=== PATIENT | female | born 1990 | race Caucasian/White ===

== ENCOUNTER → 2016-10-05 | Outpatient (CLI) | payer BC ==
[~2016-10-05] MED LIST: ACET500T PO; AUGM875T27 PO; DOCU10ELUD PO; IBUP100SUS PO; MOME50SP; PERCOCET PO; PRENTAB66 PO; PROM25TA PO
--- NOTE | 2016-10-05 16:06 | REP ---
Obstetric ultrasound for anatomy: There is a single intrauterine gestation. position is variable. There is movement. heart rate is 147 beats per minute. The placenta is posterior. There is no placenta previa or abruptio. The placenta is grade 0 maturity. Cervix measures 4.6 cm length. Gestational age by today's measurements is 20 weeks 3 days with an BIENVENIDO of 02/19/2017. Gestational age by the first ultrasound this gestation is 20 weeks 3 days and by LMP is 19 weeks 6 days. weight is 354 grams (0 pounds, 12 ounces). This is the 66 percentile for 19 weeks 6 days. The following anatomic structures are identified and are unremarkable: Intracranial lateral ventricles, choroid plexus, cerebellum, cisterna magna, facial profile, upper lip, lungs, four-chamber heart, cardiac left ventricular outflow tract, diaphragm, stomach, cord insertion, three-vessel cord, kidneys, bladder, spine and upper/ lower extremities. The cardiac right ventricular outflow tract is not optimally demonstrated. Otherwise, no anomalies are identified. Followup study dedicated to the cardiac outflow tracts might be considered. Signed by Tad Mims MD 10/05/2016 03:58 P
== END | disposition home or self-care (01) ==
LOC: M RAD 09:48
PROVIDERS: ATTEND Obstetrics & Gynecology
DX: Z34.82 Encounter for supervision of other normal pregnancy, second trimester (principal); Z36 Encounter for antenatal screening of mother; Z3A.20 20 weeks gestation of pregnancy

== ENCOUNTER → 2016-10-11 | Outpatient (REF) | payer OTHER | LOC: M LAB REF 16:33 | PROVIDERS: ATTEND Physician Assistant | DX: J02.9 Acute pharyngitis, unspecified (principal) ==

== ENCOUNTER 2016-10-26 08:51 | Outpatient (CLI) | payer BC, OTHER ==
[~2016-10-26] VITALS: Ht 170.2 cm; Wt 114.0 kg
[2016-10-26] MEDS ORDERED: LR 1,000 ML IV ONE (09:00)
[2016-10-26] MEDS ORDERED: PRENTAB9 PO (09:01)
[2016-10-26 09:10] VITALS: BP 117/77
[2016-10-26] MEDS ORDERED: LR 1,000 ML IV SCH (09:15)
[2016-10-26 09:40] LABS: BASO % 0.2 % (0.0-1.0); EOS # 0.1 K/mm3 (0.0-0.50); EOS % 0.9 % (0.0-3.0); LARGE UNSTAINED CELL # 0.1 K/mm3 (0.0-0.4); LARGE UNSTAINED CELL % 0.5 % (0.0-4.0); LYMPH # 1.7 K/mm3 (1.5-6.5); LYMPH % 11.4 % (24.0-44.0); MEAN CORPUSCULAR HEMOGLOBIN 29.5 pg (27.0-33.0); MEAN CORPUSCULAR HGB CONC 33.8 g/dl (32.0-36.5); MEAN CORPUSCULAR VOLUME 87.4 fl (80.0-96.0); MONO # 0.5 K/mm3 (0.0-0.8); MONO % 3.8 % (0.0-5.0); NEUTROPHILS # 11.7 K/mm3 (1.8-7.7); NEUTROPHILS % 83.2 % (36.0-66.0); PLATELET COUNT, AUTOMATED 268 k/mm3 (150-450); RED CELL DISTRIBUTION WIDTH 13.3 % (11.5-14.5); WHITE BLOOD COUNT 14.1 K/mm3 (4.0-10.0)
[2016-10-26 10:12] LABS: ALBUMIN 2.9 GM/DL (3.2-5.2); ALBUMIN/GLOBULIN RATIO 0.88 (1.00-1.93); ALKALINE PHOSPHATASE 67 U/L (45-117); ALT/SGPT 16 U/L (12-78); ANION GAP 11 MEQ/L (8-16); AST/SGOT 16 U/L (15-37); BILIRUBIN,TOTAL 0.3 MG/DL (0.2-1.0); BLOOD UREA NITROGEN 6 MG/DL (7-18); CALCIUM LEVEL 8.7 MG/DL (8.5-10.1); CARBON DIOXIDE LEVEL 22 MEQ/L (21-32); CHLORIDE LEVEL 108 MEQ/L (98-107); CREATININE FOR GFR 0.64 MG/DL (0.55-1.02); GLOMERULAR FILTRATION RATE > 60.0 (>60); GLUCOSE, FASTING 90 MG/DL (70-105); POTASSIUM SERUM 3.7 MEQ/L (3.5-5.1); SODIUM LEVEL 141 MEQ/L (136-145); TOTAL PROTEIN 6.2 GM/DL (6.4-8.2)
[2016-10-26 13:10] VITALS: BP 114/62
--- NOTE | 2016-11-01 15:31 | IPNPDOC ---
Obstetrical Progress Note Date of Service The patient was seen on 10/26/16 at 12:40. Progress Note SUBJECTIVE: Patient is a 26 year old female who is a who is 22 weeks 6 days gestation with an BIENVENIDO of 02/23/17 based off of her 1st trimester ultrasound and consistent with her LMP. She presented to L&D after she had an episode of dizziness and "passed out." Patient reports that she woke up and had to go to the bathroom. She reports getting up quickly and feeling dizzy after she did. She describes a syncopal episode that involved her falling in her bathroom onto the radiator hitting her left arm and her right cheek bone. Patient reports it as a slow fall and she did not hit her abdomen. She did report some lower suprapubic cramping that has been occurring the the day prior. She states the cramping is much better now. She was given an ice pack for comfort. Currently denies any dizziness. Reports active movement. Denies vaginal bleeding or leaking of fluid. Medical History: varicose veins, SLE, migraines, varicella as a child Surgical: cholecystectomy in 2014 OBJECTIVE:FHR obtained. No contractions noted on EFM. PHYSICAL EXAMINATION: Abdomen: gravid, soft to palpation Face: small 1 inch red jordan present on right cheek bone Upper extremities: small bruise present on left upper arm VITAL SIGNS: Please see below. CURRENT LABS: Please see below. ASSESSMENT: IUP at 22 weeks 6 days gestation, syncopal episode likely brought on by orthostatic hypotension, round ligament pain, systemic lupus erythema PLAN:Reviewed comfort measures to help with pain from fall. Reviewed normal discomforts with patient to include round ligament pain. Reviewed measures to decrease dizziness to include appropriate diet to maintain glucose levels and getting up slowly. Encouraged patient to increase her fluid take. A note was written for patient to be out of work today. Reviewed with patient that she needs to call office with any vaginal bleeding, if cramping becomes worse, she doesn't feel movement. Reviewed access to care, cross coverage of care, and danger signs to report. MAy be discharged home with . Follow up with routine OB care. VS, I&O, 24H, Fishbone Vital Signs/I&O Vital Signs Date Time Temp Pulse Resp B/P Pulse Ox O2 Delivery O2 Flow Rate FiO2 10/26/16 13:10 98.3 70 18 114/62 Laboratory Data 24H LABS Item Value Date Time White Blood Count 14.1 K/mm3 H 10/26/16 0913 Red Blood Count 4.34 M/mm3 10/26/16 0913 Hemoglobin 12.8 g/dl 10/26/16 0913 Hematocrit 37.9 % 10/26/16 0913 Platelet Count 268 k/mm3 10/26/16 0913 Lupus Anticoag DRVVT Screen Ratio 0.9 10/26/16 1157 Urine Color YELLOW 10/26/16 0957 Urine Appearance HAZY 10/26/16 0957 Urine pH 6.0 UNITS 10/26/16 0957 Urine Specific [place] 1.018 10/26/16 0957 Urine Protein NEGATIVE mg/dL 10/26/16 0957 Urine Glucose (UA) NEGATIVE mg/dL 10/26/16 0957 Urine Ketones NEGATIVE mg/dL 10/26/16 0957 Urine Blood NEGATIVE 10/26/16 0957 Urine Nitrite NEGATIVE 10/26/16 0957 Urine Bilirubin NEGATIVE 10/26/16 0957 Urine Urobilinogen 0.2 mg/dL 10/26/16 0957 Urine Leukocyte Esterase 1+ H 10/26/16 0957 Urine WBC (Auto) 10 /HPF H 10/26/16 0957 Urine RBC (Auto) 1 /HPF 10/26/16 0957 Urine Hyaline Casts (Auto) 0 /LPF 10/26/16 0957 Urine Bacteria (Auto) NEGATIVE 10/26/16 0957 Urine Squamous Epithelial Cells 5 /HPF 10/26/16 0957 Anti-Double Strand DNA Antibody <1 IU/mL 10/26/16 1157 Microbiology Microbiology 10/26/16 Urine Culture - Final, Complete THOMAS ALLEN CNM Nov 01, 2016 15:31
== END 2016-10-26 12:57 | disposition home or self-care (01) ==
LOC: M LDO 08:51
PROVIDERS: ATTEND Obstetrics & Gynecology
DX: O26.892 Other specified pregnancy related conditions, second trimester (principal); O99.89 Other specified diseases and conditions complicating pregnancy, childbirth and the puerperium; R42 Dizziness and giddiness; R55 Syncope and collapse; M54.9 Dorsalgia, unspecified; O9A.212 Injury, poisoning and certain other consequences of external causes complicating pregnancy, second trimester; S49.92XA Unspecified injury of left shoulder and upper arm, initial encounter; S09.93XA Unspecified injury of face, initial encounter; W18.09XA Striking against other object with subsequent fall, initial encounter; Y92.091 Bathroom in other non-institutional residence as the place of occurrence of the external cause; Y93.89 Activity, other specified; Y99.9 Unspecified external cause status; Z3A.22 22 weeks gestation of pregnancy

== ENCOUNTER → 2016-11-02 | Outpatient (CLI) | payer BC, OTHER ==
[~2016-11-02] MED LIST changes: +PRENTAB9 PO
--- NOTE | 2016-11-02 13:25 | REP ---
OB ULTRASOUND: Real-time sonographic evaluation of the gravid uterus is performed. There is a single living intrauterine gestation, estimated gestational age 23 weeks 6 days. EDC 02/23/2017. Today's measurements indicate appropriate growth. BPD 58 mm 23 weeks 5 days, 47th percentile HC 219 mm 23 weeks 6 days, 50th percentile AC 202 mm 24 weeks 6 days, 69th percentile FL 45 mm = 24 weeks 6 days, 70th percentile HC/AC ratio 1.08 within normal range. Estimated weight 722 grams, 68th percentile. Cervix closed and measures 3.1 cm in length. heart rate 139 beats per minute. SEEN/GROSSLY UNREMARKABLE Lateral ventricles Yes Posterior fossa Yes Upper lip Yes Four-chamber heart Yes LVOT Yes RVOT Yes Stomach Yes Cord insertion Yes Three vessel cord Yes Kidneys Yes Bladder Yes Spine No position: Breech. Placenta: Posterior and grade 0 with no previa or abruption. Amniotic fluid: Within normal limits. Signed by Tad Farias MD 11/02/2016 04:43 P
== END ==
LOC: M RAD 09:38
PROVIDERS: ATTEND Obstetrics & Gynecology
DX: O32.1XX0 Maternal care for breech presentation, not applicable or unspecified (principal); Z36 Encounter for antenatal screening of mother; Z3A.23 23 weeks gestation of pregnancy

== ENCOUNTER 2016-11-03 14:59 | Outpatient (CLI) | payer BC, OTHER ==
[~2016-11-03] VITALS: Ht 170.2 cm; Wt 116.0 kg
[2016-11-03 15:32] VITALS: BP 129/73
--- NOTE | 2016-11-04 12:07 | IPNPDOC ---
Obstetrical Progress Note Date of Service The patient was seen on 11/03/16 at 16:00. Progress Note SUBJECTIVE: Patient is a 26-year-old 011 at 24 weeks' gestation with an BIENVENIDO of 02/23/2017 based on a first trimester ultrasound and consistent with her LMP. Patient initiated care at [facility] in her first trimester. Her has been complicated by systemic lupus erythema, varicose veins, and migraines. Patient presents to labor and delivery today with complaints of abdominal pain and back pain that started at 11:30 this morning while patient was at work. Patient reports pain to be in the suprapubic area and occasionally in her back. Reports pain as sharp shooting and intermittent. Patient denies dysuria, abnormal vaginal discharge, leaking of fluid, or diarrhea. Patient reports active movement. Reviewed patient's diet: At 0500 she ate a bagel with cream cheese and at 1045 she ate a mckoy mcdouble and small [place]. Past medical history: Migraines, systemic lupus erythema, and varicose veins Surgical history: Cholecystectomy in 2013 Obstetrical history: August 2012 and of a living male at 40 weeks gestation weighing 6 lbs. 11 oz. no complications. January 2016 5 week spontaneous . OBJECTIVE: heart rate baseline 120, moderate variability, positive accelerations, no decelerations. Contractions not noted. PHYSICAL EXAMINATION: Abdomen: Gravid. Soft on palpation. Vaginal exam: Speculum exam: Cervix is posterior, normal physiological discharge , appears thick and without dilatation. Extremities: No pitting edema. Varicose veins noted in lower extremities. VITAL SIGNS: Please see below. ASSESSMENT: IUP at 24 weeks gestation, not in labor, abdominal pain related to a high fat diet after cholecystectomy PLAN: Patient given an abdominal support binder to wear while she is working. Reviewed proper body mechanics while at work. Education done with patient on diet with recommendations of diet changes to decrease fat consumption and carbohydrate intake. Reviewed comfort measures the patient for abdominal pain and back pain. Danger signs reviewed with patient and encouraged to call the office if she is experiencing any of those signs or symptoms. Patient's discharge to home with and encouraged follow-up with routine obstetrical care. Case was reviewed with Dr. Guallpa who agrees with plan of care. VS, I&O, 24H, Fishbone Vital Signs/I&O Vital Signs Date Time Temp Pulse Resp B/P Pulse Ox O2 Delivery O2 Flow Rate FiO2 11/03/16 15:32 99.5 71 20 129/73 THOMAS ALLEN CNM Nov 03, 2016 16:44
== END 2016-11-03 16:20 | disposition home or self-care (01) ==
LOC: M LDO 14:59
PROVIDERS: ATTEND Advanced Practice Midwife
DX: O26.892 Other specified pregnancy related conditions, second trimester (principal); O22.02 Varicose veins of lower extremity in pregnancy, second trimester; O99.352 Diseases of the nervous system complicating pregnancy, second trimester; O99.89 Other specified diseases and conditions complicating pregnancy, childbirth and the puerperium; M32.9 Systemic lupus erythematosus, unspecified; Z3A.24 24 weeks gestation of pregnancy

== ENCOUNTER → 2016-11-16 | Outpatient (CLI) | payer BC, OTHER ==
[2016-11-16 12:49] LABS: MEAN CORPUSCULAR HEMOGLOBIN 30.3 pg (27.0-33.0); MEAN CORPUSCULAR HGB CONC 33.9 g/dl (32.0-36.5); MEAN CORPUSCULAR VOLUME 89.4 fl (80.0-96.0); RED CELL DISTRIBUTION WIDTH 13.2 % (11.5-14.5); WHITE BLOOD COUNT 11.9 K/mm3 (4.0-10.0)
== END ==
LOC: M LAB 10:36
PROVIDERS: ATTEND Obstetrics & Gynecology
DX: Z34.82 Encounter for supervision of other normal pregnancy, second trimester (principal); Z36 Encounter for antenatal screening of mother; Z3A.00 Weeks of gestation of pregnancy not specified

== ENCOUNTER → 2016-12-05 | Outpatient (REF) | payer OTHER | LOC: M LAB REF 12:50 | PROVIDERS: ATTEND Advanced Practice Midwife | DX: R10.2 Pelvic and perineal pain (principal) ==

== ENCOUNTER → 2016-12-14 | Outpatient (REF) | payer OTHER | LOC: M LAB REF 13:00 | PROVIDERS: ATTEND Advanced Practice Midwife | DX: O99.352 Diseases of the nervous system complicating pregnancy, second trimester (principal); Z36 Encounter for antenatal screening of mother; Z3A.00 Weeks of gestation of pregnancy not specified ==

== ENCOUNTER → 2016-12-20 | Outpatient (REF) | payer OTHER | LOC: M LAB REF 12:46 | PROVIDERS: ATTEND Advanced Practice Midwife | DX: O99.352 Diseases of the nervous system complicating pregnancy, second trimester (principal); Z36 Encounter for antenatal screening of mother; Z3A.00 Weeks of gestation of pregnancy not specified ==

== ENCOUNTER 2017-01-14 14:44 | Outpatient (CLI) | payer BC, OTHER ==
[~2017-01-14] VITALS: Ht 170.2 cm; Wt 110.0 kg
[~2017-01-14 14:44] MED LIST changes: -ACET50TA PO; -ACETAMINOPHEN 325 MG TAB PO ONE; -diphenhydrAMINE 50 MG CAP PO ONE
[2017-01-14] MEDS ORDERED: ACET50TA PO (14:52)
[2017-01-14] MEDS ORDERED: diphenhydrAMINE 25 MG CAP As Ordered ONE (15:57)
[2017-01-14] MEDS ORDERED: ACETAMINOPHEN 500 MG TAB As Ordered ONE (16:13)
[2017-01-14] MEDS ORDERED: ACETAMINOPHEN 500 MG TAB PO PRN (16:15)
[2017-01-14] MEDS ORDERED: diphenhydrAMINE 50 MG CAP PO PRN (16:15)
== END 2017-01-14 16:25 | disposition home or self-care (01) ==
LOC: M LDO 14:44
PROVIDERS: ATTEND Advanced Practice Midwife
DX: O99.89 Other specified diseases and conditions complicating pregnancy, childbirth and the puerperium (principal); T50.A15A Adverse effect of pertussis vaccine, including combinations with a pertussis component, initial encounter; Z3A.34 34 weeks gestation of pregnancy

== ENCOUNTER → 2017-01-14 | Emergency (ER) | payer BC, OTHER ==
[~2017-01-14] VITALS: Ht 170.2 cm; Wt 117.5 kg
[~2017-01-14] MED LIST changes: +ACET50TA PO; +ACETAMINOPHEN 325 MG TAB PO ONE; +diphenhydrAMINE 50 MG CAP PO ONE
[2017-01-14 14:28] VITALS: BP 138/79
== END | disposition admitted as inpatient to this hospital (09) ==
LOC: M ED 15:29
DX: O26.893 Other specified pregnancy related conditions, third trimester (principal); R11.0 Nausea; R51 Headache; Z3A.34 34 weeks gestation of pregnancy

== ENCOUNTER → 2017-01-25 | Outpatient (REF) | payer OTHER ==
[~2017-01-25] MED LIST changes: +ACET50TA PO
== END ==
LOC: M LAB REF 12:38
PROVIDERS: ATTEND Advanced Practice Midwife
DX: Z34.83 Encounter for supervision of other normal pregnancy, third trimester (principal); Z36 Encounter for antenatal screening of mother; Z3A.00 Weeks of gestation of pregnancy not specified

== ENCOUNTER → 2017-01-29 | Outpatient (CLI) | payer BC, OTHER ==
--- NOTE | 2017-01-30 04:41 | REP ---
Clinical: Growth evaluation and amniotic fluid volume evaluation. Comparison: 11/02/2016 . Findings: Examination demonstrates a single live intrauterine in cephalic presentation. motion is identified by technologist. Placenta is noted posterior fundally and grade one without evidence for placenta previa or abruption. Amniotic fluid volume is normal. Cervix measures 3.0 cm in length and appears closed. Nuchal cord is appreciated . Gestational age by LMP 36 weeks 3 days with BIENVENIDO 02/23/2017 . Gestational age by current measurements 36 weeks 3 days with BIENVENIDO 02/23/2017 . FHR equals 144 beats per minute. BPD 9.0 cm 36 weeks 2 days HC 32.1 cm 36 weeks 2 days AC 32.7 cm 36 weeks 4 days FL 7.2 cm 36 weeks 6 days HL 6.3 cm 36 weeks 2 days HC/AC ratio 0.98 Estimated weight 2984 grams ( 56th percentile). Amniotic fluid index equals 15.0 cm (7.6 - 24.7) Umbilical cord SD ratio equals 2.33 (1.84 - 2.84) Impression: 1. Single live advanced gestation in cephalic presentation demonstrating appropriate interval growth. 2. Nuchal cord noted. 3. Amniotic fluid index within normal limits. Signed by Kevin Zelaya MD 01/30/2017 04:31 A
== END ==
LOC: M RAD 10:50
PROVIDERS: ATTEND Advanced Practice Midwife
DX: O99.352 Diseases of the nervous system complicating pregnancy, second trimester (principal); Z36 Encounter for antenatal screening of mother; Z3A.36 36 weeks gestation of pregnancy

== ENCOUNTER 2017-02-06 23:50 | Outpatient (CLI) | payer BC, OTHER ==
[~2017-02-06] VITALS: Ht 170.2 cm; Wt 115.0 kg
[2017-02-07 00:01] VITALS: BP 132/79
== END 2017-02-07 06:51 | disposition home or self-care (01) ==
LOC: M LDO 23:50
PROVIDERS: ATTEND Obstetrics & Gynecology
DX: O47.1 False labor at or after 37 completed weeks of gestation (principal); O36.8130 Decreased fetal movements, third trimester, not applicable or unspecified; Z3A.37 37 weeks gestation of pregnancy

== ENCOUNTER 2017-02-16 06:51 | Inpatient (IN) | payer BC, OTHER ==
[2017-02-16] VITALS (50 sets, daily range): BP systolic 76–158; BP diastolic 43–83
[~2017-02-16] VITALS: Ht 170.2 cm; Wt 118.0 kg
[2017-02-16 08:18] LABS: MEAN CORPUSCULAR HGB CONC 35.3 g/dl (32.0-36.5); MEAN CORPUSCULAR VOLUME 87.8 fl (80.0-96.0); RED CELL DISTRIBUTION WIDTH 13.2 % (11.5-14.5); WHITE BLOOD COUNT 13.2 K/mm3 (4.0-10.0)
[2017-02-16] MEDS ORDERED: LACTATED RINGER'S 1000 ML IV STA (08:33)
[2017-02-16] MEDS ORDERED: LR 1,000 ML IV SCH (08:33)
[2017-02-16] MEDS ORDERED: OXYTOCIN DRIP 30 UNITS in APPROPRIATE DILUENT 1 EA IV SCH ×2 (08:45→19:53)
[2017-02-16] MEDS ORDERED: FENTANYL 2MCG/ML ROPIVACAINE 0.2% IN 0.9% NACL 200ML IVBAG As Ordered ONE (12:31)
[2017-02-16] MEDS ORDERED: ePHEDrine SULFATE 25 MG/5 ML(5MG/ML) SYRINGE As Ordered ONE (13:42)
[2017-02-16] MEDS ORDERED: ePHEDrine SULFATE 25 MG/5 ML(5MG/ML) SYRINGE IV PRN (14:00)
[2017-02-16] MEDS ORDERED: FENTANYL/ROPIVACAINE/NACL BAG 200 ML EPIDURAL SCH (14:00)
[2017-02-16] MEDS ORDERED: EPIDURAL/PCA KEYS XX PRN (14:00)
[2017-02-16] MEDS ORDERED: NALOXONE INJ 0.4 MG/1 ML VIAL (J2310) IV PRN (14:00)
[2017-02-16] MEDS ORDERED: EPIDURAL COMMENT XX SCH (14:00)
[2017-02-16] MEDS ORDERED: ONDANSETRON 4MG/2ML VIAL (J2405) IV PRN (14:00)
[2017-02-16] MEDS ORDERED: LACTATED RINGER'S 1000 ML IV PRN (14:00)
[2017-02-16] MEDS ORDERED: diphenhydrAMINE INJ 50MG/ML VIAL (J1200) IV PRN (14:00)
[2017-02-16] MEDS ORDERED: REFRIGERATOR IV KEYS XX PRN (14:00)
[2017-02-16] MEDS ORDERED: OXYTOCIN 30 UNITS IN 0.9% NaCl 500ML IV BAG (J2590) As Ordered ONE (19:54)
[2017-02-16] MEDS ORDERED: RHOGAM 300 MCG (1500 IU) INJ (J2790) IM SCH (20:00)
[2017-02-16] MEDS ORDERED: DIBUCAINE 1% OINTMENT 30GM TOP PRN (20:00)
[2017-02-16] MEDS ORDERED: DOCUSATE SODIUM 100 MG CAP PO PRN (20:00)
[2017-02-16] MEDS ORDERED: METHYLERGONOVINE MALEATE 0.2 MG TAB PO PRN (20:00)
[2017-02-16] MEDS ORDERED: MEASLES,MUMPS,RUBELLA VACCINE INJ (MMR-II) (90707) SC SCH (20:00)
[2017-02-16] MEDS ORDERED: ANUSOL HC CREAM 30GM TOP PRN (20:00)
[2017-02-16 20:13] LABS: CORD GAS ABE V -3.2; CORD GAS O2 SAT V 78.3 %; CORD GAS PCO2 V 35.5 mmHg; CORD GAS PH V 7.39 UNITS; CORD GAS PO2 V 32.8 mmHg; CORD GAS SBC V 21.4 MEQ/L; CORD GAS TCO2 V 22.1 MEQ/L
[2017-02-16 20:14] LABS: CORD GAS ABE A -1.4; CORD GAS HCO3 A 25.7 MEQ/L; CORD GAS O2 SAT A 23.1 %; CORD GAS PCO2 A 52.3 mmHg; CORD GAS PH A 7.309 UNITS; CORD GAS PO2 A 13.3 mmHg; CORD GAS SBC A 21.4 MEQ/L; CORD GAS TCO2 A 27.3 MEQ/L
[2017-02-16] MEDS: IBUPROFEN 800 MG TAB PO PRN (20:46)
[2017-02-17] MEDS: ACETAMINOPHEN 500 MG TAB PO PRN ×4 (03:52→22:58)
[2017-02-17 05:32] VITALS: BP 131/69
[2017-02-17] MEDS: IBUPROFEN 800 MG TAB PO PRN ×2 (08:16→16:26)
[2017-02-17] MEDS: PRENATAL VITAMINS CHEWABLE TABLET PO SCH (08:16)
--- NOTE | 2017-02-17 10:51 | DN ---
DATE OF DELIVERY: 02/16/2017 Josy is a 26-year-old female, 3, para 1-0-1-1, with an estimated date of confinement (EDC) of 02/23/2017, estimated gestational age (EGA) 39 weeks' gestation, who was admitted for an induction with gestational hypertension. She underwent Pitocin followed by artificial rupture of membranes. She then progressed to fully dilated, delivered a live female in right occiput anterior position over a nuchal cord times two. scores 8 and 9. weight 6 pounds 13 ounces. Placenta delivered spontaneously intact. Three-vessel cord. Vagina, cervix, and perineum inspected. No laceration noted. Estimated blood loss 250 mL. Both mother and baby in stable condition.
[2017-02-17 18:00] VITALS: BP 110/58
[2017-02-18] MEDS: IBUPROFEN 800 MG TAB PO PRN (04:43)
[2017-02-18 06:13] VITALS: BP 116/70
[2017-02-18] MEDS: PRENATAL VITAMINS CHEWABLE TABLET PO SCH (09:21)
[2017-02-18] MEDS ORDERED: IBUP-1114 PO (10:45)
[2017-02-18] MEDS ORDERED: ACET50TA PO (10:45)
--- NOTE | 2017-02-19 12:53 | HPE ---
DATE OF ADMISSION: 02/16/2017 The patient is a 26-year-old female who is 39 weeks with an estimated date of delivery (BIENVENIDO) of 02/23/2017, based off of her last menstrual period (LMP) and consistent with her first trimester ultrasound. She initiated care at [email or web address] in her first trimester. Her care has been complicated by systemic lupus erythema. She presents to labor and delivery for induction of labor due to systemic lupus erythema. She denies vaginal bleeding and leaking of fluid. She reports active movement. PAST MEDICAL HISTORY: Systemic lupus erythema. SURGICAL HISTORY: Removal of gallbladder in 2013. OBSTETRICAL HISTORY: The patient is 3 para 1-0-1-1. In August 2012, she had a 40 week live male weighing 6 pounds 11 ounces through a vaginal delivery, no complications. In January 2016, she had a spontaneous (SAB) at 5 weeks. ALLERGIES: No known drug allergies. CURRENT MEDICATIONS: - prednisone 5 mg as needed for lupus flare - vitamins FAMILY HISTORY: Mother has lupus, fibromyalgia, and hypertension. Her sister has thyroid disease. SOCIAL HISTORY: Patient is . She is employed. She has never smoked. She does not use drugs. She does not drink alcohol. She has no history of any sexually transmitted diseases (STDs). LABORATORY DATA: Blood type is A positive. Her pap was normal. Rubella is immune. Syphilis nonreactive. Urine culture was negative. Hepatitis B is negative. HIV is negative. Hepatitis C is negative. Gonorrhea and chlamydia are both negative. She declined genetic testing. Her 1-hour glucose test was 76 and her lupus screens have been negative with each trimester. OBJECTIVE: heart rate is 130 beats per minute with moderate variability, positive accelerations, no decelerations. Her contractions are irregular. VITAL SIGNS: Temperature 98.6, blood pressure 121/74, heart rate 92, respirations 18. VAGINAL EXAM: 450/-1, no bloody show, anterior, bulging bag of membranes. ABDOMEN: Gravid and soft with palpation. BILATERAL LOWER EXTREMITIES: Generalized edema with no pitting. RESPIRATORY: Lungs are clear bilaterally. Respirations are regular. ASSESSMENT: Intrauterine at 39 weeks gestation, systemic lupus erythema, term . PLAN: Admit to labor and delivery. Saline lock and labs per protocol. Patient can be out of bed as tolerated. May receive epidural when she requests. Induction to be started using Pitocin after patient's consent. Anticipated cervical change and spontaneous vaginal delivery.
== END 2017-02-18 11:25 | disposition home or self-care (01) | DRG 560 ==
LOC: M LDI 06:51 → M OBS 21:41
PROVIDERS: ADMIT Obstetrics & Gynecology; ATTEND Obstetrics & Gynecology
PROC: 10E0XZZ Delivery of Products of Conception, External Approach (ICD-10-PCS; principal; 2017-02-16)
PROC: 10907ZC Drainage of Amniotic Fluid, Therapeutic from Products of Conception, Via Natural or Artificial Opening (ICD-10-PCS; 2017-02-16)
PROC: 3E033VJ Introduction of Other Hormone into Peripheral Vein, Percutaneous Approach (ICD-10-PCS; 2017-02-16)
DX: O13.4 Gestational [pregnancy-induced] hypertension without significant proteinuria, complicating childbirth (principal); M32.9 Systemic lupus erythematosus, unspecified; O99.354 Diseases of the nervous system complicating childbirth; O26.893 Other specified pregnancy related conditions, third trimester; Z3A.39 39 weeks gestation of pregnancy; O99.89 Other specified diseases and conditions complicating pregnancy, childbirth and the puerperium; O69.82X0 Labor and delivery complicated by other cord entanglement, without compression, not applicable or unspecified; G43.909 Migraine, unspecified, not intractable, without status migrainosus; Z37.0 Single live birth; Z79.52 Long term (current) use of systemic steroids

== ENCOUNTER → 2017-05-29 | Outpatient (REF) | payer OTHER, MEDICAID ==
[~2017-05-29] MED LIST changes: +IBUP-1114 PO
== END ==
LOC: M LAB REF 09:40
PROVIDERS: ATTEND Physician Assistant
DX: R30.0 Dysuria (principal)

== ENCOUNTER → 2017-10-18 | Outpatient (CLI) | payer BC, MEDICAID, OTHER | LOC: M WUC 16:58 | DX: M79.622 Pain in left upper arm (principal) | CPT/HCPCS: 73090 ==

== ENCOUNTER → 2018-01-23 | Outpatient (REF) | payer BC, MEDICAID ==
[2018-01-24 10:12] LABS: AMORPHOUS SEDIMENT MODERATE (NEGATIVE); APPEARANCE, URINE TURBID (CLEAR); BACTERIA, URINE AUTO NEGATIVE (NEGATIVE); BILIRUBIN, URINE AUTO NEGATIVE (NEGATIVE); BLOOD, URINE BLOOD 2+ (NEGATIVE); COLOR, URINE YELLOW (YELLOW); GLUCOSE, URINE (UA) AUTO NEGATIVE (NEGATIVE); KETONE, URINE AUTO NEGATIVE (NEGATIVE); LEUKOCYTE ESTERASE, URINE AUTO TRACE (NEGATIVE); MUCUS, URINE SMALL (NEGATIVE); NITRITE, URINE AUTO NEGATIVE (NEGATIVE); PROTEIN, URINE AUTO NEGATIVE (NEGATIVE); RBC, URINE AUTO 0 /HPF (0-3); SPECIFIC GRAVITY URINE AUTO 1.031 (1.002-1.035); SQUAMOUS EPITHELIAL CELL UR AU 2 /HPF (0-6); UROBILINOGEN, URINE AUTO 0.2 mg/dL (0.0-2.0); WBC, URINE AUTO 0 /HPF (0-3)
== END ==
LOC: M LAB REF 17:00
DX: N39.0 Urinary tract infection, site not specified (principal)
CPT/HCPCS: 81001

== ENCOUNTER → 2018-04-12 | Outpatient (REF) | payer OTHER, MEDICAID ==
[2018-04-12 21:49] LABS: APPEARANCE, URINE HAZY (CLEAR); BACTERIA, URINE AUTO NEGATIVE (NEGATIVE); BILIRUBIN, URINE AUTO NEGATIVE (NEGATIVE); BLOOD, URINE BLOOD 2+ (NEGATIVE); COLOR, URINE YELLOW (YELLOW); GLUCOSE, URINE (UA) AUTO NEGATIVE (NEGATIVE); KETONE, URINE AUTO TRACE mg/dL (NEGATIVE); LEUKOCYTE ESTERASE, URINE AUTO 2+ (NEGATIVE); MUCUS, URINE SMALL (NEGATIVE); NITRITE, URINE AUTO NEGATIVE (NEGATIVE); PROTEIN, URINE AUTO 1+ mg/dL (NEGATIVE); RBC, URINE AUTO 36 /HPF (0-3); SPECIFIC GRAVITY URINE AUTO 1.034 (1.002-1.035); SQUAMOUS EPITHELIAL CELL UR AU 3 /HPF (0-6); WBC, URINE AUTO 128 /HPF (0-3)
== END ==
LOC: M LAB REF 10:36
DX: N39.0 Urinary tract infection, site not specified (principal)
CPT/HCPCS: 81001

== ENCOUNTER → 2018-05-10 | Outpatient (REF) | payer OTHER, MEDICAID ==
[2018-05-10 13:35] LABS: APPEARANCE, URINE CLEAR (CLEAR); BACTERIA, URINE AUTO NEGATIVE (NEGATIVE); BILIRUBIN, URINE AUTO NEGATIVE (NEGATIVE); BLOOD, URINE BLOOD 1+ (NEGATIVE); COLOR, URINE YELLOW (YELLOW); GLUCOSE, URINE (UA) AUTO NEGATIVE (NEGATIVE); KETONE, URINE AUTO NEGATIVE (NEGATIVE); LEUKOCYTE ESTERASE, URINE AUTO TRACE (NEGATIVE); MUCUS, URINE SMALL (NEGATIVE); NITRITE, URINE AUTO NEGATIVE (NEGATIVE); PROTEIN, URINE AUTO NEGATIVE (NEGATIVE); RBC, URINE AUTO 4 /HPF (0-3); SPECIFIC GRAVITY URINE AUTO 1.021 (1.002-1.035); SQUAMOUS EPITHELIAL CELL UR AU 3 /HPF (0-6); UROBILINOGEN, URINE AUTO 0.2 mg/dL (0.0-2.0); WBC, URINE AUTO 4 /HPF (0-3)
== END ==
LOC: M LAB REF 13:15
DX: N39.0 Urinary tract infection, site not specified (principal)

== ENCOUNTER → 2018-05-16 | Outpatient (REF) | payer MEDICAID ==
[2018-05-16 18:40] LABS: APPEARANCE, URINE HAZY (CLEAR); BACTERIA, URINE AUTO NEGATIVE (NEGATIVE); BILIRUBIN, URINE AUTO NEGATIVE (NEGATIVE); BLOOD, URINE BLOOD NEGATIVE (NEGATIVE); COLOR, URINE YELLOW (YELLOW); GLUCOSE, URINE (UA) AUTO NEGATIVE (NEGATIVE); KETONE, URINE AUTO NEGATIVE (NEGATIVE); LEUKOCYTE ESTERASE, URINE AUTO NEGATIVE (NEGATIVE); NITRITE, URINE AUTO NEGATIVE (NEGATIVE); PROTEIN, URINE AUTO NEGATIVE (NEGATIVE); RBC, URINE AUTO 4 /HPF (0-3); SPECIFIC GRAVITY URINE AUTO 1.025 (1.002-1.035); SQUAMOUS EPITHELIAL CELL UR AU 4 /HPF (0-6); WBC, URINE AUTO 2 /HPF (0-3)
== END ==
LOC: M LAB REF 17:01
DX: N39.0 Urinary tract infection, site not specified (principal)

== ENCOUNTER → 2018-05-30 | Outpatient (REF) | payer OTHER, MEDICAID ==
[2018-05-30 14:22] LABS: APPEARANCE, URINE HAZY (CLEAR); BACTERIA, URINE AUTO NEGATIVE (NEGATIVE); BILIRUBIN, URINE AUTO NEGATIVE (NEGATIVE); BLOOD, URINE BLOOD NEGATIVE (NEGATIVE); COLOR, URINE YELLOW (YELLOW); GLUCOSE, URINE (UA) AUTO NEGATIVE (NEGATIVE); KETONE, URINE AUTO NEGATIVE (NEGATIVE); LEUKOCYTE ESTERASE, URINE AUTO NEGATIVE (NEGATIVE); MUCUS, URINE SMALL (NEGATIVE); NITRITE, URINE AUTO NEGATIVE (NEGATIVE); PROTEIN, URINE AUTO NEGATIVE (NEGATIVE); RBC, URINE AUTO 0 /HPF (0-3); SPECIFIC GRAVITY URINE AUTO 1.032 (1.002-1.035); SQUAMOUS EPITHELIAL CELL UR AU 2 /HPF (0-6); UROBILINOGEN, URINE AUTO 0.2 mg/dL (0.0-2.0); WBC, URINE AUTO 2 /HPF (0-3)
== END ==
LOC: M SMT 14:00
DX: N39.0 Urinary tract infection, site not specified (principal)
CPT/HCPCS: 81001

== ENCOUNTER → 2018-06-13 | Outpatient (CLI) | payer OTHER, MEDICAID | LOC: M RAD 15:23 | DX: N39.0 Urinary tract infection, site not specified (principal); M54.9 Dorsalgia, unspecified; R30.0 Dysuria; R35.0 Frequency of micturition | CPT/HCPCS: 76775 ==

== ENCOUNTER 2018-11-09 12:19 | Emergency (ER) | payer MEDICAID, OTHER ==
[~2018-11-09] VITALS: Ht 170.2 cm; Wt 118.2 kg
[~2018-11-09 12:19] MED LIST changes: -ACET50TA PO; +MAPA500T2 PO
[2018-11-09] MEDS ORDERED: LEFL1TAB4 (12:25)
[2018-11-09] MEDS ORDERED: AJOV225I (12:25)
[2018-11-09] MEDS ORDERED: NORT50CA (12:25)
[2018-11-09] MEDS ORDERED: KETOROLAC 30 MG/ML VIAL (J1885) IV ONE (13:15)
[2018-11-09] MEDS ORDERED: ONDANSETRON 4MG/2ML VIAL (J2405) IV ONE ×2 (13:15→14:30)
[2018-11-09] MEDS ORDERED: NS 1,000 ML IV ONE (13:15)
[2018-11-09 13:55] LABS: BASO # 0.1 10^3/uL (0.0-0.2); BASO % 0.8 % (0.0-1.0); EOS # 0.2 10^3/uL (0.0-0.50); EOS % 1.7 % (0.0-3.0); HEMATOCRIT 47.4 % (36.0-47.0); HEMOGLOBIN 15.4 g/dl (12.0-15.5); LYMPH # 1.8 10^3/uL (1.5-6.5); LYMPH % 17.2 % (24.0-44.0); MEAN CORPUSCULAR HEMOGLOBIN 28.8 pg (27.0-33.0); MEAN CORPUSCULAR HGB CONC 32.5 g/dl (32.0-36.5); MEAN CORPUSCULAR VOLUME 88.6 fl (80.0-96.0); MONO # 0.6 10^3/uL (0.0-0.8); MONO % 5.5 % (0.0-5.0); NEUTROPHILS # 7.7 10^3/uL (1.8-7.7); NEUTROPHILS % 74.5 % (36.0-66.0); PLATELET COUNT, AUTOMATED 314 10^3/uL (150-450); RED BLOOD COUNT 5.35 10^6/uL (4.00-5.40); WHITE BLOOD COUNT 10.3 10^3/uL (4.0-10.0)
[2018-11-09 14:23] LABS: HCG, SERUM QUALITATIVE NEGATIVE (NEGATIVE)
[2018-11-09 14:25] LABS: BLOOD UREA NITROGEN 7 MG/DL (7-18); CALCIUM LEVEL 8.6 MG/DL (8.5-10.1); CARBON DIOXIDE LEVEL 25 MEQ/L (21-32); CHLORIDE LEVEL 110 MEQ/L (98-107); CREATININE FOR GFR 0.84 MG/DL (0.55-1.30); GLOMERULAR FILTRATION RATE > 60.0 (>60); GLUCOSE, FASTING 88 MG/DL (70-100); POTASSIUM SERUM 3.9 MEQ/L (3.5-5.1); SODIUM LEVEL 141 MEQ/L (136-145)
[2018-11-09] MEDS ORDERED: DILUENT IV ONE (14:30)
[2018-11-09] MEDS ORDERED: NACL IV ONE (14:30)
[2018-11-09] MEDS ORDERED: KETAMINE IV ONE (14:30)
[2018-11-09] MEDS ORDERED: BACT800T5 PO (15:59)
[2018-11-09 16:09] VITALS: BP 118/78
--- NOTE | 2018-11-10 07:29 | REP ---
CT ABDOMEN AND PELVIC WITHOUT CONTRAST: HISTORY: Right flank pain. COMPARISON: 02/08/2015 The patient is status post cholecystectomy. The liver, pancreas, spleen, adrenal glands and kidneys are normal in appearance. There is no nephrolithiasis or hydroureter. The visualized lungs are clear. A 2.1 cm ventral abdominal hernia containing a fat is present. The urinary bladder and uterus are normal in appearance. An IUD is present in the uterus. A small amount of free fluid is present in the pelvis. Minimal degenerative change is present in the spine. IMPRESSION: 1. The patient is status post cholecystectomy. 2. 2.1 cm fat-containing ventral abdominal hernia. 3. An IUD is present in the uterus. 4. A small amount of free fluid is present in the pelvis. Electronically Signed by Anselmo Chance MD 11/10/2018 08:03 A
--- NOTE | 2018-11-10 18:42 | ECGEPIP ---
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
== END 2018-11-09 16:20 | disposition home or self-care (01) ==
LOC: M ED 12:19
DX: N39.0 Urinary tract infection, site not specified (principal); M32.9 Systemic lupus erythematosus, unspecified; M06.9 Rheumatoid arthritis, unspecified; M79.7 Fibromyalgia; R11.0 Nausea; Z77.098 Contact with and (suspected) exposure to other hazardous, chiefly nonmedicinal, chemicals; Z97.5 Presence of (intrauterine) contraceptive device; Z88.5 Allergy status to narcotic agent; Z79.899 Other long term (current) drug therapy
CPT/HCPCS: 36415; 74176; 80048; 81001; 84703; 85025; 87086; 93005; 96365; 96375; 96376; 99284; J1885; J2405

== ENCOUNTER → 2018-11-16 | Outpatient (REF) | payer OTHER ==
[~2018-11-16] MED LIST changes: +AJOV225I; +BACT800T5 PO; +LEFL1TAB4; +NORT50CA
[2018-11-16 12:17] LABS: INFLUENZA A AMPLIFICATION NEGATIVE (NEGATIVE); INFLUENZA B AMPLIFICATION NEGATIVE (NEGATIVE)
== END ==
LOC: M LAB REF 11:29
PROVIDERS: ATTEND Nurse Practitioner Family
DX: J11.1 Influenza due to unidentified influenza virus with other respiratory manifestations (principal)

== ENCOUNTER → 2018-12-09 | Outpatient (REF) | payer OTHER ==
[~2018-12-09] MED LIST changes: -DOCU10ELUD PO; +DOCU5LIQ PO; +IBUP100S44 PO; -IBUP100SUS PO; +OXYC1TAB23 PO; -PERCOCET PO; +PROM-190 PO; -PROM25TA PO
[2018-12-09 21:32] LABS: APPEARANCE, URINE HAZY (CLEAR); BACTERIA, URINE AUTO NEGATIVE (NEGATIVE); BILIRUBIN, URINE AUTO NEGATIVE (NEGATIVE); BLOOD, URINE BLOOD NEGATIVE (NEGATIVE); COLOR, URINE YELLOW (YELLOW); GLUCOSE, URINE (UA) AUTO NEGATIVE (NEGATIVE); KETONE, URINE AUTO TRACE mg/dL (NEGATIVE); LEUKOCYTE ESTERASE, URINE AUTO TRACE (NEGATIVE); MUCUS, URINE SMALL (NEGATIVE); NITRITE, URINE AUTO NEGATIVE (NEGATIVE); PROTEIN, URINE AUTO 1+ mg/dL (NEGATIVE); RBC, URINE AUTO 4 /HPF (0-3); SPECIFIC GRAVITY URINE AUTO 1.038 (1.002-1.035); SQUAMOUS EPITHELIAL CELL UR AU 6 /HPF (0-6); WBC, URINE AUTO 5 /HPF (0-3)
== END ==
LOC: M LAB REF 14:32
PROVIDERS: ATTEND Physician Assistant Medical
DX: N39.0 Urinary tract infection, site not specified (principal)

== ENCOUNTER 2019-01-07 13:38 | Inpatient (IN) | payer MEDICAID, OTHER ==
[~2019-01-07] VITALS: Ht 170.2 cm; Wt 119.2 kg
[~2019-01-07 13:38] MED LIST changes: -AJOV225I; +AJOV225I SC; -LEFL1TAB4; +LEFL1TAB4 PO
[2019-01-07] MEDS ORDERED: NORT75CA2 (14:04)
[2019-01-07 14:44] LABS: HEMATOCRIT 45.8 % (36.0-47.0); HEMOGLOBIN 14.7 g/dl (12.0-15.5); MEAN CORPUSCULAR HEMOGLOBIN 28.6 pg (27.0-33.0); MEAN CORPUSCULAR HGB CONC 32.1 g/dl (32.0-36.5); MEAN CORPUSCULAR VOLUME 89.1 fl (80.0-96.0); PLATELET COUNT, AUTOMATED 304 10^3/uL (150-450); RED BLOOD COUNT 5.14 10^6/uL (4.00-5.40); WHITE BLOOD COUNT 8.1 10^3/uL (4.0-10.0)
[2019-01-07 15:10] LABS: HCG, SERUM QUALITATIVE NEGATIVE (NEGATIVE)
[2019-01-07 15:11] LABS: AMPHETAMINES LEVEL URINE NEGATIVE (NEGATIVE); BARBITURATES URINE NEGATIVE (NEGATIVE); BENZODIAZEPINES URINE NEGATIVE (NEGATIVE); CANNABINOIDS URINE NEGATIVE (NEGATIVE); COCAINE METABOLITE URINE NEGATIVE (NEGATIVE); METHADONE URINE NEGATIVE (NEGATIVE); OPIATES URINE NEGATIVE (NEGATIVE); PHENCYCLIDINE URINE NEGATIVE (NEGATIVE)
[2019-01-07 15:23] LABS: ACETAMINOPHEN LEVEL < 2.0 UG/ML (10.0-30.0); ALBUMIN 3.6 GM/DL (3.2-5.2); ALT/SGPT 35 U/L (12-78); BILIRUBIN,DIRECT 0.2 MG/DL (0.0-0.2); BILIRUBIN,TOTAL 0.6 MG/DL (0.2-1.0); BLOOD UREA NITROGEN 10 MG/DL (7-18); CALCIUM LEVEL 8.6 MG/DL (8.5-10.1); CARBON DIOXIDE LEVEL 28 MEQ/L (21-32); CHLORIDE LEVEL 108 MEQ/L (98-107); CREATININE FOR GFR 0.82 MG/DL (0.55-1.30); ETHYL ALCOHOL (ETHANOL) < 0.003 % (0.000-0.010); GLOMERULAR FILTRATION RATE > 60.0 (>60); GLUCOSE, FASTING 88 MG/DL (70-100); POTASSIUM SERUM 4.2 MEQ/L (3.5-5.1); SALICYLATE LEVEL 2.8 MG/DL (5.0-30.0); SODIUM LEVEL 141 MEQ/L (136-145); TOTAL PROTEIN 7.1 GM/DL (6.4-8.2)
[2019-01-07] MEDS ORDERED: FOLI1TAB11 PO (16:41)
[2019-01-07] MEDS ORDERED: NORT50CA PO (16:41)
[2019-01-07] MEDS ORDERED: MOM 30ML SUSPENSION UDC PO PRN (18:00)
[2019-01-07] MEDS ORDERED: MAALOX 30 ML SUSP *UDC PO PRN (18:00)
[2019-01-07] MEDS ORDERED: NORTRIPTYLINE 25 MG CAP PO SCH (21:00)
[2019-01-07 22:16] VITALS: BP 147/96
[2019-01-07] MEDS: FOLIC ACID 1 MG TAB PO SCH (22:17)
[2019-01-07] MEDS: traZODone 50 MG TAB PO PRN (22:19)
[2019-01-07] MEDS: ACETAMINOPHEN TAB 650MG DOSE (2X325MG) PO PRN (22:20)
[2019-01-08 07:11] VITALS: BP 130/88
[2019-01-08] MEDS: hydrOXYzine 50 MG TAB PO PRN ×2 (08:19→22:26)
[2019-01-08] MEDS: ACETAMINOPHEN TAB 650MG DOSE (2X325MG) PO PRN (08:21)
[2019-01-08] MEDS: NICOTINE 21MG/24HR 1 EA TRANSDERMAL TD PRN (08:21)
[2019-01-08] MEDS ORDERED: LOPERAMIDE 2 MG CAP PO PRN (10:00)
[2019-01-08] MEDS ORDERED: SERTRALINE HCL 50 MG TAB PO ONE (10:45)
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
[2019-01-08] MEDS: FIORICET TAB PO PRN ×2 (11:52→20:46)
--- NOTE | 2019-01-08 12:46 | HPEPDOC ---
General Date of Admission January 07, 2019 at 17:48 Attending Physician: ARTHUR HASSAN MD Chief Complaint The patient is a 28-year-old female admitted with a reason for visit of Unspecified Depressive Disorder. History of Present Illness Patient is a 28-year-old female, presenting for admission due to suicidal ideation. Patient has a past medical history significant for depression and anxiety. While waiting to be seen at outpatient behavioral health clinic she expressed increased depression and suicidal ideation with thoughts of overdosing. Her immediate stressors included falling out with her best friend, stress at her job and other situational family problems. She is admitted for further ev aluation and management. On assessment, she denies any chest pain, shortness of breath, abdominal pain, nausea, chills. Home Medications Scheduled Folic Acid (Folic Acid) 1 Mg Tablet, 1 MG PO QHS, (Reported) Fremanezumab-Vfrm (Ajovy) 225 Mg/1.5 Ml Inj, 3 DOSE SC ASDIRECTED, (Reported) INJECT 3 DOSES OF 225MG/1.5ML SUBCUTANEOUSLY IN THREE BODY SITES ONCE EVERY 3MONTHS Leflunomide (Leflunomide) 20 Mg Tab, 20 MG PO DAILY, (Reported) Nortriptyline HCl (Nortriptyline HCl) 50 Mg Capsule, 100 MG PO QHS, (Reported) Allergies Coded Allergies: hydrocodone (Verified Allergy, Unknown, 01/07/19) from [facility] Past Medical History Medical History Depression Anxiety Self Mutilation Surgical History Denies Social History * Smoker: current smoker Alcohol: Denies Drugs: marijuana Psychosocial History: Anxiety, Depression A-FIB/CHADSVASC A-FIB History Current/History of A-Fib/PAF?: No Current Oral Anticoagulant The: No Review of Systems Other systems A 10 point pertinent review of systems is completed, negative except as stated in history of presenting illness. Physical Examination Other physical findings GENERAL: NAD SKIN : Warm, dry intact HEENT: Atraumatic, normocephalic, PERRL, moist mucous membrane CV: Regular rate and rhythm, S1S2, no JVD, no edema, distal pulses + and pal pable RESP: CTAB, no accessory muscle use noted ABDOMEN: BS+ non distended non tender MS: no joint deformities NEURO: Alert and oriented x 3, CN2-12 grossly intact PSYCH: no anxiety or agitation, appropriate mood and affect. Vital Signs Vital Signs Date Time Temp Pulse Resp B/P (MAP) Pulse Ox O2 Delivery O2 Flow Rate FiO2 01/08/19 11:52 16 01/08/19 07:11 98.5 103 130/88 (102) 01/07/19 22:16 100 01/07/19 13:39 Room Air Laboratory Data Labs 24H Laboratory Tests 2 01/07/19 14:30: Nucleated Red Blood Cells % (auto) 0.0, Anion Gap 5L, Glomerular Filtration Rate > 60.0, Calcium Level 8.6, Aspartate Amino Transf (AST/SGOT) 21, Alanine Aminotransferase (ALT/SGPT) 35, Alkaline Phosphatase 76, Total Bilirubin 0.6, Direct Bilirubin 0.2, Total Protein 7.1, Albumin 3.6, Albumin/Globulin Ratio 1.03, Thyroid Stimulating Hormone (TSH) 1.530, Human Chorionic Gonadotropin, Qual NEGATIVE, Salicylates Level 2.8L, Urine Amphetamines Screen NEGATIVE, Urine Benzodiazepines Screen NEGATIVE, Urine Opiates Screen NEGATIVE, Urine Methadone Screen NEGATIVE, Acetaminophen Level < 2.0L, Urine Barbiturates Screen NEGATIVE, Urine Phencyclidine Screen NEGATIVE, Urine Cocaine Metabolite Screen NEGATIVE, Urine Cannabinoids Screen NEGATIVE, Ethyl Alcohol Level < 0.003 CBC/BMP Laboratory Tests 01/07/19 14:30 Red Blood Count 5.14, Mean Corpuscular Volume 89.1, Mean Corpuscular Hemoglobin 28.6, Mean Corpuscular Hemoglobin Concent 32.1, Red Cell Distribution Width 13.4 Assessment/Plan Depression Anxiety PLAN Patient is under the care and management of psychiatric unit She has no underlying medical comorbidities requiring active follow-up and management We'll sign off, please reconsult. Medical team if any new concerns arise Plan / VTE VTE Prophylaxis Ordered?: No VTE Exclusion Mechanical Proph: Low Risk for VTE TAURUS MORAN January 08, 2019 12:46
[2019-01-08 18:00] VITALS: BP 122/86
[2019-01-08] MEDS: FOLIC ACID 1 MG TAB PO SCH (21:50)
[2019-01-08] MEDS: traZODone 50 MG TAB PO PRN (22:29)
[2019-01-09 06:31] VITALS: BP 120/70
[2019-01-09] MEDS: NICOTINE 21MG/24HR 1 EA TRANSDERMAL TD PRN (09:12)
[2019-01-09] MEDS: SERTRALINE HCL 50 MG TAB PO SCH (09:12)
[2019-01-09] MEDS: hydrOXYzine 50 MG TAB PO PRN ×2 (09:14→17:52)
--- NOTE | 2019-01-09 13:00 | MHIPNPDOC ---
[facility] Progress Note Progress Note DATE OF SERVICE: 01/09/19 HISTORY: Mrs. Fernandez is a 28-year-old female with 2 children ages 6 and 2. 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 He was admitted for being depressed and suicidal. Apparently an ex-girlfriend of a female friend of hers let her boyfriend of being aware that Ange was cheating on him with another man who works at her [employer]. Once, who is the father of one of her children is working at a [employer]. Patient states that the trauma between her friends led to this notification. Patient states her father was an alcoholic and abusive as well as having depression and PTSD. She presently gets along with her father. Patient stated she had a history of depression and was on Zoloft for a year. Because she lost her insurance, she stopped it. His presently back on it and taking medication. She states that Dr. Mauricio stopped her nortriptyline that she was taking for migraine. The father of her son Glen is now in [place]. Went to [place] briefly with Anselmo, but returned home to [place]. Patient states she is generally impulsive and felt suicidal, so admitted herself to the hospital. VITAL SIGNS: See below. NEW TEST RESULTS: . CURRENT MEDICATIONS: See below. MENTAL STATUS EXAMINATION: Patient is a 28-year old female, who is single with 2 children. Speech: Is. Normal. Language skills are unremarkable. Thought processes including:, Intact. Thought content:, Unremarkable. Abstract reasoning, and computation:, Intact. Description of associations:, Appropriate. Description of abnormal or psychotic thoughts: Negative. Judgment:, Poor. Insight: Fair. Orientation: Full. Recent and remote memory: And intact. Attention span and concentration: Intact. Language:. No abnormalities. Fund of knowledge: Full. Mood: Good. Affect:, Appropriate. DIAGNOSES: 1.. Adjustment disorder with depressed mood. ASSESSMENT: History of depression with recent interpersonal difficulties MANAGEMENT PLAN: Observation and continued evaluation. TIME SPENT: 45 minutes. Vital Signs Vital Signs Date Time Temp Pulse Resp B/P (MAP) Pulse Ox O2 Delivery O2 Flow Rate FiO2 01/09/19 06:31 96.9 77 14 120/70 (87) 01/07/19 22:16 100 01/07/19 13:39 Room Air Current Medications Current Medications Acetaminophen (Tylenol Tab) 650 mg Q6HP PRN PO HEADACHE or DISCOMFORT Last administered on 01/08/19 08:21; Start 01/07/19 at 18:00 Acetaminophen/ Butalbital/ Caffeine (Fioricet) 1 ea Q4HP PRN PO HEADACHE Last administered on 01/08/19 20:46; Start 01/08/19 at 10:45 Al Hydrox/Mg Hydrox/Simethicone (Mylanta) 30 ml Q4HP PRN PO HEARTBURN/INDIGESTION Last administered on 01/08/19 09:33; Start 01/07/19 at 18:00 Folic Acid (Folic Acid) 1 mg QHS PO Last administered on 01/08/19 21:50; Start 01/07/19 at 21:00 Home Med (Med Rec Complete!) ASDIRECTED XX ; Start 01/07/19 at 16:45; Stop 01/07/19 at 16:45; Status DC Hydroxyzine HCl (Atarax) 50 mg Q6HP PRN PO ANXIETY/AGITATION Last administered on 01/09/19 09:14; Start 01/07/19 at 18:00 Ibuprofen (Advil) 600 mg Q6HP PRN PO MODERATE PAIN (PS 5-7); Start 01/08/19 at 10:45 Loperamide HCl (Imodium) 2 mg ASDIRECTED PRN PO DIARRHEA Last administered on 01/08/19at 10:00; Start 01/08/19 at 10:00 Magnesium Hydroxide (Milk Of Magnesia) 30 ml DAILYPRN PRN PO CONSTIPATION; Start 01/07/19 at 18:00 Nicotine (Nicoderm Cq 21mg) 1 patch DAILYPRN PRN TD NICOTINE WITHDRAWAL Last administered on 01/09/19 09:12; Start 01/07/19 at 23:00 Nortriptyline HCl (Pamelor) 100 mg QHS PO Last administered on 01/07/19 22:17; Start 01/07/19 at 21:00; Stop 01/08/19 at 11:21; Status DC Patient Own Medication (Patient'S Own Med) 1 ea QHS PO ; Start 01/09/19 at 21:00; Status UNV Sertraline HCl (Zoloft) 50 mg DAILY PO Last administered on 5/16/19at 09:12; Start 01/09/19 at 09:00 Trazodone HCl (Desyrel) 50 mg QHSP PRN PO INSOMNIA Last administered on 01/08/19at 22:29; Start 01/07/19 at 18:00 Allergies Coded Allergies: hydrocodone (Verified Allergy, Unknown, 01/07/19) from [facility] A-FIB/CHADSVASC A-FIB History Current/History of A-Fib/PAF?: No Current Oral Anticoagulant The: No MANOLO KHAN MD January 09, 2019 13:00
[2019-01-09 18:00] VITALS: BP 146/80
[2019-01-09] MEDS: IBUPROFEN 600 MG TAB PO PRN (22:15)
[2019-01-09] MEDS: FOLIC ACID 1 MG TAB PO SCH (22:15)
[2019-01-09] MEDS: LEFLUNOMIDE 20 MG PO SCH (22:15)
[2019-01-10 07:00] VITALS: BP 124/66
[2019-01-10] MEDS: SERTRALINE HCL 50 MG TAB PO SCH (08:02)
[2019-01-10] MEDS: NICOTINE 21MG/24HR 1 EA TRANSDERMAL TD PRN (08:02)
[2019-01-10] MEDS: hydrOXYzine 50 MG TAB PO PRN ×2 (08:02→15:54)
[2019-01-10] MEDS: ACETAMINOPHEN TAB 650MG DOSE (2X325MG) PO PRN ×2 (09:45→23:54)
--- NOTE | 2019-01-10 14:22 | MHIPNPDOC ---
[facility] Progress Note Progress Note DATE OF SERVICE: 01/10/19 HISTORY: 28-year-old female with 2 children. Most recently involved and relationship difficulties. VITAL SIGNS: See below. NEW TEST RESULTS: None. CURRENT MEDICATIONS: See below. MENTAL STATUS EXAMINATION: Patient is a 28-year old female, who became upset after being involved in re lationship difficulties. Speech: Is normal. Language skills are. Normal. Thought processes including: Denies hallucinations, delusions, obsessions, compulsions, phobias. Thought content:, Unremarkable. Abstract reasoning, and computation:. Normal. Description of associations: . Description of abnormal or psychotic thoughts: . Judgment: Poor. Insight: Fair. Orientation: Full. Recent and remote memory: Intact. Attention span and concentration:. Normal. Language: No disturbances of language. Fund of knowledge: Full. Mood: Euthymic. Affect:, Congruent. DIAGNOSES: 1. Adjustment disorder with depressed mood. 2., Marital difficulties. 3., Job stress. ASSESSMENT:. Continued observation and medication MANAGEMENT PLAN: As per Dr. Mauricio. TIME SPENT: 30 minutes. Vital Signs Vital Signs Date Time Temp Pulse Resp B/P (MAP) Pulse Ox O2 Delivery O2 Flow Rate FiO2 01/10/19 07:00 97.0 76 18 124/66 (85) 01/07/19 22:16 100 01/07/19 13:39 Room Air Current Medications Current Medications Acetaminophen (Tylenol Tab) 650 mg Q6HP PRN PO HEADACHE or DISCOMFORT Last administered on 01/10/19at 09:45; Start 01/07/19 at 18:00 Acetaminophen/ Butalbital/ Caffeine (Fioricet) 1 ea Q4HP PRN PO HEADACHE Last administered on 01/08/19at 20:46; Start 01/08/19 at 10:45 Al Hydrox/Mg Hydrox/Simethicone (Mylanta) 30 ml Q4HP PRN PO HEARTBURN/INDIGESTION Last administered on 01/08/19at 09:33; Start 01/07/19 at 18:00 Folic Acid (Folic Acid) 1 mg QHS PO Last administered on 01/09/19at 22:15; Start 01/07/19 at 21:00 Home Med (Med Rec Complete!) ASDIRECTED XX ; Start 01/07/19 at 16:45; Stop 01/07/19 at 16:45; Status DC Hydroxyzine HCl (Atarax) 50 mg Q6HP PRN PO ANXIETY/AGITATION Last administered on 01/10/19 08:02; Start 01/07/19 at 18:00 Ibuprofen (Advil) 600 mg Q6HP PRN PO MODERATE PAIN (PS 5-7) Last administered o n 01/09/19 22:15; Start 01/08/19 at 10:45 Loperamide HCl (Imodium) 2 mg ASDIRECTED PRN PO DIARRHEA Last administered on 01/08/19at 10:00; Start 01/08/19 at 10:00 Magnesium Hydroxide (Milk Of Magnesia) 30 ml DAILYPRN PRN PO CONSTIPATION; Start 01/07/19 at 18:00 Nicotine (Nicoderm Cq 21mg) 1 patch DAILYPRN PRN TD NICOTINE WITHDRAWAL Last administered on 01/10/19 08:02; Start 01/07/19 at 23:00 Nortriptyline HCl (Pamelor) 100 mg QHS PO Last administered on 01/07/19at 22:17; Start 01/07/19 at 21:00; Stop 01/08/19 at 11:21; Status DC Patient Own Medication (Patient'S Own Med) 20MG QHS PO Last administered on 01/09/19 22:15; Start 01/09/19 at 21:00 Sertraline HCl (Zoloft) 50 mg DAILY PO Last administered on 01/10/19 08:02; Start 01/09/19 at 09:00 Trazodone HCl (Desyrel) 50 mg QHSP PRN PO INSOMNIA Last administered on 01/08/19 22:29; Start 01/07/19 at 18:00 Allergies Coded Allergies: hydrocodone (Verified Allergy, Unknown, 01/07/19) from [place] A-FIB/CHADSVASC A-FIB History Current/History of A-Fib/PAF?: No Current Oral Anticoagulant The: No Treatment Treatment ordered: NONE MANOLO KHAN MD January 10, 2019 14:22
[2019-01-10 18:45] VITALS: BP 130/83
[2019-01-10] MEDS: FOLIC ACID 1 MG TAB PO SCH (20:04)
[2019-01-10] MEDS: IBUPROFEN 600 MG TAB PO PRN (20:04)
[2019-01-10] MEDS: LEFLUNOMIDE 20 MG PO SCH (20:04)
[2019-01-10] MEDS: traZODone 50 MG TAB PO PRN (23:54)
[2019-01-11 06:26] VITALS: BP 140/68
[2019-01-11] MEDS: ACETAMINOPHEN TAB 650MG DOSE (2X325MG) PO PRN (08:35)
[2019-01-11] MEDS: SERTRALINE HCL 50 MG TAB PO SCH (08:35)
[2019-01-11] MEDS: NICOTINE 21MG/24HR 1 EA TRANSDERMAL TD PRN (09:32)
[2019-01-11] MEDS: hydrOXYzine 50 MG TAB PO PRN ×2 (10:49→22:31)
[2019-01-11] MEDS: IBUPROFEN 600 MG TAB PO PRN ×2 (13:15→21:15)
--- NOTE | 2019-01-11 15:53 | MHIPNPDOC ---
[facility] Progress Note Progress Note DATE OF SERVICE: 01/11/19 HISTORY: 28-year-old female admitted following relationship stressors. VITAL SIGNS: See below. NEW TEST RESULTS:, None. CURRENT MEDICATIONS: See below. MENTAL STATUS EXAMINATION: Patient is a 28-year old female, who is employed at [employer] and having relationship stressors. Speech: Is, normal. Language skills are unremarkable. Thought processes including:. No abnormalities. Thought content:, Denies hallucinations, delusions, obsessions, compulsions and phobias. Abstract reasoning, and computation: Able to abstract. Description of associations:. No loose association. Description of abnormal or psychotic thoughts:. No psychoses. Judgment: Poor. Insight: Good. Orientation:, Fully oriented. Recent and remote memory:, Intact. Attention span and concentration: Good. Language:. No abnormalities. Fund of knowledge:. Full fund of knowledge. Mood:. Good. Affect: Bright. DIAGNOSES: 1. Situational depression. 2., Marital stressors. 3., Employment stressors. ASSESSMENT:, Social difficulties and relationship complications lead to depression MANAGEMENT PLAN:, Discharge planning. TIME SPENT: 30 minutes. Vital Signs Vital Signs Date Time Temp Pulse Resp B/P (MAP) Pulse Ox O2 Delivery O2 Flow Rate FiO2 01/11/19 06:26 97.2 76 18 140/68 (92) 01/07/19 22:16 100 01/07/19 13:39 Room Air Current Medications Current Medications Acetaminophen (Tylenol Tab) 650 mg Q6HP PRN PO HEADACHE or DISCOMFORT Last administered on 01/11/19at 08:35; Start 01/07/19 at 18:00 Acetaminophen/ Butalbital/ Caffeine (Fioricet) 1 ea Q4HP PRN PO HEADACHE Last administered on 01/08/19at 20:46; Start 01/08/19 at 10:45 Al Hydrox/Mg Hydrox/Simethicone (Mylanta) 30 ml Q4HP PRN PO HEARTBURN/INDIGESTION Last administered on 01/08/19at 09:33; Start 01/07/19 at 18:00 Folic Acid (Folic Acid) 1 mg QHS PO Last administered on 01/10/19at 20:04; Start 01/07/19 at 21:00 Home Med (Med Rec Complete!) ASDIRECTED XX ; Start 01/07/19 at 16:45; Stop 01/07/19 at 16:45; Status DC Hydroxyzine HCl (Atarax) 50 mg Q6HP PRN PO ANXIETY/AGITATION Last administered on 01/11/19 10:49; Start 01/07/19 at 18:00 Ibuprofen (Advil) 600 mg Q6HP PRN PO MODERATE PAIN (PS 5-7) Last administered on 01/11/19at 13:15; Start 01/08/19 at 10:45 Loperamide HCl (Imodium) 2 mg ASDIRECTED PRN PO DIARRHEA Last administered on 01/08/19 10:00; Start 01/08/19 at 10:00 Magnesium Hydroxide (Milk Of Magnesia) 30 ml DAILYPRN PRN PO CONSTIPATION; Start 01/07/19 at 18:00 Nicotine (Nicoderm Cq 21mg) 1 patch DAILYPRN PRN TD NICOTINE WITHDRAWAL Last administered on 01/11/19 09:32; Start 01/07/19 at 23:00 Nortriptyline HCl (Pamelor) 100 mg QHS PO Last administered on 01/07/19 22:17; Start 01/07/19 at 21:00; Stop 01/08/19 at 11:21; Status DC Patient Own Medication (Patient'S Own Med) 20MG QHS PO Last administered on 01/10/19 20:04; Start 01/09/19 at 21:00 Sertraline HCl (Zoloft) 50 mg DAILY PO Last administered on 01/11/19 08:35; Start 01/09/19 at 09:00 Trazodone HCl (Desyrel) 50 mg QHSP PRN PO INSOMNIA Last administered on 01/10/19 23:54; Start 01/07/19 at 18:00 Allergies Coded Allergies: hydrocodone (Verified Allergy, Unknown, 01/07/19) from [facility] A-FIB/CHADSVASC A-FIB History Current/History of A-Fib/PAF?: No Current Oral Anticoagulant The: No Treatment Treatment ordered: NONE MANOLO KHAN MD January 11, 2019 15:53
[2019-01-11 18:34] VITALS: BP 132/89
[2019-01-11] MEDS: LEFLUNOMIDE 20 MG PO SCH (20:52)
[2019-01-11] MEDS: FOLIC ACID 1 MG TAB PO SCH (20:53)
[2019-01-11] MEDS: traZODone 50 MG TAB PO PRN (22:31)
--- NOTE | 2019-01-11 23:27 | REPVR ---
EXAM: XR Left Foot Complete, 3 or more Views EXAM DATE/TIME: 01/11/2019 9:51 PM CLINICAL HISTORY: 28 years old, female; Pain; Toes; Left; Additional info: S/P toe injury, stat read please TECHNIQUE: Imaging protocol: XR Left foot. Views: 3 or more views. COMPARISON: CR Ankle, Ap-Lat 08/25/2016 9:14 AM FINDINGS: Bones/joints: Normal. Soft tissues: Normal. IMPRESSION: No acute findings. Electronically signed by: Juan Pruett On 01/11/2019 23:26:45 PM
[2019-01-12 06:50] VITALS: BP 130/79
[2019-01-12] MEDS: SERTRALINE HCL 50 MG TAB PO SCH (08:07)
[2019-01-12] MEDS: ACETAMINOPHEN TAB 650MG DOSE (2X325MG) PO PRN (08:07)
[2019-01-12] MEDS: NICOTINE 21MG/24HR 1 EA TRANSDERMAL TD PRN (08:29)
--- NOTE | 2019-01-12 14:10 | MHIPNPDOC ---
[facility] Progress Note Progress Note DATE OF SERVICE: 01/12/19 HISTORY: Patient depressed over relationship difficulties. VITAL SIGNS: See below. NEW TEST RESULTS: None. CURRENT MEDICATIONS: See below. MENTAL STATUS EXAMINATION: Patient is a 28-year old female, who is, admitted following relationship difficulties. Speech: Is, normal. Language skills are adequate. Thought processes including:. Denies hallucinations, delusions, obsessions, compulsions, phobias. Thought content:, Normal. Abstract reasoning, and computation: Intact. Description of associations:. No loose association. Description of abnormal or psychotic thoughts:. No abnormal or psychotic thoughts. Judgment:. Fair. Insight: Good. Orientation:. Oriented 3. Recent and remote memory:. Intact. Attention span and concentration: Good. Language:. No abnormalities. Fund of knowledge:. Full. Mood: Good. Affect:, Congruent. DIAGNOSES: 1. Situational depression. 2., Relationship difficulties. ASSESSMENT: Relationship difficulties and this 28-year-old employed female MANAGEMENT PLAN:, Discharge planning in progress. TIME SPENT: 30 minutes. Vital Signs Vital Signs Date Time Temp Pulse Resp B/P (MAP) Pulse Ox O2 Delivery O2 Flow Rate FiO2 01/12/19 06:50 97.8 81 18 130/79 (96) 01/07/19 22:16 100 01/07/19 13:39 Room Air Current Medications Current Medications Acetaminophen (Tylenol Tab) 650 mg Q6HP PRN PO HEADACHE or DISCOMFORT Last administered on 01/12/19at 08:07; Start 01/07/19 at 18:00 Acetaminophen/ Butalbital/ Caffeine (Fioricet) 1 ea Q4HP PRN PO HEADACHE Last administered on 01/08/19at 20:46; Start 01/08/19 at 10:45 Al Hydrox/Mg Hydrox/Simethicone (Mylanta) 30 ml Q4HP PRN PO HEARTBURN/INDIGESTION Last administered on 01/08/19at 09:33; Start 01/07/19 at 18:00 Folic Acid (Folic Acid) 1 mg QHS PO Last administered on 01/11/19at 20:53; Start 01/07/19 at 21:00 Home Med (Med Rec Complete!) ASDIRECTED XX ; Start 01/07/19 at 16:45; Stop 01/07/19 at 16:45; Status DC Hydroxyzine HCl (Atarax) 50 mg Q6HP PRN PO ANXIETY/AGITATION Last administered on 01/11/19 22:31; Start 01/07/19 at 18:00 Ibuprofen (Advil) 600 mg Q6HP PRN PO MODERATE PAIN (PS 5-7) Last administered on 01/11/19 21:15; Start 01/08/19 at 10:45 Loperamide HCl (Imodium) 2 mg ASDIRECTED PRN PO DIARRHEA Last administered on 01/08/19at 10:00; Start 01/08/19 at 10:00 Magnesium Hydroxide (Milk Of Magnesia) 30 ml DAILYPRN PRN PO CONSTIPATION; Start 01/07/19 at 18:00 Nicotine (Nicoderm Cq 21mg) 1 patch DAILYPRN PRN TD NICOTINE WITHDRAWAL Last administered on 01/12/19 08:29; Start 01/07/19 at 23:00 Nortriptyline HCl (Pamelor) 100 mg QHS PO Last administered on 01/07/19 22:17; Start 01/07/19 at 21:00; Stop 01/08/19 at 11:21; Status DC Patient Own Medication (Patient'S Own Med) 20MG QHS PO Last administered on 01/11/19 20:52; Start 01/09/19 at 21:00 Sertraline HCl (Zoloft) 50 mg DAILY PO Last administered on 01/12/19 08:07; Start 01/09/19 at 09:00 Trazodone HCl (Desyrel) 50 mg QHSP PRN PO INSOMNIA Last administered on 01/11/19 22:31; Start 01/07/19 at 18:00 Allergies Coded Allergies: hydrocodone (Verified Allergy, Unknown, 01/07/19) [facility]/CHADSVASC A-FIB History Current/History of A-Fib/PAF?: No Current Oral Anticoagulant The: No Treatment Treatment ordered: NONE MANOLO KHAN MD January 12, 2019 14:10
[2019-01-12] MEDS: hydrOXYzine 50 MG TAB PO PRN ×2 (14:27→21:29)
[2019-01-12 18:00] VITALS: BP 135/87
[2019-01-12] MEDS: LEFLUNOMIDE 20 MG PO SCH (21:28)
[2019-01-12] MEDS: FOLIC ACID 1 MG TAB PO SCH (21:29)
[2019-01-12] MEDS: traZODone 50 MG TAB PO PRN (22:12)
[2019-01-13 06:50] VITALS: BP 131/76
[2019-01-13] MEDS: ACETAMINOPHEN TAB 650MG DOSE (2X325MG) PO PRN (08:14)
[2019-01-13] MEDS: SERTRALINE HCL 50 MG TAB PO SCH (08:14)
[2019-01-13] MEDS ORDERED: SERT-155 PO ×2 (13:01→13:32)
--- NOTE | 2019-01-13 13:27 | MHDSPDOC ---
[facility] Discharge Summary Discharge Summary DATE OF ADMISSION: January 07, 2019 at 17:48 DATE OF DISCHARGE: 01/13/2019 DISCHARGE DIAGNOSES: 1.. Depressive disorder. 2., Relationship stressors. REASON FOR ADMISSION:. Patient expressed suicidal thought in the midst of relationship difficulties CONSULTANTS INVOLVED: On TREATMENT AND PROGRESS ON THE UNIT : Patient's mood improved with talk therapy and wished to return to work HOSPITAL COURSE: Hospital course was smooth with no particular conflictual events. Patient was cooperative to counseling and agreeable to outpatient care DISCHARGE ASSESSMENT:. Depression relieved and patient was ready to return to work. MENTAL STATUS EXAMINATION ON DISCHARGE: Patient is a 28-year old female, who is in improved mood. Speech is. Normal. Language skills are adequate. Thought processes including:. No disturbance of thought processes. Thought content:. No abnormal thought content. Abstract reasoning, and computation: Able to abstract. Description of associations:. No loose associations. Description of abnormal or psychotic thoughts:. No psychotic thought. Judgment: Improved. Insight:, Improved. Orientation to, fully oriented. Recent and remote memory:, Memory intact. Attention span and concentration:. No disturbance of attention span or concentration. Language:. As above. Fund of knowledge:, Full. Mood:, Cheerful. Affect:, Congruent. MEDICATIONS ON DISCHARGE: -Sertraline 50 mg for, depression. -. Continue home medications PLAN/FOLLOWUP ARRANGEMENTS: [facility] outpatient. The amount of time spent in the coordination of care for this patient was approximately would be 45 minutes. Vital Signs/I&Os Vital Signs Date Time Temp Pulse Resp B/P (MAP) Pulse Ox O2 Delivery O2 Flow Rate FiO2 01/13/19 06:50 96.5 78 14 131/76 (94) 01/07/19 22:16 100 01/07/19 13:39 Room Air Medications Scheduled Folic Acid (Folic Acid) 1 Mg Tablet, 1 MG PO QHS, (Reported) Fremanezumab-Vfrm (Ajovy) 225 Mg/1.5 Ml Inj, 3 DOSE SC ASDIRECTED, (Reported) INJECT 3 DOSES OF 225MG/1.5ML SUBCUTANEOUSLY IN THREE BODY SITES ONCE EVERY 3MONTHS Leflunomide (Leflunomide) 20 Mg Tab, 20 MG PO DAILY, (Reported) Sertraline HCl (Sertraline HCl) 50 Mg Tablet, 50 MG PO DAILY for Depression, #7 Allergies Coded Allergies: hydrocodone (Verified Allergy, Unknown, 01/07/19) from MANOLO Cloud MD January 13, 2019 13:27
[2019-01-13] MEDS ORDERED: HYDRO50TAB PO (13:32)
== END 2019-01-13 13:30 | disposition home or self-care (01) | DRG 754 ==
LOC: M ED 13:38 → M ED INP 17:48 → M PSY 20:43
PROVIDERS: ADMIT Psychiatry & Neurology Psychiatry; ATTEND Psychiatry & Neurology Child & Adolescent Psychiatry
DX: F32.9 Major depressive disorder, single episode, unspecified (principal); R45.851 Suicidal ideations; Z79.899 Other long term (current) drug therapy; Z88.5 Allergy status to narcotic agent; F41.9 Anxiety disorder, unspecified

== ENCOUNTER → 2019-03-27 | Outpatient (REF) | payer MEDICAID, OTHER ==
[~2019-03-27] MED LIST changes: +FOLI1TAB11 PO; +HYDRO50TAB PO; +NORT50CA PO; +NORT75CA2; +SERT-155 PO
[2019-03-27 18:21] LABS: APPEARANCE, URINE CLEAR (CLEAR); BACTERIA, URINE AUTO NEGATIVE (NEGATIVE); BILIRUBIN, URINE AUTO NEGATIVE (NEGATIVE); BLOOD, URINE BLOOD NEGATIVE (NEGATIVE); CALCIUM OXALATE CRYSTALS SMALL; COLOR, URINE YELLOW (YELLOW); GLUCOSE, URINE (UA) AUTO NEGATIVE (NEGATIVE); KETONE, URINE AUTO NEGATIVE (NEGATIVE); LEUKOCYTE ESTERASE, URINE AUTO TRACE (NEGATIVE); MUCUS, URINE SMALL (NEGATIVE); NITRITE, URINE AUTO NEGATIVE (NEGATIVE); PROTEIN, URINE AUTO NEGATIVE (NEGATIVE); RBC, URINE AUTO 1 /HPF (0-3); SPECIFIC GRAVITY URINE AUTO 1.021 (1.002-1.035); SQUAMOUS EPITHELIAL CELL UR AU 3 /HPF (0-6); UROBILINOGEN, URINE AUTO 0.2 mg/dL (0.0-2.0); WBC, URINE AUTO 6 /HPF (0-3)
== END ==
LOC: M SMT 17:34
PROVIDERS: ATTEND Nurse Practitioner Family
DX: R35.0 Frequency of micturition (principal)

== ENCOUNTER 2019-07-14 19:33 | Emergency (ER) | payer MEDICAID, OTHER ==
[~2019-07-14] VITALS: Ht 170.2 cm; Wt 108.5 kg
[~2019-07-14 19:33] MED LIST changes: +HYDR1TAB33 PO; -HYDRO50TAB PO; -SERT-155 PO; +SERT50TA29 PO
[2019-07-14] MEDS ORDERED: BENL200I SC (19:41)
[2019-07-14] MEDS ORDERED: ONDANSETRON 4MG/2ML VIAL (J2405) IV ONE (20:30)
[2019-07-14 20:43] LABS: BASO # 0.1 10^3/uL (0.0-0.2); BASO % 0.9 % (0.0-1.0); EOS # 0.1 10^3/uL (0.0-0.5); EOS % 0.9 % (0.0-3.0); HEMATOCRIT 42.3 % (36.0-47.0); HEMOGLOBIN 13.4 g/dl (12.0-15.5); LYMPH # 2.9 10^3/uL (1.5-5.0); LYMPH % 28.8 % (24.0-44.0); MEAN CORPUSCULAR HEMOGLOBIN 28.4 pg (27.0-33.0); MEAN CORPUSCULAR HGB CONC 31.7 g/dl (32.0-36.5); MEAN CORPUSCULAR VOLUME 89.6 fl (80.0-96.0); MONO # 0.8 10^3/uL (0.0-0.8); MONO % 7.7 % (0.0-5.0); NEUTROPHILS # 6.3 10^3/uL (1.5-8.5); NEUTROPHILS % 61.4 % (36.0-66.0); PLATELET COUNT, AUTOMATED 288 10^3/uL (150-450); RED BLOOD COUNT 4.72 10^6/uL (4.00-5.40); WHITE BLOOD COUNT 10.2 10^3/uL (4.0-10.0)
[2019-07-14 20:45] LABS: URINE PREG TEST NEGATIVE (NEGATIVE)
[2019-07-14] MEDS ORDERED: ABIL1TAB13 PO (20:48)
[2019-07-14] MEDS ORDERED: GABA-1171 PO (20:48)
[2019-07-14] MEDS ORDERED: TOPA50TA8 PO (20:48)
[2019-07-14] MEDS ORDERED: TOPA100T12 PO (20:48)
[2019-07-14] MEDS ORDERED: BRIN1TAB3 PO (20:48)
[2019-07-14] MEDS ORDERED: AIMO70IN SC (20:49)
[2019-07-14 20:57] LABS: BILIRUBIN, URINE MANUAL NEGATIVE (NEGATIVE); GLUCOSE, URINE (UA) MANUAL NEGATIVE (NEGATIVE); KETONE, URINE MANUAL 1+ mg/dL (NEGATIVE); UROBILINOGEN, URINE MANUAL NORMAL (NORMAL)
[2019-07-14] MEDS ORDERED: NS 1,000 ML IV ONE (21:00)
[2019-07-14] MEDS ORDERED: KETOROLAC 30 MG/ML VIAL (J1885) IV ONE (21:00)
[2019-07-14 21:04] LABS: ALT/SGPT 32 U/L (12-78); BILIRUBIN,DIRECT 0.1 MG/DL (0.0-0.2); BILIRUBIN,TOTAL 0.5 MG/DL (0.2-1.0); BLOOD UREA NITROGEN 10 MG/DL (7-18); CALCIUM LEVEL 9.3 MG/DL (8.5-10.1); CARBON DIOXIDE LEVEL 22 MEQ/L (21-32); CHLORIDE LEVEL 112 MEQ/L (98-107); CREATININE FOR GFR 0.97 MG/DL (0.55-1.30); GLOMERULAR FILTRATION RATE > 60.0 (>60); GLUCOSE, FASTING 87 MG/DL (70-100); LIPASE 127 U/L (73-393); POTASSIUM SERUM 3.5 MEQ/L (3.5-5.1); SODIUM LEVEL 142 MEQ/L (136-145); TOTAL PROTEIN 7.1 GM/DL (6.4-8.2)
[2019-07-14 21:06] LABS: BACTERIA, URINE SMALL AMOUNT; CALCIUM OXALATE CRYSTALS,URINE SMALL AMOUNT /hpf; MUCUS, URINE LARGE AMOUNT (NEGATIVE); RBC, URINE 0-1 /hpf (0-3); SQUAMOUS EPITHELIAL CELL URINE LARGE AMOUNT /hpf (SMALL AMT)
[2019-07-14 21:07] LABS: HYALINE CAST, URINE 0-1 /lpf (0-1)
[2019-07-14] MEDS ORDERED: MORPHINE 4 MG/ML 1ML VIAL/SYRINGE (J2270) IV ONE (21:30)
[2019-07-14] MEDS ORDERED: ISOVUE-370 76% 100ML VIAL (Q9967) As Ordered ONE (22:22)
--- NOTE | 2019-07-14 23:32 | REPVR ---
PROCEDURE INFORMATION: Exam: CT Abdomen And Pelvis With Contrast Exam date and time: 07/14/2019 10:32 PM Clinical history: 28 years old, female; Abdominal pain; Generalized; Additional info: Right sided abd pain TECHNIQUE: Imaging protocol: Computed tomography of the abdomen and pelvis with intravenous contrast. Radiation optimization: All CT scans at this facility use at least one of these dose optimization techniques: automated exposure control; mA and/or kV adjustment per patient size (includes targeted exams where dose is matched to clinical indication); or iterative reconstruction. Contrast material: ISOVUE 370; Contrast volume: 100 ml; Contrast route: IV; COMPARISON: CT ABD PELVIS W/O CONTRAST 2018-11-09 14:45 FINDINGS: Liver: Normal. No mass. Gallbladder and bile ducts: Cholecystectomy clips in the right upper quadrant. Pancreas: Normal. No ductal dilation. Spleen: Normal. No splenomegaly. Adrenals: Normal. No mass. Kidneys and ureters: Normal. No hydronephrosis. Stomach and bowel: Mild colonic diverticulosis without evidence for acute diverticulitis. Appendix: No evidence of appendicitis. Intraperitoneal space: Small amount of free fluid in the pelvis, most likely physiological pelvic intraperitoneal fluid as a result of patient's premenopausal reproductive status. Vasculature: Unremarkable. No abdominal aortic aneurysm. Lymph nodes: Unremarkable. No enlarged lymph nodes. Bladder: Unremarkable as visualized. Reproductive: Intrauterine device appears appropriately positioned. Bones/joints: L3-L5 disc bulge/protrusions, and L5-S1 small central disc extrusion. Soft tissues: Small fat protruding umbilical hernia. IMPRESSION: No acute findings. Electronically signed by: Ghulam Costa On 07/14/2019 23:31:53 PM
[2019-07-15 00:29] VITALS: BP 122/65
== END 2019-07-15 00:31 | disposition home or self-care (01) ==
LOC: M ED 19:33
DX: R10.9 Unspecified abdominal pain (principal); M06.9 Rheumatoid arthritis, unspecified; M32.9 Systemic lupus erythematosus, unspecified; M79.7 Fibromyalgia; Z79.899 Other long term (current) drug therapy; Z88.5 Allergy status to narcotic agent
CPT/HCPCS: 74177; 80048; 80076; 81000; 83690; 84702; 84703; 85025; 87088; 96361; 96374; 96375; 99284; J1885; J2270; J2405; Q9967

== ENCOUNTER 2019-07-17 09:37 | Emergency (ER) | payer OTHER ==
[~2019-07-17] VITALS: Ht 170.2 cm; Wt 108.2 kg
[~2019-07-17 09:37] MED LIST changes: +ABIL1TAB13 PO; +AIMO70IN SC; +BENL200I SC; +BRIN1TAB3 PO; +GABA-1171 PO; +TOPA100T12 PO; +TOPA50TA8 PO
[2019-07-17] MEDS ORDERED: KETOROLAC 30 MG/ML VIAL (J1885) IV ONE (10:15)
[2019-07-17] MEDS ORDERED: NS 1,000 ML IV ONE (10:15)
[2019-07-17] MEDS ORDERED: ONDANSETRON 4MG/2ML VIAL (J2405) IV ONE (10:15)
[2019-07-17 10:21] LABS: APPEARANCE, URINE CLEAR (CLEAR); BACTERIA, URINE AUTO NEGATIVE (NEGATIVE); BASO % 0.8 % (0.0-1.0); BILIRUBIN, URINE AUTO NEGATIVE (NEGATIVE); BLOOD, URINE BLOOD 2+ (NEGATIVE); COLOR, URINE YELLOW (YELLOW); EOS # 0.1 10^3/uL (0.0-0.5); EOS % 2.5 % (0.0-3.0); GLUCOSE, URINE (UA) AUTO NEGATIVE (NEGATIVE); HEMATOCRIT 38.5 % (36.0-47.0); HEMOGLOBIN 12.2 g/dl (12.0-15.5); KETONE, URINE AUTO NEGATIVE (NEGATIVE); LEUKOCYTE ESTERASE, URINE AUTO 1+ (NEGATIVE); LYMPH # 1.5 10^3/uL (1.5-5.0); LYMPH % 28.5 % (24.0-44.0); MEAN CORPUSCULAR HEMOGLOBIN 28.3 pg (27.0-33.0); MEAN CORPUSCULAR HGB CONC 31.7 g/dl (32.0-36.5); MEAN CORPUSCULAR VOLUME 89.3 fl (80.0-96.0); MONO # 0.5 10^3/uL (0.0-0.8); MONO % 8.9 % (0.0-5.0); MUCUS, URINE SMALL (NEGATIVE); NEUTROPHILS # 3.1 10^3/uL (1.5-8.5); NEUTROPHILS % 59.1 % (36.0-66.0); NITRITE, URINE AUTO NEGATIVE (NEGATIVE); PLATELET COUNT, AUTOMATED 237 10^3/uL (150-450); PROTEIN, URINE AUTO NEGATIVE (NEGATIVE); RBC, URINE AUTO 1 /HPF (0-3); RED BLOOD COUNT 4.31 10^6/uL (4.00-5.40); SPECIFIC GRAVITY URINE AUTO 1.018 (1.002-1.035); SQUAMOUS EPITHELIAL CELL UR AU 3 /HPF (0-6); UROBILINOGEN, URINE AUTO 0.2 mg/dL (0.0-2.0); WBC, URINE AUTO 8 /HPF (0-3); WHITE BLOOD COUNT 5.3 10^3/uL (4.0-10.0)
[2019-07-17 11:00] LABS: ALBUMIN 3.2 GM/DL (3.2-5.2); ALT/SGPT 27 U/L (12-78); BILIRUBIN,TOTAL 0.5 MG/DL (0.2-1.0); BLOOD UREA NITROGEN 9 MG/DL (7-18); CALCIUM LEVEL 8.4 MG/DL (8.5-10.1); CARBON DIOXIDE LEVEL 20 MEQ/L (21-32); CHLORIDE LEVEL 116 MEQ/L (98-107); CREATININE FOR GFR 0.96 MG/DL (0.55-1.30); GLOMERULAR FILTRATION RATE > 60.0 (>60); GLUCOSE, FASTING 92 MG/DL (70-100); POTASSIUM SERUM 3.6 MEQ/L (3.5-5.1); SODIUM LEVEL 143 MEQ/L (136-145); TOTAL PROTEIN 6.2 GM/DL (6.4-8.2)
[2019-07-17] MEDS ORDERED: ISOVUE-370 76% 100ML VIAL (Q9967) As Ordered ONE (11:06)
[2019-07-17] MEDS ORDERED: MORPHINE 4 MG/ML 1ML VIAL/SYRINGE (J2270) IV ONE (11:15)
--- NOTE | 2019-07-17 12:07 | REP ---
CT ABDOMEN AND PELVIS WITH IV CONTRAST: TECHNIQUE: Axial contrast enhanced images from the lung bases to the pubic symphysis using 100 mL Isovue 370 intravenous contrast material with multiplanar reformations. Visualized lung bases are clear. Liver, spleen, adrenals, pancreas, and kidneys are unremarkable. There is no hydronephrosis. The patient has had a prior cholecystectomy. There is no evidence of biliary dilatation. There is no abdominal aortic aneurysm. There is no adenopathy. There is no free air or free fluid. There is no bowel wall thickening. The appendix is normal. There is a small umbilical hernia containing fat. There is no pelvic mass. IUD is seen in the uterus. Urinary bladder is not well distended and not well evaluated. IMPRESSION: No acute findings. Small umbilical hernia contains noninflamed fat. IUD is seen in the uterus. Patient is status post cholecystectomy. There is a normal appendix. Electronically Signed by Tad Farias MD 07/17/2019 12:58 P
[2019-07-17] MEDS ORDERED: MACR100C43 PO (12:54)
[2019-07-17 13:12] VITALS: BP 145/88
== END 2019-07-17 13:13 | disposition home or self-care (01) ==
LOC: M ED 09:37
DX: N39.0 Urinary tract infection, site not specified (principal); Z97.5 Presence of (intrauterine) contraceptive device; Z88.5 Allergy status to narcotic agent; Z79.899 Other long term (current) drug therapy
CPT/HCPCS: 74177; 80053; 81001; 84702; 85025; 96374; 96375; 96376; 99284; J1885; J2270; J2405; Q9967

== ENCOUNTER 2019-08-10 13:00 | Emergency (ER) | payer MEDICAID, OTHER ==
[~2019-08-10] VITALS: Ht 170.2 cm; Wt 104.0 kg
[~2019-08-10 13:00] MED LIST changes: +MACR100C43 PO
[2019-08-10] MEDS ORDERED: QUET1TAB7 (13:07)
[2019-08-10] MEDS ORDERED: OXYB5TAB10 (13:07)
[2019-08-10 13:47] LABS: BASO # 0.1 10^3/uL (0.0-0.2); BASO % 0.9 % (0.0-1.0); EOS # 0.1 10^3/uL (0.0-0.5); EOS % 1.1 % (0.0-3.0); HEMOGLOBIN 12.5 g/dl (12.0-15.5); LYMPH # 1.9 10^3/uL (1.5-5.0); LYMPH % 18.8 % (24.0-44.0); MEAN CORPUSCULAR HEMOGLOBIN 28.7 pg (27.0-33.0); MEAN CORPUSCULAR HGB CONC 32.1 g/dl (32.0-36.5); MEAN CORPUSCULAR VOLUME 89.4 fl (80.0-96.0); MONO # 0.6 10^3/uL (0.0-0.8); MONO % 6.4 % (0.0-5.0); NEUTROPHILS # 7.2 10^3/uL (1.5-8.5); NEUTROPHILS % 72.4 % (36.0-66.0); PLATELET COUNT, AUTOMATED 295 10^3/uL (150-450); RED BLOOD COUNT 4.36 10^6/uL (4.00-5.40); WHITE BLOOD COUNT 9.9 10^3/uL (4.0-10.0)
[2019-08-10 13:51] LABS: AMORPHOUS SEDIMENT LARGE (NEGATIVE); APPEARANCE, URINE CLOUDY (CLEAR); BACTERIA, URINE AUTO 1+ (NEGATIVE); BILIRUBIN, URINE AUTO NEGATIVE (NEGATIVE); BLOOD, URINE BLOOD NEGATIVE (NEGATIVE); CALCIUM OXALATE CRYSTALS SMALL; COLOR, URINE YELLOW (YELLOW); GLUCOSE, URINE (UA) AUTO NEGATIVE (NEGATIVE); KETONE, URINE AUTO TRACE mg/dL (NEGATIVE); LEUKOCYTE ESTERASE, URINE AUTO 2+ (NEGATIVE); MUCUS, URINE SMALL (NEGATIVE); NITRITE, URINE AUTO NEGATIVE (NEGATIVE); PROTEIN, URINE AUTO NEGATIVE (NEGATIVE); RBC, URINE AUTO 5 /HPF (0-3); SPECIFIC GRAVITY URINE AUTO 1.027 (1.002-1.035); SQUAMOUS EPITHELIAL CELL UR AU 6 /HPF (0-6); UROBILINOGEN, URINE AUTO 0.2 mg/dL (0.0-2.0); WBC, URINE AUTO 8 /HPF (0-3)
[2019-08-10] MEDS ORDERED: KETOROLAC 30 MG/ML VIAL (J1885) IV ONE (14:15)
[2019-08-10] MEDS ORDERED: NS 1,000 ML IV ONE (14:15)
[2019-08-10] MEDS ORDERED: ISOVUE-370 76% 100ML VIAL (Q9967) As Ordered ONE (14:28)
[2019-08-10] MEDS ORDERED: ONDANSETRON 4MG/2ML VIAL (J2405) IV ONE (15:00)
[2019-08-10 15:40] LABS: CHLAMYDIA DNA AMPLIFICATION NEGATIVE (NEGATIVE); GC DNA AMPLIFICATION NEGATIVE (NEGATIVE)
--- NOTE | 2019-08-10 17:56 | REPVR ---
PROCEDURE INFORMATION: Exam: US Pelvis, Transvaginal Exam date and time: 08/10/2019 5:24 PM Age: 28 years old Clinical history: Pelvic pain; Additional info: Rlq pain TECHNIQUE: Imaging protocol: Real-time transvaginal pelvic ultrasound with image documentation. Transvaginal imaging was used for better evaluation of the endometrium and adnexa. COMPARISON: CT ABD/PEL W/IV CONTRAST ONLY 08/10/2019 2:40 PM FINDINGS: Uterus/cervix: Uterus measures 7 x 4 x 5.1 cm. Endometrial echo complex measures 3 mm. IUD located centrally within the endometrial cavity. Right adnexa: Right ovary measures 3.5 x 2.5 x 2.3 cm. Normal flow. Complex cystic structure right ovary measures 1.8 x 1.5 x 1.6 cm likely represents a hemorrhagic cyst. Left adnexa: Left ovary measures 2.6 x 1.8 x 1.3 cm. Normal flow. Free fluid: None. IMPRESSION: Complex cystic structure right ovary measures 1.8 x 1.5 x 1.6 cm likely represents a hemorrhagic cyst. No follow-up suggested. Electronically signed by: Juan Pruett On 08/10/2019 17:55:45 PM
[2019-08-10] MEDS ORDERED: MACR100C43 PO (18:26)
[2019-08-10 18:31] VITALS: BP 133/92
--- NOTE | 2019-08-11 06:12 | REP ---
CT ABDOMEN AND PELVIS WITH IV AND WITHOUT ORAL CONTRAST: HISTORY: Right lower quadrant pain. History of ovarian cyst. Comparison CT study July 17, 2019. CT CONTRAST DOSE: 100 mL of intravenous Isovue 370. CT FINDINGS: Preliminary digital center punch operator radiograph demonstrates a normal bowel gas pattern. The lung bases are clear on axial CT images. No pleural effusion or upper abdominal ascites. The liver and the spleen are normal in size homogeneous in texture. There are clips in the gallbladder post cholecystectomy. No abnormalities noted in the pancreas. No adrenal lesion is seen. The kidneys enhance symmetrically and are morphologically intact. No retroperitoneal mass or adenopathy is seen. A normal appendix is seen in the right lower quadrant medial to the cecum. An IUD is seen in the uterus within the fundus. No ovarian mass or significant cyst is seen. There is a 19 mm follicle cyst in the right ovary. No free fluid is noted. No evidence of free air. Small and large intestinal bowel loops are unremarkable. IMPRESSION: No acute abdominal or pelvic abnormality. IUD in good position. Post cholecystectomy. Normal appendix. Electronically Signed by Philippe Cody MD 08/11/2019 08:44 A
== END 2019-08-10 18:44 | disposition home or self-care (01) ==
LOC: M ED 13:00
DX: N39.0 Urinary tract infection, site not specified (principal); Z88.5 Allergy status to narcotic agent; Z79.899 Other long term (current) drug therapy
CPT/HCPCS: 74177; 76830; 76856; 80047; 81001; 84702; 85025; 87661; 93976; 96361; 96374; 96375; 99284; J1885; J2405; Q9967

== ENCOUNTER 2019-08-23 07:55 | Emergency (ER) | payer MEDICAID, OTHER ==
[~2019-08-23] VITALS: Ht 170.2 cm; Wt 102.2 kg
[~2019-08-23 07:55] MED LIST changes: +OXYB5TAB10; +QUET1TAB7
[2019-08-23] MEDS ORDERED: SULF1TAB93 (08:03)
[2019-08-23] MEDS ORDERED: NS 1,000 ML IV ONE ×2 (08:30→11:00)
[2019-08-23] MEDS ORDERED: LISI10TA4 (08:52)
[2019-08-23 08:53] LABS: HEMATOCRIT 40.5 % (36.0-47.0); HEMOGLOBIN 12.6 g/dl (12.0-15.5); MEAN CORPUSCULAR HEMOGLOBIN 28.7 pg (27.0-33.0); MEAN CORPUSCULAR HGB CONC 31.1 g/dl (32.0-36.5); MEAN CORPUSCULAR VOLUME 92.3 fl (80.0-96.0); PLATELET COUNT, AUTOMATED 225 10^3/uL (150-450); RED BLOOD COUNT 4.39 10^6/uL (4.00-5.40); WHITE BLOOD COUNT 8.6 10^3/uL (4.0-10.0)
[2019-08-23 09:13] LABS: INFLUENZA A AMPLIFICATION NEGATIVE (NEGATIVE); INFLUENZA B AMPLIFICATION POSITIVE (NEGATIVE)
[2019-08-23 09:31] LABS: BLOOD UREA NITROGEN 8 MG/DL (7-18); CALCIUM LEVEL 8.5 MG/DL (8.5-10.1); CARBON DIOXIDE LEVEL 21 MEQ/L (21-32); CHLORIDE LEVEL 112 MEQ/L (98-107); CREATININE FOR GFR 1.13 MG/DL (0.55-1.30); GLOMERULAR FILTRATION RATE > 60.0 (>60); GLUCOSE, FASTING 87 MG/DL (70-100); HCG, SERUM QUANTITATIVE < 1.0 MIU/ML; POTASSIUM SERUM 3.3 MEQ/L (3.5-5.1); SODIUM LEVEL 142 MEQ/L (136-145)
[2019-08-23] MEDS ORDERED: OSELTAMIVIR PHOSPHATE 75 MG CAP (TAMIFLU) PO ONE (10:00)
[2019-08-23] MEDS ORDERED: KETOROLAC 30 MG/ML VIAL (J1885) IV ONE (10:00)
[2019-08-23] MEDS ORDERED: ONDANSETRON 4MG/2ML VIAL (J2405) IV ONE (10:00)
--- NOTE | 2019-08-23 10:00 | REP ---
Clinical: Fall. Syncope. Comparison: 07/20/2013. Technique: Axial noncontrast images from the skull base to the vertex with coronal re-formations. Findings: The ventricles, sulci, and cisterns are normal in position and appearance. Farias-white differentiation is maintained. No acute intracranial hemorrhage, mass/mass effect, pathology or trauma/injury. No evidence for acute infarction. No extra-axial fluid collection. Calvarium is intact. Paranasal sinuses and mastoid air cells are clear. Impression: Normal noncontrast head CT. No evidence for acute intracranial pathology or trauma/injury. Electronically Signed by Kevin Zelaya MD 08/23/2019 09:51 A
--- NOTE | 2019-08-23 10:05 | REP ---
Clinical: Cough . Comparison: 07/20/2013 . Findings: The mediastinum and cardiac silhouette are stable and within normal limits for portable technique. The lung harden are clear without acute consolidation, effusion, or pneumothorax. Skeletal structures are intact. Impression: No acute cardiopulmonary process appreciated. Electronically Signed by Kevin Zelaya MD 08/23/2019 09:57 A
[2019-08-23] MEDS ORDERED: OSEL75CA PO (11:29)
[2019-08-23 11:41] VITALS: BP 114/71
--- NOTE | 2019-08-24 15:27 | ECGEPIP ---
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
== END 2019-08-23 11:55 | disposition home or self-care (01) ==
LOC: M ED 07:55
DX: J10.1 Influenza due to other identified influenza virus with other respiratory manifestations (principal); R55 Syncope and collapse; Z87.440 Personal history of urinary (tract) infections; Z87.42 Personal history of other diseases of the female genital tract; Z88.5 Allergy status to narcotic agent; Z79.899 Other long term (current) drug therapy
CPT/HCPCS: 70450; 71045; 80048; 84702; 85027; 87502; 87880; 93005; 96361; 96374; 96375; 99284; J1885; J2405

== ENCOUNTER → 2019-09-29 | Outpatient (REF) | payer OTHER ==
[~2019-09-29] MED LIST changes: +LISI10TA4; +OSEL75CA PO; +SULF1TAB93
[2019-09-29 23:05] LABS: AMORPHOUS SEDIMENT SMALL (NEGATIVE); APPEARANCE, URINE TURBID (CLEAR); BACTERIA, URINE AUTO NEGATIVE (NEGATIVE); BILIRUBIN, URINE AUTO NEGATIVE (NEGATIVE); BLOOD, URINE BLOOD NEGATIVE (NEGATIVE); COLOR, URINE YELLOW (YELLOW); GLUCOSE, URINE (UA) AUTO NEGATIVE (NEGATIVE); KETONE, URINE AUTO TRACE mg/dL (NEGATIVE); LEUKOCYTE ESTERASE, URINE AUTO 3+ (NEGATIVE); MUCUS, URINE MODERATE (NEGATIVE); NITRITE, URINE AUTO NEGATIVE (NEGATIVE); PROTEIN, URINE AUTO NEGATIVE (NEGATIVE); RBC, URINE AUTO 0 /HPF (0-3); SPECIFIC GRAVITY URINE AUTO 1.034 (1.002-1.035); SQUAMOUS EPITHELIAL CELL UR AU 3 /HPF (0-6); UROBILINOGEN, URINE AUTO 0.2 mg/dL (0.0-2.0); WBC, URINE AUTO 28 /HPF (0-3)
[2019-09-30 00:28] LABS: CHLAMYDIA DNA AMPLIFICATION POSITIVE (NEGATIVE); GC DNA AMPLIFICATION POSITIVE (NEGATIVE)
== END ==
LOC: M LAB REF 22:52
PROVIDERS: ATTEND Physician Assistant Medical
DX: N39.0 Urinary tract infection, site not specified (principal)

== ENCOUNTER → 2019-10-20 | Outpatient (REF) | payer OTHER ==
[2019-10-20 14:13] LABS: AMORPHOUS SEDIMENT SMALL (NEGATIVE); APPEARANCE, URINE TURBID (CLEAR); BACTERIA, URINE AUTO 1+ (NEGATIVE); BILIRUBIN, URINE AUTO NEGATIVE (NEGATIVE); BLOOD, URINE BLOOD NEGATIVE (NEGATIVE); COLOR, URINE YELLOW (YELLOW); GLUCOSE, URINE (UA) AUTO NEGATIVE (NEGATIVE); KETONE, URINE AUTO NEGATIVE (NEGATIVE); LEUKOCYTE ESTERASE, URINE AUTO 3+ (NEGATIVE); MUCUS, URINE SMALL (NEGATIVE); NITRITE, URINE AUTO NEGATIVE (NEGATIVE); PROTEIN, URINE AUTO NEGATIVE (NEGATIVE); RBC, URINE AUTO 0 /HPF (0-3); SPECIFIC GRAVITY URINE AUTO 1.024 (1.002-1.035); SQUAMOUS EPITHELIAL CELL UR AU 2 /HPF (0-6); UROBILINOGEN, URINE AUTO 0.2 mg/dL (0.0-2.0); WBC, URINE AUTO 5 /HPF (0-3)
== END ==
LOC: M SMT 13:18
PROVIDERS: ATTEND Nurse Practitioner Family
DX: N39.0 Urinary tract infection, site not specified (principal)

== ENCOUNTER → 2019-11-14 | Outpatient (REF) | payer OTHER, MEDICAID ==
[2019-11-14 12:48] LABS: INFLUENZA A AMPLIFICATION NEGATIVE (NEGATIVE); INFLUENZA B AMPLIFICATION NEGATIVE (NEGATIVE)
== END ==
LOC: M LAB REF 12:07
PROVIDERS: ATTEND Physician Assistant
DX: J11.1 Influenza due to unidentified influenza virus with other respiratory manifestations (principal)

== ENCOUNTER → 2019-11-18 | Outpatient (CLI) | payer OTHER ==
[2019-11-18 11:28] LABS: INFLUENZA A AMPLIFICATION NEGATIVE (NEGATIVE); INFLUENZA B AMPLIFICATION NEGATIVE (NEGATIVE)
== END ==
LOC: M LABSMTC 10:04
PROVIDERS: ATTEND Family Medicine
DX: Z11.59 Encounter for screening for other viral diseases (principal); Z20.828 Contact with and (suspected) exposure to other viral communicable diseases
CPT/HCPCS: 87502; U0002

== ENCOUNTER → 2019-11-27 | Outpatient (REF) | payer OTHER, MEDICAID ==
[2019-11-27 14:55] LABS: CHLAMYDIA DNA AMPLIFICATION NEGATIVE (NEGATIVE); GC DNA AMPLIFICATION NEGATIVE (NEGATIVE)
== END ==
LOC: M LAB REF 12:04
PROVIDERS: ATTEND Physician Assistant
DX: Z11.3 Encounter for screening for infections with a predominantly sexual mode of transmission (principal)

== ENCOUNTER 2019-11-28 17:30 | Emergency (ER) | payer MEDICAID, OTHER ==
--- NOTE | 2019-11-28 19:37 | REP ---
CHEST, PORTABLE, SINGLE VIEW: COMPARISON: 08/23/2019 There is no evidence of acute infiltrate. No pleural effusion is seen. The heart is normal in size. The mediastinal silhouette is unremarkable. The visualized osseous structures are intact. IMPRESSION: No acute pulmonary disease. Electronically Signed by Tad Farias MD 11/28/2019 11:27 P
[2019-11-28 19:47] VITALS: BP 125/76
== END 2019-11-28 19:49 | disposition home or self-care (01) ==
LOC: EDBD 17:30 → M ED 17:30
DX: R05 Cough (principal); R06.02 Shortness of breath; M79.10 Myalgia, unspecified site; B97.89 Other viral agents as the cause of diseases classified elsewhere; B97.10 Unspecified enterovirus as the cause of diseases classified elsewhere; I10 Essential (primary) hypertension; M32.9 Systemic lupus erythematosus, unspecified; M79.7 Fibromyalgia; M06.9 Rheumatoid arthritis, unspecified; F17.200 Nicotine dependence, unspecified, uncomplicated; Z88.5 Allergy status to narcotic agent; Z79.899 Other long term (current) drug therapy

== ENCOUNTER → 2019-12-22 | Outpatient (CLI) | payer OTHER | LOC: M LABSMTC 14:03 | PROVIDERS: ATTEND Family Medicine | DX: Z11.59 Encounter for screening for other viral diseases (principal); Z20.828 Contact with and (suspected) exposure to other viral communicable diseases; B34.8 Other viral infections of unspecified site ==

== ENCOUNTER 2020-01-08 23:07 | Emergency (ER) | payer MEDICAID, OTHER ==
[~2020-01-08] VITALS: Ht 170.2 cm; Wt 111.4 kg
[2020-01-08 23:34] VITALS: BP 141/92
[2020-01-08] MEDS ORDERED: [UNRECOGNIZED DRUG - OTHER] (23:34)
[2020-01-08] MEDS ORDERED: REME15TA2 PO (23:34)
[2020-01-08] MEDS ORDERED: HYDR-3910 PO (23:34)
[2020-01-09 00:38] LABS: HEMATOCRIT 41.9 % (36.0-47.0); HEMOGLOBIN 13.3 g/dl (12.0-15.5); MEAN CORPUSCULAR HEMOGLOBIN 29.2 pg (27.0-33.0); MEAN CORPUSCULAR HGB CONC 31.7 g/dl (32.0-36.5); MEAN CORPUSCULAR VOLUME 91.9 fl (80.0-96.0); PLATELET COUNT, AUTOMATED 337 10^3/uL (150-450); RED BLOOD COUNT 4.56 10^6/uL (4.00-5.40); WHITE BLOOD COUNT 11.6 10^3/uL (4.0-10.0)
[2020-01-09 00:52] LABS: AMPHETAMINES LEVEL URINE NEGATIVE (NEGATIVE); BARBITURATES URINE NEGATIVE (NEGATIVE); BENZODIAZEPINES URINE NEGATIVE (NEGATIVE); CANNABINOIDS URINE NEGATIVE (NEGATIVE); COCAINE METABOLITE URINE NEGATIVE (NEGATIVE); METHADONE URINE NEGATIVE (NEGATIVE); OPIATES URINE NEGATIVE (NEGATIVE); PHENCYCLIDINE URINE NEGATIVE (NEGATIVE)
[2020-01-09 00:59] LABS: ACETAMINOPHEN LEVEL < 2.0 UG/ML (10.0-30.0); ALBUMIN 3.4 GM/DL (3.2-5.2); ALT/SGPT 34 U/L (12-78); BILIRUBIN,DIRECT 0.1 MG/DL (0.0-0.2); BILIRUBIN,TOTAL 0.3 MG/DL (0.2-1.0); BLOOD UREA NITROGEN 13 MG/DL (7-18); CALCIUM LEVEL 8.5 MG/DL (8.5-10.1); CARBON DIOXIDE LEVEL 28 MEQ/L (21-32); CHLORIDE LEVEL 107 MEQ/L (98-107); CREATININE FOR GFR 0.98 MG/DL (0.55-1.30); ETHYL ALCOHOL (ETHANOL) < 0.003 % (0.000-0.010); GLOMERULAR FILTRATION RATE > 60.0 (>60); GLUCOSE, FASTING 100 MG/DL (70-100); POTASSIUM SERUM 3.8 MEQ/L (3.5-5.1); SALICYLATE LEVEL < 1.7 MG/DL (5.0-30.0); SODIUM LEVEL 141 MEQ/L (136-145); TOTAL PROTEIN 6.3 GM/DL (6.4-8.2)
[2020-01-09 01:12] LABS: HCG, SERUM QUALITATIVE NEGATIVE (NEGATIVE)
[2020-01-09] MEDS ORDERED: METAL LOCK LOOP XX ONE (02:04)
== END 2020-01-09 02:34 | disposition home or self-care (01) ==
LOC: M ED 23:07
DX: F43.0 Acute stress reaction (principal); F60.3 Borderline personality disorder; F32.9 Major depressive disorder, single episode, unspecified; F41.9 Anxiety disorder, unspecified; M79.7 Fibromyalgia; M32.9 Systemic lupus erythematosus, unspecified; M06.9 Rheumatoid arthritis, unspecified; Z88.5 Allergy status to narcotic agent; Z79.899 Other long term (current) drug therapy
CPT/HCPCS: 36415; 80048; 80076; 80307; 84443; 84703; 85027; 99284; G0480

== ENCOUNTER 2020-02-05 10:47 | Emergency (ER) | payer MEDICAID, OTHER ==
[~2020-02-05] VITALS: Ht 170.2 cm; Wt 113.4 kg
[~2020-02-05 10:47] MED LIST changes: +HYDR-3910 PO; +REME15TA2 PO; +[UNRECOGNIZED DRUG - OTHER]
[2020-02-05] MEDS ORDERED: [UNRECOGNIZED DRUG - CODE] (10:58)
[2020-02-05] MEDS ORDERED: ZOFR4TAB16 PO (11:20)
[2020-02-05] MEDS ORDERED: NS 1,000 ML IV ONE (11:45)
[2020-02-05 11:46] LABS: BASO # 0.1 10^3/uL (0.0-0.2); BASO % 0.6 % (0.0-1.0); EOS # 0.1 10^3/uL (0.0-0.5); EOS % 0.7 % (0.0-3.0); HEMATOCRIT 44.6 % (36.0-47.0); HEMOGLOBIN 14.1 g/dl (12.0-15.5); LYMPH # 2.1 10^3/uL (1.5-5.0); LYMPH % 17.8 % (24.0-44.0); MEAN CORPUSCULAR HGB CONC 31.6 g/dl (32.0-36.5); MEAN CORPUSCULAR VOLUME 91.8 fl (80.0-96.0); MONO # 0.4 10^3/uL (0.0-0.8); MONO % 3.6 % (0.0-5.0); NEUTROPHILS # 9.1 10^3/uL (1.5-8.5); PLATELET COUNT, AUTOMATED 318 10^3/uL (150-450); RED BLOOD COUNT 4.86 10^6/uL (4.00-5.40); WHITE BLOOD COUNT 11.8 10^3/uL (4.0-10.0)
[2020-02-05 12:09] LABS: FREE T4 0.88 NG/DL (0.76-1.46); THYROID STIMULATING HORMONE 1.25 uIU/ML (0.358-3.740)
--- NOTE | 2020-02-05 12:59 | REP ---
CT brain: 02/05/2020. Indication: Syncope. Technique: Unenhanced axial CT images of the brain were obtained from skull base to vertex with coronal reconstructions provided. Comparison: 08/23/2019. Findings: There is no acute intracranial hemorrhage, acute cortical infarction, mass effect or hydrocephalous. The visualized paranasal sinuses and mastoid air cells are essentially clear. There is no acute calvarial fracture. Impression: No acute intracranial process. Electronically Signed by Wing Hoyt DO 02/05/2020 12:50 P
[2020-02-05] MEDS ORDERED: ACETAMINOPHEN 325 MG TAB PO ONE (13:45)
[2020-02-05] MEDS ORDERED: KETOROLAC 30 MG/ML 1ML VIAL IV ONE (13:45)
[2020-02-05 13:47] VITALS: BP 126/76
--- NOTE | 2020-02-05 14:32 | REP ---
CT ABDOMEN AND PELVIS WITHOUT CONTRAST: CT abdomen and pelvis performed without oral or IV contrast. Sagittal and coronal reconstruction images are performed. Mild atelectatic changes are seen in each lung base. The liver, spleen, adrenals, pancreas, and kidneys are grossly unremarkable. The patient has had a prior cholecystectomy. There is no renal, ureteral or bladder calculus. There is no hydroureteronephrosis. There is no abdominal aortic aneurysm. There is no adenopathy. There is no free air or free fluid. There is no bowel wall thickening. The appendix is normal. Small umbilical hernia contains noninflamed fat. No pelvic mass is seen. IUD is seen in the uterus. Urinary bladder is not well distended and is not well evaluated. IMPRESSION: No acute abnormality is detected. No appendicitis. No renal, ureteral or bladder calculus and no hydroureteronephrosis. Status post cholecystectomy. Small umbilical hernia contains noninflamed fat. Electronically Signed by Tad Farias MD 02/10/2020 06:08 P
--- NOTE | 2020-02-05 21:33 | ECGEPIP ---
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
== END 2020-02-05 14:15 | disposition home or self-care (01) ==
LOC: M ED 10:47
DX: R51 Headache (principal); R55 Syncope and collapse; R00.1 Bradycardia, unspecified; I10 Essential (primary) hypertension; M06.9 Rheumatoid arthritis, unspecified; M79.7 Fibromyalgia; F41.9 Anxiety disorder, unspecified; M32.9 Systemic lupus erythematosus, unspecified; Z88.5 Allergy status to narcotic agent; Z79.899 Other long term (current) drug therapy
CPT/HCPCS: 36415; 70450; 74176; 80047; 81001; 83735; 84439; 84443; 84702; 85025; 87086; 93005; 93041; 94760; 96361; 96374; 99285; J1885

== ENCOUNTER → 2020-02-11 | Outpatient (REF) | payer OTHER ==
[~2020-02-11] MED LIST changes: +CYCL5TAB PO; +KETO10TAB PO; +ZOFR4TAB16 PO; +[UNRECOGNIZED DRUG - CODE]
[2020-02-11 18:07] LABS: APPEARANCE, URINE CLEAR (CLEAR); BACTERIA, URINE AUTO NEGATIVE (NEGATIVE); BILIRUBIN, URINE AUTO NEGATIVE (NEGATIVE); BLOOD, URINE BLOOD 1+ (NEGATIVE); COLOR, URINE YELLOW (YELLOW); GLUCOSE, URINE (UA) AUTO NEGATIVE (NEGATIVE); KETONE, URINE AUTO NEGATIVE (NEGATIVE); LEUKOCYTE ESTERASE, URINE AUTO TRACE (NEGATIVE); MUCUS, URINE SMALL (NEGATIVE); NITRITE, URINE AUTO NEGATIVE (NEGATIVE); PROTEIN, URINE AUTO NEGATIVE (NEGATIVE); RBC, URINE AUTO 1 /HPF (0-3); SPECIFIC GRAVITY URINE AUTO 1.019 (1.002-1.035); SQUAMOUS EPITHELIAL CELL UR AU 3 /HPF (0-6); UROBILINOGEN, URINE AUTO 0.2 mg/dL (0.0-2.0); WBC, URINE AUTO 2 /HPF (0-3)
[2020-02-11 20:28] LABS: CHLAMYDIA DNA AMPLIFICATION NEGATIVE (NEGATIVE); GC DNA AMPLIFICATION POSITIVE (NEGATIVE)
== END ==
LOC: M LAB REF 17:42
PROVIDERS: ATTEND Physician Assistant Medical
DX: N39.0 Urinary tract infection, site not specified (principal)

== ENCOUNTER 2020-02-22 10:33 | Emergency (ER) | payer OTHER ==
[~2020-02-22] VITALS: Ht 170.2 cm; Wt 115.8 kg
[~2020-02-22 10:33] MED LIST changes: -CYCL5TAB PO; -KETO10TAB PO
[2020-02-22] MEDS ORDERED: KETOROLAC 60MG 2ML VIAL IM ONE (11:00)
--- NOTE | 2020-02-22 11:16 | REP ---
Clinical: Lifting injury. Back pain. Technique: AP and lateral views of the lumbosacral spine. Findings: Alignment and lordosis maintained. Vertebral bodies are intact. No acute fracture / compression injury or subluxation. Impression: Normal two-view lumbosacral spine series. Electronically Signed by Kevin Zelaya MD 02/22/2020 11:06 A
[2020-02-22] MEDS ORDERED: CYCL5TAB PO (11:50)
[2020-02-22] MEDS ORDERED: KETO10TAB PO (11:50)
[2020-02-22 11:58] VITALS: BP 111/84
== END 2020-02-22 11:59 | disposition home or self-care (01) ==
LOC: M ED 10:33
DX: M54.41 Lumbago with sciatica, right side (principal); I10 Essential (primary) hypertension; J45.909 Unspecified asthma, uncomplicated; M79.7 Fibromyalgia; K21.9 Gastro-esophageal reflux disease without esophagitis; M32.9 Systemic lupus erythematosus, unspecified; F33.9 Major depressive disorder, recurrent, unspecified; F41.9 Anxiety disorder, unspecified; G43.909 Migraine, unspecified, not intractable, without status migrainosus; Z88.5 Allergy status to narcotic agent
CPT/HCPCS: 72100; 96372; 99283; J1885

== ENCOUNTER → 2020-03-13 | Outpatient (REF) | payer OTHER, MEDICAID ==
[~2020-03-13] MED LIST changes: +AIMO70IN2 SC; +CYCL5TAB PO; +KETO10TAB PO; +TRAM50TA2 PO; +[UNRECOGNIZED DRUG - OTHER]
[2020-03-13 22:15] LABS: APPEARANCE, URINE CLEAR (CLEAR); BACTERIA, URINE AUTO NEGATIVE (NEGATIVE); BILIRUBIN, URINE AUTO NEGATIVE (NEGATIVE); BLOOD, URINE BLOOD 1+ (NEGATIVE); COLOR, URINE YELLOW (YELLOW); GLUCOSE, URINE (UA) AUTO NEGATIVE (NEGATIVE); KETONE, URINE AUTO NEGATIVE (NEGATIVE); LEUKOCYTE ESTERASE, URINE AUTO NEGATIVE (NEGATIVE); MUCUS, URINE SMALL (NEGATIVE); NITRITE, URINE AUTO NEGATIVE (NEGATIVE); PROTEIN, URINE AUTO NEGATIVE (NEGATIVE); RBC, URINE AUTO 1 /HPF (0-3); SPECIFIC GRAVITY URINE AUTO 1.021 (1.002-1.035); SQUAMOUS EPITHELIAL CELL UR AU 1 /HPF (0-6); UROBILINOGEN, URINE AUTO 0.2 mg/dL (0.0-2.0); WBC, URINE AUTO 1 /HPF (0-3)
[2020-03-13 23:09] LABS: CHLAMYDIA DNA AMPLIFICATION NEGATIVE (NEGATIVE); GC DNA AMPLIFICATION NEGATIVE (NEGATIVE)
== END ==
LOC: M LAB REF 21:28
PROVIDERS: ATTEND Physician Assistant
DX: R30.0 Dysuria (principal); Z20.2 Contact with and (suspected) exposure to infections with a predominantly sexual mode of transmission

== ENCOUNTER → 2020-03-31 | Outpatient (REF) | payer OTHER, MEDICAID ==
[2020-04-29 08:10] LABS: APPEARANCE, URINE CLEAR (CLEAR); BACTERIA, URINE AUTO 1+ (NEGATIVE); BILIRUBIN, URINE AUTO NEGATIVE (NEGATIVE); BLOOD, URINE BLOOD NEGATIVE (NEGATIVE); COLOR, URINE YELLOW (YELLOW); GLUCOSE, URINE (UA) AUTO NEGATIVE (NEGATIVE); KETONE, URINE AUTO NEGATIVE (NEGATIVE); LEUKOCYTE ESTERASE, URINE AUTO NEGATIVE (NEGATIVE); NITRITE, URINE AUTO NEGATIVE (NEGATIVE); PROTEIN, URINE AUTO NEGATIVE (NEGATIVE); RBC, URINE AUTO 1 /HPF (0-3); SPECIFIC GRAVITY URINE AUTO 1.015 (1.002-1.035); SQUAMOUS EPITHELIAL CELL UR AU 3 /HPF (0-6); UROBILINOGEN, URINE AUTO 0.2 mg/dL (0.0-2.0); WBC, URINE AUTO 0 /HPF (0-3)
[2020-04-29 08:11] LABS: MUCUS, URINE SMALL (NEGATIVE)
== END ==
LOC: M LAB REF 07:02
PROVIDERS: ATTEND Physician Assistant
DX: N39.0 Urinary tract infection, site not specified (principal)

== ENCOUNTER → 2020-04-11 | Outpatient (REF) | payer OTHER, MEDICAID ==
[2020-05-12 15:06] LABS: CHLAMYDIA DNA AMPLIFICATION NEGATIVE (NEGATIVE); GC DNA AMPLIFICATION NEGATIVE (NEGATIVE)
[2020-05-30 11:46] LABS: APPEARANCE, URINE MANUAL CLEAR (CLEAR); BILIRUBIN, URINE MANUAL NEGATIVE (NEGATIVE); BLOOD URINE MANUAL NEGATIVE (NEGATIVE); COLOR, URINE MANUAL YELLOW (YELLOW); GLUCOSE, URINE (UA) MANUAL NEGATIVE (NEGATIVE); KETONE, URINE MANUAL NEGATIVE (NEGATIVE); LEUKOCYTE ESTERASE, URINE MAN NEGATIVE (NEGATIVE); NITRITE, URINE MANUAL NEGATIVE (NEGATIVE); PROTEIN, URINE MANUAL NEGATIVE (NEGATIVE); UROBILINOGEN, URINE MANUAL NORMAL (NORMAL)
== END ==
LOC: M LAB REF 14:27
PROVIDERS: ATTEND Physician Assistant
DX: R30.0 Dysuria (principal)

== ENCOUNTER 2020-04-17 08:49 | Emergency (ER) | payer OTHER ==
[~2020-04-17] VITALS: Ht 170.2 cm; Wt 112.3 kg
[~2020-04-17 08:49] MED LIST changes: -AIMO70IN2 SC; -TRAM50TA2 PO; -[UNRECOGNIZED DRUG - OTHER]
[2020-04-17] MEDS ORDERED: AIMO70IN2 SC (08:58)
[2020-04-17] MEDS ORDERED: [UNRECOGNIZED DRUG - OTHER] (08:58)
[2020-04-17] MEDS ORDERED: TRAM50TA2 PO (08:58)
[2020-04-17 11:01] VITALS: BP 136/92
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
== END 2020-04-17 11:07 | disposition home or self-care (01) ==
LOC: M ED 08:49
DX: M25.571 Pain in right ankle and joints of right foot (principal); W19.XXXA Unspecified fall, initial encounter; Y92.129 Unspecified place in nursing home as the place of occurrence of the external cause; Y93.01 Activity, walking, marching and hiking; Y99.0 Civilian activity done for income or pay; I10 Essential (primary) hypertension; M79.7 Fibromyalgia; F17.210 Nicotine dependence, cigarettes, uncomplicated

== ENCOUNTER → 2020-05-25 | Outpatient (CLI) | payer OTHER ==
[~2020-05-25] MED LIST changes: +AIMO70IN2 SC; +TRAM50TA2 PO; +[UNRECOGNIZED DRUG - OTHER]
== END ==
LOC: M LABSMTC 10:40
PROVIDERS: ATTEND Family Medicine
DX: Z20.828 Contact with and (suspected) exposure to other viral communicable diseases (principal)
CPT/HCPCS: C9803; U0003

== ENCOUNTER 2020-06-07 21:37 | Emergency (ER) | payer MEDICAID, OTHER ==
[~2020-06-07] VITALS: Ht 170.2 cm; Wt 119.1 kg
[2020-06-07] MEDS ORDERED: IBUPROFEN 800 MG TAB PO ONE (22:30)
[2020-06-07 23:47] VITALS: BP 168/86
== END 2020-06-07 23:52 | disposition home or self-care (01) ==
LOC: M ED 21:37
DX: S80.211A Abrasion, right knee, initial encounter (principal); S80.212A Abrasion, left knee, initial encounter; W10.8XXA Fall (on) (from) other stairs and steps, initial encounter; Y92.098 Other place in other non-institutional residence as the place of occurrence of the external cause; I10 Essential (primary) hypertension; K21.9 Gastro-esophageal reflux disease without esophagitis; M32.9 Systemic lupus erythematosus, unspecified; M06.9 Rheumatoid arthritis, unspecified; M79.7 Fibromyalgia; G43.909 Migraine, unspecified, not intractable, without status migrainosus; F41.9 Anxiety disorder, unspecified; F32.9 Major depressive disorder, single episode, unspecified; Z88.5 Allergy status to narcotic agent; Z87.891 Personal history of nicotine dependence; Z79.899 Other long term (current) drug therapy

== ENCOUNTER 2020-07-12 12:54 | Emergency (ER) | payer OTHER ==
[~2020-07-12] VITALS: Ht 170.2 cm; Wt 125.6 kg
[2020-07-12] MEDS ORDERED: LAMO25TA4 (13:01)
[2020-07-12] MEDS ORDERED: ONDA4TAB6 (13:01)
[2020-07-12] MEDS ORDERED: FLUO10CA16 (13:01)
[2020-07-12] MEDS ORDERED: CYCLOBENZAPRINE 10MG TABLET PO ONE (15:30)
[2020-07-12] MEDS ORDERED: LIDOCAINE 5% (LIDODERM) PATCH TD ONE (15:30)
[2020-07-12] MEDS ORDERED: KETOROLAC 60MG 2ML VIAL IM ONE (15:30)
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
[2020-07-12] MEDS ORDERED: CYCL-707 PO (16:01)
[2020-07-12] MEDS ORDERED: LIDO5DIS41 TOP (16:01)
[2020-07-12 16:20] VITALS: BP 146/76
[2020-07-12] MEDS ORDERED: **NOTE PATIENT COMMENT** MISC XX SCH (21:00)
== END 2020-07-12 16:30 | disposition home or self-care (01) ==
LOC: M ED 12:54
DX: M25.511 Pain in right shoulder (principal); V43.62XA Car passenger injured in collision with other type car in traffic accident, initial encounter; Y92.410 Unspecified street and highway as the place of occurrence of the external cause; M32.9 Systemic lupus erythematosus, unspecified; M79.7 Fibromyalgia; M06.9 Rheumatoid arthritis, unspecified; I10 Essential (primary) hypertension; G43.909 Migraine, unspecified, not intractable, without status migrainosus; Z88.5 Allergy status to narcotic agent; Z79.899 Other long term (current) drug therapy
CPT/HCPCS: 73030; 96372; 99284; J1885

== ENCOUNTER → 2020-07-28 | Outpatient (REF) | payer OTHER, MEDICAID ==
[~2020-07-28] MED LIST changes: +CYCL-707 PO; +FLUO10CA16; +LAMO25TA4; +LIDO5DIS41 TOP; +ONDA4TAB6
== END ==
LOC: M LAB REF 21:54
PROVIDERS: ATTEND Physician Assistant
DX: Z11.3 Encounter for screening for infections with a predominantly sexual mode of transmission (principal)

== ENCOUNTER → 2020-08-25 | Outpatient (CLI) | payer OTHER | LOC: M LABSMTC 12:46 | PROVIDERS: ATTEND Family Medicine | DX: Z20.828 Contact with and (suspected) exposure to other viral communicable diseases (principal) ==

== ENCOUNTER → 2020-09-01 | Outpatient (CLI) | payer OTHER, MEDICAID ==
--- NOTE | 2020-09-01 12:43 | REPPI ---
INDICATION: RIGHT SIDED LOW BACK PAIN/SCIATICA. COMPARISON: Comparison lumbar spine radiographs February 22, 2020.. TECHNIQUE: Five views. FINDINGS: Lumbar vertebral body heights are preserved. Alignment is normal. There is no evidence of spondylolysis or spondylolisthesis. Sacrum and SI joints are intact. Psoas margins are symmetric. There is mild narrowing of the L3-4 intervertebral disc space. An IUD is noted centrally in the pelvis. IMPRESSION: Mild disc narrowing L3-4. IUD noted in place. Clips in the right upper quadrant of the abdomen. Otherwise negative radiographs of the lumbar spine. <Electronically signed by Red Cody > 09/01/20 [id number]
== END ==
LOC: M PLAIMG 12:25
PROVIDERS: ATTEND Physician Assistant Medical
DX: M54.41 Lumbago with sciatica, right side (principal); Z97.8 Presence of other specified devices; Z97.5 Presence of (intrauterine) contraceptive device

== ENCOUNTER → 2020-10-13 | Outpatient (REF) | payer MEDICAID, OTHER ==
[~2020-10-13] MED LIST changes: +LISI10TA22; -LISI10TA4; -QUET1TAB7; +QUET25TA3
[2020-10-13 17:52] LABS: BASO # 0.1 10^3/uL (0.0-0.2); BASO % 0.8 % (0.0-1.0); EOS # 0.2 10^3/uL (0.0-0.5); EOS % 2.8 % (0.0-3.0); HEMATOCRIT 44.5 % (36.0-47.0); HEMOGLOBIN 14.1 g/dl (12.0-15.5); LYMPH # 2.4 10^3/uL (1.5-5.0); LYMPH % 30.8 % (24.0-44.0); MEAN CORPUSCULAR HEMOGLOBIN 29.9 pg (27.0-33.0); MEAN CORPUSCULAR HGB CONC 31.7 g/dl (32.0-36.5); MEAN CORPUSCULAR VOLUME 94.3 fl (80.0-96.0); MONO # 0.5 10^3/uL (0.0-0.8); MONO % 6.6 % (2.0-8.0); NEUTROPHILS # 4.7 10^3/uL (1.5-8.5); NEUTROPHILS % 58.7 % (36.0-66.0); PLATELET COUNT, AUTOMATED 331 10^3/uL (150-450); RED BLOOD COUNT 4.72 10^6/uL (4.00-5.40); WHITE BLOOD COUNT 7.9 10^3/uL (4.0-10.0)
[2020-10-13 18:17] LABS: ALBUMIN 3.6 GM/DL (3.2-5.2); ALT/SGPT 39 U/L (12-78); BILIRUBIN,TOTAL 0.3 MG/DL (0.2-1.0); BLOOD UREA NITROGEN 12 MG/DL (7-18); CALCIUM LEVEL 8.9 MG/DL (8.5-10.1); CARBON DIOXIDE LEVEL 30 MEQ/L (21-32); CHLORIDE LEVEL 106 MEQ/L (98-107); CHOLESTEROL LEVEL 147 MG/DL (<200); CHOLESTEROL RISK RATIO 2.194 (<5); GLOMERULAR FILTRATION RATE > 60.0 (>60); GLUCOSE, FASTING 86 MG/DL (70-100); HDL CHOLESTEROL 67 MG/DL (>40); LDL CHOLESTEROL 66 MG/DL (<100); NON-HDL-C 80 MG/DL; POTASSIUM SERUM 4.2 MEQ/L (3.5-5.1); SODIUM LEVEL 141 MEQ/L (136-145); TOTAL PROTEIN 6.3 GM/DL (6.4-8.2); TRIGLYCERIDES LEVEL 68 MG/DL (<150)
[2020-10-13 18:24] LABS: HCG, SERUM QUALITATIVE NEGATIVE (NEGATIVE)
[2020-10-13 18:45] LABS: HEMOGLOBIN A1c 5.1 %
== END ==
LOC: M PLALAB 17:00
PROVIDERS: ATTEND Psychiatry & Neurology Psychiatry
DX: F90.0 Attention-deficit hyperactivity disorder, predominantly inattentive type (principal); Z63.0 Problems in relationship with spouse or partner; F60.3 Borderline personality disorder; F41.1 Generalized anxiety disorder

== ENCOUNTER 2020-12-26 13:06 | Emergency (ER) | payer MEDICAID, OTHER ==
[~2020-12-26] VITALS: Ht 170.2 cm; Wt 120.5 kg
[2020-12-26] MEDS ORDERED: DULO1CAP5 (13:17)
[2020-12-26] MEDS ORDERED: CYMB60CA3 (13:17)
[2020-12-26] MEDS ORDERED: KLON0.5T (13:17)
[2020-12-26] MEDS ORDERED: HYDR50TA70 (13:17)
[2020-12-26] MEDS ORDERED: NS 1,000 ML IV ONE (13:35)
[2020-12-26 13:59] LABS: BASO # 0.1 10^3/uL (0.0-0.2); BASO % 0.8 % (0.0-1.0); EOS # 0.1 10^3/uL (0.0-0.5); HEMATOCRIT 40.8 % (36.0-47.0); HEMOGLOBIN 13.3 g/dl (12.0-15.5); LYMPH # 2.3 10^3/uL (1.5-5.0); LYMPH % 26.3 % (24.0-44.0); MEAN CORPUSCULAR HEMOGLOBIN 29.8 pg (27.0-33.0); MEAN CORPUSCULAR HGB CONC 32.6 g/dl (32.0-36.5); MEAN CORPUSCULAR VOLUME 91.5 fl (80.0-96.0); MONO # 0.6 10^3/uL (0.0-0.8); MONO % 7.1 % (2.0-8.0); NEUTROPHILS # 5.5 10^3/uL (1.5-8.5); NEUTROPHILS % 64.6 % (36.0-66.0); PLATELET COUNT, AUTOMATED 304 10^3/uL (150-450); RED BLOOD COUNT 4.46 10^6/uL (4.00-5.40); WHITE BLOOD COUNT 8.6 10^3/uL (4.0-10.0)
[2020-12-26 14:27] LABS: ALBUMIN 3.7 GM/DL (3.2-5.2); ALT/SGPT 37 U/L (12-78); BILIRUBIN,DIRECT 0.2 MG/DL (0.0-0.2); BILIRUBIN,TOTAL 0.7 MG/DL (0.2-1.0); CK-MB VALUE MASS 1.7 NG/ML (<3.6); CPK CREATINE PHOSPHOKINASE 245 U/L (26-192); LIPASE 70 U/L (73-393); MB/CK RELATIVE INDEX 0.69 (< OR =4); TOTAL PROTEIN 6.7 GM/DL (6.4-8.2); TROPONIN I < 0.02 NG/ML (< 0.10)
[2020-12-26 15:18] VITALS: BP 132/87
[2020-12-26 16:20] LABS: RSV AMPLIFICATION NEGATIVE (NEGATIVE)
--- NOTE | 2020-12-26 19:45 | ECGEPIP ---
[facility] - ED Test Date: 2020-12-26 Pat Name: CONCEPCION MEZA Department: Room: - Gender: Female Return Clerk: EZEKIEL : 1990 Requested By: AGATHA De La Garza PA-C Order Number: [id number] Reading MD: Jensen Hodge Measurements Intervals [place] Rate: 71 P: 27 [place]: 144 QRS: 20 QRSD: 100 T: 46 QT: 404 QTc: 439 Interpretive Statements Normal sinus rhythm Nonspecific ST T wave changes cw 02/05/[address] T wave changes Electronically Signed on 12-26-2020 19:45:27 EDT by Jensen Hodge
== END 2020-12-26 15:55 | disposition home or self-care (01) ==
LOC: M ED 13:06
DX: R11.2 Nausea with vomiting, unspecified (principal); R51.9 Headache, unspecified; Z20.822 Contact with and (suspected) exposure to COVID-19; Z88.5 Allergy status to narcotic agent

== ENCOUNTER → 2021-01-13 | Outpatient (REF) ==
[~2021-01-13] MED LIST changes: +BACTDSTA; +CYMB60CA3; +DULO1CAP5; +HYDR50TA70; +KLON0.5T; -SULF1TAB93
== END ==
LOC: M LABSMTC 09:34
PROVIDERS: ATTEND Pediatrics
DX: Z11.52 Encounter for screening for COVID-19 (principal)

== ENCOUNTER 2021-05-31 14:09 | Emergency (ER) | payer MEDICAID, OTHER ==
[~2021-05-31] VITALS: Ht 172.7 cm; Wt 114.8 kg
[~2021-05-31 14:09] MED LIST changes: +QUET1TAB17; -QUET25TA3
[2021-05-31] MEDS ORDERED: AMPH1CAP14 (14:40)
[2021-05-31 17:10] VITALS: BP 128/85
== END 2021-05-31 17:11 | disposition home or self-care (01) ==
LOC: M ED 14:09
DX: J06.9 Acute upper respiratory infection, unspecified (principal); B34.8 Other viral infections of unspecified site; I10 Essential (primary) hypertension; M06.9 Rheumatoid arthritis, unspecified; K21.9 Gastro-esophageal reflux disease without esophagitis; F90.9 Attention-deficit hyperactivity disorder, unspecified type; M79.7 Fibromyalgia; Z88.5 Allergy status to narcotic agent; Z79.899 Other long term (current) drug therapy
CPT/HCPCS: 99283; U0003

== ENCOUNTER 2021-07-16 22:59 | Emergency (ER) | payer MEDICAID, OTHER ==
[~2021-07-16] VITALS: Ht 170.2 cm; Wt 110.5 kg
[~2021-07-16 22:59] MED LIST changes: +AMPH1CAP14; -CYMB60CA3; +CYMB60CA4
--- OUTSIDE RECORDS SUMMARY | 2021-07-16 23:08 | CCD ---
Author Author [facility] Organization [facility] Address Unknown Phone Unavailable Care Team Providers Care Night Baker Name Role Phone Luz Maria Amaya MD Unavailable Unavailable Dorian GabLuz Maria miller MD Unavailable Unavailable Luz Maria Amaya MD Unavailable Unavailable Luz Maria Amaya MD Unavailable Unavailable Luz Maria Amaya MD Unavailable Unavailable Luz Maria Amaya MD Unavailable Unavailable Luz Maria Amaya MD Unavailable Unavailable Luz Maria Amaya MD Unavailable Unavailable Luz Maria Amaya MD Unavailable Unavailable Luz Maria Amaya MD Unavailable Unavailable Luz Maria Amaya MD Unavailable Unavailable Luz Maria Amaya MD Unavailable Unavailable Luz Maria Amaya MD Unavailable Unavailable Dorian Gabr, Luz Maria Sanches MD Unavailable Unavailable Dorian Gabr, Luz Maria Sanches MD Unavailable Unavailable Dorian Gabr, Luz Maria Sanches MD Unavailable Unavailable Dorian Gabr, A Verónica KLEIN Unavailable Unavailable Dorian Gabr, A Verónica KLEIN Unavailable Unavailable Dorian Gabr, Luz Maria Sanches MD Unavailable Unavailable Dorian Gabr, Luz Maria Sanches MD Unavailable Unavailable Dorian Gabr, A Verónica KLEIN Unavailable Unavailable Dorian Gabr, A Verónica KLEIN Unavailable Unavailable Dorian Gabr, A Verónica KLEIN Unavailable Unavailable Dorian Gabr, A Verónica KLEIN Unavailable Unavailable Dorian Gabr, Luz Maria Sanches MD Unavailable Unavailable PABLO ACUÑA MD Unavailable Unavailable PABLO ACUÑA MD Unavailable Unavailable PABLO ACUÑA MD Unavailable Unavailable PABLO ACUÑA MD Unavailable Unavailable PABLO ACUÑA MD Unavailable Unavailable PABLO ACUÑA MD Unavailable Unavailable PABLO ACUÑA MD Unavailable Unavailable PABLO ACUÑA MD Unavailable Unavailable PABLO ACUÑA MD Unavailable Unavailable PABLO ACUÑA MD Unavailable Unavailable PABLO ACUÑA MD Unavailable Unavailable PABLO ACUÑA MD Unavailable Unavailable PABLO ACUÑA MD Unavailable Unavailable PABLO ACUÑA MD Unavailable Unavailable PABLO ACUÑA MD Unavailable Unavailable PABLO ACUÑA MD Unavailable Unavailable PABLO ACUÑA MD Unavailable Unavailable PABLO ACUÑA MD Unavailable Unavailable PABLO ACUÑA MD Unavailable Unavailable PABLO ACUÑA MD Unavailable Unavailable PABLO ACUÑA MD Unavailable Unavailable PABLO ACUÑA MD Unavailable Unavailable PABLO ACUÑA MD Unavailable Unavailable PABLO ACUÑA MD Unavailable Unavailable PABLO ACUÑA MD Unavailable Unavailable PABLO ACUÑA MD Unavailable Unavailable PABLO ACUÑA MD Unavailable Unavailable PABLO ACUÑA MD Unavailable Unavailable PABLO ACUÑA MD Unavailable Unavailable PABLO ACUÑA MD Unavailable Unavailable PABLO ACUÑA MD Unavailable Unavailable PABLO ACUÑA MD Unavailable Unavailable PABLO ACUÑA MD Unavailable Unavailable PABLO ACUÑA MD Unavailable Unavailable PABLO ACUÑA MD Unavailable Unavailable PABLO ACUÑA MD Unavailable Unavailable PABLO ACUÑA MD Unavailable Unavailable PABLO ACUÑA MD Unavailable Unavailable PABLO ACUÑA MD Unavailable Unavailable PABLO ACUÑA MD Unavailable Unavailable PABLO ACUÑA MD Unavailable Unavailable PABLO ACUÑA MD Unavailable Unavailable PABLO ACUÑA MD Unavailable Unavailable PABLO ACUÑA MD Unavailable Unavailable PABLO ACUÑA MD Unavailable Unavailable PABLO ACUÑA MD Unavailable Unavailable PABLO ACUÑA MD Unavailable Unavailable PABLO ACUÑA MD Unavailable Unavailable PABLO ACUÑA MD Unavailable Unavailable PABLO ACUÑA MD Unavailable Unavailable PABLO ACUÑA MD Unavailable Unavailable PABLO ACUÑA MD Unavailable Unavailable PABLO ACUÑA MD Unavailable Unavailable PABLO ACUÑA MD Unavailable Unavailable PABLO ACUÑA MD Unavailable Unavailable PABLO ACUÑA MD Unavailable Unavailable PABLO ACUÑA MD Unavailable Unavailable PABLO ACUÑA MD Unavailable Unavailable PABLO ACUÑA MD Unavailable Unavailable PABLO ACUÑA MD Unavailable Unavailable PABLO ACUÑA MD Unavailable Unavailable PABLO ACUÑA MD Unavailable Unavailable PABLO ACUÑA MD Unavailable Unavailable PABLO ACUÑA MD Unavailable Unavailable PABLO ACUÑA MD Unavailable Unavailable PABLO ACUÑA MD Unavailable Unavailable PABLO ACUÑA MD Unavailable Unavailable PABLO ACUÑA MD Unavailable Unavailable PABLO ACUÑA MD Unavailable Unavailable PABLO ACUÑA MD Unavailable Unavailable PABLO ACUÑA MD Unavailable Unavailable PABLO ACUÑA MD Unavailable Unavailable PABLO ACUÑA MD Unavailable Unavailable PABLO ACUÑA MD Unavailable Unavailable PABLO ACUÑA MD Unavailable Unavailable PABLO ACUÑA MD Unavailable Unavailable PABLO ACUÑA MD Unavailable Unavailable PABLO ACUÑA MD Unavailable Unavailable PABLO ACUÑA MD Unavailable Unavailable PABLO ACUÑA MD Unavailable Unavailable PABLO ACUÑA MD Unavailable Unavailable PABLO ACUÑA MD Unavailable Unavailable PABLO ACUÑA MD Unavailable Unavailable PABLO ACUÑA MD Unavailable Unavailable PABLO ACUÑA MD Unavailable Unavailable PABLO ACUÑA MD Unavailable Unavailable PABLO ACUÑA MD Unavailable Unavailable ACUÑA, PABLO PÉREZ MD Unavailable Unavailable ACUÑA, PABLO PÉREZ MD Unavailable Unavailable ACUÑA, PABLO PÉREZ MD Unavailable Unavailable CALDWELL, R SULMA OVERLOCK HEMMER Unavailable Unavailable CALDWELL, R SULMA OVERLOCK HEMMER Unavailable Unavailable CALDWELL, R SULMA OVERLOCK HEMMER Unavailable Unavailable CALDWELL, R SULMA OVERLOCK HEMMER Unavailable Unavailable CALDWELL, R SULMA OVERLOCK HEMMER Unavailable Unavailable CALDWELL, R SULMA OVERLOCK HEMMER Unavailable Unavailable CALDWELL, R SULMA OVERLOCK HEMMER Unavailable Unavailable CALDWELL, R SULMA OVERLOCK HEMMER Unavailable Unavailable CALDWELL, R SULMA OVERLOCK HEMMER Unavailable Unavailable CALDWELL, R SULMA OVERLOCK HEMMER Unavailable Unavailable CALDWELL, R SULMA OVERLOCK HEMMER Unavailable Unavailable CALDWELL, R SULMA OVERLOCK HEMMER Unavailable Unavailable CALDWELL, R SULMA OVERLOCK HEMMER Unavailable Unavailable CALDWELL, R SULMA OVERLOCK HEMMER Unavailable Unavailable CALDWELL, R SULMA OVERLOCK HEMMER Unavailable Unavailable CALDWELL, R SULMA OVERLOCK HEMMER Unavailable Unavailable CALDWELL, R SULMA OVERLOCK HEMMER Unavailable Unavailable CALDWELL, R SULMA OVERLOCK HEMMER Unavailable Unavailable CALDWELL, R SULMA OVERLOCK HEMMER Unavailable Unavailable CALDWELL, R SULMA OVERLOCK HEMMER Unavailable Unavailable CALDWELL, R SULMA OVERLOCK HEMMER Unavailable Unavailable CALDWELL, R SULMA OVERLOCK HEMMER Unavailable Unavailable CALDWELL, R SULMA OVERLOCK HEMMER Unavailable Unavailable CALDWELL, R SULMA OVERLOCK HEMMER Unavailable Unavailable CALDWELL, R SULMA OVERLOCK HEMMER Unavailable Unavailable CALDWELL, R SULMA OVERLOCK HEMMER Unavailable Unavailable CALDWELL, R SULMA OVERLOCK HEMMER Unavailable Unavailable CALDWELL, R SULMA OVERLOCK HEMMER Unavailable Unavailable CALDWELL, R SULMA OVERLOCK HEMMER Unavailable Unavailable CALDWELL, R SULMA OVERLOCK HEMMER Unavailable Unavailable CALDWELL, R SULMA OVERLOCK HEMMER Unavailable Unavailable CALDWELL, R SULMA OVERLOCK HEMMER Unavailable Unavailable CALDWELL, R SULMA OVERLOCK HEMMER Unavailable Unavailable CALDWELL, R SULMA OVERLOCK HEMMER Unavailable Unavailable CALDWELL, R SULMA OVERLOCK HEMMER Unavailable Unavailable CALDWELL, R SULMA OVERLOCK HEMMER Unavailable Unavailable CALDWELL, R SULMA OVERLOCK HEMMER Unavailable Unavailable CALDWELL, R SULMA OVERLOCK HEMMER Unavailable Unavailable CALDWELL, R SULMA OVERLOCK HEMMER Unavailable Unavailable CALDWELL, R SULMA OVERLOCK HEMMER Unavailable Unavailable CALDWELL, R SULMA OVERLOCK HEMMER Unavailable Unavailable CALDWELL, R SULMA OVERLOCK HEMMER Unavailable Unavailable CALDWELL, R SULMA OVERLOCK HEMMER Unavailable Unavailable CALDWELL, R SULMA OVERLOCK HEMMER Unavailable Unavailable Xavi Gregory Unavailable Unavailable Xavi Gregory Unavailable Unavailable Gregory, M Barratt PA Unavailable Unavailable Gregory, M Barratt PA Unavailable Unavailable Gregory, M Barratt PA Unavailable Unavailable Gregory, M Barratt PA Unavailable Unavailable Gregory, M Barratt PA Unavailable Unavailable Gregory, M Barratt PA Unavailable Unavailable Gregory, M Barratt PA Unavailable Unavailable Gregory, M Barratt PA Unavailable Unavailable Gregory, M Barratt PA Unavailable Unavailable Gregory, M Barratt PA Unavailable Unavailable Gregory, M Barratt PA Unavailable Unavailable Gregory, M Barratt PA Unavailable Unavailable Gregory, M Barratt PA Unavailable Unavailable Gregory, M Barratt PA Unavailable Unavailable Gregory, M Barratt PA Unavailable Unavailable Gregory, M Barratt PA Unavailable Unavailable Gregory, M Barratt PA Unavailable Unavailable Gregory, M Barratt PA Unavailable Unavailable Gregory, M Barratt PA Unavailable Unavailable Gregory, M Barratt PA Unavailable Unavailable Gregory, M Barratt PA Unavailable Unavailable Gregory, M Barratt PA Unavailable Unavailable Gregory, M Barratt PA Unavailable Unavailable Gregory, M Barratt PA Unavailable Unavailable Gregory, M Barratt PA Unavailable Unavailable Gregory, M Barratt PA Unavailable Unavailable Gregory, M Barratt PA Unavailable Unavailable YANDY, P JERO MD Unavailable Unavailable YANDY, P JERO MD Unavailable Unavailable YANDY, P JERO MD Unavailable Unavailable YANDY, P JERO MD Unavailable Unavailable YANDY, P JERO MD Unavailable Unavailable YANDY, P JERO MD Unavailable Unavailable YANDY, P JERO MD Unavailable Unavailable YANDY, P JERO MD Unavailable Unavailable YANDY, P JERO MD Unavailable Unavailable YANDY, P JERO MD Unavailable Unavailable YANDY, P JERO MD Unavailable Unavailable YANDY, P JERO MD Unavailable Unavailable YANDY, P JERO MD Unavailable Unavailable YANDY, P JERO MD Unavailable Unavailable YANDY, P JERO MD Unavailable Unavailable YANDY, P JERO MD Unavailable Unavailable YANDY, P JERO MD Unavailable Unavailable YANDY, P JERO MD Unavailable Unavailable YANDY, P JERO MD Unavailable Unavailable YANDY, P JERO MD Unavailable Unavailable YANDY, P JERO MD Unavailable Unavailable YANDY, P JERO MD Unavailable Unavailable YANDY, P JERO MD Unavailable Unavailable YANDY, P JERO MD Unavailable Unavailable YANDY, P JERO MD Unavailable Unavailable YANDY, P JERO MD Unavailable Unavailable YANDY, P JERO MD Unavailable Unavailable YANDY, P JERO MD Unavailable Unavailable YANDY, P JERO MD Unavailable Unavailable YANDY, P JERO MD Unavailable Unavailable YANDY, P JERO MD Unavailable Unavailable YANDY, P JERO MD Unavailable Unavailable YANDY, P JERO MD Unavailable Unavailable YANDY, P JERO MD Unavailable Unavailable YANDY, P JERO MD Unavailable Unavailable YANDY, P JERO MD Unavailable Unavailable YANDY, P JERO MD Unavailable Unavailable YANDY, P JERO MD Unavailable Unavailable YANDY, P JERO MD Unavailable Unavailable YANDY, P JERO MD Unavailable Unavailable YANDY, P JERO MD Unavailable Unavailable YANDY, P JERO MD Unavailable Unavailable YANDY, P JERO MD Unavailable Unavailable YANDY, P JERO MD Unavailable Unavailable YANDY, P JERO MD Unavailable Unavailable YANDY, P JERO MD Unavailable Unavailable YANDY, P JERO MD Unavailable Unavailable AYNDY, P JERO MD Unavailable Unavailable YANDY, P JERO MD Unavailable Unavailable YNADY, P JERO MD Unavailable Unavailable YANDY, P JERO MD Unavailable Unavailable YANDY, P JERO MD Unavailable Unavailable YANDY, P JERO MD Unavailable Unavailable YANDY, P JERO MD Unavailable Unavailable YANDY, P JERO MD Unavailable Unavailable YANDY, P JERO MD Unavailable Unavailable YANDY, P JERO MD Unavailable Unavailable YANDY, P JERO MD Unavailable Unavailable YANDY, P JERO MD Unavailable Unavailable YANDY, P JERO MD Unavailable Unavailable YANDY, P JERO MD Unavailable Unavailable YANDY, P JERO MD Unavailable Unavailable YANDY, P JERO MD Unavailable Unavailable YANDY, P JERO MD Unavailable Unavailable YANDY, P JERO MD Unavailable Unavailable YANDY, P JERO MD Unavailable Unavailable YANDY, P JERO MD Unavailable Unavailable YANDY, P JERO MD Unavailable Unavailable YANDY, P JERO MD Unavailable Unavailable YANDY, P JERO MD Unavailable Unavailable YANDY, P JERO MD Unavailable Unavailable YANDY, P JERO MD Unavailable Unavailable YANDY, P JERO MD Unavailable Unavailable YANDY, P JERO MD Unavailable Unavailable YANDY, P JERO MD Unavailable Unavailable YANDY, P JERO MD Unavailable Unavailable YANDY, P JERO MD Unavailable Unavailable YANDY, P JERO MD Unavailable Unavailable YANDY, P JERO MD Unavailable Unavailable YANDY, P JERO MD Unavailable Unavailable YANDY, P JERO MD Unavailable Unavailable YANDY, P JREO MD Unavailable Unavailable YANDY, P JERO MD Unavailable Unavailable YANDY, P JERO MD Unavailable Unavailable YANDY, P JERO MD Unavailable Unavailable YANDY, P JERO MD Unavailable Unavailable YANDY, P JERO MD Unavailable Unavailable YANDY, P JERO MD Unavailable Unavailable YANDY, P JERO MD Unavailable Unavailable YANDY, P JERO MD Unavailable Unavailable YANDY, P JERO MD Unavailable Unavailable YANDY, P JERO MD Unavailable Unavailable YANDY, P JERO MD Unavailable Unavailable YANDY, P JERO MD Unavailable Unavailable YANDY, P JERO MD Unavailable Unavailable Luke Jacob MD Unavailable Unavailable Luke Jacob MD Unavailable Unavailable Luke Jacob MD Unavailable Unavailable Luke Jacob MD Unavailable Unavailable Luke Jacob MD Unavailable Unavailable Luke Jacob MD Unavailable Unavailable Luke Jacob MD Unavailable Unavailable Luke Jacob MD Unavailable Unavailable Luke Jacob MD Unavailable Unavailable Luke Jacob MD Unavailable Unavailable Luke Jacob MD Unavailable Unavailable Luke Jacob MD Unavailable Unavailable Luke Jacob MD Unavailable Unavailable Luke Jacob MD Unavailable Unavailable Luke Jacob MD Unavailable Unavailable Luke Jacob MD Unavailable Unavailable Luke Jacob MD Unavailable Unavailable Luke Jacob MD Unavailable Unavailable Luke Jacob MD Unavailable Unavailable Luke Jacob MD Unavailable Unavailable Luke Jacob MD Unavailable Unavailable Luke Jacob MD Unavailable Unavailable Luke Jacob MD Unavailable Unavailable Luke Jacob MD Unavailable Unavailable Luke Jacob MD Unavailable Unavailable Luke Jacob MD Unavailable Unavailable Luke Jacob MD Unavailable Unavailable Luke Jacob MD Unavailable Unavailable Luke Jacob MD Unavailable Unavailable Luke Jacob MD Unavailable Unavailable Luke Jacob MD Unavailable Unavailable Luke Jacob MD Unavailable Unavailable Luke Jacob MD Unavailable Unavailable Luke Jacob MD Unavailable Unavailable Luke Jacob MD Unavailable Unavailable Luke Jacob MD Unavailable Unavailable Luke Jacob MD Unavailable Unavailable Luke Jacob MD Unavailable Unavailable Luke Jacob MD Unavailable Unavailable Luke Jacob MD Unavailable Unavailable Luke Jacob MD Unavailable Unavailable Luke Jacob MD Unavailable Unavailable Luke Jacob MD Unavailable Unavailable Luke Jacob MD Unavailable Unavailable Luke Jacob MD Unavailable Unavailable Luke Jacob MD Unavailable Unavailable Luke Jacob MD Unavailable Unavailable Luke Jacob MD Unavailable Unavailable Luke Jacob MD Unavailable Unavailable Luke Jacob MD Unavailable Unavailable Luke Jacob MD Unavailable Unavailable Luke Jacob MD Unavailable Unavailable Luke Jacob MD Unavailable Unavailable Luke Jacob MD Unavailable Unavailable Luke Jacob MD Unavailable Unavailable Luke Jacob MD Unavailable Unavailable Luke Jacob MD Unavailable Unavailable Luke Jacob MD Unavailable Unavailable Luke Jacob MD Unavailable Unavailable Luke Jacob MD Unavailable Unavailable Luke Jacob MD Unavailable Unavailable Luke Jacob MD Unavailable Unavailable Luke Jacob MD Unavailable Unavailable Luke Jacob MD Unavailable Unavailable Luke Jacob MD Unavailable Unavailable Luke Jacob MD Unavailable Unavailable Luke Jacob MD Unavailable Unavailable Luke Jacob MD Unavailable Unavailable Luke Jacob MD Unavailable Unavailable Luke Jacob MD Unavailable Unavailable Luke Jacob MD Unavailable Unavailable Luke Jacob MD Unavailable Unavailable Luke Jacob MD Unavailable Unavailable Luke Jacob MD Unavailable Unavailable Luke Jacob MD Unavailable Unavailable Luke Jacob MD Unavailable Unavailable Luke Jacob MD Unavailable Unavailable Luke Jacob MD Unavailable Unavailable Luke Jacob MD Unavailable Unavailable Servage, L Alicia OVERLOCK HEMMER Unavailable Unavailable Servage, L Alicia OVERLOCK HEMMER Unavailable Unavailable Servage, L Alicia OVERLOCK HEMMER Unavailable Unavailable Servage, L Alicia OVERLOCK HEMMER Unavailable Unavailable Servage, L Alicia OVERLOCK HEMMER Unavailable Unavailable Servage, L Alicia OVERLOCK HEMMER Unavailable Unavailable Servage, L Alicia OVERLOCK HEMMER Unavailable Unavailable Servage, L Alicia OVERLOCK HEMMER Unavailable Unavailable Servage, L Alicia OVERLOCK HEMMER Unavailable Unavailable Servage, L Alicia OVERLOCK HEMMER Unavailable Unavailable Servage, L Alicia OVERLOCK HEMMER Unavailable Unavailable Servage, L Alicia OVERLOCK HEMMER Unavailable Unavailable Servage, L Alicia OVERLOCK HEMMER Unavailable Unavailable Servage, L Alicia OVERLOCK HEMMER Unavailable Unavailable Servage, L Alicia OVERLOCK HEMMER Unavailable Unavailable Servage, L Alicia OVERLOCK HEMMER Unavailable Unavailable Servage, L Alicia OVERLOCK HEMMER Unavailable Unavailable Servage, L Alicia OVERLOCK HEMMER Unavailable Unavailable Servage, L Alicia OVERLOCK HEMMER Unavailable Unavailable Servage, L Alicia OVERLOCK HEMMER Unavailable Unavailable Servage, L Alicia OVERLOCK HEMMER Unavailable Unavailable Servage, L Alicia OVERLOCK HEMMER Unavailable Unavailable Servage, L Alicia OVERLOCK HEMMER Unavailable Unavailable Servage, L Alicia OVERLOCK HEMMER Unavailable Unavailable Servage, L Alicia OVERLOCK HEMMER Unavailable Unavailable Servage, L Alicia OVERLOCK HEMMER Unavailable Unavailable Servage, L Alicia OVERLOCK HEMMER Unavailable Unavailable Servage, L Alicia OVERLOCK HEMMER Unavailable Unavailable Servage, L Alicia OVERLOCK HEMMER Unavailable Unavailable Servage, L Alicia OVERLOCK HEMMER Unavailable Unavailable Servage, L Alicia OVERLOCK HEMMER Unavailable Unavailable Servage, L Alicia OVERLOCK HEMMER Unavailable Unavailable Servage, L Alicia OVERLOCK HEMMER Unavailable Unavailable Servage, L Alicia OVERLOCK HEMMER Unavailable Unavailable Servage, L Alicia OVERLOCK HEMMER Unavailable Unavailable Servage, L Alicia OVERLOCK HEMMER Unavailable Unavailable Servage, L Alicia OVERLOCK HEMMER Unavailable Unavailable Servage, L Alicia OVERLOCK HEMMER Unavailable Unavailable Servage, L Alicia OVERLOCK HEMMER Unavailable Unavailable Servage, L Alicia OVERLOCK HEMMER Unavailable Unavailable Servage, L Alicia OVERLOCK HEMMER Unavailable Unavailable Servage, L Alicia OVERLOCK HEMMER Unavailable Unavailable Servage, L Alicia OVERLOCK HEMMER Unavailable Unavailable Servage, L Alicia OVERLOCK HEMMER Unavailable Unavailable Servage, L Alicia OVERLOCK HEMMER Unavailable Unavailable Servage, L Alicia OVERLOCK HEMMER Unavailable Unavailable Servage, L Alicia OVERLOCK HEMMER Unavailable Unavailable Servage, L Alicia OVERLOCK HEMMER Unavailable Unavailable Servage, L Alicia OVERLOCK HEMMER Unavailable Unavailable Servage, L Alicia OVERLOCK HEMMER Unavailable Unavailable Servage, L Alicia OVERLOCK HEMMER Unavailable Unavailable Servage, L Alicia OVERLOCK HEMMER Unavailable Unavailable Servage, L Alicia OVERLOCK HEMMER Unavailable Unavailable Servage, L Alicia OVERLOCK HEMMER Unavailable Unavailable Servage, L Alicia OVERLOCK HEMMER Unavailable Unavailable Servage, L Alicia OVERLOCK HEMMER Unavailable Unavailable Servage, L Alicia OVERLOCK HEMMER Unavailable Unavailable Servage, L Alicia OVERLOCK HEMMER Unavailable Unavailable Servage, L Alicia OVERLOCK HEMMER Unavailable Unavailable Servage, L Alicia OVERLOCK HEMMER Unavailable Unavailable Servage, L Alicia OVERLOCK HEMMER Unavailable Unavailable Servage, L Alicia OVERLOCK HEMMER Unavailable Unavailable Servage, L Alicia OVERLOCK HEMMER Unavailable Unavailable Servage, L Alicia OVERLOCK HEMMER Unavailable Unavailable Servage, L Alicia OVERLOCK HEMMER Unavailable Unavailable ZAMUDIOBEKAH REBOLLEDO MD Unavailable Unavailable ZAMUDIOBEKAH MD Unavailable Unavailable ZAMUDIOBEKAH MD Unavailable Unavailable ZAMUDIOBEKAH MD Unavailable Unavailable ZAMUDIOBEKAH MD Unavailable Unavailable ZAMUDIOBEKAH MD Unavailable Unavailable ZAMUDIOBEKAH REBOLLEDO MD Unavailable Unavailable ZAMUDIOBEKAH REBOLLEDO MD Unavailable Unavailable ZAMUDIOBEKAH REBOLLEDO MD Unavailable Unavailable ZAMUDIOBEKAH MD Unavailable Unavailable ZAMUDIOBEKAH MD Unavailable Unavailable ZAMUDIOBEKAH REBOLLEDO MD Unavailable Unavailable ZAMUDIOBEKAH MD Unavailable Unavailable ZAMUDIOBEKAH MD Unavailable Unavailable ZAMUDIOBEKAH MD Unavailable Unavailable ZAMUDIOBEKAH MD Unavailable Unavailable ZAMUDIOBEKAH MD Unavailable Unavailable ZAMUDIOBEKAH MD Unavailable Unavailable ZAMUDIOBEKAH MD Unavailable Unavailable ZAMUDIOBEKAH MD Unavailable Unavailable ZAMUDIOBEKAH MD Unavailable Unavailable ZAMUDIOBEKAH MD Unavailable Unavailable ZAMUDIOBEKAH MD Unavailable Unavailable ZAMUDIOBEKAH MD Unavailable Unavailable ZAMUDIOBEKAH MD Unavailable Unavailable ZAMUDIOBEKAH MD Unavailable Unavailable ZAMUDIOBEKAH REBOLLEDO MD Unavailable Unavailable ZAMUDIOBEKAH MD Unavailable Unavailable ZAMUDIOBEKAH REBOLLEDO MD Unavailable Unavailable ZAMUDIOBEKAH REBOLLEDO MD Unavailable Unavailable ZAMUDIOBEKAH MD Unavailable Unavailable Xavi JORGE PA Unavailable Unavailable DEMXavi LOPEZ PA Unavailable Unavailable DEMSCHUYLERINIXavi PA Unavailable Unavailable DEMARTINIXavi PA Unavailable Unavailable DEMARTINI M MANOLO PA Unavailable Unavailable DEMARTINI M MANOLO PA Unavailable Unavailable DEMARTINIXaviEL PA Unavailable Unavailable DEMARTINIXavi PA Unavailable Unavailable DEMARTINIXavi PA Unavailable Unavailable DEMARTINI M MANOLO PA Unavailable Unavailable DEMARTINI M MANOLO PA Unavailable Unavailable DEMARTINI M MANOLO PA Unavailable Unavailable DEMARTINI M MANOLO PA Unavailable Unavailable DEMARTINI M MANOLO PA Unavailable Unavailable DEMARTINI, M MANOLO PA Unavailable Unavailable DEMARTINI, M MANOLO PA Unavailable Unavailable DEMARTINI, M MANOLO PA Unavailable Unavailable DEMARTINI, M MANOLO PA Unavailable Unavailable DEMARTINI, M MANOLO PA Unavailable Unavailable DEMARTINI, M MANOLO PA Unavailable Unavailable DEMARTINI, M MANOLO PA Unavailable Unavailable DEMARTINI, M MANOLO PA Unavailable Unavailable DEMARTINI, M MANOLO PA Unavailable Unavailable DEMARTINI, M MANOLO PA Unavailable Unavailable DEMARTINI, M MANOLO PA Unavailable Unavailable DEMARTINI, M MANOLO PA Unavailable Unavailable DEMARTINI, M MANOLO PA Unavailable Unavailable DEMARTINI, M MANOLO PA Unavailable Unavailable DEMARTINI, M MANOLO PA Unavailable Unavailable DEMARTINI, M MANOLO PA Unavailable Unavailable DEMARTINI, M MANOLO PA Unavailable Unavailable DEMARTINI, M MANOLO PA Unavailable Unavailable DEMARTINI, M MANOLO PA Unavailable Unavailable DEMARTINI, M MANOLO PA Unavailable Unavailable DEMARTINI, M MANOLO PA Unavailable Unavailable DEMARTINI, M MANOLO PA Unavailable Unavailable DEMARTINI, M MANOLO PA Unavailable Unavailable DEMARTINI, M MANOLO PA Unavailable Unavailable DEMARTINI, M MANOLO PA Unavailable Unavailable DEMARTINI, M MANOLO PA Unavailable Unavailable DEMARTINI, M MANOLO PA Unavailable Unavailable DEMARTINI, M MNAOLO PA Unavailable Unavailable DEMARTINI, M MANOLO PA Unavailable Unavailable DEMARTINI, M MNAOLO PA Unavailable Unavailable DEMARTINI, M MANOLO PA Unavailable Unavailable Maring, Marlon PA Unavailable Unavailable Maring, Marlon PA Unavailable Unavailable Maring, Marlon PA Unavailable Unavailable Maring, Marlon PA Unavailable Unavailable Maring, Maroln PA Unavailable Unavailable Maring, Marlon PA Unavailable Unavailable Maring, Marlon PA Unavailable Unavailable Maring, Marlon PA Unavailable Unavailable Maring, Marlon PA Unavailable Unavailable Maring, Marlon PA Unavailable Unavailable Maring, Marlon PA Unavailable Unavailable Maring, Marlon PA Unavailable Unavailable Maring, Marlon PA Unavailable Unavailable Maring, Marlon PA Unavailable Unavailable Maring, Marlon PA Unavailable Unavailable Maring, Marlon PA Unavailable Unavailable Milagros KENNEY MD Unavailable Unavailable Milagros KENNEY MD Unavailable Unavailable Milagros KENNEY MD Unavailable Unavailable Milagros KENNEY MD Unavailable Unavailable Milagros KENNEY MD Unavailable Unavailable Milagros KENNEY MD Unavailable Unavailable Milagros KENNEY MD Unavailable Unavailable Milagros KENNEY MD Unavailable Unavailable Milagros KENNEY MD Unavailable Unavailable VERTINO, Milagros MASTERS MD Unavailable Unavailable VERTINO, Milagros MASTERS MD Unavailable Unavailable VERTINO, Milagros MASTERS MD Unavailable Unavailable VERTINO, Milagros MASTERS MD Unavailable Unavailable VERTINO, Milagros MASTERS MD Unavailable Unavailable VERTINO, Milagros MASTERS MD Unavailable Unavailable VERTINO, Milagros MASTERS MD Unavailable Unavailable VERTINO, Milagros MASTERS MD Unavailable Unavailable VERTINO, Milagros MASTERS MD Unavailable Unavailable VERTINO, Milagros MASTERS MD Unavailable Unavailable VERTINO, Milagros MASTERS MD Unavailable Unavailable VERTINO, Milagros MASTERS MD Unavailable Unavailable VERTINO, Milagros MASTERS MD Unavailable Unavailable VERTINO, Milagros MASTERS MD Unavailable Unavailable VERTINO, Milagros MASTERS MD Unavailable Unavailable VERTINO, Milagros MASTERS MD Unavailable Unavailable VERTINO, Milagros MASTERS MD Unavailable Unavailable VERTINO, Milagros MASTERS MD Unavailable Unavailable VERTINO, Milagros MASTERS MD Unavailable Unavailable VERTINO, Milagros MASTERS MD Unavailable Unavailable VERTINO, Milagros MASTERS MD Unavailable Unavailable VERTINO, Milagros MASTERS MD Unavailable Unavailable VERTINO, Milagros MASTERS MD Unavailable Unavailable VERTINO, Milagros MASTERS MD Unavailable Unavailable VERTINO, Milagros MASTERS MD Unavailable Unavailable VERTINO, Milagros MASTERS MD Unavailable Unavailable VERTINO, Milagros MASTERS MD Unavailable Unavailable VERTINO, Milagros MASTERS MD Unavailable Unavailable VERTINO, Milagros MASTERS MD Unavailable Unavailable VERTINO, Milagros MASTERS MD Unavailable Unavailable VERTINO, Milagros MASTERS MD Unavailable Unavailable VERTINO, Milagros MASTERS MD Unavailable Unavailable VERTINO, Milagros MASTERS MD Unavailable Unavailable VERTINO, Milagros MASTERS MD Unavailable Unavailable MURDOCK, G EDWARD RPA Unavailable Unavailable MURDOCK, G EDWARD RPA Unavailable Unavailable MURDOCK, G EDWARD RPA Unavailable Unavailable MURDOCK, G EDWARD RPA Unavailable Unavailable MURDOCK, G EDWARD RPA Unavailable Unavailable MURDOCK, G EDWARD RPA Unavailable Unavailable MURDOCK, G EDWARD RPA Unavailable Unavailable MURDOCK, G EDWARD RPA Unavailable Unavailable MURDOCK, G EDWARD RPA Unavailable Unavailable MURDOCK, G EDWARD RPA Unavailable Unavailable MURDOCK, G EDWARD RPA Unavailable Unavailable MURDOCK, G EDWARD RPA Unavailable Unavailable MURDOCK, G EDWARD RPA Unavailable Unavailable MURDOCK, G EDWARD RPA Unavailable Unavailable MURDOCK, G EDWARD RPA Unavailable Unavailable MURDOCK, G EDWARD RPA Unavailable Unavailable MURDOCK, G EDWARD RPA Unavailable Unavailable MURDOCK, G EDWARD RPA Unavailable Unavailable MURDOCK, G EDWARD RPA Unavailable Unavailable MURDOCK, G EDWARD RPA Unavailable Unavailable MURDOCK, G EDWARD RPA Unavailable Unavailable MUDROCK, G EDWARD RPA Unavailable Unavailable MURDOCK, G EDWARD RPA Unavailable Unavailable MURDOCK, G EDWARD RPA Unavailable Unavailable MURDOCK, G EDWARD RPA Unavailable Unavailable MURDOCK, G EDWARD RPA Unavailable Unavailable MURDOCK, G EDWARD RPA Unavailable Unavailable MRUDOCK, G EDWARD RPA Unavailable Unavailable MURDOCK, G EDWARD RPA Unavailable Unavailable MURDOCK, G EDWARD RPA Unavailable Unavailable MURDOCK, G EDWARD RPA Unavailable Unavailable MURDOCK, G EDWARD RPA Unavailable Unavailable MURDOCK, G EDWARD RPA Unavailable Unavailable MURDOCK, G EDWARD RPA Unavailable Unavailable MURDOCK, G EDWARD RPA Unavailable Unavailable MURDOCK, G EDWARD RPA Unavailable Unavailable MURDOCK, G EDWARD RPA Unavailable Unavailable Elvia ORTA MD Unavailable Unavailable Elvia ORTA MD Unavailable Unavailable Elvia ORTA MD Unavailable Unavailable Elvia ORTA MD Unavailable Unavailable Elvia ORTA MD Unavailable Unavailable Elvia ORTA MD Unavailable Unavailable Elvia ORTA MD Unavailable Unavailable Elvia ORTA MD Unavailable Unavailable Elvia ORTA MD Unavailable Unavailable Elvia ORTA MD Unavailable Unavailable Elvia ORTA MD Unavailable Unavailable Elvia ORTA MD Unavailable Unavailable Elvia ORTA MD Unavailable Unavailable Elvia ORTA MD Unavailable Unavailable Elvia ORTA MD Unavailable Unavailable Elvia ORTA MD Unavailable Unavailable Elvia OTRA MD Unavailable Unavailable Elvia ORTA MD Unavailable Unavailable Elvia ORTA MD Unavailable Unavailable Elvia ORTA MD Unavailable Unavailable Elvia ORTA MD Unavailable Unavailable Elvia ORTA MD Unavailable Unavailable Elvia ORTA MD Unavailable Unavailable Elvia ORTA MD Unavailable Unavailable Elvia ORTA MD Unavailable Unavailable Elvia ORTA MD Unavailable Unavailable Elvia ORTA MD Unavailable Unavailable Elvia ORTA MD Unavailable Unavailable Elvia ORTA MD Unavailable Unavailable Elvia ORTA MD Unavailable Unavailable Elvia ORTA MD Unavailable Unavailable Elvia ORTA MD Unavailable Unavailable Elvia ORTA MD Unavailable Unavailable Elvia ORTA MD Unavailable Unavailable Elvia ORTA MD Unavailable Unavailable Elvia ORTA MD Unavailable Unavailable Elvia ORTA MD Unavailable Unavailable Elvia ORTA MD Unavailable Unavailable Elvia ORTA MD Unavailable Unavailable Elvia ORTA MD Unavailable Unavailable SETTERElvia MD Unavailable Unavailable SETTERElvia MD Unavailable Unavailable SETTER, Elvia ARAUJO MD Unavailable Unavailable SETTER, Elvia ARAUJO MD Unavailable Unavailable SETTER, Elvia ARAUJO MD Unavailable Unavailable SETTER, Elvia ARAUJO MD Unavailable Unavailable SETTER, Elvia ARAUJO MD Unavailable Unavailable SETTER, Elvia ARAUJO MD Unavailable Unavailable SETTER, Elvia ARAUJO MD Unavailable Unavailable SETTER, Elvia ARAUJO MD Unavailable Unavailable SETTER, Elvia ARAUJO MD Unavailable Unavailable SETTER, Elvia ARAUJO MD Unavailable Unavailable SETTER, Elvia ARAUJO MD Unavailable Unavailable SETTER, Elvia ARAUJO MD Unavailable Unavailable SETTER, Elvia ARAUJO MD Unavailable Unavailable SETTER, Elvia ARAUJO MD Unavailable Unavailable SETTER, Elvia ARAUJO MD Unavailable Unavailable SETTER, Elvia ARAUJO MD Unavailable Unavailable SETTER, Elvia ARAUJO MD Unavailable Unavailable SETTER, Elvia ARAUJO MD Unavailable Unavailable SETTER, Elvia ARAUJO MD Unavailable Unavailable SETTER, Elvia ARAUJO MD Unavailable Unavailable SETTER, Elvia ARAUJO MD Unavailable Unavailable SETTER, Elvia ARAUJO MD Unavailable Unavailable SETTER, Elvia ARAUJO MD Unavailable Unavailable SETTERElvia MD Unavailable Unavailable SETTERElvia MD Unavailable Unavailable SETTERElvia MD Unavailable Unavailable SETTERElvia MD Unavailable Unavailable SETTERElvia MD Unavailable Unavailable SETTERElvia MD Unavailable Unavailable SETTERElvia MD Unavailable Unavailable SETTER, Elvia ARAUJO MD Unavailable Unavailable SETTER, Elvia ARAUJO MD Unavailable Unavailable SETTERElvia MD Unavailable Unavailable SETTERElvia MD Unavailable Unavailable SETTERElvia MD Unavailable Unavailable SETTERElvia MD Unavailable Unavailable SETTERElvia MD Unavailable Unavailable SETTERElvia MD Unavailable Unavailable SETTERElvia MD Unavailable Unavailable SETTERElvia MD Unavailable Unavailable SETTERElvia MD Unavailable Unavailable SETTERElvia MD Unavailable Unavailable SETTERElvia MD Unavailable Unavailable SETTERElvia MD Unavailable Unavailable SETTERElvia MD Unavailable Unavailable SETTERElvia MD Unavailable Unavailable SETTERElvia MD Unavailable Unavailable SETTERElvia MD Unavailable Unavailable SETTERElvia MD Unavailable Unavailable SETTERElvia MD Unavailable Unavailable SETTERElvia MD Unavailable Unavailable SETTERElvia MD Unavailable Unavailable SETTERElvia MD Unavailable Unavailable SETTERElvia MD Unavailable Unavailable SETTER, J VAN MD Unavailable Unavailable Elvia ORTA MD Unavailable Unavailable Elvia ORTA MD Unavailable Unavailable Elvia ORTA MD Unavailable Unavailable Elvia ORTA MD Unavailable Unavailable Elvia ORTA MD Unavailable Unavailable Elvia ORTA MD Unavailable Unavailable Elvia ORTA MD Unavailable Unavailable Elvia ORTA MD Unavailable Unavailable Elvia ORTA MD Unavailable Unavailable Elvia ORTA MD Unavailable Unavailable Elvia ORTA MD Unavailable Unavailable Elvia ORTA MD Unavailable Unavailable Elvia ORTA MD Unavailable Unavailable Elvia ORTA MD Unavailable Unavailable Elvia ORTA MD Unavailable Unavailable Azul Mcclelland MD Unavailable Unavailable Azul Mcclelland MD Unavailable Unavailable Azul Mcclelland MD Unavailable Unavailable Azul Mcclelland MD Unavailable Unavailable Azul Mcclelland MD Unavailable Unavailable Azul Mcclelland MD Unavailable Unavailable Azul Mcclelland MD Unavailable Unavailable Azul Mcclelland MD Unavailable Unavailable Azul Mcclelland MD Unavailable Unavailable Azul Mcclelland MD Unavailable Unavailable Azul Mcclelland MD Unavailable Unavailable Azul Mcclelland MD Unavailable Unavailable Azul Mcclelland MD Unavailable Unavailable Azul Mcclelland MD Unavailable Unavailable Azul Mcclelland MD Unavailable Unavailable Azul Mcclelland MD Unavailable Unavailable Azul Mcclelland MD Unavailable Unavailable Azul Mcclelland MD Unavailable Unavailable Azul Mcclelland MD Unavailable Unavailable Azul Mcclelland MD Unavailable Unavailable Azul Mcclelland MD Unavailable Unavailable Azul Mcclelland MD Unavailable Unavailable Azul Mcclelland MD Unavailable Unavailable Azul Mcclelland MD Unavailable Unavailable Azul Mcclelland MD Unavailable Unavailable Harris, M Nila OVERLOCK HEMMER Unavailable Unavailable Harris, M Nila OVERLOCK HEMMER Unavailable Unavailable Harris, M Nila OVERLOCK HEMMER Unavailable Unavailable Harris, M Nila OVERLOCK HEMMER Unavailable Unavailable Harris, M Nila OVERLOCK HEMMER Unavailable Unavailable Harris, M Nila OVERLOCK HEMMER Unavailable Unavailable Harris, M Nila OVERLOCK HEMMER Unavailable Unavailable Harris, M Nila OVERLOCK HEMMER Unavailable Unavailable Harris, M Nila OVERLOCK HEMMER Unavailable Unavailable Harris, M Nila OVERLOCK HEMMER Unavailable Unavailable Harris, M Nila OVERLOCK HEMMER Unavailable Unavailable Harris, M Nila OVERLOCK HEMMER Unavailable Unavailable Harris, M Nila OVERLOCK HEMMER Unavailable Unavailable Harris, M Nila OVERLOCK HEMMER Unavailable Unavailable Harris, M Nila OVERLOCK HEMMER Unavailable Unavailable Harris, M Nila OVERLOCK HEMMER Unavailable Unavailable Harris, M Nila OVERLOCK HEMMER Unavailable Unavailable Harris, M Nila OVERLOCK HEMMER Unavailable Unavailable Harris, M Nila OVERLOCK HEMMER Unavailable Unavailable Harris, M Nila OVERLOCK HEMMER Unavailable Unavailable Harris, M Nila OVERLOCK HEMMER Unavailable Unavailable Harris, M Nila OVERLOCK HEMMER Unavailable Unavailable Harris, M Nila OVERLOCK HEMMER Unavailable Unavailable Harris, M Nila OVERLOCK HEMMER Unavailable Unavailable Harris, M Nila OVERLOCK HEMMER Unavailable Unavailable Harris, M Nila OVERLOCK HEMMER Unavailable Unavailable Harris, M Nila OVERLOCK HEMMER Unavailable Unavailable Harris, M Nila OVERLOCK HEMMER Unavailable Unavailable Harris, M Nila OVERLOCK HEMMER Unavailable Unavailable Harris, M Nila OVERLOCK HEMMER Unavailable Unavailable Harris, M Nila OVERLOCK HEMMER Unavailable Unavailable Harris, M Nila OVERLOCK HEMMER Unavailable Unavailable Harris, M Nila OVERLOCK HEMMER Unavailable Unavailable Harris, M Nila OVERLOCK HEMMER Unavailable Unavailable Harris, M Nila OVERLOCK HEMMER Unavailable Unavailable Harris, M Nila OVERLOCK HEMMER Unavailable Unavailable Harris, M Nila OVERLOCK HEMMER Unavailable Unavailable Harris, M Nila OVERLOCK HEMMER Unavailable Unavailable Harris, M Nila OVERLOCK HEMMER Unavailable Unavailable Harris, M Nila OVERLOCK HEMMER Unavailable Unavailable Harris, M Nila OVERLOCK HEMMER Unavailable Unavailable Xavi GONZALEZ MD Unavailable Unavailable Xavi GONZALEZ MD Unavailable Unavailable VANXavi MIRZA MD Unavailable Unavailable Xavi GONZALEZ MD Unavailable Unavailable Xavi GONZALEZ MD Unavailable Unavailable Xavi GONZALZE MD Unavailable Unavailable VANXavi MIRZA MD Unavailable Unavailable Xavi GONZALEZ MD Unavailable Unavailable Xavi GONZALEZ MD Unavailable Unavailable VANXavi MIRZA MD Unavailable Unavailable VANXavi MIRZA MD Unavailable Unavailable VANXavi MIRZA MD Unavailable Unavailable VANVALXavi HART MD Unavailable Unavailable VANVALXavi HART MD Unavailable Unavailable VANXavi MIRZA MD Unavailable Unavailable VANXavi MIRZA MD Unavailable Unavailable Xavi GONZALEZ MD Unavailable Unavailable Xavi GONZALEZ MD Unavailable Unavailable VANXavi MIRZA MD Unavailable Unavailable VANXavi MIRZA MD Unavailable Unavailable VANXavi MIRZA MD Unavailable Unavailable Xavi GONZALEZ MD Unavailable Unavailable Xavi GONZALEZ MD Unavailable Unavailable Xavi GONZALEZ MD Unavailable Unavailable VANXavi MIRZA MD Unavailable Unavailable VANXavi MIRZA MD Unavailable Unavailable VANVALKENBURG, Xavi OMALLEY MD Unavailable Unavailable VANVALKENBURG, Xavi OMALLEY MD Unavailable Unavailable VANVALKENBURG, Xavi OMALLEY MD Unavailable Unavailable VANVALKENBURG, Xavi OMALLEY MD Unavailable Unavailable VANVALKENBURG, Xavi OMALLEY MD Unavailable Unavailable VANVALKENBURG, Xavi OMALLEY MD Unavailable Unavailable VANVALKENBURG, Xavi OMALLEY MD Unavailable Unavailable VANVALKENBURG, Xavi OMALLEY MD Unavailable Unavailable VANVALKENBURG, Xavi OMALLEY MD Unavailable Unavailable VANVALKENBURG, Xavi OMALLEY MD Unavailable Unavailable VANVALKENBURG, Xavi OMALLEY MD Unavailable Unavailable VANVALKENBURG, Xavi OMALLEY MD Unavailable Unavailable VANVALKENBURG, Xavi OMALLEY MD Unavailable Unavailable VANVALKENBURG, Xavi OMALLEY MD Unavailable Unavailable VANVALKENBURG, Xavi OMALLEY MD Unavailable Unavailable VANVALKENBURG, Xavi OMALLEY MD Unavailable Unavailable VANVALKENBURG, Xavi OMALLEY MD Unavailable Unavailable VANVALKENBURG, Xavi OMALLEY MD Unavailable Unavailable VANVALKENBURG, Xavi OMALLEY MD Unavailable Unavailable VANVALKENBURG, Xavi OMALLEY MD Unavailable Unavailable VANVALKENBURG, Xavi OMALLEY MD Unavailable Unavailable VANVALKENBURG, Xavi OMALLEY MD Unavailable Unavailable VANVALKENBURG, Xavi OMALLEY MD Unavailable Unavailable VANVALKENBURG, Xavi OMALLEY MD Unavailable Unavailable VANVALKENBURG, Xavi OMALLEY MD Unavailable Unavailable VANVALKENBURG, Xavi OMALLEY MD Unavailable Unavailable VANVALKENBURG, Xavi OMALLEY MD Unavailable Unavailable VANVALKENBURG, Xavi OMALLEY MD Unavailable Unavailable VANVALKENBURG, Xavi OMALLEY MD Unavailable Unavailable VANVALKENBURG, Xavi OMALLEY MD Unavailable Unavailable VANVALKENBURG, Xavi OMALLEY MD Unavailable Unavailable VANVALKENBURG, Xavi OMALLEY MD Unavailable Unavailable VANVALKENBURG, Xavi OMALLEY MD Unavailable Unavailable VANVALKENBURG, Xavi OMALLEY MD Unavailable Unavailable VANVALKENBURG, Xavi OMALLEY MD Unavailable Unavailable VANVALKENBURG, Xavi OMALLEY MD Unavailable Unavailable VANVALKENBURG, Xavi OMALLEY MD Unavailable Unavailable VANVALKENBURG, Xavi OMALLEY MD Unavailable Unavailable VANVALKENBURG, Xavi OMALLEY MD Unavailable Unavailable VANVALKENBURG, Xavi OMALLEY MD Unavailable Unavailable VANVALKENBURG, Xavi OMALLEY MD Unavailable Unavailable VANVALKENBURG, Xavi OMALLEY MD Unavailable Unavailable VANVALKENBURG, Xavi OMALLEY MD Unavailable Unavailable VANVALKENBURG, Xavi OMALLEY MD Unavailable Unavailable VANVALKENBURG, Xavi OMALLEY MD Unavailable Unavailable VANVALKENBURG, Xavi OMALLEY MD Unavailable Unavailable Re-disclosure Warning The records that you are about to access may contain information from federally-assisted alcohol or drug abuse programs. If such information is present, then the following federally mandated warning applies: This information has been disclosed to you from records protected by federal confidentiality rules (42 CFR part 2). The federal rules prohibit you from making any further disclosure of this information unless further disclosure is expressly permitted by the written consent of the person to whom it pertains or as otherwise permitted by 42 CFR part 2. A general authorization for the release of medical or other information is NOT sufficient for this purpose. The Federal rules restrict any use of the information to criminally investigate or prosecute any alcohol or drug abuse patient.The records that you are about to access may contain highly sensitive health information, the redisclosure of which is protected by Article 27-F of the [facility] Public Health law. If you continue you may have access to information: Regarding HIV / AIDS; Provided by facilities licensed or operated by the [facility] Office of Mental Health; or Provided by the [facility] Office for People With Developmental Disabilities. If such information is present, then the following [facility] mandated warning applies: This information has been disclosed to you from confidential records which are protected by state law. State law prohibits you from making any further disclosure of this information without the specific written consent of the person to whom it pertains, or as otherwise permitted by law. Any unauthorized further disclosure in violation of state law may result in a fine or [place] [facility] sentence or both. A general authorization for the release of medical or other information is NOT sufficient authorization for further disc losure. Family History Family Member Name Family Member Gender Family Member Status Date o f Status Description Data Source(s) Unknown Female Problem [facility] ([facility]) Unknown Female Problem [facility] ([facility]) Unknown Female Problem [facility] ([facility]) Unknown Unknown Problem [facility] ([facility]) Unknown Unknown Problem [facility] ([facility]) Unknown Unknown Problem [facility] ([facility]) Unknown Unknown Problem [facility] ([facility]) Encounters Encounter Providers Location Date Indications Data Source(s ) Outpatient Attender: SULMA CALDWELL NPReferrer: Alicia elizalde NP 08/18/2021 12:00:00 AM [facility] Outpatient Attender: SULMA SIEGELeferrer: Alicia elizalde NP 08/04/2021 12:00:00 AM [facility] Outpatient Attender: ELISA ACUÑA MD 08/02/2021 12:00:00 A [facility] Outpatient Attender: Nila Harris NP 07/12/2021 12:00:00 A [facility] Outpatient Attender: SULMA CALDWELL NPReferrer: Alicia elizalde NP 07/07/2021 12:00:00 AM [facility] Outpatient Attender: Nila Harris NP 06/29/2021 12:00:00 [facility] Out[facility] Attender: Nila Harris NP 06/22/2021 12:00:00 [facility] Out[facility] Attender: ELISA ACUÑA MD 06/14/2021 12:00:00 [facility] Outpatient Attender: VAN ORTA MDReferrer: Alicia early NP [id number] 05/26/2021 12:00:00 AM T - 06/07/2021 01:56:15 [facility] Attender: VAN ORTA MD 05/26/2021 12:00:00 [facility] Outpatient Attender: ELISA ACUÑA MD 05/10/2021 12:00:00 [facility] Outpatient 05/09/2021 12:00:00 [facility] Attender: Farzana Mcclelland MD 0 05/04/2021 05:08:34 PM EDT - 05/04/2021 05:55:53 PM EDT [facility] ([facility]) Outpatient Attender: ELISA ACUÑA MD 04/26/2021 12:00:00 [facility] Outpatient Attender: VAN ORTA MDReferrer: VAN ORTA MD 04/20/2021 12:00:00 AM [facility] Out[facility] Attender: Verónica Jones MD 04/11/2021 12:00:00 AM [facility] Outpatient 04/05/2021 12:00:00 AM [facility] Out[facility] Attender: SAUNDRA MURDOCK RPA 03/31 09:05:32 AM EDT - 03/31/2021 09:26:40 AM EDT [facility] ([facility] ) Outpatient Attender: Verónica Jones MD 03/28/2021 12:00:00 AM EDT [facility] Unknown [address] [facility] [address] 03/21/2021 12:00:00 AM EDT eCW1 (Pending sale to [facility]) Outpatient Attender: SULMA CALDWELL NPReferrer: Alicia elizalde NP [id number] 03/17/2021 12:00:00 AM EDT - 03/28/2021 02:58:27 PM [facility] Out[facility] Attender: Verónica Jones MD 03/14/2021 12:00:00 AM [facility] [address] [address] 03/03/2021 12:00:00 AM EDT eCW1 (Pending sale to [facility]) Outpatient Attender: Nila Harris NP [id number] 2020 12:00:00 AM EDT - 03/01/2021 11:12:47 AM EDT Other organ or system involvement in sys temic lupus erythematosus [facility] Other organ or system involvement in sys temic lupus erythematosus Outpatient Attender: SHAHRAM GONZALEZ MDReferrer: Alicia Pendleton NP 02/25/2021 12:00:00 [facility] Out[facility] Attender: SULMA CALDWELL NPReferrer: Alicia elizalde NP [id number] 02/16/2021 12:00:00 AM [facility] Outpatient Attender: SONAM KENNEY MDReferrer: VAN ROBERTS MD [id number] 02/11/2021 12:00:00 AM [facility] Out[facility] Attender: SULMA CALDWELL NPReferrer: Alicia elizalde NP [id number] 02/11/2021 12:00:00 [facility] [address] [address] 02/11/2021 12:00:00 AM EDT eCW1 (Pending sale to [facility]) Outpatient Referrer: VAN ORTA MD 01/14/2021 12:00:00 [facility] Outpatient Attender: SHAHRAM GONZALEZ MD 01/05/2021 12: 00:00 [facility] [address] [facility] [address] 01/03/2021 12:00:00 AM EDT eCW1 (Pending sale to [facility]) Outpatient 12/17/2020 12:00:00 AM [facility] Outpatient Attender: VAN ORTA MD [id number] 11/10/2020 12:00:00 AM [facility] Out[facility] Attender: SHAHRAM GONZALEZ MDReferrer : SHAHRAM GONZALEZ MD [id number] 11/05/2020 12:00:00 AM [facility] Outpatient Referrer: SHAHRAM GNOZALEZ MD 11/06/19 12:00:00 AM EST Sprain of other ligament of right ankle, [facility] Sprain of other ligament of right ankle, [facility] Outpatient Attender: VAN ORTA MD [id number] 2020 12:00:00 AM EST - 11/08/2020 03:01:22 PM EDT Other specified postprocedural states [facility] Other specified postprocedural states Outpatient Attender: Nila Harris NP [id number] 2020 12:00:00 AM EST - 10/27/2020 10:45:28 AM EST Other [facility] Other organ or system involvement in sys temic lupus erythematosus Outpatient Attender: JERO KEBEDE MD 10/18/2020 12:00:00 AM [facility] Outpatient Attender: Marlon LARIOS 10/06/19 10:02:29 AM EST - 10/06/2020 10:18:27 AM EST [facility] ([facility] ) Outpatient Attender: SHAHRAM GONZALEZ MDReferrer : Nila Harris NP [id number] 10/01/2020 12:00:00 AM EST - 10/14/2020 08:43:59 AM ES T Sprain of other ligament of right ankle, [facility] Sprain of other ligament of right ankle, [facility] Outpatient Referrer: SHAHRAM GONZALEZ MD 10/01/19 12:00:00 AM EST Pain in right ankle and joints of right foot [facility] Pain in right ankle and joints of right foot Outpatient Referrer: SHAHRAM GONZALEZ MD 10/01/19 12:00:00 AM EST Pain in right ankle and joints of right foot [facility] Pain in right ankle and joints of right foot Outpatient Attender: MANOLO LARIOS [id number] 09/16/2020 12:00:00 AM EST Sprain of other ligament of right ankle, [facility] Sprain of other ligament of right ankle, [facility] Outpatient Attender: SULMA CALDWELL NPReferrer: Nila Daniel navarro OVERLOCK HEMMER [id number] 09/16/2020 12:00:00 AM EST Carpal tunnel syndrome, right upper limb [facility] Carpal tunnel syndrome, right upper limb Unknown [address] [address] 09/09/2020 12:00:00 AM EST eCW1 (Pending sale to [facility]) Outpatient [address] [address] 09/01/2020 12:00:00 AM EST eCW1 (Pending sale to [facility]) Outpatient Attender: BEKAH ZAMUDIO MD Physical Therapy 12:30:00 PM EST [facility] ([facility]) Outpatient [address] [address] 07/20/2020 12:00:00 AM EST [facility]CW1 [facility] Outpatient Attender: JERO KEBEDE MD [id number] 07/13/2020 12:00:00 A [facility] Unknown [address] [facility] [address] 07/13/2020 12:00:00 AM EST eCW1 ([facility]) Outpatient Attender: Inna Jacob MD Main office - [facility] 07/08/2020 11:30:00 AM EST MEDENT ([facility]) Outpatient Attender: BEKAH ZAMUDIO MD Physical Therapy 08:15:00 AM EST MEDENT ([facility]) Unknown [address] [facility] [address] 06/08/2020 12:00:00 AM EDT eCW1 (Pending sale to [facility]) Outpatient Attender: Cony LARIOS Physical Therapy 11:00:00 AM EDT MEDENT ([facility]) Outpatient Attender: JERO KEBEDE MD [id number] 12:00:00 AM EDT - 04/06/2020 11:22:58 AM EDT Other organ or system involvement in sys temic lupus erythematosus [facility] Other organ or system involvement in sys temic lupus erythematosus Immunizations Vaccine Date Status Description Data Source(s) COVID-19 VACCINE Moderna 02/01/2021 12:00:00 AM EDT completed [facility] Vaccine Series Complete: YESThis Data wa s Submitted to [facility] [employer]. COVID-19 VACCINE Moderna 12/23/2020 12:00:00 AM EDT completed [facility] Vaccine Series Complete: NOThis Data was Submitted to [facility] [employer]. Medications Medication Brand Name Start Date Product Form Dose Route Admi nistrative Instructions Pharmacy Instructions Status Indications Reaction Description Data Source(s) 24 HR Amphetamine aspartate 5 MG / Amphe tamine Sulfate 5 MG / Dextroamphetamine saccharate 5 MG / Dextroamphetamine Sulfate 5 MG Extended Release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 [facility] ([facility]) Physical Therapy Eval - Low Complexity 06/04/2020 12:0 0:00 AM EDT [facility] ([facility]) Results ID Date Data Source [id number] 06/04/2021 10:47:19 AM EDT [facility] Name Value Range Interpretation Code Description Data Harriet rce(s) Supporting Document(s) Progress Note [facility] BXFVXt3pPbAQIuUt67/NDOfxGMLrw7HxGEhtKMj0KVqnAHZsW5RwALQ5qU9fTSQ6XSxNTfJyAvGxRFQ7 lbm [file] ICAgICAgICAgICAgICAgICAgICAgICAgICAgICAgICAgICAgICAgICAgICAgICAgICAgICAgICAgICAg ICAgICAgICAgICAgDQogICAgICAgICAgICAgICAgIC AgICAgICAgICAgICAgICAgICAgICAgICAgICAgICAgICAgICAgICAgICAgICAgICAgICAgICAgICAgIC AgICAgICAgICAgICAgICAgICAgICAgDQogICAgICAgICAgICAgICAgICAgICAgICAgICAgICAgICAgIC AgICAgICAgICAgICAgICAgICAgICAgICAgICAgICAg ICAgICAgICAgICAgICAgICAgICAgICAgICAgICAgICAgDQogICAgICAgICAgICAgICAgICAgICAgICAg ICAgICAgICAgICAgICAgICAgICAgICAgICAgICAgICAgICAgICAgICAgICAgICAgICAgICAgICAgICAg ICAgICAgICAgICAgICAgDQogICAgICAgICAgICAgIC AgICAgICAgICAgICAgICAgICAgICAgICAgICAgICAgICAgICAgICAgICAgICAgICAgICAgICAgICAgIC AgICAgICAgICAgICAgICAgICAgICAgICAgDQogICAgICAgICAgICAgICAgICAgICAgICAgICAgICAgIC AgICAgICAgICAgICAgICAgICAgICAgICAgICAgICAg ICAgICAgICAgICAgICAgICAgICAgICAgICAgICAgICAgICAgDQogICAgICAgICAgICAgICAgICAgICAg ICAgICAgICAgICAgICAgICAgICAgICAgICAgICAgICAgICAgICAgICAgICAgICAgICAgICAgICAgICAg ICAgICAgICAgICAgICAgICAgDQogICAgICAgICAgIC AgICAgICAgICAgICAgICAgICAgICAgICAgICAgICAgICAgICAgICAgICAgICAgICAgICAgICAgICAgIC AgICAgICAgICAgICAgICAgICAgICAgICAgICAgDQogICAgICAgICAgICAgICAgICAgICAgICAgICAgIC AgICAgICAgICAgICAgICAgICAgICAgICAgICAgICAg ICAgICAgICAgICAgICAgICAgICAgICAgICAgICAgICAgICAgICAgDQogICAgICAgICAgICAgICAgICAg ICAgICAgICAgICAgICAgICAgICAgICAgICAgICAgICAgICAgICAgICAgICAgICAgICAgICAgICAgICAg QCZlBAIyIZAzMNZtXXYwBLAvPQGoOYu4N9ydSCQwIV CtBM6cZCr0Nb1+ZMkVYlHlBLV5laWmsP0YGE8wd2BeHKivYMMqf6MkAPf4OL6NBUFpIYxmJY0UOBjxqp 0BUHYsCALsfKRSc3wuBbNuJBT8SVHcEjpqVF1WQMUxE0giuqOpNFWzAODMVDypXTMOOO6ZPgBuZ5OutN 14HIYPUu2+NVxvpbVhRsvJIhG5XJSsq3FfOWc7AX4R QIVuHsbgy8QfTmvzIQMXOGckCA4ZIUO6VLE2GYGcRc6AMFHzR182czXaYE4XXh8XThSxVX0ddp6SCdju XXJiNpdNKab3CTsaBF6PcPHsSZnGwc3mawUfzuLMw6LyznLdaDUQIYfixsItMbnppZVozdZjJMBbKO9v EP0uWRNoRWHoQeAcBXLVAR6VHCFtVFPluUSaGFVoEQ CINT4JLTeiKDM7HCEzwjEuqKCnBYkeFN2VHLDderHiJsjySRJQXNf+Pb7QVL7qo0BnZEyoQQQcEV5fym 7WBYvUGyQeC6S0kRQyA4Y0NUbfXc8MPRDvRLEuUwBzCUSHDQbyED8DGM7jkuL7BS7TyVLwJCNuGSIxmS QpZVe2U07wiXMyXCtxKP6KHJQ+Jc+Fc6ARLDbEOXv WOGyIvMvQPCHLwGuS1KjD0LAc1IkD1FgXO88vFzhzuJrZKjjSB9TOZ1pGQDzRTIFEC4CdDCcpO8eklWd HeTwHCQNJoYrN61rkZVtUCKcZIR7HTHsSk0IIVIuA4PyelWhhHbeouXdYXRgXMAZKC6RGFanayOpnHJd nZanVX74hPwpJW9VEm0RLeCqDW2kbu7UrGVrVp1UVH RjXO4UTGLlJOOwCVCxVOB2CJNkHjGfSBfeNAQjRUAzTBS1CKAqDWTaBF9VRoSrKNGtDyP1YmCoBWVdLX Swpp4HUAZtXTRsWZMoQUVaPPOcOOAgESuxDFMrLPWvHKF2LRRvUAUtQO6ZXqQeDSOqAIS7UOzrKSOnDI Vmrj4NIKAfPGBxMpb1ZTPqHNTiVZNcSQofGEGkQMQ6 UqhiGQXaRJHrMG3BDqNpZHDaAAW3YVLtRRBuOTTekr1MAEIiLPDsLRi6LWIpFZZaUGSnSAnxARDeEWD9 IMBaQUAnXOFqTR3CKyXdFTRzPFBdLdIyIAZdGGTfsw6NDRLxHMNlZxM7MLGyUHXgMIKrADljGPSeGBT3 FBdwVDRpNPMwVP8SVlRsZHZpSDc5BwNdLGMaYNUpke 7IOORdVLVzYFYpAOWrFJElFRRzDXadLVBcNCQ6MKT7CZViXYAmFP0USsQyMUMpBWv2ZdLtVQAlTSSoku 7MPPUbUCBaBZb1CPPaCQWjUDUdRJdvWSAnBVQtPBOxDJKtRYRxPC7CHdBeVKCfNgL9EsHmACEgUPCnax 5URRIrCLDzPAK1RvEvEOBsMPRoIZdzOJJxCBQoMwNk VINvRFFrUK6JLvKjTNSrBnUuGBZiIMJgOSBtds2RVMOuNQCyUpH6ZHBcCTRdBLYsLXngTVXuOOXzThIa OETaUDOxLG9XBdNsKSJbOrJlEBUaIHTwGMVyft3WECCnJVLmQOVuELBvZAKmTCUsVCqnQDZcNIJ6FpAn AXJlWGPaOA7HTnYlAZOuRfR4ZDUeRZVeNOSzpq0MuF LewJtixz4FJOrAJl9ShLgyKDPrASmqUe1wtETsJFHpUMKPBb6IdeXdKMKmOIATLBmoRYMqECU5Xec0YE K0HxM5ZwOiEeR5AzjgRjV2VkW0KpEuDCNwFoU7IVRyFLL1IpzoMHyqIVFmZBhzQ5H9KvfxEkyfPgFuAk M+AC1iNBl+Jm0Ln0KaygS8nzHxYVkoDWb3JQ1WISVWR2JMLo== ID Date Data Source [id number] 05/31/2021 03:42:00 PM EDT [facility] Name Value Range Interpretation Code Description Data Harriet rce(s) Supporting Document(s) SARS COVID ANTIGEN NEGATIVE [facility] This lab was ordered by NICK higgins nd reported by [facility]. ID Date Data Source [id number] 05/04/2021 05:30:00 PM EDT [facility] Name Value Range Interpretation Code Description Data Harriet rce(s) Supporting Document(s) SARS-CoV-2 RNA Resp Ql CROW+probe NOT DETECTED [facility] This lab was ordered by BHUPENDRA quevedo and reported by BHUPENDRA Gao. ID Date Data Source [id number] 03/31/2021 09:15:00 AM EDT [facility] Name Value Range Interpretation Code Description Data Harriet rce(s) Supporting Document(s) SARS-CoV-2 RNA Resp Ql CROW+probe DETECTED [facility] This lab was ordered by BHUPENDRA quevedo and reported by BHUPENDRA Gao. ID Date Data Source [id number] 03/21/2021 09:27:48 AM EDT [facility] Name Value Range Interpretation Code Description Data Harriet rce(s) Supporting Document(s) Progress Note [facility] VLAWDo5oViSFYnZn64/ULYxbOTWxe1KlIXkbAIl4YXzqTXHjH3NoLNV3aN7eCBH1AAmHTfUgJdAnHuJ0 lbm [file] ICAgICAgICAgICAgICAgICAgICAgICAgICAgICAgICAgICAgICAgICAgICAgICAgICAgICAgICAgICAg MHXqES9KCHAoBXJoXELeRNKrFYWgKEIsXJFvJPIeVG AgICAgICAgICAgICAgICAgICAgICAgICAgICAgICAgICAgICAgICAgICAgICAgICAgICAgICAgICAgIC DmAVSqRCJdGJZnBXLmCP8AISKvZGUdFIYvJIPhTKGdUZLyPKUuNCCqLWJmMJKcNPWwPNBqQWBtVFUwRL AgICAgICAgICAgICAgICAgICAgICAgICAgICAgICAg TLOjUYLbJIYaKEPhOVHjTOVgKLBeIHSdQC5PRUZbVRDcPZWaTCEzFWWqUXLqEHFpOARvJLMuKTXvNUBo ICAgICAgICAgICAgICAgICAgICAgICAgICAgICAgICAgICAgICAgICAgICAgICAgICAgICAgICAgICAg HXIbTPSuHX9WNGTxAGElKCLoAZNvAZTfOQRqVMWyGB AgICAgICAgICAgICAgICAgICAgICAgICAgICAgICAgICAgICAgICAgICAgICAgICAgICAgICAgICAgIC YnSYAfERDvEQXzGPDwNTAwGB2PJUDwWIVjXDNmLVUgPYXgONXwLTByWJZpNRFnJNNcRNBwOGScESSlPO AgICAgICAgICAgICAgICAgICAgICAgICAgICAgICAg MHZdMTQrSQZwXYGxISJnKNNkJXOxWQFuYYNqWU3JLZGnWQGwMMYbLNFaHJZrTNUsDDWeHVTnTJUkHDOa ICAgICAgICAgICAgICAgICAgICAgICAgICAgICAgICAgICAgICAgICAgICAgICAgICAgICAgICAgICAg EZFxTYLjSOVfZB2QNBVbJKPgLGVrJJEmPHSaZATxZW AgICAgICAgICAgICAgICAgICAgICAgICAgICAgICAgICAgICAgICAgICAgICAgICAgICAgICAgICAgIC QrLTLkWLLyDOPyQHGoWOGbIMImRA2CQXBwLWVfCEDgGQOtUTSrAYNuCJOaJHRiDAFeTBEgUAKrEUEcCW AgICAgICAgICAgICAgICAgICAgICAgICAgICAgICAg WQXzFTGfSVEvXITqFUTpPODeMBNcBZIxDYIbGEFsVA9GYFJfJCOfUNUzKZBpKABfEMYzCHOsRGIeZVKw ICAgICAgICAgICAgICAgICAgICAgICAgICAgICAgICAgICAgICAgICAgICAgICAgICAgICAgICAgICAg GJNtIXKrUGFlMQLvDK1LPM37bZUxz8W1JPVlBL6vvz c/Eq4TTMiksaRenJVnWB3RDiWqIT8dvq0JMaYrVP6lms5AJUkMWdHmR0Y9pEAhLROlIZIRQbAbI06fSE ffLs45PFduAOYwKpJaXUt2Qv4XHqXfZ4tlLHSoUnZ1KPUxSiI4KTSdRtQ1SPGmEkPqNQSjIDMcRAAsTI VPKSY3IMYhZbElIiVxIWLpNLbuWGRNSZCdQPCxWpVm FrRbEFVuVH3GVVRvP952bsUhHJNVWi4+RSkxqyCnKvaYFlPdOZVvl5ToMZd7DF1LLHYlFeatu6EdSAXa SRMYZUduOW1KJEC8BAWgIOUfHz4PCQVkJ952qwHxJN0FVd8TYiVrHP5xxg9MQADmGYUxRqjFMfp0UWvf ZD8RnLUpYWyQat3cnmGjdsXUu7WsraPlbDGLXV8kVO TPCI9emrEndlaaWcMhUMOpFi93RbAsUwVtDDD6EFIkKH3wIVakBA0PYKA6OWzzEEUxZORzX1vOPvQmID EdWCYubPluGM9AHyQxL7BmrqEsuSD7ZWPoNTPCJk3+OCrqiyMcVdoXHqNlDLXit7QaTKd2AF1FVZZyCN qdUS8EFSOmzZ7fOMewWE8IJiMrXTZpCGDKGzRtH25a aXLlSDm3C8SiGhSvQXKkVieuUQDaOSbgFzXvGJBpXzMqYHrbJX0+ID4+ZSwoMK7NBXwmzuWbEYIiAd9M NVWoETAfXZ9kEKJhJCMpC0O0wHwgDPPMIyBxU6jaygshTY3fIMZcR405oWrweiZdYKOfEMDjBo7JKQZc IQD7PHMwgPXcOisgIBWEQMpvAR3HiORmJAY2dZ7aDX zbDTMsEVFqS1mDKoIluLeqWI38tNcspoPfzWChVGx+Mk1DHT8ys2GfOYj9qcHjSLibVCTyDSgxDUMbPJ FrZNTzBIJ0HJN7XHJTZmKsICPiGIXpQOucIKRcZDJzon6CZFIpCOF8JResHRMpMFHaDAGdSGjtTOJdBJ S3PKD0ITWkJDTdPM3GDyOkGJEkBIQsZYwtIRZzOTZq qv6UHIIeGUYuRSY1XCWiSJWaAPXoDTxaTQYaGNZ1QWQ5BREhFHPpLA8ZTgKcYPVuTHxjVaukJPPxLIWp du9JWYOjRPNnEBYrFFZoLKTbOEJqRHdeZIOrJBTwUQCjHSEkDQWfXV7JZjHoQLOfXRLpFtNxGTObPWCg pb2PNUTaLOFmETCnGlWoRCGxCVZvXOwrZDRpFFY0Zw R0EVLeENEsCO4VWxQqTQKcDNF1QRViHROqRDHbeg3GEFCeKULlYoGiJoQtFQQtYOJoWIqqKQQiACA0SC MnGQDzPPYvDB6WNiYdAIVfNNjfYZvcEDMoABWjgl3IEHZoFXZpTGG3TBCsEAEuIJHoKCxyUREiWRBeWY e3MQFyVLBzLZ4AYyVpFEEfAeQ1UXvfKEWyHVKyjz9I OIBgPBXhGFGrMMAeDLKzRASpMOwfISYtCFR6AvlfZNUvDZDjJW3MMdNiZYMxEzs0DvMoUXPzRHBero7Q XEWhZLRcYYEvDyWnOKGiFIAaGVvpIAEgOUS0YfE6QDQrXUHeSH5TRfCtGJLoYxMzHKodEIKrRDLjvf5E BZKoLSOhTYP2KoEvYERqDGEiOTmkFXIdBGSgEfY9VJ RiEAUrHR7IKuImCICzJpU6NwtkUMYfRUZrmf8BVMGoQFVrLXwxGJNtGAVdXNJdGMtyQFYgAWGvNXT3PQ SlJMWvSO6OSaXlKUDjUVK6TJynHRTyYCNwjo3FCWQaJWN9Laz5IvBdAXXmVBJiGTdtWAWaUHTnKHetSE PhDTXjWX4VLuZzGEHbGVBfLuMrXCWgAKCksh6KXADz SJA0YQI8RWWtVHXjFLWwRVddELBmWRA4XyNdOSWoBNScAH1OIsWeQAFbMXF7CTWvPCLaWWQnkc0FIDGe GSC8GEC0RGTjGHCfHTZzODusJMWjISO6FUB8TSOeCELzGH4JWvMlOQLwHMj8MVXhWONdNSSdic2WELDc BML4HkG5XiTcRKQnFAAbXXrwHNKrYHY8RIW4STJqIS JrDY9ROnAyAIzlXUIVQnx0RAfcG6a5SBB2Lq9CP0Dak9YsZQDdWDHBUKlcHO3bbeXkKQTdOl9XH0mOXa vmDgJ7QNAsVEF4LRGxPYGoXVY7ONM1AmMuLVRyCGo1HN9cYUZqCWbkB7T3VoUeFAHaJPGqMLD0KtncUK L1IWUdEUD5MiFbJZ0KKr2HStB8RBJ6gGHrGo0OZQiuVsbCBoWhCM1MCIr= ID Date Data Source [id number] 03/17/2021 10:57:12 AM EDT [facility] Name Value Range Interpretation Code Description Data Harriet rce(s) Supporting Document(s) Progress Note [facility] SRJDKz1dIhMRUtTm16/AWXjrMBHih4WnGPdhRUb6YMypKNKtJ1TtPKM8kP5pMHB3UCpJTfLiUsAjJtTy lbm [file] [id number] ID Date Data Source [id number] 03/01/2021 03:31:01 PM EDT [facility] NegativeNo interferon-gamma response to M.tuberculosisantigens was detected. Infection withM. tuberculosis is unlikely. A single negativeresult does not exclude infection with M. TB.In patients at high risk for M. tuberculosisinfection, a 2nd test should be consideredin accordance with [id number] ATS/IDSA/CDC Clinical Practice Guidelinesfor Diagnosis of Tuberculosis in Adults andChildren [Lewinsohn DM et. al. Clin Infec.Nbn0738 64(2):111-115] Name Value Range Interpretation Code Description Data Harriet rce(s) Supporting Document(s) Leukocytes [#/volume] in Blood by Automated count 13.2 10*3/uL 4-10 H [facility] Erythrocytes [#/volume] in Blood by Automated count 4.55 10*6/uL 4.1- 5.3 [facility] Hemoglobin [Mass/volume] in Blood 13.3 g/dL 11.5-15.5 [facility] Hematocrit [Volume Fraction] of Blood by Automated count 40.9 % 3 6-45 [facility] Erythrocyte mean corpuscular volume [Entitic volume] by Auto mated count 89.8 fL 80-96 [facility] Erythrocyte mean corpuscular hemoglobin [Entitic mass] by Automated count 29.3 pg 27-33 [facility] Erythrocyte mean corpuscular hemoglobin concentration [Mass/volume] by Automated count 32.7 g/dL 32.0-36.0 [facility] Erythrocyte distribution width [Ratio] by Automated count 13.5 % 11.5-14.5 [facility] Platelets [#/volume] in Blood by Automated count 301 10*3/uL 150-400 [facility] Differential cell count method - Blood [facility] Neutrophils/100 leukocytes in Blood by Automated count 61 % [facility] Lymphocytes/100 leukocytes in Blood by Automated count 31 % [facility] Monocytes/100 leukocytes in Blood by Automated count 7 % [facility] Eosinophils/100 leukocytes in Blood by Automated count 1 % [facility] Basophils/100 leukocytes in Blood by Automated count 0 % [facility] Neutrophils [#/volume] in Blood by Automated count 8.02 10*3/uL 1.8-7 .0 H [facility] Lymphocytes [#/volume] in Blood by Automated count 4.11 10*3/uL 1.2-4 .0 H [facility] Monocytes [#/volume] in Blood by Automated count 0.87 10*3/uL 0-0.8 H [facility] Eosinophils [#/volume] in Blood by Automated count 0.18 10*3/uL 0-0.5 [facility] Basophils [#/volume] in Blood by Automated count 0.06 10*3/uL 0-0.2 [facility] Nucleated erythrocytes/100 leukocytes [Ratio] in Blood by Automated count 0 /100{WBCs} 0-0 [facility] ID Date Data Source [id number] 03/01/2021 03:44:38 PM [facility] NegativeNo interferon-gamma response to M.tuberculosisantigens was detected. Infection withM. tuberculosis is unlikely. A single negativeresult does not exclude infection with M. TB.In patients at high risk for M. tuberculosisinfection, a 2nd test should be consideredin accordance with [id number] ATS/IDSA/CDC Clinical Practice Guidelinesfor Diagnosis of Tuberculosis in Adults andChildren [[place] DM et. al. Clin Infec.Wft8772 64(2):111-115] Name Value Range Interpretation Code Description Data Harriet rce(s) Supporting Document(s) Erythrocyte sedimentation rate 15 mm/hr <20 [facility] ID Date Data Source [id number] 03/01/2021 03:47:02 PM [facility] NegativeNo interferon-gamma response to M.tuberculosisantigens was detected. Infection withM. tuberculosis is unlikely. A single negativeresult does not exclude infection with M. TB.In patients at high risk for M. tuberculosisinfection, a 2nd test should be consideredin accordance with [id number] ATS/IDSA/CDC Clinical Practice Guidelinesfor Diagnosis of Tuberculosis in Adults andChildren [Sofia OTTO et. al. Clin Infec.Byk1009 64(2):111-115] Name Value Range Interpretation Code Description Data Harriet rce(s) Supporting Document(s) Alanine aminotransferase [Enzymatic activity/volume] in Seru m or Plasma 14 U/L <33 [facility] ID Date Data Source 03/01/2021 03:47:02 PM T [facility] NegativeNo interferon-gamma response to M.tuberculosisantigens was detected. Infection withM. tuberculosis is unlikely. A single negativeresult does not exclude infection with M. TB.In patients at high risk for M. tuberculosisinfection, a 2nd test should be consideredin accordance with [id number] ATS/IDSA/CDC Clinical Practice Guidelinesfor Diagnosis of Tuberculosis in Adults andChildren [Sofia OTTO et. al. Clin Infec.Qpb5797 64(2):111-115] Name Value Range Interpretation Code Description Data Harriet rce(s) Supporting Document(s) Aspartate aminotransferase [Enzymatic activity/volume] in Serum or Plasma 15 U/L <32 [facility] ID Date Data Source 03/01/2021 03:47:02 PM [facility] NegativeNo interferon-gamma response to M.tuberculosisantigens was detected. Infection withM. tuberculosis is unlikely. A single negativeresult does not exclude infection with M. TB.In patients at high risk for M. tuberculosisinfection, a 2nd test should be consideredin accordance with [id number] ATS/IDSA/CDC Clinical Practice Guidelinesfor Diagnosis of Tuberculosis in Adults andChildren [Sofia OTTO et. al. Clin Infec.Hhu0580 64(2):111-115] Name Value Range Interpretation Code Description Data Harriet rce(s) Supporting Document(s) Complement C3 [Mass/volume] in Serum or Plasma 137 mg/dL 90-180 [facility] ID Date Data Source [id number] 03/01/2021 03:47:02 PM [facility] NegativeNo interferon-gamma response to M.tuberculosisantigens was detected. Infection withM. tuberculosis is unlikely. A single negativeresult does not exclude infection with M. TB.In patients at high risk for M. tuberculosisinfection, a 2nd test should be consideredin accordance with [id number] ATS/IDSA/CDC Clinical Practice Guidelinesfor Diagnosis of Tuberculosis in Adults andChildren [Sofia OTTO et. al. Clin Infec.Yas6923 64(2):111-115] Name Value Range Interpretation Code Description Data Harriet rce(s) Supporting Document(s) Complement C4 [Mass/volume] in Serum or Plasma 31 mg/dL 10-40 [facility] ID Date Data Source [id number] 03/01/2021 03:47:02 PM [facility] NegativeNo interferon-gamma response to M.tuberculosisantigens was detected. Infection withM. tuberculosis is unlikely. A single negativeresult does not exclude infection with M. TB.In patients at high risk for M. tuberculosisinfection, a 2nd test should be consideredin accordance with [id number] ATS/IDSA/CDC Clinical Practice Guidelinesfor Diagnosis of Tuberculosis in Adults andChildren [Sofia OTTO et. al. Clin Infec.Hcg0038 64(2):111-115] Name Value Range Interpretation Code Description Data Harriet rce(s) Supporting Document(s) Creatinine [Mass/volume] in Serum or Plasma 0.83 mg/dL 0.50-0.90 [facility] Glomerular filtration rate/1.73 sq M pre dicted among non-blacks [Volume Rate/Area] in Serum or Plasma by Creatinine-based formula (MDRD) >6 0 [facility] Glomerular filtration rate/1.73 sq M pre dicted among blacks [Volume Rate/Area] in Serum or Plasma by Creatinine-based formula (MDRD) >60 [facility] ID Date Data Source [id number] 03/01/2021 03:47:02 PM [facility] NegativeNo interferon-gamma response to M.tuberculosisantigens was detected. Infection withM. tuberculosis is unlikely. A single negativeresult does not exclude infection with M. TB.In patients at high risk for M. tuberculosisinfection, a 2nd test should be consideredin accordance with [id number] ATS/IDSA/CDC Clinical Practice Guidelinesfor Diagnosis of Tuberculosis in Adults andChildren [Sofia OTTO et. al. Clin Infec.[id number] 64(2):111-115] Name Value Range Interpretation Code Description Data Harriet rce(s) Supporting Document(s) C reactive protein [Mass/volume] in Serum or Plasma <8.0 [facility] ID Date Data Source [id number] 03/03/2021 12:34:09 PM EDT [facility] NegativeNo interferon-gamma response to M.tuberculosisantigens was detected. Infection withM. tuberculosis is unlikely. A single negativeresult does not exclude infection with M. TB.In patients at high risk for M. tuberculosisinfection, a 2nd test should be consideredin accordance with [id number] ATS/IDSA/CDC Clinical Practice Guidelinesfor Diagnosis of Tuberculosis in Adults andChildren [Sofia OTTO et. al. Clin Infec.[id number] 64(2):111-115] Name Value Range Interpretation Code Description Data Harriet rce(s) Supporting Document(s) Mycobacterium tuberculosis stimulated gamma interferon [Units/volume] in Blood 0.00 [IU]/mL [facility] 0.00 Mitogen stimulated gamma interferon [Units/volume] in Blood [facility] Gamma interferon background [Units/volume] in Blood by Immun oassay 0.04 [IU]/mL [facility] ID Date Data Source [id number] 03/01/2021 04:06:53 PM EDT [facility] Name Value Range Interpretation Code Description Data Harriet rce(s) Supporting Document(s) Calcidiol [Mass/volume] in Serum or Plasma 26 ng/mL >30 L [facility] ID Date Data Source [id number] 03/02/2021 01:43:42 PM EDT [facility] Name Value Range Interpretation Code Description Data Harriet rce(s) Supporting Document(s) Nuclear Ab Pattern Homogenous [Titer] in Serum <80 [facility] Nuclear Ab pattern.speckled [Titer] in Serum <80 [facility] Nuclear Ab pattern.rim [Titer] in Serum <80 [facility] Nuclear Ab pattern.nucleolar [Titer] in Serum <80 [facility] ID Date Data Source [id number] 02/16/2021 12:44:28 PM T [facility] Name Value Range Interpretation Code Description Data Harriet rce(s) Supporting Document(s) Progress Note [facility] NJDUDv9jReFQIjLo40/XMVeaYGYqo4UgCOimQKu0VGarCPQcO9GnBXV3iD0vLYO9AWhUPaIgPzGlVcBh lbm [file] aFFKETcPUghqx6Oj8sz4znfMMAF0NmC7j6bD6yC6NhcaXskmmWTNTlm/Ghpp3O3c4txBdvXt+OeCx/sustainability analyst [file] [id number]= ID Date Data Source [id number] 02/11/2021 11:25:54 AM EDT [facility] Name Value Range Interpretation Code Description Data Harriet rce(s) Supporting Document(s) Progress Note [facility] TYRXQn6vPoBNMsFw92/BTOtlUIKgf7UrRNbgPOe0KOqiGSAjC0TtDGF2bU6wPDR8OTwCWjVdDfSdDnX2 lbm [file] olICw2HHLmFuZ+ON8cFDw+Vf0Xo2HkymX8rdXqYVfgOYU2Nl9VEZQFA2DBWc== ID Date Data Source [id number] 02/11/2021 09:49:16 AM EDT [facility] Name Value Range Interpretation Code Description Data Harriet rce(s) Supporting Document(s) Progress Note [facility] KOIKQl9yTyAVJbUb50/URVjkZJVvq2CmYPxeOMt8RLgpCCHiS0KyUKQ6jA7uSVL5NShGJvKqXaKtJlH0 lbm [file] Lckrmh6Rr0nf3Eo7ClAFjUV7dzyOyUSrMXIVob+nf0e1CkYzFCWq/I3yn6e/maoq/VZyUqE0gQfm++[employer] [file] FYUOF5OZHc== ID Date Data Source [id number] 02/11/2021 09:49:11 AM EDT [facility] Name Value Range Interpretation Code Description Data Harriet rce(s) Supporting Document(s) Progress Note [facility] LOUTVp7zSqIZMfDp83/MWEzvGJOvi8QdVLxzDQp1YRezEDOqM0SmWAS6tR1hFQD3IQzHTeMgGdYsPyM2 lbm [file] AgICAgICAgICAgICAgICAgICAgICAgICAgICAgICAgICAgICAgICAgICAgICAgICAgICAgICAgICAgIC AgICAgICAgICAgICAgICAgICAgICAgICAgICAgICAg ICANCiAgICAgICAgICAgICAgICAgICAgICAgICAgICAgICAgICAgICAgICAgICAgICAgICAgICAgICAg ICAgICAgICAgICAgICAgICAgICAgICAgICAgICAgICAgICAgICAgICAgICANCiAgICAgICAgICAgICAg ICAgICAgICAgICAgICAgICAgICAgICAgICAgICAgIC AgICAgICAgICAgICAgICAgICAgICAgICAgICAgICAgICAgICAgICAgICAgICAgICAgICAgICANCiAgIC AgICAgICAgICAgICAgICAgICAgICAgICAgICAgICAgICAgICAgICAgICAgICAgICAgICAgICAgICAgIC AgICAgICAgICAgICAgICAgICAgICAgICAgICAgICAg ICAgICANCiAgICAgICAgICAgICAgICAgICAgICAgICAgICAgICAgICAgICAgICAgICAgICAgICAgICAg ICAgICAgICAgICAgICAgICAgICAgICAgICAgICAgICAgICAgICAgICAgICAgICANCiAgICAgICAgICAg ICAgICAgICAgICAgICAgICAgICAgICAgICAgICAgIC AgICAgICAgICAgICAgICAgICAgICAgICAgICAgICAgICAgICAgICAgICAgICAgICAgICAgICAgICANCi AgICAgICAgICAgICAgICAgICAgICAgICAgICAgICAgICAgICAgICAgICAgICAgICAgICAgICAgICAgIC AgICAgICAgICAgICAgICAgICAgICAgICAgICAgICAg ICAgICAgICANCiAgICAgICAgICAgICAgICAgICAgICAgICAgICAgICAgICAgICAgICAgICAgICAgICAg ICAgICAgICAgICAgICAgICAgICAgICAgICAgICAgICAgICAgICAgICAgICAgICAgICANCiAgICAgICAg ICAgICAgICAgICAgICAgICAgICAgICAgICAgICAgIC AgICAgICAgICAgICAgICAgICAgICAgICAgICAgICAgICAgICAgICAgICAgICAgICAgICAgICAgICAgIC ANCiAgICAgICAgICAgICAgICAgICAgICAgICAgICAgICAgICAgICAgICAgICAgICAgICAgICAgICAgIC AgICAgICAgICAgICAgICAgICAgICAgICAgICAgICAg ICAgICAgICAgICANCjw/jHUtH2igqLHragB3C0sjHu7VWf4SED4ce7RjHTWyNByhuySqPqvNQwFfTJQj DdwJGyy4KFbfQD1HaWIgG7VuG3AhFIarWS3YLVPpARJjwMChFNJmLGQgOgY6JVXnDGusKU6GwYIwNXug PDRuOBGxDZ2FVIObP227lvKbIP5IQy8CJbEiAG5qns 7GRZcoOTAoEtjFPwp2FBjtAI6WjKGrvHLiGEVdZJNLRjCgH6evt1QyYhHaJUODZMybJM2Kx9SwoBPjZU o+Zw7VVA9pj4BrLVpcGFAlMD8vpa6OFVdLQoItE5WjcBpuLSEzl4pdYZDeLO5fiGFyPHJ8GSHnrm1dkY m4HHFCk20dkpdtImIsGCAhRh8mDC1cXEVuCMC4QlVt EZFKZC2ANRJjRVWemWEzSVWfLYZGCZ0NIGedROI3QFGyqfInrJPpDUuvHI6NTJAxefBmVNcsMLUEETi+ Xs2QAE2zk7BcHMrjXSZjRH8hin1GMKhBKxBfR1G3yROkZ2B7RPszTw5BLCLpTMIzIKsqBYUOCOenML9W ON6thmX0DK8UlGMxEREiWJWxdCFpZBy9K34imITuWG gkEX4IRAH+Jc+Rq5IMCUuQDDeVZDePqZvDJYEKmQtU9MeD9RIy3WaW5TnMU20yGybbiNkIIykNK2XZQ 3nWYBzXMHHVT5LxWSzzF9ztxYbLYHuNIPWCiTaO01egCZpGVLuQTK4EZFjWa1JYFAqT2YysjSowPgtkz LkIBUwDBWRMO9IQGegfxLtyFDzrCyzYX37dXgtRQ0D Ya7NRmZuTV0ars0ZzQIxFt7SWFVoAe5LBHGyKNSsSFJyNSR7MRNwQyAzWFdyWTHnMBGbVRJ9HNBoCIZc EO1MNeSdURKxUHlcEhVoNUOvAAVkpt8HIMIsEFTeGHr8GFHoOEBcSGYcHOvsVSNwYDSkJTT6VCNlJCTv MT7UKwOuRMFcGVR6HHbzIDRxTRCnnf9EFJWkVKLtVw C5KlYsATNkWRPjYHmeFRTsYHG8DDYiYECaROPwXK6ZIqIwKDIlVXChZZatOAStKNKbpn6HFTKmDCRzST V2GpWbHRFfLRRbUMqbACQfQQY1VrN0EVLnQNUcWU2CRqXiXVCaFJP4MOlaCFFiTMVbxm4FSQOwHPZyKK q9LNBlKJVuLBPnTRwuQFAkTAA4NFh5RTUnZGNlDA4I BzCrNQChMLu3VHPxJTBkZCZkiy7KGHMgBZHdOvAiJJUbSXDyQVSaPSkbLJVoIHH9FZR5ZUNuNSDdEG2E TkJoLFHgYSelPOBkQIUfCBKsli1RGVHdHLXfWZVtUBZpDVSkZIAtDGqpENLyZAU2EOK8WHKuYHRpEP8T HvBbIFSuHGt1EJwkTXEhDELtpt5LEHSxFYUgBFU9WP BkFIJvAKEtGKs1zgIrlDIuSYb4OU3PC7McrvMeEpLFZf0Hy880HSEeFUFwDb2FV4mhMl5jLYQjZHYYHb 2VKOt6Kpf3TNOmSJTbXaC0FOI2K6XdDET7GuPuJcu4ZxYwZHk+ZSpmOFjtF3B4MdCgBdC1IrE0ZIViTS o6DMGpMIIiWJFvEh1lFFHNKu6+JZunwQTwrFshHLXYAcSrUeAcYMhdMWXVRr4D ID Date Data Source [id number] 01/13/2021 10:00:00 AM EDT [facility] Name Value Range Interpretation Code Description Data Harriet rce(s) Supporting Document(s) SARS-CoV-2 (COVID-19) RNA [Presence] in Respiratory specimen by CROW with probe detection Not Detected [facility] This lab was ordered by [facility] and reported by [employer] ID Date Data Source [id number] 12/26/2020 03:25:00 PM EDT [facility] Name Value Range Interpretation Code Description Data Harriet rce(s) Supporting Document(s) SARS coronavirus 2 RNA [Presence] in Res piratory specimen by CROW with probe detection NEGATIVE [facility] This lab was ordered by [facility] a nd reported by [facility]. ID Date Data Source [id number] 12/22/2020 02:05:00 PM EDT [facility] Name Value Range Interpretation Code Description Data Harriet rce(s) Supporting Document(s) SARS-CoV-2 (COVID-19) RNA [Presence] in Respiratory specimen by CROW with probe detection Not Detected [facility] This lab was ordered by [facility] and reported by [employer] ID Date Data Source [id number] 11/20/2020 12:00:00 AM EDT [facility] Name Value Range Interpretation Code Description Data Harriet rce(s) Supporting Document(s) SARS-CoV2 Rapid Antigen Negative [facility] This lab was ordered by [facility] and reported by [facility]. ID Date Data Source [id number] 11/16/2020 07:26:33 AM EDT [facility] Name Value Range Interpretation Code Description Data Harriet rce(s) Supporting Document(s) Progress Note [facility] PZZNFf0aDqBHOmOh39/DTGtaSSUsv1UaGDuxHIi4CYidNDDsA3DdDWK2tL5zCQS4EZmRUlUmMyLwJgJp [facility] XuOvoTEyHdVKObVbkWDzSkUGahUopafJOaLC8YoAV7NUKzN02jFKWpBQAiW2OzGDEzNZD+An7OPIFteF FwBC8HFclC0L2YrwdAUX0RoC/BYOQFe3Jf1i6zHJDIatzkDZkeQFPV31LlI+SHqEsYTLXO2ItkZy4wEZ zBylhDFcV6Y6iayroi5nh3lfvQNq/4t3baBqaoMKy/ +asfStEdid//SdZKpDffWx6op7nS8zxcW22x+arslw+7nJY3d2KPpCku+7AiYbIQMdtc8Wef8ov0pq7/ 8vEQy9b2t48Owup28zm4DyyBwr45Js/7o8p2Tg2efzmVWB7Sc+ntlhehtxDPEtcrYx2zn67ekm6zGVE2 F8xt519KWJuh5imCK139CWi8UsFBeSxS6g8S4XwLxU kJL9WpYrZqbRrHvROug3QKS0HCRDxgqT4uKX6/vtnsO7NoBHt4U15bPK4Syd3EWU86kuPey/dSwbnsY5 oyxAfJcadRL9uexdSOERhdLfCqZpYxAU6wBGi58z0l+hzTdHJ9rbOrFOhBRPleRWGwUtqpGl1u25sxrt IcGHWd23A+WKkV89kZ+rJtEv4q293m5TPwG9slJe38 QF/KyrcCcTmIJ+LsCNnIDoMG0HIrbff0V0vt/h8HiBdbLkLQk2DympG8N7WBpBZ2kd3XnjN3+XUFYI9J Jonny+pli7oi3oEGobMmfn6daFBrdjHAqJ9BWjhxJ6HxfLJIQFZR/IeYsk071MZ4nvkLmHAnYozDffkXQ [file] KeLJaaDBwUoLFH0e6DFQ6BpVb/D1Dd8bx7HcJiduDPlpVY0X4IOMP//Vzq1NwRY2851/DbAXR9Kkj+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 BYJATu5mHpDNGsOj68/GZZjjEATvc8YtDWcpPDh2WTwhQCAwU4TjJJZ4bD5mWUT9QUvTCwMnLvQoFiFb lbm [file] k4ZmU+BV6tWEk+Ny2Va4UfrdO2soGbQSpiUSu6SU7FSMEYO0LZTm== ID Date Data Source [id number] 11/05/2020 03:35:30 PM [facility] MR EXTREMITY LOWER JOINT WITHOUT CONTRAS T [id number] RESULTInterpreted by:NNACY Saini RIGHT ANKLE WITHOUT CONTRASTINDICATION: Pain, suspected peroneal tendon tear TECHNIQUE: Multiplanar multisequence MRI without contrast.MAGNET: [employer] 1.5 TeslaCONTRAST: NoneCOMPARISON/CORRELATION: X-rays to 521FINDINGS: Increased fluid in the tendon sheaths of flexor hallucis longus, flexor digitorum longus, and tibialis posterior most likely reflect tenosynovitis.Achilles, tibialis anterior, extensor hallucis longus, extensor digitorum longus, and peroneus longus and brevis are normal.Anterior and posterior tibiofibular, anterior and posterior talofibular, calcaneofibular, and deltoid ligaments are normal.No ankle or subtalar joint effusion. Midfoot joints unremarkable. No sign of occult fracture.Plantar fascia and sinus tarsi normal.IMPRESSION: Tenosynovitis of flexor hallucis longus, flexor digitorum longus, and tibialis posterior.Unremarkable peroneal tendons.This document has been electronically signed by Oscar Barajas MD on 11/05/2020 3:33 PM Name Value Range Interpretation Code Description Data Harriet rce(s) Supporting Document(s) ID Date Data Source [id number] 10/29/2020 04:51:13 PM [facility] Name Value Range Interpretation Code Description Data Harriet rce(s) Supporting Document(s) Progress Note [facility] EYEMYc1dUrCLIaBy54/OEVkdHIOjg3IhCSpnSAk9XZvdJZSlX3ItVVX6vM0eQTX9RFlIPzCnPlFlWhL7 [facility] [file] ICAgICAgICAgICAgICAgICAgICAgICAgICAgICAgICAgICAgICAgICAgICAgICAgICAgICAgICAgICAg FLSdKSZsIURoWUHkXFQkIDIyXFRmHMKaFQDvMMOkGZRqBDPeFBGuUC7LDVTjXQIxETBjLQMiYIHnRFSz ICAgICAgICAgICAgICAgICAgICAgICAgICAgICAgIC XsWWHmMLRmXQZfGBGyVMVxNMAbDVDlTIEuQXHmAOTgXNFdACSyMRZlNPNwIOKhDPLlAC7LLQIjRLMdOE AgICAgICAgICAgICAgICAgICAgICAgICAgICAgICAgICAgICAgICAgICAgICAgICAgICAgICAgICAgIC AgICAgICAgICAgICAgICAgICAgICAgICAgICAgICAg BJ9VEDMiAHVpVFGxMHUePSMoIVZiAKFvRMGmNMIrQXRjTALxSEUpIWHyDOWfFWHsXQVvARVmGZFrCYDm MBLrEPLvGNTiMWTjXXRtUYEiHPUbXGOhBMSlYXPoOCHoZWPiCFItWPMdOD5FEJBrMBUfRZQaPBMsHAQq ICAgICAgICAgICAgICAgICAgICAgICAgICAgICAgIC VkBJGkXIVtDSTyLPNpLSKwNQKpICErRNWnEVGoAYZrYVFvGZWqACBcNGIjVEOvMLFnEUCzHW1QCONjVG AgICAgICAgICAgICAgICAgICAgICAgICAgICAgICAgICAgICAgICAgICAgICAgICAgICAgICAgICAgIC AgICAgICAgICAgICAgICAgICAgICAgICAgICAgICAg INVyZJ5NZYKaTNXzBYIbZKFrBDZmYDUaEWAeRXEpFBIzTUYhCCNhAFIoJGTsOARuIFWmEKMrXGFbHPRj YTCrYCPeTAHqNAAcPXVdGICuHYXcGZViNDTvVBCtVPXfPCQqTUZyDXPeNDAuYR2LQKZvIGUrXRCeDIXg ICAgICAgICAgICAgICAgICAgICAgICAgICAgICAgIC RqEVDtWXGtWRRyETJmRCCrEVHxINZjWRUcKXVwMTZwNQSyBLHbYBYgRHCjCEJgEZBcFXLdARSwNL3RTV AgICAgICAgICAgICAgICAgICAgICAgICAgICAgICAgICAgICAgICAgICAgICAgICAgICAgICAgICAgIC AgICAgICAgICAgICAgICAgICAgICAgICAgICAgICAg SMJiQOKlNZ2ZSDMuTOInTZNzVNZvTQBiTJVeWSBbJNZhMDDyUMIwIYLgHQIrCJAqIPYnQBPwEOHqKKIv UJDdUJLcUAFbEASxIPGuHUAxQOCgVYRfONXyGFFrOUKdWFIoQIKkYOAuLNRsYHGsJI5ANL50aCDxu7E4 NYIuGC3alxc/On8RQHgfjeAwkQMeYN5JCcJmTC3zjn 7WJtFnGS2rgs5HVWnDFiMpA9A6cBDcTAXjZEDYIcJwD88hBHtbRv18XZloIEJnGmOtIRp5Mc2JEvCkK5 bqCBIbPgS0JEBqMiOiEPhxMZ9Ha1VhuRPcEYo+Fi8DEM3aw0JiDBvnPkPoAY7ifa9UPJvUNlKnF2Nbui T9YARySJOgAt7AOFQkFDBnsLJoNfKrZFXWZlKjY3Wu vF68YLQWYr8+VJdcaaTqOduJOaQbZDUoc3UqURq6BW7IMHFxBRw0xGZsZKEpE1Icw8NvSo51FLBjFgtm FAN0qMZSVBWpdU12r0j2FAK8XTKcBo6gCCTxXIV9NjC1JNNUWX6RGYFgEDCyaVOfEWAdEUFNZS9UXEtm ALM3INVrjaBeiFIgWNbmDR4GCDBncaGaUkZyJUHEEJ o+Mr9IQQ2lj1CjJRmfSBZrBX4hsc8KATiQEmBqK8T9qLGcG1O1EJldZs0FNBQyIPYjPkVhRCZPWGkiWP 6BZP3fugV0DQ9IoJJeLQDiXEZlyXYvRYy8Z15yuBCpPOlpIS5CQYC+Jc+Eb2WLQEvKHUhEMTeKsUhUP HTAmOlL5JzS1NJx2JqP8KsQZ11jDskweBbDMgdIU9M YG8wJQGoCRDTWQ8QmHPvyU1aknMbLlVlBJYHPoXdR70nbLLeVYMlRKQjUNJkRu5YVJKlU6FbppFfcIaw tvAoDVQyCBJAMD9ITTeaxrNhyWXleYwvQY44oSleDA4OCe6UYgOkBV7kjb8EvJNpRa0WCZXcUA5IUSKk GGHtYVEdCOJ8UTNcAwLwURpzKIPpXHNdIUJ0NATsAA NxER7GHgJnWQXeXLh0RufjPDZfGOXixy9LIUUeQUDqTXE3ByPzZOOcRKWkWGnvWNYcEOTmCKN7GXIsUQ WwWK5UNjDiFANiLXAsBEFwMNQhWEKaqd1RXDOnVWDnDlL5UvQmEAHyJMEnHPtxYLBmPYY2FnR9FYRiKK XtKC4RFpNwIZJtUIC8HQJwLMFdTBJilg2QWRPgFLQk BLW8IuBvMSNnBMUwOGkrOZZrFEI6FeCyIKGiHDCgYU3FTmKqEUAvDEJ1NTSiZBDtCOTlly0DJYAuVBBl AnKlCXNeSBGaTRIvKHpxOBTvXPO1Xwn1ERJpSFToIU5TIqUlXZSrLGy7XMJoIKZcPHOtxm6DSIMmRFEg MrcrUVGwZLNyWZVgXRwzFFPwVNK3RBZ6LINyJIVkKM 0FPkDmSAAvJWuoJPPiHDMuLVVpdv5HJKZcMZPgVSQaCZPiXFSgWVJrBAjeURUqEUW9CPL2GTWzQTQuKQ 6CAeOaHOKuLCc0YKktEVIpYNAanr0FJFBoXFHbUERmVkVxODQyXDFiXVlxFGNtAHUsZBBwAIQpICLtEO 9BNwVyQACtEsF2ToUqKYQpOPOrvz4MKBEcBZBcTFF2 EdJrIEYiWNHfWZw1aqKlpDEpLWl3KW5NW9KnweRuPmQBXg7Sf000LTG8OAOhUp1WJ5wePk9lYATcWWSH At0EHGj2DHDsKAVlXnY9B6D7O2J2SAIpX4L2JPGiCgZcPfvgWCZ+XKfjLYL9BaIzIYK6GereTcJ9NwRr QdWkDWBdFsY2YSCeVt1yATMOXb0+UFrjuVSmlCrvQOJVJjCaSUXyUYhfLEIEHj6G ID Date Data Source [id number] 10/27/2020 11:19:42 AM EST [facility] Name Value Range Interpretation Code Description Data Harriet rce(s) Supporting Document(s) Progress Note [facility] NLZKXz4fXqRYJeCk60/HXPfsJHPuo5QxXNzrMLi8VEguJZOkW6ZpPMC7cK1sYUT7BCoNRuKaYxVfMjJq lbm [file] AgICAgICAgICAgICAgICAgICAgICAgICAgICAgICAgICAgICAgICAgICAgICAgICAgICAgICAgICAgIC AgICAgICAgICAgICAgICAgICAgICAgICANCiAgICAgICAgICAgICAgICAgICAgICAgICAgICAgICAgIC AgICAgICAgICAgICAgICAgICAgICAgICAgICAgICAg ICAgICAgICAgICAgICAgICAgICAgICAgICAgICAgICAgICANCiAgICAgICAgICAgICAgICAgICAgICAg ICAgICAgICAgICAgICAgICAgICAgICAgICAgICAgICAgICAgICAgICAgICAgICAgICAgICAgICAgICAg ICAgICAgICAgICAgICAgICANCiAgICAgICAgICAgIC AgICAgICAgICAgICAgICAgICAgICAgICAgICAgICAgICAgICAgICAgICAgICAgICAgICAgICAgICAgIC AgICAgICAgICAgICAgICAgICAgICAgICAgICANCiAgICAgICAgICAgICAgICAgICAgICAgICAgICAgIC AgICAgICAgICAgICAgICAgICAgICAgICAgICAgICAg ICAgICAgICAgICAgICAgICAgICAgICAgICAgICAgICAgICAgICANCiAgICAgICAgICAgICAgICAgICAg ICAgICAgICAgICAgICAgICAgICAgICAgICAgICAgICAgICAgICAgICAgICAgICAgICAgICAgICAgICAg ICAgICAgICAgICAgICAgICAgICANCiAgICAgICAgIC AgICAgICAgICAgICAgICAgICAgICAgICAgICAgICAgICAgICAgICAgICAgICAgICAgICAgICAgICAgIC AgICAgICAgICAgICAgICAgICAgICAgICAgICAgICANCiAgICAgICAgICAgICAgICAgICAgICAgICAgIC AgICAgICAgICAgICAgICAgICAgICAgICAgICAgICAg ICAgICAgICAgICAgICAgICAgICAgICAgICAgICAgICAgICAgICAgICANCiAgICAgICAgICAgICAgICAg ICAgICAgICAgICAgICAgICAgICAgICAgICAgICAgICAgICAgICAgICAgICAgICAgICAgICAgICAgICAg ICAgICAgICAgICAgICAgICAgICAgICANCiAgICAgIC AgICAgICAgICAgICAgICAgICAgICAgICAgICAgICAgICAgICAgICAgICAgICAgICAgICAgICAgICAgIC AgICAgICAgICAgICAgICAgICAgICAgICAgICAgICAgICANCjw/yMAfV2owaRGfiaD3P7quAi0KLk8NMU 6zr7AwRQAqGTpfqpUjVupWKeYlTKKnCimRKyd2ZRze RQ1CkWMdW0PoY7YcXSouAD3XWCMgHWWrsCVcUUQxWPZcUeL3AWInGGomUG4YcJZzHMouQXLdOEScAnPp RGYiYCKqETNoCEQhSFFPRYQxRSLeAkMpYAMiFVZwVUtbETBVHYA8JIEuTwXzXIFaKYNzQdApKDBQYD1H HcGvN9JglC24YMFpBLg+Kc4XCA3rj7TaRWx8AVBwWZ 9vyc8LMRcBHxWeN9KroiQ4FZXdPKRkAm9GOQYkYZXxuNO5GZIhOBIFGwYjT2MagC58MXKMEh6+DQplbm WkDvkKDoTtKSKso6MuQFr1GQ3MMQTyDNz4fDRvKXLoD0Iyd3FnAx75XYHoDeyjHvRwqhYoBSEHp3RhwT XsRV8HZFU4RGMcNx3lFEPyYYB2LnYuXXNBJS7TFVSu OXDilKAfRLMhPSLAHK3UBEtxKDG6CNRvlqCgaWWhZUjkLJ8ZZFSsizLeEMNcSDBVMDz+Kj0VPY3vt6Ia CAc2DhPoWZ3kzi1HZXfFSdJvL7L9gXLoM8T0LNagQh1TGDHrDFGcRqijVHVAQKbfPU4PUJ0pvrW4WZ9D zPZgJKRuBOIsiFWwOBj0M83clHGqDApdXR7TTED+Pi A+Hb6JRSMoQYKaQGQeZyPiHSFCFdQmY0KzW2TBn4ScV7AoOL90fMwiuuQwZMfeFT7AFW5wZLAdQHPMLN 9KfJOyoT1srcC3DMMqFGSZMpAsC47vrQTgRKFiNBZ6OAZsGn3LPAFpS3HfelIghMxginGbYQFiYRRQML 6IHFljgoFunWLreYeeVF62eCtlCP8LFs8ZGbBtGQ1v ez5PxVRrVc9JUIP8Hd8ZVFJcXIApHKMbITA3XHOgWyPrNTpwCIUsMPVzDRI6RLGyDZOkFT7CRrZpFEDh FMUdGERySPQuSMBfyu3GQSWySUR4Hvb9RFQwFSOeUOFuRIxwITNaPTCuBLN1VBLcLOOwBG9DFlPcVBIj ZTI7ROEaTYDsRZOtsz9GTBEvOAGfBXb5XLKjKNOpSR KxNTauTDCiFXA6FYW4QNBtGSQuTL2QFbOoUOElWGydUBWtFWEmAAByes2PSBLpYFMqLKb9QAIaRIJuBO HgJJmyIZXiQQOiKLetUVYiUVGzWH5KEiPmSYKnMFA2GsykAGHvNNGeka7KFQHwQUIoUnr0TPBcMGRaVS MqBJppPYZiZIB8DxE6YKSwCPQdWV4WDkYzUDNwIUG5 InFlBSPxTWEsjf7IKQHaELNzAPunSJFkLOVmNDGpUAdxKAZuUFE8VDQ0DNUgYRJoZD3RKqKnTLGmUiI8 ZXSsLVBmOEMauy8LNIVhGMYmHCmbKwRmXRAhLFXjRSziPTNbLDMzNLr9BMMiHSKuIT9ZAbFfQNGnRlB9 MOTlUXXgBXBbtk9GYNSmSPGdAaAcJUOgLCMqLPCdPU gfIPMfWVF4VwHvQSNvNMTsXE1KKdWoHLErFfz3LpvsEYMkEWGafr8VXRXqYNAsRBgiERTmHBRkQWOqZY ikLKJuHMV8Cea2MEQxFXWvTM4SJuHpZSYeKzc3GEMgDJRrCKQsed2AUUPeQYWfVTM4XNKpJLYuKLGaSD ruDAHzPDEeYMQ6KSFgDUXaSP1FLiVbJPPkXxCaCjYj NFBrPKXkyc2LHEZdSNQoEKFrQCXaXYLiYJInTTerEQVqKOFwYVE4VGDmCXKqNU2MSkUaPYRyRZGjPtmh AREjEHWwyl9VDAQrMHE2NyG1UCIjHZDbCONcTMclFODfUNTmNyB0AGSdMGZgDZ2SCwYeUTBkUZY7QGEw ZMKnIZWpte4CULPpKOF8BArwXLYfCNFfCVFpTAciPT MnUTY6III7DBXdWAYdVU7ITjRfCIQcEUYoSNRxBXGxLRLijf6IKNMuIEA8KOQfHPXbGKQzNECyKUxpEU VdHFT0HVJgMBJeSPBhFC7WWdCiJIJcLTlpWGZsJBXmOLXauq9KUQOwXZY8NeJbXNJkDUOuQUNbYOn3uh HglQDjVFe5CR1OQ1GfbyLnZGBSHp7Wv066FDAaTEOj Gp9HX1ljTv3sEOUbNBTFLf0QEVn9AKY4WaSeDBR0YNIfGOJgUjg6BdigFzJhTzF8VDC6GJq+TCy7BCk0 XBW1EfEcOSJ2AQJsIyhlWJRfDsVmDeOaDLb2Cc2xKEXZWw1+JHoblLXeaAolAPGRLiB6YMy6CVkaWQCZ Rg0K ID Date Data Source [id number] 10/27/2020 12:29:56 PM [facility] Value Range Interpretation Code Description Data Harriet rce(s) Supporting Document(s) Color of Urine [facility] Clarity of Urine [facility] Specific gravity of Urine by Refractometry automated 1.017 1.003 -1.030 [facility] pH of Urine by Automated test strip 6.0 5.0-8.0 [facility] Protein [Mass/volume] in Urine by Automated test strip Neg [facility] Glucose [Mass/volume] in Urine by Automated test strip Neg [facility] Ketones [Mass/volume] in Urine by Automated test strip Neg [facility] Bilirubin.total [Presence] in Urine by Automated test strip Negative [facility] Hemoglobin [Presence] in Urine by Automated test strip Neg ive [facility] Leukocyte esterase [Presence] in Urine by Automated test strip Negative [facility] Nitrite [Presence] in Urine by Automated test strip Negati ve [facility] Leukocytes [#/area] in Urine sediment by Automated count 1 /HPF 0 -5 [facility] Erythrocytes [#/area] in Urine sediment by Automated count 0-3 [facility] Epithelial cells.squamous [#/area] in Urine sediment by Auto mated count 8 /HPF None A [facility] ID Date Data Source [id number] 10/27/2020 02:42:27 PM [facility] Value Range Interpretation Code Description Data Harriet rce(s) Supporting Document(s) Protein [Mass/volume] in Urine 7 mg/dl [facility] Creatinine [Mass/volume] in Urine 114.9 mg/dL [facility] Protein/Creatinine [Mass Ratio] in Urine 0.06 mg/mg{creat} [facility] ID Date Data Source [id number] 10/27/2020 01:01:46 PM [facility] Value Range Interpretation Code Description Data Harriet rce(s) Supporting Document(s) Calcidiol [Mass/volume] in Serum or Plasma 13 ng/mL >30 L [facility] ID Date Data Source [id number] 10/27/2020 12:34:35 PM [facility] Value Range Interpretation Code Description Data Harriet rce(s) Supporting Document(s) Leukocytes [#/volume] in Blood by Automated count 9.0 10*3/uL 4-10 [facility] Erythrocytes [#/volume] in Blood by Automated count 4.56 10*6/uL 4.1- 5.3 [facility] Hemoglobin [Mass/volume] in Blood 13.8 g/dL 11.5-15.5 [facility] Hematocrit [Volume Fraction] of Blood by Automated count 41.1 % 3 6-45 [facility] Erythrocyte mean corpuscular volume [Entitic volume] by Auto mated count 90.1 fL 80-96 [facility] Erythrocyte mean corpuscular hemoglobin [Entitic mass] by Automated count 30.2 pg 27-33 [facility] Erythrocyte mean corpuscular hemoglobin concentration [Mass/volume] by Automated count 33.5 g/dL [facility].0[facility] width [Ratio] by Automated count 13.4 % 11.5-14.5 [facility] Platelets [#/volume] in Blood by Automated count 317 10*3/uL 150-400 [facility] Differential cell count method - Blood [facility] Neutrophils/100 leukocytes in Blood by Automated count 67 % [facility] Lymphocytes/100 leukocytes in Blood by Automated count 23 % [facility] Monocytes/100 leukocytes in Blood by Automated count 7 % [facility] Eosinophils/100 leukocytes in Blood by Automated count 2 % [facility] Basophils/100 leukocytes in Blood by Automated count 1 % [facility] Neutrophils [#/volume] in Blood by Automated count 6.11 10*3/uL 1.8-7 .0 [facility] Lymphocytes [#/volume] in Blood by Automated count 2.08 10*3/uL 1.2-4 .0 [facility] Monocytes [#/volume] in Blood by Automated count 0.60 10*3/uL 0-0.8 [facility] Eosinophils [#/volume] in Blood by Automated count 0.13 10*3/uL 0-0.5 [facility] Basophils [#/volume] in Blood by Automated count 0.05 10*3/uL 0-0.2 [facility] Nucleated erythrocytes/100 leukocytes [Ratio] in Blood by Automated count 0 /100{WBCs} 0-0 [facility] ID Date Data Source [id number] 10/27/2020 12:43:[address] [facility] Name Value Range Interpretation Code Description Data Harriet rce(s) Supporting Document(s) Erythrocyte sedimentation rate 15 mm/hr <20 [facility] ID Date Data Source [id number] 10/27/2020 12:51:06 PM [facility] Value Range Interpretation Code Description Data Harriet rce(s) Supporting Document(s) Alanine aminotransferase [Enzymatic activity/volume] in Seru m or Plasma 20 U/L <33 [facility] ID Date Data Source [id number] 10/27/2020 12:51:06 PM [facility] Value Range Interpretation Code Description Data Harriet rce(s) Supporting Document(s) Aspartate aminotransferase [Enzymatic activity/volume] in Serum or Plasma 21 U/L <32 [facility] ID Date Data Source [id number] 10/27/2020 12:51:06 PM [facility] Value Range Interpretation Code Description Data Harriet rce(s) Supporting Document(s) Complement C3 [Mass/volume] in Serum or Plasma 154 mg/dL 90-180 [facility] ID Date Data Source [id number] 10/27/2020 12:51:06 PM [facility] Value Range Interpretation Code Description Data Harriet rce(s) Supporting Document(s) Complement C4 [Mass/volume] in Serum or Plasma 29 mg/dL 10-40 [facility] ID Date Data Source [id number] 10/27/2020 12:51:06 PM [facility] Value Range Interpretation Code Description Data Harriet rce(s) Supporting Document(s) Creatinine [Mass/volume] in Serum or Plasma 0.80 mg/dL 0.50-0.90 [facility] Glomerular filtration rate/1.73 sq M pre dicted among non-blacks [Volume Rate/Area] in Serum or Plasma by Creatinine-based formula (MDRD) >6 0 [facility] Glomerular filtration rate/1.73 sq M pre dicted among blacks [Volume Rate/Area] in Serum or Plasma by Creatinine-based formula (MDRD) >60 [facility] ID Date Data Source [id number] 10/27/2020 12:51:06 PM [facility] Value Range Interpretation Code Description Data Harriet rce(s) Supporting Document(s) C reactive protein [Mass/volume] in Serum or Plasma 6.4 mg/L <8.0 [facility] ID Date Data Source [id number] 10/11/2020 10:31:45 PM [facility] Hospital Name Value Range Interpretation Code Description Data Harriet rce(s) Supporting Document(s) Progress Note [facility] RYBABy9mLdZNLcMs98/UWHhfCUEvf4OaFDftZVg2HMphBNXfF8WmURB3yF8bEVK8OLgCHcBtViHsTdH6 lbm GhMitEKzDbWBSkHohLGhWgHWmpHtkfyNQlWA9MmIZ9STRkH07zLJBqUXCoY2CkERVwHXV+Sm8VTDBpxU KpAZ2QBdeD4M7fa6wFDV9o4F3XiQLnPBR0GbZgIAQehAWf8PDhxIbsdzkQdUO7LcdnKAka//pXHmb7TO 96SpKDclzq67ZNlBrvN+vaaUmn1FbXl//sokPY033p /P/2u8wkmUUz863/2EwtgNmnyujw30ExXE3zU1ZQdQ6s9N2d+YG3/op6VocpvAFo9eOP22F2xfzhavW+ 3ejeerB45Qx8eu+z1juveahfxvf9cvacOFUu6FbodyJO/u29PPB+9t207LUugYH8ZwxOCFvRwxH1l9KI y6JYxewcx2tySJtzLxlfohx7B3NTadqgULSLeG+MfF kehYnU9bv9lv6FN0ibyhDY/jX7TPIquNGeo/pZ6rM/t/kVxlq6iM/nv9j9Wi+cgkhCw3hRszu3C0CbMA rycjTlW+YAFxpZzASMhUy2e1TDOhP9x/CfwryqlHoHpM8t+jc52BfFw/d5b41hUHQq3HxLq7/WLK6jNv YTUG7Elhx3+8roDnYrGnsuR1j4z1q7+TBekM/sZscp xeJ6Lv40Wv/rY9nORkEkwidgE+/p4MFuiM0338JT2L7i6AUvn+vI0WDnIc7kC4AShnOZZrKT08daiOX6 Aubrey+fUx2IjZMQoc6ImekhtK/AH7jyPcjHrd/txBBa6Euk4UYGW63PsIBl+qZxR11eFZCsOfB29ewn5 [file] khX0voNfEEg5MjCgGK6HIKCUS9HMRp== ID Date Data Source [id number] 10/06/2020 12:00:00 AM EST [facility] Name Value Range Interpretation Code Description Data Harriet rce(s) Supporting Document(s) SARS coronavirus 2 RNA [Presence] in Res piratory specimen by [facility] with probe detection NEGATIVE [facility] This lab was ordered by Murray Bryant and reported by [employer]. ID Date Data Source [id number] 10/01/2020 06:26:05 PM [facility] XR FOOT 3 OR MORE VIEWS [id number] RESUL TInterpreted by:INNA Joyce FOOT AND ANKLECLINICAL STATEMENT: Injury. Pain. Initial encounter.TECHNIQUE: 3 views of the right foot. 2 views of the right ankle.COMPARISON: None.FINDINGS: No acute fracture or dislocation is identified. The ankle mortise is congruent.The joint spaces are preserved and the articular margins are smooth.The visualized soft tissues are within normal limits.IMPRESSION:No acute fracture or dislocation. This document has been electronically signed by Lc Gates MD on 10/01/2020 6:23 PM Name Value Range Interpretation Code Description Data Harriet rce(s) Supporting Document(s) ID Date Data Source [id number] 10/01/2020 06:26:05 PM [facility] [facility] XR ANKLE 2 VIEWS [id number] RESULTInterp reted by:INNA Joyce FOOT AND ANKLECLINICAL STATEMENT: Injury. Pain. Initial encounter.TECHNIQUE: 3 views of the right foot. 2 views of the right ankle.COMPARISON: None.FINDINGS: No acute fracture or dislocation is identified. The ankle mortise is congruent.The joint spaces are preserved and the articular margins are smooth.The visualized soft tissues are within normal limits.IMPRESSION:No acute fracture or dislocation. This document has been electronically signed by Lc Gates MD on 10/01/2020 6:23 PM Name Value Range Interpretation Code Description Data Harriet rce(s) Supporting Document(s) ID Date Data Source [id number] 10/01/2020 01:29:11 PM [facility] Name Value Range Interpretation Code Description Data Harriet rce(s) Supporting Document(s) Progress Note [facility] DXCDWf6wArQUGoCp57/CHCnjNBYhg9UcDJonJSd4HQqkLRMaH3PtYQS9qI3aCFV8NMuEEcQiNvSfSlX3 lbm YbMizRRsMeAKRzHzbJWeIfTWraFhtabVMqSI5CbDL5UAEiI79vPSVbIUWcE4XjZDK6IXW+Go0PFQKctW UnUD8VPvwB9C5ne3oGJM6q9H8gTJN7r8ct3ZasHc4l7VKNMwOy0TwMUkQUliDbqNgAW6pPxk++Torres+J/ [file] VZtF5xLN0K2rgKIFPMBH5yTB4TrdOxvfnMVIoA+yLfiFLJs2SSozk3+AZQ/JDxtkgBz2DzYBNIas++acuña [file] [employer]SEM[employer]ER+Wx1OXPOgGCz3B4S7JWQcDHm0N5OQV7LFMLFuOOcmFInrBYMhSIq4T1C3GNToO2SPM4Tsoiyfaj8+ QY2RF17TVLPsVQf2E3X6dKHuU4J9fLuSoIN7GL9ZWH2GjGw9nTKhdU4+FM4TF5XPZyIwKQk6U4I0kDGe T3B1dFnRjBN8NA5NRR1SpPYbJRLuleUrOt6eV3SBJA gEGbZAQJL8FA4TiAKkKZ2WbJYHM0WkmWZjDw8hBGplvYPliS3aGg9rNDjbXQ2CLfNNGJnLGIT5CV6LoV LeNO9CjHOSR4TvdMEuLu6hYUnadNBuya3+CE7USIInHl3DWr7+RRxxgpRnHjlZJqB3BABqh6FgKHt7ET 5WVM0csJrqGUP3Rx4NxIN5vEEnI2tSCJ0SyDXbZ15n kUKoPKCtHc0KEcH5sfUhnT2JPN51sBYcw5E4PZBmI5lmSFulh97eSBvvFIuLMO1lGNOCXBrcJChrBYZ0 WcHcanaaADOuYp7EPwExAAs2oU1naWK4NDR4EocptPHqUDnnClUeSsMjReH3uMuqdyl9VMfhTI6uSCfr czptZXRhLyc+UMqtUPJqIESzPliVHEVdtS9lkmI7nq GzDNjlhKVnAz3xf0c5FrtwMs1iQo6oQKr2MwIoYkTmOXBiBq7lkJ20FBwdubVrMf4HTmZjOCJ9I0IqDf pSREY+AMnpMLcodOc5yTYhHCZhCj2OWHZkPDThKRJdCDMhHQAgUNEfOZNaXWMlIUPdUBAhPXTtYUVsGX AgICAgICAgICAgICAgICAgICAgICAgICAgICAgICAg TLVhTHDqRACrRTLlSXTlYBNeHFNyUNFhBCIkQWFuWI4JMNPyDVAwGZNhOYTgPZXsHSJoCEHgXDKsUPBp ICAgICAgICAgICAgICAgICAgICAgICAgICAgICAgICAgICAgICAgICAgICAgICAgICAgICAgICAgICAg CBEjIGNoZVSqJVHkWJ7DBNPqFLNaTLUtGYJmUEDwQO AgICAgICAgICAgICAgICAgICAgICAgICAgICAgICAgICAgICAgICAgICAgICAgICAgICAgICAgICAgIC XaJHRkTWVnPAIxGJCtOEOeJVPqDEZbEG1BJLIqWFCaXHXsVPGhRPGyHIEiPGJiZDZtQGRbGXHmCJJqFN AgICAgICAgICAgICAgICAgICAgICAgICAgICAgICAg ILXyYXIkGQBaDAGqSYEgXYNkATHbNGYxIGTmCNSwAJZnNL1WFXLmLFTwNJCiBHZaPUUcEFOkASVrFYFh ICAgICAgICAgICAgICAgICAgICAgICAgICAgICAgICAgICAgICAgICAgICAgICAgICAgICAgICAgICAg PADsKILkKRZpJAUjVNTqDE3YVGVyXULkSMKlPZZbPH AgICAgICAgICAgICAgICAgICAgICAgICAgICAgICAgICAgICAgICAgICAgICAgICAgICAgICAgICAgIC OyENCwFGDjMCHlRHMlGTTuSROiNMXtKUVlSP3ORXYxKYJjVGTfSKXxLURbIMPwRAEhLKOpLNQnTIXlQX AgICAgICAgICAgICAgICAgICAgICAgICAgICAgICAg HKKlTCNeCVCgTZUbICIvPSDyUDWyPLJjSMYkNGEpWOEaHRPgCQ9LKSNfAXUlRXSwWAHdWMZpASJhKUGb ICAgICAgICAgICAgICAgICAgICAgICAgICAgICAgICAgICAgICAgICAgICAgICAgICAgICAgICAgICAg SPMjQUYpVKVpBJYxRENnCPFxRG5MOVFqRDRyXEMmSK AgICAgICAgICAgICAgICAgICAgICAgICAgICAgICAgICAgICAgICAgICAgICAgICAgICAgICAgICAgIC RwXKJtHPQyZUGyUSMaLANvVSUbMIUrDPSbZQZvIN3DQMHjNJHhJXZpTEIcKDXhQDGqMUFeDFHmYZSrPI AgICAgICAgICAgICAgICAgICAgICAgICAgICAgICAg YCRsVUQqCOAdPISiCPZwQCKgCQSzNMBgCVMiQYMfPKDmPORiLNCuZB4SJT70oOLjt1J6CJRtIR4cbrx/ Vc0BTWtnioWspCHrPU6VLgDiJV3rcq3YAtDyCL2qeq0DHHqHCfNdN2R3eMMgXCXqNKSAGqMuJ68pYBvr Cw75OFjxULUdGsEcZMa4Mi2UAxRlS2anIKLsVvI0OP KrLiN0LRKgTtF0EVKtVkDfCRSySMTkUOPoZBPDBB2JPuLyD2IxiK22ZJMJFm4+DQplbmRvYmoNCjMwID Rra7TzCDz0QU5HAOZiBimdo4HbVtSjCRYJFHajIY1LIBW4UJPfLAYmRx2DGFKkH352wlKlNN4IKw2BKq RuOX4ajb1GQiTrGATmWigXZzj6UUsgLT5SvXSsYDvU xa5rhyQageILm2KixmSjnBFJJV9rHWnoDHJDPE8ipcItrvwdWZTNLDB1OPWqDqRaGkVhURTiYVqjLSEI OHcNPvEsX0Flg3PeBvN3HAPhBvEnJSlqEVXnQlR6MS08zWcrQD9PKHRzJSKqXA77AGPvYBXfVh8ELj7Y ShLlFY2uzm0HCzOpRJIyBqbECmi4DRljMW2HwNPxI6 QixITrg8uAPxIgY0XAHQP6EIBsOw9YAYQeHuXoZNDfQXmfZE7vDKUkHLRPnHaxsyL0QS1EOW1hbjJuFM 5QCiVqLi4xGb5STlLgV9IaR8AzSSOxTHFYUKynYK3GVTtuDC7oGS0Za6SQyUShxK6awy9XLGFzQOWwAo qlnf6RApexC0Y0zRmmXPEwIaLzZKVQNRqaXF5XUVNv TMQ3ZVFqTTWxJARJKtWqP94cNC5TZ9Fkg11wNlV9FPEgXwTwOGuuGG37tGnrkxHjrLXbwYotDO8YRh5+ BMpzkcGoVfoVItzaSUKLTcBfYqBTTnCfHIOaSRWtAZTcAkV0KbRtEa0ENOWhURVuDDWtVbJvLOGxHQQy UJszIYZaNIMmTtc9SNUxVMBaCL3YYtTqRTEcQcD4RJ PuBBLfEYOaih5FAETbNRVcCOA4IgIpLYMbSMReKZqwDUUrKQLlQraaXIMqJPXlPW9JVhNjZQFoUED8SK iaMBQnQEDues3KLCJpSENfHeV8DZAvTVGzCWOcAVnvVRGwTFB2WcU1KVWhVZWpMG7ZKhWcBBFyEVv7Ih PjAXFnPCIuum1NJZNxNCPgSXKlIxQjGKGzMEBxPAhw ZSAlINCbBnZ1CLZjANLgOG4SMfGnCNSwQUJ7DpFjKKSfVIYxyq9HWDWwBCPaEGR6OuUyZVIeXWZmTWts WDDpDAM8Abo0CXAgDJAiCE5KJwTcHKOtWZZzMOpkPVAqQWNwwn4LYNQjVDSbWiX7BZWlJZQnVBXqTMmr KUElLZO2JiX3MKNkYHZyMI2ILqSiXUOvOGr5YZdiNO UuZKDyse7JMCTjUPTxJqz7SCSsGJLiMCAaVBcuOYCiMSD5MXn7CTDaFKZxHM2MDvKxUKUlTkc5RKnsZJ MwQEAtkh3GAMItBTSzEXc8UnUsUHOdRRLwGKepRJIwCDU4NDPaCJCpDUNnXM3OEgAgGLNgPsWuGIKiJW FzWSWimx1QMRNeSKRbMCP0BjNgPUJiXNAbDRbqXTCh RXMbMwkiATRwNPQvBJ6TKoKuXZXgMnG6VrnuRFAfKJRpot5WIZSqLOWuBWU0PiYhOCTmSEPtMUxbITAd KYSxUHe6JGRwOHMtWA5QNxFzFNVwBtL3AyklEFBlPHIhac3UFQHiXEAzLsZxPRPdCUKrAAUzFMmhDOOe JJUmAbMxVUJxPVVtOO7SKhZuBJwqYOMNMvq0PYpsR9 r8QQIiUp8GW1Ywm7KyYhNrMWSCMUvdXS1fbdWnCWDhXb0YY7jLWtsnQwSrRDT2LXKdIlVvVRL7PcGnNn R6HcEnNaLdW5NtOO8aMPCyZfZ3DNl0ZuUjZ4VmSTCgXOImKYV1SIF3ZVHuVLL4IqUqII2XGz4MUjA9VU D0jLCsOr2QLyKpVNEAWqLxRU5TZNz= ID Date Data Source [id number] 09/16/2020 04:39:17 PM [facility] Name Value Range Interpretation Code Description Data Harriet rce(s) Supporting Document(s) Progress Note [facility] GCHUUo7dGkTPCdTb87/KCTvjTZQry6KvGVpeXLn6QCrnHITpR5JoPRJ5rF0mKTM9MJnEAdNgOzCbWJPu lbm [file] QgUuJ1TWQ9NkMnXx3rJALBLo1+WRvjqCOvvQnsJNNDFdA1SLntOVhhAQPFRe8Q ID Date Data Source [id number] 08/25/2020 01:30:00 PM EST [facility] Name Value Range Interpretation Code Description Data Harriet rce(s) Supporting Document(s) SARS coronavirus 2 RNA [facility] This lab was ordered by [facility] and reported by [facility]. ID Date Data Source [id number] 08/04/2020 12:00:00 AM EST [facility] Bekah Zamudio MD Patient Name: CONCEPCION MEZA [id number] [facility] Date of : 1990[place] [address] Date of Exam: 08/04/2020#: Fax: [phone] EXAM: US GUIDANCE FOR NEEDLE PLACEMENT S&ICLINICAL INFORMATION: Right peroneal sprain.The procedure was performed by JIMMIE Green under the directsupervision of Dr. Farias.The risks and benefits of the procedure were explained to the patient andinformed consent was obtained.The right peroneal tendon sheath was localized using ultrasound guidance.The skin was prepped and draped in a sterile fashion. 1% Lidocaine wasused as a local anesthetic. Using ultrasound guidance, a #25-gauge needlewas inserted and advanced into the tendon sheath. 3 cc of a solutioncontaining 2 cc of 1% Lidocaine and 1 cc of Kenalog 40 mg was injected.The needle was then removed.The patient tolerated the procedure well and there were no immediatecomplications.GUNNAR Gates/Harsh you for referring CONCEPCION MEZA to our office. Electronically Signed - MANOLO FARIAS MD 08/04/20 17:19 Name Value Range Interpretation Code Description Data Harriet rce(s) Supporting Document(s) ID Date Data Source [id number] 07/25/2020 08:58:03 AM EST [facility] Name Value Range Interpretation Code Description Data Harriet rce(s) Supporting Document(s) Progress Note [facility] SHSQJt6oPyOKBvXw92/FRAjjMKFrp6GgUQneBZx1PVtvPEFhL4BsIBS9vL5wAQP9FAbKSaZpLhEoJTS8 lbm [file] XKXkOXsgGcEzISH8HvDzAE7UJq8XBbI5EIE6fDMlKb9LOzv7NCRZQdRhTZ6FWPg= ID Date Data Source [id number] 05/25/2020 10:40:00 AM EDT [facility] Name Value Range Interpretation Code Description Data Harriet rce(s) Supporting Document(s) SARS coronavirus 2 RNA [facility] This lab was ordered by [facility] and reported by [facility]. Procedure Social History Code Duration Value Status Description Data Source(s ) Alcohol intake 03/17/2021 12:00:00 AM EDT Current drinker of al cohol (finding) completed Current drinker of alcohol (finding) [facility] Tobacco use and exposure 03/17/2021 12:00:00 AM EDT Never used co mpleted Never used [facility] Smoking 03/17/2021 12:00:00 AM EDT Never smoker completed Never s moker [facility] Alcohol intake 02/16/2021 12:00:00 AM EDT Current drinker of al cohol (finding) completed Current drinker of alcohol (finding) [facility] Alcohol intake 02/11/2021 12:00:00 AM EDT Current drinker of al cohol (finding) completed Current drinker of alcohol (finding) [facility] Alcohol intake 11/16/2020 12:00:00 AM EDT Current drinker of al cohol (finding) completed Current drinker of alcohol (finding) [facility] Alcohol intake 11/10/2020 12:00:00 AM EDT Current drinker of al cohol (finding) completed Current drinker of alcohol (finding) [facility] Alcohol intake 10/27/2020 12:00:00 AM EST Current drinker of al cohol (finding) completed Current drinker of alcohol (finding) [facility] Alcohol intake 10/27/2020 12:00:00 AM EST Current drinker of al cohol (finding) completed Current drinker of alcohol (finding) [facility] Alcohol intake 10/01/2020 12:00:00 AM EST Current drinker of al cohol (finding) completed Current drinker of alcohol (finding) [facility] Alcohol intake 07/25/2020 12:00:00 AM EST Current drinker of al cohol (finding) completed Current drinker of alcohol (finding) [facility] Vital Signs ID Date Data Source UNK Name Value Range Interpretation Code Description Data Source(s) Body weight 280 [lb_av] 280 [lb_av] eCW1 ([facility]) Body height 67.5 [in_i] 67.5 [in_i] eCW1 ([facility]) Body mass index (BMI) [Ratio] 43.20 kg/m2 43.20 kg/m2 eCW1 ([facility]) Heart rate 99 /min 99 /min eCW1 ([facility]) Respiratory rate 18 /min 18 /min eCW1 ([facility]) Body temperature 98.0 [degF] 98.0 [degF] eCW1 ( [facility]) Systolic blood pressure 132 mm[Hg] 132 mm[Hg] e CW1 ([facility]) Diastolic blood pressure 80 mm[Hg] 80 mm[Hg] eCW1 ([facility]) Body weight 276 [lb_av] 276 [lb_av] eCW1 ([facility]) Body height 67.5 [in_i] 67.5 [in_i] eCW1 ([facility]) Body mass index (BMI) [Ratio] 42.59 kg/m2 42.59 kg/m2 eCW1 ([facility]) Heart rate 95 /min 95 /min eCW1 ([facility]) Respiratory rate 18 /min 18 /min eCW1 ([facility]) Body temperature 97.3 [degF] 97.3 [degF] eCW1 ( [facility]) Systolic blood pressure 120 mm[Hg] 120 mm[Hg] e CW1 ([facility]) Diastolic blood pressure 70 mm[Hg] 70 mm[Hg] eCW1 ([facility]) Respiratory rate 12 /min 12 /min MEDENT ( [facility] ) Body mass index (BMI) [Ratio] 39.2 kg/m2 39.2 k g/m2 MEDENT ([facility] ) [place] body weight 135 [lb_av] 135 [lb_av] MEDEN T ([facility] ) Body weight 250.00 [lb_av] 250.00 [lb_av] MEDEN T ([facility]) Body height 67 [in_i] 67 [in_i] MEDENT ([facility]) 5'7" Body temperature 97.8 [degF] 97.8 [degF] MEDENT ([facility]) ID Date Data Source [id number] 11/11/2020 06:26:03 PM [facility] Value Range Interpretation Code Description Data Source(s) WEIGHT RECORDED 279 lb 279 lb [facility] Body height Measured 67.01 in . in [facility] ID Date Data Source [id number] 10/27/2020 01:20:38 PM [facility] Value Range Interpretation Code Description Data Source(s) WEIGHT RECORDED 273 lb 273 lb [facility] Body height Measured 67 in in [facility] ID Date Data Source [id number] 10/01/2020 01:29:11 PM [facility] Value Range Interpretation Code Description Data Source(s) WEIGHT RECORDED 265 lb 265 lb [facility] Body height Measured 67 in in [facility] ID Date Data Source [id number] 09/20/2020 03:37:51 PM [facility] Value Range Interpretation Code Description Data Source(s) WEIGHT RECORDED 265 lb 265 lb [facility] Body height Measured 67 in in [facility] ID Date Data Source [id number] 07/25/2020 08:58:03 AM [facility] Value Range Interpretation Code Description Data Source(s) WEIGHT RECORDED 261 lb 261 lb [facility] Body height Measured 67.01 in . in [facility] ID Date Data Source [id number] 07/01/2020 10:57:13 AM [facility] Value Range Interpretation Code Description Data Source(s) WEIGHT RECORDED 261 lb 261 lb [facility] Body height Measured 67.01 in . in [facility] Patient Treatment Plan of Care Planned Activity Planned Date Details Description Data Source (s) Ergocalciferol [id number] UNT Oral Capsule 03/03/2021 12:00:00 AM [facility] mycophenolate mofetil 250 MG Oral Capsule 03/01/2021 12:00:00 AM [facility] methylPREDNISolone acetate (DEPO-MEDROL) injection 40 mg 02/16/2021 11:15:00 AM [facility] Benlysta 200 MG/ML Subcutaneous Solution Auto-injector (belimumab) 12/03/2020 12:00:00 AM [facility] Ergocalciferol 54711 UNT Oral Capsule 11/25/2020 12:00:00 AM [facility] Ergocalciferol [id number] UNT Oral Capsule 10/29/2020 12:00:00 AM [facility] Cephalexin 500 MG Oral Capsule 10/29/2020 12:00:00 AM [facility] lidocaine (XYLOCAINE) 1 % injection 4.5 mL 10/27/2020 10:15:00 AM [facility] methylPREDNISolone acetate (DEPO-MEDROL) injection 40 mg 10/27/2020 10:15:00 AM [facility] methylPREDNISolone acetate (DEPO-MEDROL) injection 80 mg 10/27/2020 10:15:00 AM [facility] methylPREDNISolone acetate (DEPO-MEDROL) injection 80 mg 10/27/2020 10:15:00 AM [facility] Acetaminophen 325 MG / Oxycodone Hydrochloride 5 MG Or al Tablet 10/27/2020 12:00:00 AM [facility] methylPREDNISolone 4 MG Oral Tablet Therapy Pack (MEDR OL (JAMES)) 10/27/2020 12:00:00 AM [facility] Acetaminophen 325 MG / Oxycodone Hydrochloride 5 MG Or al Tablet 10/18/2020 12:00:00 AM [facility] Clonazepam 0.5 MG Oral Tablet 10/11/2020 12:00:00 AM [facility] Ondansetron 4 MG Disintegrating Oral Tablet 10/11/2020 12:00:00 AM [facility] 24 HR quetiapine 50 MG Extended Release Oral Tablet 09/28/19 12:00:00 AM [facility] Hydroxyzine Hydrochloride 50 MG Oral Tablet 09/20/2020 12:00:00 AM [facility] Sertraline 50 MG Oral Tablet 09/20/2020 12:00:00 AM [facility] Trazodone Hydrochloride 50 MG Oral Tablet 09/09/2020 12:00:00 AM [facility] eCW1 ([facility]) Aimovig 140 MG/ML Subcutaneous Solution Auto-injector 09/08/2020 12:00:00 AM [facility] Cyclobenzaprine hydrochloride 10 MG Oral Tablet 09/03/2020 12:00:00 AM [facility] celecoxib 100 MG Oral Capsule [Celebrex] 09/01/2020 12:00:00 AM EST eCW1 ([facility]) celecoxib 100 MG Oral Capsule [Celebrex] 09/01/2020 12:00:00 AM EST eCW1 ([facility]) tramadol hydrochloride 50 MG Oral Tablet 08/23/2020 12:00:00 AM [facility] Fluoxetine 20 MG Oral Capsule 08/18/2020 12:00:00 AM [facility] Trazodone Hydrochloride 50 MG Oral Tablet 08/16/2020 12:00:00 AM [facility] Benlysta 200 MG/ML Subcutaneous Solution Auto-injector (belimumab) 08/12/2020 12:00:00 AM [facility] Ondansetron 4 MG Disintegrating Oral Tablet 08/04/2020 12:00:00 AM [facility] Cyclobenzaprine hydrochloride 10 MG Oral Tablet 07/20/2020 12:00:00 AM EST eCW1 ([facility]) Cyclobenzaprine hydrochloride 10 MG Oral Tablet 07/20/2020 12:00:00 AM EST eCW1 ([facility]) meloxicam 7.5 MG Oral Tablet 07/20/2020 12:00:00 AM EST eCW1 ([facility]) Cyclobenzaprine hydrochloride 10 MG Oral Tablet 07/20/2020 12:00:00 AM EST eCW1 ([facility]) Prednisone 10 MG Oral Tablet 07/13/2020 12:00:00 AM [facility] Prednisone 10 MG Oral Tablet 06/19/2019 12:00:00 AM [facility] Phenazopyridine hydrochloride 200 MG Delayed Release O ral Tablet 06/09/2019 12:00:00 AM [facility] lamotrigine 25 MG Chewable Tablet [facility]
[2021-07-16] MEDS ORDERED: ZOLP5TAB (23:16)
[2021-07-16] MEDS ORDERED: ADDE20CA3 PO (23:16)
[2021-07-17] MEDS ORDERED: diphenhydrAMINE 50MG/ML VIAL (J1200) IV STA (01:33)
[2021-07-17] MEDS ORDERED: KETOROLAC 30 MG/ML 1ML VIAL IV ONE (01:35)
[2021-07-17] MEDS ORDERED: ONDANSETRON 4MG/2ML VIAL IV ONE (01:35)
[2021-07-17] MEDS ORDERED: NS 1,000 ML IV ONE (01:35)
[2021-07-17 01:51] LABS: RSV AMPLIFICATION NEGATIVE (NEGATIVE)
--- NOTE | 2021-07-17 01:55 | REPVR ---
PROCEDURE INFORMATION: Exam: XR Chest Exam date and time: 07/17/2021 1:36 AM Age: 30 years old Clinical indication: SOB, chest pain TECHNIQUE: Imaging protocol: XR of the chest. Views: 1 view. COMPARISON: [facility] PORTABLE CHEST X-RAY 11/28/2019 6:18 PM (The report from this study was not available for review at the time of this interpretation.) FINDINGS: Lungs: Unremarkable. No consolidation. No pulmonary edema. Pleural spaces: Unremarkable. No pleural effusion. No pneumothorax. Heart/Mediastinum: Unremarkable. No cardiomegaly. Bones/joints: Unremarkable. IMPRESSION: No acute findings. Electronically signed by: Hilario Brooks On 07/17/2021 01:55:12 AM
--- OUTSIDE RECORDS SUMMARY | 2021-07-17 02:00 | CCD ---
Author Author [facility] Organization [facility] Address Unknown Phone Unavailable Care Team Providers Care Home Care Coordinator Name Role Phone Luz Maria Amaya MD [...] Unavailable Unavailable PABLO ACUÑA MD Unavailable Unavailable PABOL ACUÑA MD Unavailable Unavailable PABLO ACUÑA MD [...] PÉREZ MD Unavailable Unavailable CALDWELL, R SULMA DOCENT COORDINATOR Unavailable Unavailable CALDWELL, R SULMA DOCENT COORDINATOR Unavailable Unavailable CALDWELL, R SULMA DOCENT COORDINATOR Unavailable Unavailable CALDWELL, R SULMA DOCENT COORDINATOR Unavailable Unavailable CALDWELL, R SULMA DOCENT COORDINATOR Unavailable Unavailable CALDWELL, R SULMA DOCENT COORDINATOR Unavailable Unavailable CALDWELL, R SULMA DOCENT COORDINATOR Unavailable Unavailable CALDWELL, R SULMA DOCENT COORDINATOR Unavailable Unavailable CALDWELL, R SULMA DOCENT COORDINATOR Unavailable Unavailable CALDWELL, R SULMA DOCENT COORDINATOR Unavailable Unavailable CALDWELL, R SULMA DOCENT COORDINATOR Unavailable Unavailable CALDWELL, R SULMA DOCENT COORDINATOR Unavailable Unavailable CALDWELL, R SULMA DOCENT COORDINATOR Unavailable Unavailable CALDWELL, R SULMA DOCENT COORDINATOR Unavailable Unavailable CALDWELL, R SULMA DOCENT COORDINATOR Unavailable Unavailable CALDWELL, R SULMA DOCENT COORDINATOR Unavailable Unavailable CALDWELL, R SULMA DOCENT COORDINATOR Unavailable Unavailable CALDWELL, R SULMA DOCENT COORDINATOR Unavailable Unavailable CALDWELL, R SULMA DOCENT COORDINATOR Unavailable Unavailable CALDWELL, R SULMA DOCENT COORDINATOR Unavailable Unavailable CALDWELL, R SULMA DOCENT COORDINATOR Unavailable Unavailable CALDWELL, R SULMA DOCENT COORDINATOR Unavailable Unavailable CALDWELL, R SULMA DOCENT COORDINATOR Unavailable Unavailable CALDWELL, R SULMA DOCENT COORDINATOR Unavailable Unavailable CALDWELL, R SULMA DOCENT COORDINATOR Unavailable Unavailable CALDWELL, R SULMA DOCENT COORDINATOR Unavailable Unavailable CALDWELL, R SULMA DOCENT COORDINATOR Unavailable Unavailable CALDWELL, R SULMA DOCENT COORDINATOR Unavailable Unavailable CALDWELL, R SULMA DOCENT COORDINATOR Unavailable Unavailable CALDWELL, R SULMA DOCENT COORDINATOR Unavailable Unavailable CALDWELL, R SULMA DOCENT COORDINATOR Unavailable Unavailable CALDWELL, R SULMA DOCENT COORDINATOR Unavailable Unavailable CALDWELL, R SULMA DOCENT COORDINATOR Unavailable Unavailable CALDWELL, R SULMA DOCENT COORDINATOR Unavailable Unavailable CALDWELL, R SULMA DOCENT COORDINATOR Unavailable Unavailable CALDWELL, R SULMA DOCENT COORDINATOR Unavailable Unavailable CALDWELL, R SULMA DOCENT COORDINATOR Unavailable Unavailable CALDWELL, R SULMA DOCENT COORDINATOR Unavailable Unavailable CALDWELL, R SULMA DOCENT COORDINATOR Unavailable Unavailable CALDWELL, R SULMA DOCENT COORDINATOR Unavailable Unavailable CALDWELL, R SULMA DOCENT COORDINATOR Unavailable Unavailable CALDWELL, R SULMA DOCENT COORDINATOR Unavailable Unavailable CALDWELL, R SULMA DOCENT COORDINATOR Unavailable Unavailable CALDWELL, R SULMA DOCENT COORDINATOR Unavailable Unavailable Xavi Gregory Unavailable Unavailable Xavi [...] Unavailable Unavailable Luke Jacob MD Unavailable Unavailable Nidia O Inna KLEIN Unavailable Unavailable Servage, L Alicia DOCENT COORDINATOR Unavailable Unavailable Servage, L Alicia DOCENT COORDINATOR Unavailable Unavailable Servage, L Alicia DOCENT COORDINATOR Unavailable Unavailable Servage, L Alicia DOCENT COORDINATOR Unavailable Unavailable Servage, L Alicia DOCENT COORDINATOR Unavailable Unavailable Servage, L Alicia DOCENT COORDINATOR Unavailable Unavailable Servage, L Alicia DOCENT COORDINATOR Unavailable Unavailable Servage, L Alicia DOCENT COORDINATOR Unavailable Unavailable Servage, L Alicia DOCENT COORDINATOR Unavailable Unavailable Servage, L Alicia DOCENT COORDINATOR Unavailable Unavailable Servage, L Alicia DOCENT COORDINATOR Unavailable Unavailable Servage, L Alicia DOCENT COORDINATOR Unavailable Unavailable Servage, L Alicia DOCENT COORDINATOR Unavailable Unavailable Servage, L Alicia DOCENT COORDINATOR Unavailable Unavailable Servage, L Alicia DOCENT COORDINATOR Unavailable Unavailable Servage, L Alicia DOCENT COORDINATOR Unavailable Unavailable Servage, L Alicia DOCENT COORDINATOR Unavailable Unavailable Servage, L Alicia DOCENT COORDINATOR Unavailable Unavailable Servage, L Alicia DOCENT COORDINATOR Unavailable Unavailable Servage, L Alicia DOCENT COORDINATOR Unavailable Unavailable Servage, L Alicia DOCENT COORDINATOR Unavailable Unavailable Servage, L Alicia DOCENT COORDINATOR Unavailable Unavailable Servage, L Alicia DOCENT COORDINATOR Unavailable Unavailable Servage, L Alicia DOCENT COORDINATOR Unavailable Unavailable Servage, L Alicia DOCENT COORDINATOR Unavailable Unavailable Servage, L Alicia DOCENT COORDINATOR Unavailable Unavailable Servage, L Alicia DOCENT COORDINATOR Unavailable Unavailable Servage, L Alicia DOCENT COORDINATOR Unavailable Unavailable Servage, L Alicia DOCENT COORDINATOR Unavailable Unavailable Servage, L Alicia DOCENT COORDINATOR Unavailable Unavailable Servage, L Alicia DOCENT COORDINATOR Unavailable Unavailable Servage, L Alicia DOCENT COORDINATOR Unavailable Unavailable Servage, L Alicia DOCENT COORDINATOR Unavailable Unavailable Servage, L Alicia DOCENT COORDINATOR Unavailable Unavailable Servage, L Alicia DOCENT COORDINATOR Unavailable Unavailable Servage, L Alicia DOCENT COORDINATOR Unavailable Unavailable Servage, L Alicia DOCENT COORDINATOR Unavailable Unavailable Servage, L Alicia DOCENT COORDINATOR Unavailable Unavailable Servage, L Alicia DOCENT COORDINATOR Unavailable Unavailable Servage, L Alicia DOCENT COORDINATOR Unavailable Unavailable Servage, L Alicia DOCENT COORDINATOR Unavailable Unavailable Servage, L Alicia DOCENT COORDINATOR Unavailable Unavailable Servage, L Alicia DOCENT COORDINATOR Unavailable Unavailable Servage, L Alicia DOCENT COORDINATOR Unavailable Unavailable Servage, L Alicia DOCENT COORDINATOR Unavailable Unavailable Servage, L Alicia DOCENT COORDINATOR Unavailable Unavailable Servage, L Alicia DOCENT COORDINATOR Unavailable Unavailable Servage, L Alicia DOCENT COORDINATOR Unavailable Unavailable Servage, L Alicia DOCENT COORDINATOR Unavailable Unavailable Servage, L Alicia DOCENT COORDINATOR Unavailable Unavailable Servage, L Alicia DOCENT COORDINATOR Unavailable Unavailable Servage, L Alicia DOCENT COORDINATOR Unavailable Unavailable Servage, L Alicia DOCENT COORDINATOR Unavailable Unavailable Servage, L Alicia DOCENT COORDINATOR Unavailable Unavailable Servage, L Alicia DOCENT COORDINATOR Unavailable Unavailable Servage, L Alicia DOCENT COORDINATOR Unavailable Unavailable Servage, L Alicia DOCENT COORDINATOR Unavailable Unavailable Servage, L Alicia DOCENT COORDINATOR Unavailable Unavailable Servage, L Alicia DOCENT COORDINATOR Unavailable Unavailable Servage, L Alicia DOCENT COORDINATOR Unavailable Unavailable Servage, L Alicia DOCENT COORDINATOR Unavailable Unavailable Servage, L Alicia DOCENT COORDINATOR Unavailable Unavailable Servage, L Alicia DOCENT COORDINATOR Unavailable Unavailable Servage, L Alicia DOCENT COORDINATOR Unavailable Unavailable Servage, L Alicia DOCENT COORDINATOR Unavailable Unavailable BEKAH ZAMUDIO MD Unavailable Unavailable ZAMUDIOBEKAH REBOLLEDO MD Unavailable [...] Unavailable Unavailable ZAMUDIOBEKAH REBOLLEDO MD Unavailable Unavailable Xavi JORGE PA Unavailable Unavailable Xavi JORGE PA Unavailable Unavailable DEMSCHUYLERINIXavi PA Unavailable Unavailable DEMARTINIXavi PA Unavailable Unavailable DEMARTINI M MANOLO PA Unavailable Unavailable DEMARTINI M MANOLO PA Unavailable Unavailable DEMARTINIXavi PA Unavailable Unavailable [...] M MANOLO PA Unavailable Unavailable DEMARTINI, M AMNOLO PA Unavailable Unavailable DEMARTINI, M MANOLO PA [...] MD Unavailable Unavailable SETTERElvia MD Unavailable Unavailable SETTERElviaIN MD Unavailable Unavailable Elvia ORTA MD Unavailable [...] Mcclelland MD Unavailable Unavailable Harris, M Nila DOCENT COORDINATOR Unavailable Unavailable Harris, M Nila DOCENT COORDINATOR Unavailable Unavailable Harris, M Nila DOCENT COORDINATOR Unavailable Unavailable Harris, M Nila DOCENT COORDINATOR Unavailable Unavailable Harris, M Nila DOCENT COORDINATOR Unavailable Unavailable Harris, M Nila DOCENT COORDINATOR Unavailable Unavailable Harris, M Nila DOCENT COORDINATOR Unavailable Unavailable Harris, M Nila DOCENT COORDINATOR Unavailable Unavailable Harris, M Nila DOCENT COORDINATOR Unavailable Unavailable Harris, M Nila DOCENT COORDINATOR Unavailable Unavailable Harris, M Nila DOCENT COORDINATOR Unavailable Unavailable Harris, M Nila DOCENT COORDINATOR Unavailable Unavailable Harris, M Nila DOCENT COORDINATOR Unavailable Unavailable Harris, M Nila DOCENT COORDINATOR Unavailable Unavailable Harris, M Nila DOCENT COORDINATOR Unavailable Unavailable Harris, M Nila DOCENT COORDINATOR Unavailable Unavailable Harris, M Nila DOCENT COORDINATOR Unavailable Unavailable Harris, M Nila DOCENT COORDINATOR Unavailable Unavailable Harris, M Nila DOCENT COORDINATOR Unavailable Unavailable Harris, M Nila DOCENT COORDINATOR Unavailable Unavailable Harris, M Nila DOCENT COORDINATOR Unavailable Unavailable Harris, M Nila DOCENT COORDINATOR Unavailable Unavailable Harris, M Nila DOCENT COORDINATOR Unavailable Unavailable Harris, M Nila DOCENT COORDINATOR Unavailable Unavailable Harris, M Nila DOCENT COORDINATOR Unavailable Unavailable Harris, M Nila DOCENT COORDINATOR Unavailable Unavailable Harris, M Nila DOCENT COORDINATOR Unavailable Unavailable Harris, M Nila DOCENT COORDINATOR Unavailable Unavailable Harris, M Nila DOCENT COORDINATOR Unavailable Unavailable Harris, M Nila DOCENT COORDINATOR Unavailable Unavailable Harris, M Nila DOCENT COORDINATOR Unavailable Unavailable Harris, M Nila DOCENT COORDINATOR Unavailable Unavailable Harris, M Nila DOCENT COORDINATOR Unavailable Unavailable Harris, M Nila DOCENT COORDINATOR Unavailable Unavailable Harris, M Nila DOCENT COORDINATOR Unavailable Unavailable Harris, M Nila DOCENT COORDINATOR Unavailable Unavailable Harris, M Nila DOCENT COORDINATOR Unavailable Unavailable Harris, M Nila DOCENT COORDINATOR Unavailable Unavailable Harris, M Nila DOCENT COORDINATOR Unavailable Unavailable Harris, M Nila DOCENT COORDINATOR Unavailable Unavailable Harris, M Nila DOCENT COORDINATOR Unavailable Unavailable Xavi GONZALEZ MD Unavailable Unavailable [...] is protected by Article 27-F of the [facility] Public Health law. If you continue you may have access to information: Regarding HIV / AIDS; Provided by facilities licensed or operated by the [facility] Office of Mental Health; or Provided by the [facility] Office for People With Developmental Disabilities. If such information is present, then the following [facility] mandated warning applies: This information has [...] law may result in a fine or snf sentence or both. A general authorization for the release of medical or other information is NOT sufficient authorization for further disc losure. Family History Family Member Name Family Member Gender Family Member Status Date o f Status Description Data Source(s) Unknown Female Problem [facility] ([facility]) Unknown Female Problem [facility] ([facility]) Unknown Female Problem [facility] ([facility]) Unknown Unknown Problem [facility] ([facility] Unknown Unknown Problem [facility] ([facility]) Unknown Unknown Problem [facility] ([facility]) Unknown Unknown Problem [facility] ([facility]) Encounters Encounter Providers Location Date Indications Data Source(s ) Outpatient Attender: SULMA CALDWELL NPReferrer: Alicia elizalde NP 08/18/2021 12:00:00 AM [facility] Outpatient Attender: SULMA CALDWELL NPReferrer: Alicia elizalde NP 08/04/2021 12:00:00 AM [facility] Outpatient Attender: ELISA ACUÑA MD 08/02/2021 12:00:00 A [facility] Outpatient Attender: Nila Harris NP 07/12/2021 12:00:00 A [facility] Outpatient Attender: SULMA CALDWELL NPReferrer: Alicia elizalde NP 07/07/2021 12:00:00 AM [facility] Outpatient Attender: Nila Harris NP 06/29/2021 12:00:00 A [facility] Outpatient Attender: Nila Harris NP 06/22/2021 12:00:00 A [facility] Outpatient Attender: ELISA ACUÑA MD 06/14/2021 12:00:00 A [facility] Outpatient Attender: VAN ORTA MDReferrer: Alicia early NP [id number] 05/26/2021 12:00:00 AM EDT - 06/07/2021 01:56:15 PM [facility] Outpatient Attender: VAN ORTA MD 05/26/2021 12:00:00 A [facility] Outpatient Attender: ELISA ACUÑA MD 05/10/2021 12:00:00 A [facility] Outpatient 05/09/2021 12:00:00 AM [facility] Outpatient Attender: Farzana Mcclelland MD 0 05/04/2021 05:08:34 PM EDT - 05/04/2021 05:55:53 PM EDT [facility] ([facility]) Outpatient Attender: ELISA ACUÑA MD 04/26/2021 12:00:00 A [facility] Outpatient Attender: VAN ORTA MDReferrer: VAN ORTA MD 04/20/2021 12:00:00 AM [facility] Outpatient Attender: Verónica Jones MD 04/11/2021 12:00:00 AM [facility] Outpatient 04/05/2021 12:00:00 AM [facility] Outpatient Attender: SAUNDRA MURDOCK RPA 03/31 09:05:32 AM EDT - 03/31/2021 09:26:40 AM EDT [facility] ([facility] ) Outpatient Attender: Verónica Jones MD [facility] [address] [facility] [address] 03/21/2021 12:00:00 AM EDT eCW1 ([facility]) Outpatient Attender: SULMA CALDWELL NPReferrer: Alicia elizalde NP [id number] 03/17/2021 12:00:00 AM EDT - 03/28/2021 02:58:27 PM [facility] Outpatient Attender: Verónica Jones MD 03/14/2021 12:00:00 AM [facility] Unknown [address] [facility] [address] 03/03/2021 12:00:00 AM EDT eCW1 ([facility]) Outpatient Attender: Nila Harris NP [id number] 2020 12:00:00 AM EDT - 03/01/2021 11:12:47 AM EDT Other organ or system involvement in sys temic lupus erythematosus [facility] Other organ or system involvement in sys temic lupus erythematosus Outpatient Attender: SHAHRAM GONZALEZ MDReferrer: Alicia Pendleton NP 02/25/2021 12:00:00 AM [facility] Outpatient Attender: SULMA CALDWELL NPReferrer: Alicia elizalde NP [id number] 02/16/2021 12:00:00 AM [facility] Outpatient Attender: SONAM KENNEY MDReferrer: VAN ROBERTS MD [id number] 02/11/2021 12:00:00 AM [facility] Outpatient Attender: SULMA CALDWELL NPReferrer: Alicia elizalde NP [id number] 02/11/2021 12:00:00 AM [facility] Unknown [address] [facility] [address] 02/11/2021 12:00:00 AM EDT eCW1 ([facility]) Outpatient Referrer: VAN ORTA MD 01/14/2021 12:00:00 A [facility] Outpatient Attender: SHAHRAM GONZALEZ MD 01/05/2021 12: 00:00 AM [facility] Unknown [address] [facility] [address] [address], [facility] [address] 01/03/2021 12:00:00 AM EDT eCW1 ([facility]) Outpatient 12/17/2020 12:00:00 AM [facility] Outpatient Attender: VAN ORTA MD [id number] 11/10/2020 12:00:00 AM [facility] Outpatient Attender: SHAHRAM GONZALEZ MDReferrer : SHAHRAM GONZALEZ MD [id number] 11/05/2020 12:00:00 AM [facility] Outpatient Referrer: SHAHRAM GONZALEZ MD 11/06/19 12:00:00 AM EST Sprain of other ligament of right ankle, [facility] Sprain of other ligament of right ankle, [facility] Outpatient Attender: VAN ORTA MD [id number] 2020 12:00:00 AM EST - 11/08/2020 03:01:22 PM EDT Other specified postprocedural states [facility] Other specified postprocedural states Outpatient Attender: Nila Harris NP [id number] 2020 12:00:00 AM EST - 10/27/2020 10:45:28 AM EST Other organ or system involvement in sys [facility] lupus erythematosus [facility] Other organ or system involvement in sys temic lupus erythematosus Outpatient Attender: JERO KEBEDE MD 10/18/2020 12:00:00 AM [facility] Outpatient Attender: Marlon LARIOS 10/06/19 10:02:29 AM EST - 10/06/2020 10:18:27 AM EST [facility] ([facility] ) Outpatient Attender: SHAHRAM GONZALEZ MDReferrer : Nila Harris NP [id number] 10/01/2020 12:00:00 AM EST - 10/14/2020 08:43:59 AM ES T Sprain of other ligament of right ankle, [facility] Sprain of other ligament of right ankle, [facility] Outpatient Referrer: SHAHRAM GONZALEZ MD 10/01/19 12:00:00 AM EST Pain in right ankle and joints of right foot [facility] Pain in right ankle and joints of right foot Outpatient Referrer: SHAHRAM GONZALEZ MD 10/01/19 12:00:00 AM EST Pain in right ankle and joints of right foot [facility] Pain in right ankle and joints of right foot Outpatient Attender: MANOLO LARISO [id number] 09/16/2020 12:00:00 AM EST Sprain of other ligament of right ankle, [facility] Sprain of other ligament of right ankle, [facility] Outpatient Attender: SULMA CALDWELL NPReferrer: Nilaian navarro DOCENT COORDINATOR [id number] 09/16/2020 12:00:00 AM EST Carpal tunnel syndrome, right upper limb [facility] Carpal tunnel syndrome, right upper limb Unknown [address] [facility] [facility] [address] 09/09/2020 12:00:00 AM EST [facility]CW[facility] Outpatient [address] [facility] [address] 09/01/2020 12:00:00 AM EST [facility] Outpatient Attender: BEKAH ZAMUDIO MD Physical Therapy 12:30:00 PM EST [facility] ([facility]) Outpatient [address] [facility] [address] 07/20/2020 12:00:00 AM EST eCW1 ([facility]) Outpatient Attender: JERO KEBEDE MD [id number] 07/13/2020 12:00:00 A M [facility] Unknown [address] [facility] [address] 07/13/2020 12:00:00 AM EST [facility]CW1 [facility]) Outpatient Attender: Inna Jacob MD Main office - [facility] 07/08/2020 11:30:00 AM EST [facility] ([facility]) Outpatient Attender: BEKAH ZAMUDIO MD Physical Therapy 08:15:00 AM EST [facility] ([facility]) Unknown [address] [facility] [address] 06/08/2020 12:00:00 AM EDT eCW1 ([facility]) Outpatient Attender: Cony LARIOS Physical Therapy 11:00:00 AM EDT [facility] ([facility]) Outpatient Attender: JERO KEBEDE MD [id number] 020 12:00:00 AM EDT - 04/06/2020 11:22:58 AM EDT Other organ or system involvement in sys temic lupus erythematosus [facility] Other organ or system involvement in sys temic lupus erythematosus Immunizations Vaccine Date Status Description Data Source(s) COVID-19 VACCINE Moderna 02/01/2021 12:00:00 AM EDT completed [facility] Vaccine Series Complete: YESThis Data wa s Submitted to [facility] Via [employer]. COVID-19 VACCINE Moderna 12/23/2020 12:00:00 AM EDT completed [facility] Vaccine Series Complete: NOThis Data was Submitted to [facility] Via [employer]. Medications Medication Brand Name Start Date Product [...] FOOD SOLD: 04/21/2021 [facility] Ergocalciferol 20682 UNT Oral Capsule Vi tamin D (Ergocalciferol) 1.25 MG (38829 UT) Oral Capsule (ERGOCALCIFEROL) Vitamin D (Ergocalciferol) 1.25 MG (5000 0 UT) Oral Capsule (ERGOCALCIFEROL) 03/03/2021 12:00:00 AM EDT 87879 U Ora l active Vitamin D deficiency Take 1 capsule by mouth merritt ry 7 (seven) days [facility] Vitamin D deficiency mycophenolate mofetil 250 MG Oral Capsul e Mycophenolate Mofetil 250 MG Oral Capsule (CELLCEPT) Mycophenolate Mofetil 250 MG Oral Capsule (CELLCEPT) 03/01/2021 12:00:00 AM EDT 250 mg Oral act cici PolyarthralgiaHigh risk medication usePositive MAUREEN (antinuclear antibody)Other systemic lupus erythematosus with other organ involvement Take 1 caps ule by mouth Two Times Daily [facility] Polyarthralgia High risk medication use Positive MAUREEN (antinuclear antibody) Other systemic lupus erythematosus with other organ involvement methylPREDNISolone acetate (DEPO-MEDROL) injection 40 mg [id number] 02/16/2021 11:15:00 AM EDT 40 mg Intra-articular completed 40 mg, Intra- articular, Once, On Sun02/16/21 at 1115, For 1 dose
DEPO-MEDROL 1 cc - [id number]
[facility] Medication administered onsite Benlysta 200 MG/ML Subcutaneous Solution Auto-injector (lina pitt) 98169-880-27 12/03/2020 12:00:00 AM EDT act cici High risk medication useOther systemic lupus erythematosus with other organ involvement INJECT 1ML INTO THE SKIN EVERY 7 (SEVEN) DAYS [facility] High risk medication use Other systemic lupus erythematosus with other organ involvement Ergocalciferol 07987 UNT Oral Capsule Vi tamin D (Ergocalciferol) 1.25 MG (15118 UT) Oral Capsule (ERGOCALCIFEROL) Vitamin D (Ergocalciferol) 1.25 MG (5000 0 UT) Oral Capsule (ERGOCALCIFEROL) 11/25/2020 12:00:00 AM EDT 96114 U Ora l active Vitamin D deficiency Take 1 capsule by mouth merritt ry 7 (seven) days [facility] Vitamin D deficiency Ergocalciferol 47993 UNT Oral Capsule Vi tamin D (Ergocalciferol) 1.25 MG (96678 UT) Oral Capsule (ERGOCALCIFEROL) Vitamin D (Ergocalciferol) 1.25 MG (5000 0 UT) Oral Capsule (ERGOCALCIFEROL) 10/29/2020 12:00:00 AM EST 32203 U Ora l active Vitamin D deficiency Take 1 capsule by mouth merritt ry 7 (seven) days [facility] Vitamin D deficiency Cephalexin 500 MG Oral Capsule Cephalexin 500 MG Oral Capsul e 10/29/2020 12:00:00 AM EST 500 mg Oral completed Acute cystitis without hematuria Take 1 capsule by mouth Four times daily for 7 days [facility] Acute cystitis without hematuria methylPREDNISolone acetate (DEPO-MEDROL) injection 80 mg 10/27/2020 10:15:00 AM EST 80 mg Intra-articular complete d Primary osteoarthritis of right knee 80 mg, Intra-articular, Once, 10/27/20 at 1015, For 1 dose [facility] Primary osteoarthritis of right knee Medication administered onsite methylPREDNISolone acetate (DEPO-MEDROL) injection 80 mg 10/27/2020 10:15:00 AM EST 80 mg Intra-articular complete d Trochanteric bursitis, right hip 80 mg, Intra-articular, Once, 10/27/20 at 1015, For 1 dose [facility] Trochanteric bursitis, right hip Medication administered onsite lidocaine (XYLOCAINE) 1 % injection 4.5 mL [id number] 10/27/2020 10:15:00 AM EST 4.5 mL Infiltration completed Trochan teric bursitis, right hipPrimary osteoarthritis of right kneeArthritis of right ankle 4 .5 mL, Infiltration, Once, 10/27/20 at 1015, For 1 dose [facility] Trochanteric bursitis, right hip Primary osteoarthritis of right knee Arthritis of right ankle Medication administered onsite methylPREDNISolone acetate (DEPO-MEDROL) injection 40 mg 10/27/2020 10:15:00 AM EST 40 mg Intra-articular completed Arthri tis of right ankle 40 mg, Intra-articular, Once, 10/27/20 at 1015, For 1 dose [facility] Arthritis of right ankle Medication administered onsite methylPREDNISolone 4 MG Oral Tablet Therapy Pack (MEDROL (PA K)) 9382-0414-71 10/27/2020 12:00:00 AM EST active follow package directions [facility] Acetaminophen 325 MG / Oxycodone Hydroch loride 5 MG Oral Tablet oxyCODONE- Acetaminophen 5-325 MG Oral Tablet (Percocet) oxyCODONE-Acetaminophen 5-325 MG Oral Tablet (Percocet) 10/27/2020 12:00:00 AM EST aborted 1-2 tabs PO q 4hrs prn pain MDD: 8 [facility] Acetaminophen 325 MG / Oxycodone Hydroch loride 5 MG Oral Tablet oxyCODONE- Acetaminophen 5-325 MG Oral Tablet (PERCOCET) oxyCODONE-Acetaminophen 5-325 MG Oral Tablet (PERCOCET) 10/18/2020 12:00:00 AM EST 1 {tbl} Oral aborted Take 1 tablet by mouth every 4 (four) ho urs as needed for Pain, Max Daily Dose: 6 tablets [facility] Clonazepam 0.5 MG Oral Tablet clonazePAM 0.5 MG Oral T ablet (KLONOPIN) clonazePAM 0.5 MG Oral Tablet (KLONOPIN) 10/11/2020 12:00:00 AM EST 0.25 mg Oral active Take 0.25 mg by mout h Two Times Daily [facility] Ondansetron 4 MG Disintegrating Oral Tab let Ondansetron 4 MG Oral Tablet Disintegrating Ondansetron 4 MG Oral Tablet Disintegrating 10/11/2020 12:00:00 AM EST 4 mg Oral aborted Take 1 t ablet by mouth every 8 (eight) hours as needed for Nausea for up to 15 doses [facility] 24 HR quetiapine 50 MG Extended Release Oral Tablet QUEtiapine Fumarate ER 50 MG Oral Tablet Extended Release 24 Hour (SEROQUEL XR) QUEtiapine Fumarate ER 50 MG Oral Tablet Extended Release 24 Hour (SEROQUEL XR) 09/28/2020 12:00:00 AM EST aborted [facility] Sertraline 50 MG Oral Tablet Sertraline HCl 50 MG Oral Tablet (ZOLOFT) Sertraline HCl 50 MG Oral Tablet (ZOLOFT) 09/20/2020 12:00:00 AM EST 50 mg Oral aborted Take 50 mg by mouth daily [facility] Hydroxyzine Hydrochloride 50 MG Oral Tab let hydrOXYzine HCl 50 MG Oral Tablet (ATARAX) hydrOXYzine HCl 50 MG Oral Tablet (ATARAX) 09/20/2020 12:00: 00 AM EST aborted TAKE 1 TABLET BY MOUTH EVERY DAY NEEDED FOR ANXIETY [facility] Trazodone Hydrochloride 50 MG Oral Tablet TraZODone HC l 50 MG TraZODone HCl 50 MG 09/09/2020 12:00:00 AM EST 1.0 {tablet_at_bedtime_as_needed} active TraZODone HCl 50 MG eCW1 (Formerly [facility]) Trazodone Hydrochloride 50 MG Oral Tablet traZODone HC l 50 MG traZODone HCl 50 MG 09/09/2020 12:00:00 AM EST 1.0 {tablet_at_bedtime_as_needed} active traZODone HCl 50 MG eCW1 (Formerly [facility]) Trazodone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 Infection withM. tuberculosis is unlikely. A single negativeresult does not exclude infection with M. TB.In patients at high risk for M. tuberculosisinfection, a 2nd test should be consideredin accordance with [id number] ATS/IDSA/CDC Clinical Practice Guidelinesfor Diagnosis of Tuberculosis in Adults andChildren [Sofia OTTO et. al. Clin Infec.Rpt5533 64(2):111-115] Name Value Range Interpretation Code Description Data Harriet rce(s) Supporting Document(s) Alanine aminotransferase [Enzymatic activity/volume] in Seru m or Plasma 14 U/L <33 [facility] ID Date Data Source 03/01/2021 03:47:[address] [facility] NegativeNo interferon-gamma response to M.tuberculosisantigens was detected. Infection withM. tuberculosis is unlikely. A single negativeresult does not exclude infection with M. TB.In patients at high risk for M. tuberculosisinfection, a 2nd test should be consideredin accordance with [id number] ATS/IDSA/CDC Clinical Practice Guidelinesfor Diagnosis of Tuberculosis in Adults andChildren [Sofia OTTO et. al. Clin Infec.Myz5068 64(2):111-115] Name Value Range Interpretation Code Description Data Harriet rce(s) Supporting Document(s) Aspartate aminotransferase [Enzymatic activity/volume] in Serum or Plasma 15 U/L <32 [facility] ID Date Data Source 03/01/2021 03:47:02 PM [facility] NegativeNo interferon-gamma response to M.tuberculosisantigens was detected. Infection withM. tuberculosis is unlikely. A single negativeresult does not exclude infection with M. TB.In patients at high risk for M. tuberculosisinfection, a 2nd test should be consideredin accordance with [id number] ATS/IDSA/CDC Clinical Practice Guidelinesfor Diagnosis of Tuberculosis in Adults andChildren [Sofia OTTO et. al. Clin Infec.Epq3941 64(2):111-115] Name Value Range Interpretation Code Description Data Harriet rce(s) Supporting Document(s) Complement C3 [Mass/volume] in Serum or Plasma 137 mg/dL 90-180 [facility] ID Date Data Source [id number] 03/01/2021 03:47:02 PM [facility] NegativeNo interferon-gamma response to M.tuberculosisantigens was detected. Infection withM. tuberculosis is unlikely. A single negativeresult does not exclude infection with M. TB.In patients at high risk for M. tuberculosisinfection, a 2nd test should be consideredin accordance with [id number] ATS/IDSA/CDC Clinical Practice Guidelinesfor Diagnosis of Tuberculosis in Adults andChildren [Sofia OTTO et. al. Clin Infec.Yhp2442 64(2):111-115] Name Value Range Interpretation Code Description Data Harriet rce(s) Supporting Document(s) Complement C4 [Mass/volume] in Serum or Plasma 31 mg/dL 10-40 [facility] ID Date Data Source [id number] 03/01/2021 03:47:02 PM [facility] NegativeNo interferon-gamma response to M.tuberculosisantigens was detected. Infection withM. tuberculosis is unlikely. A single negativeresult does not exclude infection with M. TB.In patients at high risk for M. tuberculosisinfection, a 2nd test should be consideredin accordance with [id number] ATS/IDSA/CDC Clinical Practice Guidelinesfor Diagnosis of Tuberculosis in Adults andChildren [Sofia OTTO et. al. Clin Infec.Jho9012 64(2):111-115] Name Value Range Interpretation Code Description Data Harriet rce(s) Supporting Document(s) Creatinine [Mass/volume] in Serum or Plasma 0.83 mg/dL 0.50-0.90 [facility] Glomerular filtration rate/1.73 sq M pre dicted among non-blacks [Volume Rate/Area] in Serum or Plasma by Creatinine-based formula (MDRD) >6 0 [facility] Glomerular filtration rate/1.73 sq M pre dicted among blacks [Volume Rate/Area] in Serum or Plasma by Creatinine-based formula (MDRD) >60 [facility] ID Date Data Source [id number] 03/01/2021 03:47:02 PM [facility] NegativeNo interferon-gamma response to M.tuberculosisantigens was detected. Infection withM. tuberculosis is unlikely. A single negativeresult does not exclude infection with M. TB.In patients at high risk for M. tuberculosisinfection, a 2nd test should be consideredin accordance with [id number] ATS/IDSA/CDC Clinical Practice Guidelinesfor Diagnosis of Tuberculosis in Adults andChildren [Sofia OTTO et. al. Clin Infec.Vjm8160 64(2):111-115] Name Value Range Interpretation Code Description Data Harriet rce(s) Supporting Document(s) C reactive protein [Mass/volume] in Serum or Plasma <8.0 [facility] ID Date Data Source [id number] 03/03/2021 12:34:[address] [facility] NegativeNo interferon-gamma response to M.tuberculosisantigens was detected. Infection withM. tuberculosis is unlikely. A single negativeresult does not exclude infection with M. TB.In patients at high risk for M. tuberculosisinfection, a 2nd test should be consideredin accordance with [id number] ATS/IDSA/CDC Clinical Practice Guidelinesfor Diagnosis of Tuberculosis in Adults andChildren [Sofia OTTO et. al. Clin Infec.Wbl0434 64(2):111-115] Name Value Range Interpretation Code Description Data Harriet rce(s) Supporting Document(s) Mycobacterium tuberculosis stimulated gamma interferon [Units/volume] in Blood 0.00 [IU]/mL [facility] 0.00 Mitogen stimulated gamma interferon [Units/volume] in Blood [facility] Gamma interferon background [Units/volume] in Blood by Immun oassay 0.04 [IU]/mL [facility] ID Date Data Source [id number] 03/01/2021 04:06:[address] [facility] Name Value Range Interpretation Code Description Data Harriet rce(s) Supporting Document(s) Calcidiol [Mass/volume] in Serum or Plasma 26 ng/mL >30 L [facility] ID Date Data Source [id number] 03/02/2021 01:43:[address] [facility] Name Value Range Interpretation Code Description Data Harriet rce(s) Supporting Document(s) Nuclear Ab Pattern Homogenous [Titer] in Serum <80 [facility] Nuclear Ab pattern.speckled [Titer] in Serum <80 [facility] Nuclear Ab pattern.rim [Titer] in Serum <80 [facility] Nuclear Ab pattern.nucleolar [Titer] in Serum <80 [facility] ID Date Data Source [id number] 02/16/2021 12:44:[address] [facility] Name Value Range Interpretation Code Description Data Harriet rce(s) Supporting Document(s) Progress Note [facility] DVOBWa3zHoEWHbGx17/BEJfuFDNtd2HfGXseKLf9BWenGDEuC4KaVZF8zG1pRHA6WUiDLrPiZrYiIcYv lbm [file] pWIQOUtQVfgez8Lw7pk8yviWKVR5FuO9c6lB2kP1LhwvEptdiACTNin/Mdvj0M1w2ubNdoPw+OeCx/shop repairer [file] ZmSDcJTyVeGJ9XAKw= ID Date Data Source [id number] 02/11/2021 11:25:[address] [facility] Name Value Range Interpretation Code Description Data Harriet rce(s) Supporting Document(s) Progress Note [facility] NKOKQq2lEaBIDaQs60/DRGykRJIfr5BaESbsJRq5WIaqTYKzE2KaJJI8hJ2mFHP2FUkFZdSqVpJzPkQ0 lbm [file] ylHUb0JPEwRaS+OT3jELc+Pk9Iy8QunoF1xrKfAFhlGKY7Xd7XDXSEW0FTUc== ID Date Data Source [id number] 02/11/2021 09:49:16 AM EDT [facility] Name Value Range Interpretation Code Description Data Harriet rce(s) Supporting Document(s) Progress Note [facility] XWPNEq7jMaYWNyQk28/VQFfiCGHtr7AuFNqaCZi3JFmmMSZlE7FjMMV9sA1oCUP7JQlAElQwEhOjCwM5 lbm [file] Ibvaxb3Sb3vt7Xf9YsHWmQX5tjiTyGCuBJZKxd+qq8n5GmTjJWRj/I3yn6e/maoq/DNkNmK2oTxp++Bed [employer] [file] KXJZO6NIFe== ID Date Data Source [id number] 02/11/2021 09:49:[address] [facility] Name Value Range Interpretation Code Description Data Harriet rce(s) Supporting Document(s) Progress Note [facility] QOPUSt4tXpODKpDx12/KLModEUQwl4LnFZsmLBv5LWknYVByB3EnEKP4nJ0eXPU2NEyBYnBwNvSjGoO5 lbm [file] AgICAgICAgICAgICAgICAgICAgICAgICAgICAgICAgICAgICAgICAgICAgICAgICAgICAgICAgICAgIC AgICAgICAgICAgICAgICAgICAgICAgICAgICAgICAg ICANCiAgICAgICAgICAgICAgICAgICAgICAgICAgICAgICAgICAgICAgICAgICAgICAgICAgICAgICAg ICAgICAgICAgICAgICAgICAgICAgICAgICAgICAgICAgICAgICAgICAgICANCiAgICAgICAgICAgICAg ICAgICAgICAgICAgICAgICAgICAgICAgICAgICAgIC AgICAgICAgICAgICAgICAgICAgICAgICAgICAgICAgICAgICAgICAgICAgICAgICAgICAgICANCiAgIC AgICAgICAgICAgICAgICAgICAgICAgICAgICAgICAgICAgICAgICAgICAgICAgICAgICAgICAgICAgIC AgICAgICAgICAgICAgICAgICAgICAgICAgICAgICAg ICAgICANCiAgICAgICAgICAgICAgICAgICAgICAgICAgICAgICAgICAgICAgICAgICAgICAgICAgICAg ICAgICAgICAgICAgICAgICAgICAgICAgICAgICAgICAgICAgICAgICAgICAgICANCiAgICAgICAgICAg ICAgICAgICAgICAgICAgICAgICAgICAgICAgICAgIC AgICAgICAgICAgICAgICAgICAgICAgICAgICAgICAgICAgICAgICAgICAgICAgICAgICAgICAgICANCi AgICAgICAgICAgICAgICAgICAgICAgICAgICAgICAgICAgICAgICAgICAgICAgICAgICAgICAgICAgIC AgICAgICAgICAgICAgICAgICAgICAgICAgICAgICAg ICAgICAgICANCiAgICAgICAgICAgICAgICAgICAgICAgICAgICAgICAgICAgICAgICAgICAgICAgICAg ICAgICAgICAgICAgICAgICAgICAgICAgICAgICAgICAgICAgICAgICAgICAgICAgICANCiAgICAgICAg ICAgICAgICAgICAgICAgICAgICAgICAgICAgICAgIC AgICAgICAgICAgICAgICAgICAgICAgICAgICAgICAgICAgICAgICAgICAgICAgICAgICAgICAgICAgIC ANCiAgICAgICAgICAgICAgICAgICAgICAgICAgICAgICAgICAgICAgICAgICAgICAgICAgICAgICAgIC AgICAgICAgICAgICAgICAgICAgICAgICAgICAgICAg ICAgICAgICAgICANCjw/fOKlK6jheIVawzB1Z4gdSt6GHg1XKB8kf9DaFOMkUKzcqbHeEivNRnHoSTYi MkdIWxv8XCslMB0DdKMbX0AkD4KiNKcfGC1LWPUiLMXumAOgQEUwJYGqDaA5BIMbDAeuJB4IoRLgARnz FHFtYSGwJP7TDYDiJ276htZdBJ0IOe9KGmHqFJ1pvu 0CEKbjJAFhSvjKNyd5KGbrMY5VfNEnfQAaPEImWDLNHuVfW2onh0RrBmWlBHYJCTbiNH7Zr6CfuUSeNT o+Ur0NOU3ki7SlOAujKZGlAV0mwb8HECuUIsGuC6KrhCtqFICdj2xoPBVmSM9xaYPqQQB1JJGbpp9fbB d2VFGGf37dwqthWzFfHOLlBa0gCS3eRFAqRNM8RyVf KTNIEO2GQNCqHMEszLXnNMTpHMVOEW7RHDqoSTF8QMFuilRznUZaTVhlKR9OGRSqmkOjJKdzIMFQXSb+ Ku8SFN7kd4McCAqsHBEpQU1diy7MLTmUEpIeW7I2wYWlK1R0PJanLq7HAGDfJSNgDMkcVNFXPNmkVW7X UG6wsqI1GU5JfHPiQFFpGPFzpYYpIAo1V06ukQGwRX buNF4VUST+Jc+Nz8TWYUpQRRxWYLuHrTgONPFGdZkN5ScG9VKh1VtA7RqLB99vQrcvoUfYBzdYP0VWT 5nSBDbBUHZYZ2JfHQssB1rzfThUDLoKCISPcExF30tvOTfXGDtVDT3JFYjTt0FUYRkQ5GjnpDhyAwqne YyINJtOEDIJN4LCFtitsGcqGIupBstYE50xXvoRM1A Oa3RUnPnKW1aty9VfOUnXt2HDTYaRa7NTIUwJHAiUNQiRYG2AYOnBlBcMXpzDOIpBGEzYHX3EQIjNQUc EU3JQiHiMEMdVAebBwLpYTWnIXOehk4UBQUnYRMqVEm5XGWpGFPgUDBpQLkbJWTvRDCwBNY2HRWtOMRv HZ8WIwKcCIJqLWG5NMjhCREfXCEfag9TUWBaVDMmSr T0CmXhZSBzIWQmFZmeMYBbDPV9HZRnDYGiJXHvFA6UDuWcILLmTOGhNVkiSYFwKDFool1BZKPfRBRlRM U7UxHfSWEeTFJpZQovFATqBSM9ShZ7MBTqCXEtVR7KBjJyDVOtWVL1FIntZISnSKPneg6DADKcWVTmVZ f7HYIpXORhATNkVAgmEDSqYON7FCv2URLhZEMiPV7Q MdYoOWEmJTq7ROBqDEBtZFYcku7MYYQdEYMxLbKuEZAdYQOxMUCkZFdvFLGzOPG5BCF8ROXbLHMiOY8F JbZgBWDgEYqaBOJtSXXnJWHfft2YWIZaPGTpFAMxJKJaCFGiOPGkOQxuEYMgKEU9HOR2PMPaMIKiGN1F PpTvJCVjXIi8XEqbVJGmBSGcve2GPDDrHAMcCEN7QE XjCWMiCKLxDEz3kuOuqZSkHZu9SN1XI6NieyLyTiKXDw4Mr652UTNgUPAaYi8UJ5jdQz7oNXQtVXHBNv 1UVOh6Bxa2FNKpZTDoIrC7XUB1J1LyIYE0VfYvJbt8FsBtCHi+BVpaFVjdN5X6FyWxDnQ7CdJ8MTZnUH z6PFLuAXZxJALoWb9oEDKYEp3+NOoplVXewBgiBDIHRoSoEdUlVQlwFEMGCr8N ID Date Data Source [id number] 01/13/2021 10:00:00 AM EDT [facility] Name Value Range Interpretation Code Description Data Harriet rce(s) Supporting Document(s) SARS-CoV-2 (COVID-19) RNA [Presence] in Respiratory specimen by CROW with probe detection Not Detected [facility] This lab was ordered by [facility] and reported by [employer]. ID Date Data Source [id number] 12/26/2020 03:25:00 PM EDT [facility] Name Value Range Interpretation Code Description Data Harriet rce(s) Supporting Document(s) SARS coronavirus 2 RNA [Presence] in Res piratory specimen by CROW with probe detection NEGATIVE [facility] This lab was ordered by [facility] a nd reported by [facility]. ID Date Data Source [id number] 12/22/2020 02:05:00 PM EDT [facility] Name Value Range Interpretation Code Description Data Harriet rce(s) Supporting Document(s) SARS-CoV-2 (COVID-19) RNA [Presence] in Respiratory specimen by CROW with probe detection Not Detected [facility] This lab was ordered by [facility] and reported by [employer] ID Date Data Source [id number] 11/20/2020 12:00:00 AM EDT [facility] Name Value Range Interpretation Code Description Data Harriet rce(s) Supporting Document(s) SARS-CoV2 Rapid Antigen Negative [facility] This lab was ordered by [facility] and reported by [facility]. ID Date Data Source [id number] 11/16/2020 07:26:[address] [facility] Name Value Range Interpretation Code Description Data Harriet rce(s) Supporting Document(s) Progress Note [facility] DBKFTk8wAdNQIhFv65/VHXkyNWExy0HnPCprJIf9QRrcOTRrA9UeCHN5kL8qYHD4TAdMHcRrUsOoTxOz [facility] EkQqbWGbIrNHKiXprKXrZjYYpeCsdaoVGsUQ5SjCM9YRXyB90uJKUnTXFdB9XeEYDvUCX+Sg0MOWAxtQ CsJL0JWfyA9I2HcwbIXC7JcB/KQNJTs3Su0s8wTBKEffyxYZufGUNI44PqZ+SQxPeFEFZP1LkiOm9tHD rNdhhXAyK4W2cmzqss7si3gydWFn/4u9uzBfaqQUi/ +asfStEdid//OzEWyIeyBn6xj7hS8lofO18x+arslw+9kLO3a1MRbZcb+7NpIoEDJkch4Hbt3tv1at0/ 6aNLg1m3z16Flfc11zc9SirEtg33Kr/8k0s0Gn4dhvnDIQ0Uj+oykkcojsHLOapoHu2dl71dir9sEAK6 T0ev605TAEdt9eyBV197PQi4KpZMoFoS6r4B8AyHuY mFD8HlLoApeSoHfHXah7BTU1TURPaxaF0eVZ9/grmoE2RxNUg0O65kVV1Ckl8QQT03ziLzq/dSwbnsY5 btkIlKtseBG6wtcqMVXKvwOtNvQwOpCP6iEDi36s9p+uaReRQ9fuSkOPoXBMmqKSQbPbwyDn5p20zthe XoQLPf64N+DJtF99wF+vOcQf1s501m8QOgK4jbYp05 QF/KyrcCcTmIJ+MzZClYBtOF6ZVeqkm8G8aa/c6LgBxtUjNFd8DkyaC1U0JNhUM8mo9LszK1+UZSPQ8N Jonny+iot3op7oJEghLkch8mfQSpdgLAlO6IApjbY9HhbCDHORJH/ThJaa919TD5nadMtXIaDwpLioeLF [file] SgMMwpMBaSmSUY7u8AHQ6TqEn/A7Sv6qg9XhAidcVEreXQ6S3XSWD//Evj6JoGD8871/ClRHP5Qfo+shop repairer [file] M5PDXrYSZxElhrCJvoUpW3UgRmJH2SAg1WMrY2MSE6bOPoIz9IVyzkLLCUKvAzXO8XJQk= ID Date Data Source [id number] 11/13/2020 07:30:39 PM EDT [facility] Name Value Range Interpretation Code Description Data Harriet rce(s) Supporting Document(s) Progress Note [facility] STXOBn8lMaNCVgDh01/MFHagYDUni5MdHMafRQl0RPvhZSTzC4VfXSL2fS1gNAM9HJiTDgJvOfDwWtVw lbm [file] k4ZmU+QP1pVRg+Sk8Gf8MmkcD4qsHyQWwnACn3VF3XVCYLN5DQEv== ID Date Data Source [id number] 11/05/2020 03:35:30 PM [facility] MR EXTREMITY LOWER JOINT WITHOUT CONTRAS T [id number] RESULTInterpreted by:NANCY Saini RIGHT ANKLE WITHOUT CONTRASTINDICATION: Pain, suspected peroneal tendon tear TECHNIQUE: Multiplanar multisequence MRI without contrast.MAGNET: StepsAwayist 1.5 TeslaCONTRAST: NoneCOMPARISON/CORRELATION: X-rays to 521FINDINGS: Increased [...] rce(s) Supporting Document(s) ID Date Data Source [id number] 10/29/2020 04:51:13 PM [facility] Name Value Range Interpretation Code Description Data Harriet rce(s) Supporting Document(s) Progress Note [facility] IVMVWp3fHcKCJcCg47/FHCovBPZxz8BjXRfrNTb1GJkuYDLyT3EeMOT2lY3xVSH8YIkNVpCuPdBfKsG0 [facility] [file] ICAgICAgICAgICAgICAgICAgICAgICAgICAgICAgICAgICAgICAgICAgICAgICAgICAgICAgICAgICAg HDJsLKLoTEDlWRDiLPKoKNUmWLNwGQIgMZHkEYTzZPKcOLOcMNUrIV4PZFLiKLTvUHMlNWNkVBGfHUWc ICAgICAgICAgICAgICAgICAgICAgICAgICAgICAgIC KjQBHxSKYiZXLuPAQzUYCnKXPgFTNkUBKvVDCfBTDkLMTtXXRiFAOxHTIyMNZkRQWsVU7PXKKaOWKwQT AgICAgICAgICAgICAgICAgICAgICAgICAgICAgICAgICAgICAgICAgICAgICAgICAgICAgICAgICAgIC AgICAgICAgICAgICAgICAgICAgICAgICAgICAgICAg RU0ULURpFILjVDIcGZVrPBCsBSNoVPGyCWFlHTKvPOTuPDBlBJAyLTYtJAKyBYRjWXFqITRwQYWgUFEq OEScBTAkAZPzMMNvGLUeTPAoHFNqHCOiKXGvESVzTRGiLDOlDOGrPLDnVO5BTLDwJSLiBRIwONBrIIDm ICAgICAgICAgICAgICAgICAgICAgICAgICAgICAgIC OcKFIoZENaFTDbPEQlQYHwAMHzSPYvJTFyWCFwLMBqRZMxSZZvFFLxFZPiAFGyULXwQYNiHF9QNYUbYV AgICAgICAgICAgICAgICAgICAgICAgICAgICAgICAgICAgICAgICAgICAgICAgICAgICAgICAgICAgIC AgICAgICAgICAgICAgICAgICAgICAgICAgICAgICAg MXWzYI3XYJNqKILgRREfRDNhZVNqWGQlRIZsBQAnNQSgGRMiFZKdAMFdIWJkNWOsFIZtYPFpDIPjFKEq JNWiILJgGQHbLBVpEGWeYKPvKWAfJCIrBGOlZSHlUZEvVJBpJUUuODYzDPKeUJ7NSCVmQBIlZTSiDPCt ICAgICAgICAgICAgICAgICAgICAgICAgICAgICAgIC ImXUSzZURzQMJvSIGfLGLbBAEwJWQtESMzTDXfJRQdNVVxPDGiWDKdPJMgETWrUEMdOCVlKQZvGS7QDT AgICAgICAgICAgICAgICAgICAgICAgICAgICAgICAgICAgICAgICAgICAgICAgICAgICAgICAgICAgIC AgICAgICAgICAgICAgICAgICAgICAgICAgICAgICAg ZEDyBUMvBU3HKSDyIOCkSYTxUWJrCLFfTCDjAYWwYUZfFGQcFFIpDOLoPFSuYNPpQQHvYDErUGYhKCJx VLTqGQSfRMEhRYBkXTMdZYPlCFTpVLVrAZRhNLYpSWFfLSSeQXFxPQUhYXFtAGUqGU7ANE13dYXsy6A3 DYReDU2nwgo/Ym2SZMgvxrCjyTEiPG2DZgCuZL7kmw 1BFbCaHW9fiv8TLFdAJbRjV3M5fYZvITTxRTIUKvTcA38wNTnvEa61YNyzRPXmBoDgTZo1Yr2WNsDtA5 jcLQIxSsQ7BFEiMuNvDHhzMH1Dd3CkiLNqGAw+Uu7VTP6dk8BdZEgyQwFdIY9bsu8QSDqYTsQaA2That B5WLVhTINpAe8SUOPtPONmsGZbNiXmOMFIXgEtY9Gy mU05YIKBOa4+MGtafaGvFkdLUhAgQCYsr8QbIWh7BL2UGGYaKWl5aXZlGPRrX7Mnm2DlZr70SOTmHmct MAN2zREOXSJlaM99o6d8JLL3ICFfEb1pHSJdROB3RnO7APTSRL4DRTGaBVCpoKBjMAWoDWAFWE4FSBcp CNO8QALepeOlqEOyHGeyLA2EQMPsseBbKvTxEBYBZH o+Wi5ENE6vh6RmGKgiHLUhRI0gvo3TBNrSZfUoJ1D6lDBwB4V3MFqtXa2GLKKnPVGsSrAsMKWSFLvqEW 8BXG1ewxN4WN2JvEXhVTLnILYfvAFkUJe6P64osHEqKEvyQW6WNXU+Jc+Ic1RYXXdWBOxJZGpFxCpBS JMLrGeJ8WeR8BRf1QhI8XzGP95nZrmcjIxNAxwHG0H LU4hKWDsUIXCKL7NlKItoI4zprElBjDgFBLSWzDsK46zqJWcWVHvTIOkFZUzXo0RWQHeZ2GeboDcyUyy jbVeBTDtIXIVFL1IQAyxlwWwlACjnVupDF04uUiwSC3FGt0XFqHoKL3ket0VxWZhMh4MVBPvGV6YIDPw STMrNIXvPUS6CNBsOzYuNKbpGGSiCCQqVKB6QASgRJ QzKP6KTiIqZQCrPBz2RxdkZKWuKVUxip8LFDNwXQGmICO6OlDvCCBsFZYjTVzuTAPpJCCjWFT9JDPsIX IhHQ3XPtHtROLlBPZaMQXgBWOkPHWacm0ELGAgUDFsNxR7MmVwAHZjYWEtBMflHZAqQVK7YzV3MLZrWG YeDV3IElCgBWYpZZH0DRDrOZQrYLHotc0YQITvWECg OPS6ZwHvEMMvXGQwHZljJNWtSPK3KaQqNKEoKHQwHQ1CDpUcKZAwSQT6MFPyJQKoINKyvt6UIDUwHJOb EvQiLWKwFFUbGCTgFBpjWSPjOBH0Lna5CBFmEWNpAH7RDbRiXEUmHQc1EOUdZVCnKATydr2FHNNgSAQu TyrvWZQkIJNmBUKbGGurDTZuMCN2LPS9QLLbGXMdIP 3DRhUcWFSnWLmlTGAyDLGdBGVlyl4WTHHgNKRwLUZzDUAzYORxKEQrOUjwKLSgOIR9KXP7QMRnBERkET 7NHqTgHMJsODp6GVmgCTLzPGRfcj3OYHIhXHOvYQYzCcCtWJYoBZRfOKdqIAHoEKBlLMIvDMSfCOKmKO 7OSlSuANAkNxH1SfWsSLEiFCIbuw2UHURiVUHzQIB6 DiPfTYZtYCHhZAd5viIkxSGkHNe5FZ2LO8XwftOkJrMODj8Hd839XYC2WQDeHc1MV1hpFt6jIAAgWZYM Fo3CEWs8MAWsMCXqHmS8B3N2I3A3OULvE3A3NWEeVkAmLupcARD+DIpdPYM3AyHcIXA6TpyuIpP8VlQn GcPfGYTgQuD5YLPtXl0zZOQQIe9+SMjzvSIlyWgkYINVToXwVNYtPUvmFOPWYa8G ID Date Data Source [id number] 10/27/2020 11:19:42 AM EST [facility] Name Value Range Interpretation Code Description Data Harriet rce(s) Supporting Document(s) Progress Note [facility] PJPPOn7fOuZHYwEp56/QWFtxEFBph4AyDAnrHNy4TAgkAMYqT3BhRVR4zP5tMGJ8MUbTMaIlOfKwSzEq lbm [file] AgICAgICAgICAgICAgICAgICAgICAgICAgICAgICAgICAgICAgICAgICAgICAgICAgICAgICAgICAgIC AgICAgICAgICAgICAgICAgICAgICAgICANCiAgICAgICAgICAgICAgICAgICAgICAgICAgICAgICAgIC AgICAgICAgICAgICAgICAgICAgICAgICAgICAgICAg ICAgICAgICAgICAgICAgICAgICAgICAgICAgICAgICAgICANCiAgICAgICAgICAgICAgICAgICAgICAg ICAgICAgICAgICAgICAgICAgICAgICAgICAgICAgICAgICAgICAgICAgICAgICAgICAgICAgICAgICAg ICAgICAgICAgICAgICAgICANCiAgICAgICAgICAgIC AgICAgICAgICAgICAgICAgICAgICAgICAgICAgICAgICAgICAgICAgICAgICAgICAgICAgICAgICAgIC AgICAgICAgICAgICAgICAgICAgICAgICAgICANCiAgICAgICAgICAgICAgICAgICAgICAgICAgICAgIC AgICAgICAgICAgICAgICAgICAgICAgICAgICAgICAg ICAgICAgICAgICAgICAgICAgICAgICAgICAgICAgICAgICAgICANCiAgICAgICAgICAgICAgICAgICAg ICAgICAgICAgICAgICAgICAgICAgICAgICAgICAgICAgICAgICAgICAgICAgICAgICAgICAgICAgICAg ICAgICAgICAgICAgICAgICAgICANCiAgICAgICAgIC AgICAgICAgICAgICAgICAgICAgICAgICAgICAgICAgICAgICAgICAgICAgICAgICAgICAgICAgICAgIC AgICAgICAgICAgICAgICAgICAgICAgICAgICAgICANCiAgICAgICAgICAgICAgICAgICAgICAgICAgIC AgICAgICAgICAgICAgICAgICAgICAgICAgICAgICAg ICAgICAgICAgICAgICAgICAgICAgICAgICAgICAgICAgICAgICAgICANCiAgICAgICAgICAgICAgICAg ICAgICAgICAgICAgICAgICAgICAgICAgICAgICAgICAgICAgICAgICAgICAgICAgICAgICAgICAgICAg ICAgICAgICAgICAgICAgICAgICAgICANCiAgICAgIC AgICAgICAgICAgICAgICAgICAgICAgICAgICAgICAgICAgICAgICAgICAgICAgICAgICAgICAgICAgIC AgICAgICAgICAgICAgICAgICAgICAgICAgICAgICAgICANCjw/vMRkC5zatPFnpaV7V0kiSn8HMa2ORW 6qp8FmXEQdMTjpbzShIjtQKsLtALSvZqaYRfq5YQsu NH1LfAEcR8ZrO6SiEKckFN1LHPThEBHmcTCoFJYpXQMhSuJ2BIBxINxeRF6UtLQjEYteOXPxZBSdIpFv XPIlOYOeFITdABOdSQYTMWTcBNKoBoYbIROkDEFrIXesAWOQZTE0NUKoUzLqFBUsOHLgBqGyUJQBSO3V MoTpH8RzvG37WEEbKMh+Hg4XSM1tu4ElHIg3CLFoAQ 2ahr5SBAnZRfLyF9UxgzM8RIPuDQUePf1GXDFcIWGqtUB7BYVqNNQAJqUmV2OntU68KNBPWn0+DQplbm IdGuxOZlPmOXEag4CnEUi6KZ7CHMMsLDg1xAJcHDPpD6Gpo1IpXu30HKQcVuccReVhsmPrREYRm5McbP OvZL0TOGV6MCGeGf8cNIHoBIR0GbIhDTYZDZ1SWCNi CLJhnDNwKIAuTNVWHP5GARsxNFU5YMHswzQmyHVxSDmxGX1HGTMhacMxLSYzFKPRMIt+Un3MNO9de6Uh WAh1PgWqFO6yvm7IZHhSGqQlV2Q9eCGuF9F5IVkyYf9PGBNpVCAgSyyjJYOYHVqpYK6RHA9aomZ4DY0K gWLbLQRzLTAdiSMgCAl6D29wqVOeVHyvII4TQRK+Pi A+Tf5ZZNPoGDOlXLHjPsHlWFJSToBwQ3DmW4ZHf3EwI9NhXY78dRrqctBgGUvmVP8WCI5yAKUpKZERBR 5VjQYikW8pdeO5OVNxROQZRcYcX83rtIByQQDgKQZ9EFVrRi0DPNWzH8FbwpMyuYnkgrPgAFYoHCFNIL 2MENmwyzGceLDvzNhjZQ57uNkeZG3PNe6HXzXdYG8e tt9FlLEqVi0QRLD9Mc7WAFNtNGOmJNJpHQJ0FJSyRmKeNUkcBYSsTMQwXGV0CXUxJXHgEP0SFbAwQPFl OYFlLFWaZUCzKJBdow2WUOPeQOP3Fak0DTDxRXAjZKVcGPocDIIgZEPmXEQ0AKIoVMKtBK2XMtCdDZZw OCF9XLUyIFOgVZRsjn2PUNDnGXCtIKy1MAXiMAOkIU SeALhbUWGxZXG5JOY0HSPkRTMzVI9EWsJnUVOfPKiqRMDaZXTrYJVwzo1DVLXcYYAcKZy6NWGaJSLcGX CjZWtjRCOiEUQeLAejHUOvMQJaOG3CSoPkACJzXOI2VdpnYAMkEYFrrn5PZIAuBMBbRvu5TRIwCAZiUS HwKWqwZNEgEMR6PgL8ICUkONFfOS2JEqAlCTZbSNP9 ZtKfCNUwLXUqas8PWRObYHPlEZdnPSEgEFOpYANsZJcyYBWoUDT0DEO5ASJjJMElPR2PLrStPHCeNxG7 XGTaNKVcFGIxtr8PFILdRLVbNSseWtGdNARxPBIeWImfUVYiTZQeHHo6KDCoNAHqAF5IOwPaYJNhVtU8 YBRhZWTsPWMriu4BUAXkGEJkGkVyLJArRKVoWJWyOY ppHLWqRVV6PxYgGNScNBXwJF8KByDxWVUqNkp6CxdtLBSgTZPthn3ARFXrMAZdXIouXMYsZBQnNBUoSW bpOXGyVIE8Egr6JRNuIKRpVD5VSdZjAZDzNqc3QEIjBNTqOFXgin4UKCVbKMEzGLJ7PJPuGPOgQQVrGD pgHGUeIRFrNPL5GTLgUSClDK2IVnJeFIHwWiDtVyDe OMZgRKQvxd0LZJBlXDHvVRChXAEvRGAlFVWcWInkKPHvGCLxGZW8CAHgSSYnHN4OOuIvCMAbMHVwYrsl FOEnJYFxom6RSAExEMW6FqI0PMStTZCvUVJvVWdbHYQyZXYeAkU4PQDcPEUgVE5LMxMlDDNmCAY1PEAh PVSzBUSiuj4RKHLdJSZ2ABoyDYWgYBRyPJMvQHfhHL VnLGK3SMM6ETNfETQxGX4RJnBpZBRgGSNwGFCbSWQxOEXvbv2NDIIrZXQ6HYSrGVSxSTRxVGBzBZqrXW ByJNG9CYCqUTLaJFCgHF6FFiCqNYWkSZwxWJOeCWBzPJMobq2GUJPqILQ9ZdNeBDOrYFWsZWQgYBu7og ZejMXsGQc2RX6WG5BzdtJzWJOLZe1Cx316JMUsZAGn Kw0ZW2hzGv1mOVQwKJNVXn8ISCd9HVE1IePjPRB4AYMiNNEtQgz8EuoySqKhInV0HNH2KHq+PMu7DGe1 TAS6CmYsVJB7KUReQfiiGDTiUdMlUdIkYPp6Vk3fNDUCDq2+WUeurDFhiGhwCXLCYcV3ADe4VYpzOUEU Rg0K ID Date Data Source [id number] 10/27/2020 12:29:56 PM [facility] Value Range Interpretation Code Description Data Harriet rce(s) Supporting Document(s) Color of Urine [facility] Clarity of Urine [facility] Specific gravity of Urine by Refractometry automated 1.017 1.003 -1.030 [facility] pH of Urine by Automated test strip 6.0 5.0-8.0 [facility] Protein [Mass/volume] in Urine by Automated test strip Neg [facility] Glucose [Mass/volume] in Urine by Automated test strip Neg [facility] Ketones [Mass/volume] in Urine by Automated test strip Neg [facility] Bilirubin.total [Presence] in Urine by Automated test strip Negative [facility] Hemoglobin [Presence] in Urine by Automated test strip Neg ative [facility] Leukocyte esterase [Presence] in Urine by Automated test strip Negative [facility] Nitrite [Presence] in Urine by Automated test strip Negati ve [facility] Leukocytes [#/area] in Urine sediment by Automated count 1 /HPF 0 -5 [facility] Erythrocytes [#/area] in Urine sediment by Automated count 0-3 [facility] Epithelial cells.squamous [#/area] in Urine sediment by Auto mated count 8 /HPF None A [facility] ID Date Data Source [id number] 10/27/2020 02:42:27 PM [facility] Value Range Interpretation Code Description Data Harriet rce(s) Supporting Document(s) Protein [Mass/volume] in Urine 7 mg/dl [facility] Creatinine [Mass/volume] in Urine 114.9 mg/dL [facility] Protein/Creatinine [Mass Ratio] in Urine 0.06 mg/mg{creat} [facility] ID Date Data Source [id number] 10/27/2020 01:01:46 PM [facility] Value Range Interpretation Code Description Data Harriet rce(s) Supporting Document(s) Calcidiol [Mass/volume] in Serum or Plasma 13 ng/mL >30 L [facility] ID Date Data Source [id number] 10/27/2020 12:34:35 PM [facility] Value Range Interpretation Code Description Data Harriet rce(s) Supporting Document(s) Leukocytes [#/volume] in Blood by Automated count 9.0 10*3/uL 4-10 [facility] Erythrocytes [#/volume] in Blood by Automated count 4.56 10*6/uL 4.1- 5.3 [facility] Hemoglobin [Mass/volume] in Blood 13.8 g/dL 11.5-15.5 [facility] Hematocrit [Volume Fraction] of Blood by Automated count 41.1 % 3 6-45 [facility] Erythrocyte mean corpuscular volume [Entitic volume] by Auto mated count 90.1 fL 80-96 [facility] Erythrocyte mean corpuscular hemoglobin [Entitic mass] by Automated count 30.2 pg 27-33 [facility] Erythrocyte mean corpuscular hemoglobin concentration [Mass/volume] by Automated count 33.5 g/dL 32.0-[facility].0 [facility] distribution width [Ratio] by Automated count 13.4 % 11.5-14.5 [facility] Platelets [#/volume] in Blood by Automated count 317 10*3/uL 150-400 [facility] Differential cell count method - Blood [facility] Neutrophils/100 leukocytes in Blood by Automated count 67 % [facility] Lymphocytes/100 leukocytes in Blood by Automated count 23 % [facility] Monocytes/100 leukocytes in Blood by Automated count 7 % [facility] Eosinophils/100 leukocytes in Blood by Automated count 2 % [facility] Basophils/100 leukocytes in Blood by Automated count 1 % [facility] Neutrophils [#/volume] in Blood by Automated count 6.11 10*3/uL 1.8-7 .0 [facility] Lymphocytes [#/volume] in Blood by Automated count 2.08 10*3/uL 1.2-4 .0 [facility] Monocytes [#/volume] in Blood by Automated count 0.60 10*3/uL 0-0.8 [facility] Eosinophils [#/volume] in Blood by Automated count 0.13 10*3/uL 0-0.5 [facility] Basophils [#/volume] in Blood by Automated count 0.05 10*3/uL 0-0.2 [facility] Nucleated erythrocytes/100 leukocytes [Ratio] in Blood by Automated count 0 /100{WBCs} 0-0 [facility] ID Date Data Source [id number] 10/27/2020 12:43:[address] [facility] Name Value Range Interpretation Code Description Data Harriet rce(s) Supporting Document(s) Erythrocyte sedimentation rate 15 mm/hr <20 [facility] ID Date Data Source [id number] 10/27/2020 12:51:06 PM [facility] Value Range Interpretation Code Description Data Harriet rce(s) Supporting Document(s) Alanine aminotransferase [Enzymatic activity/volume] in Seru m or Plasma 20 U/L <33 [facility] ID Date Data Source [id number] 10/27/2020 12:51:06 PM [facility] Value Range Interpretation Code Description Data Harriet rce(s) Supporting Document(s) Aspartate aminotransferase [Enzymatic activity/volume] in Serum or Plasma 21 U/L <32 [facility] ID Date Data Source [id number] 10/27/2020 12:51:06 PM [facility] Value Range Interpretation Code Description Data Harriet rce(s) Supporting Document(s) Complement C3 [Mass/volume] in Serum or Plasma 154 mg/dL 90-180 [facility] ID Date Data Source [id number] 10/27/2020 12:51:06 PM [facility] Value Range Interpretation Code Description Data Harriet rce(s) Supporting Document(s) Complement C4 [Mass/volume] in Serum or Plasma 29 mg/dL 10-40 [facility] ID Date Data Source [id number] 10/27/2020 12:51:06 PM [facility] Value Range Interpretation Code Description Data Harriet rce(s) Supporting Document(s) Creatinine [Mass/volume] in Serum or Plasma 0.80 mg/dL 0.50-0.90 [facility] Glomerular filtration rate/1.73 sq M pre dicted among non-blacks [Volume Rate/Area] in Serum or Plasma by Creatinine-based formula (MDRD) >6 0 [facility] Glomerular filtration rate/1.73 sq M pre dicted among blacks [Volume Rate/Area] in Serum or Plasma by Creatinine-based formula (MDRD) >60 [facility] ID Date Data Source [id number] 10/27/2020 12:51:06 PM [facility] Value Range Interpretation Code Description Data Harriet rce(s) Supporting Document(s) C reactive protein [Mass/volume] in Serum or Plasma 6.4 mg/L <8.0 [facility] ID Date Data Source [id number] 10/11/2020 10:31:45 PM [facility] Hospital Name Value Range Interpretation Code Description Data Harriet rce(s) Supporting Document(s) Progress Note [facility] SRKUYk7ePmZXIfKi94/MFGumMKLyd6YtMRqhSPg1ROutPONfG6AeDYE3qQ7yIGN1CPhBAhCrXvElWnZ4 lbm TfPpqWFnGzYLUmNufLVdWtORyhTuznyPDyWO1NlMU8ZOHiT79aBDIzVHNwW8PvDVQkWSD+Ap1PUMRpxV TxRY6HFybZ5Q8zj6hUWV3v1D5FiYSxOSP9FhYtAXXuyLEs1NIbdHfpyqtKxES2KdbgKMce//xOVfd8AX 09GtTIuicb18KYsAreS+lamSyn7HjWz//tiwWL131k /P/1i3fdrIXu921/0OfinQztrvgu04YeYO9bT7RCfK8j3Q1w+YG3/nl4BsafeRGf4qZA10M1nnqlnfW+ 7daouoB34Th1ox+t8ljptatvuwn1pfbhTSLf6IatclVM/u29PPB+4t797XNbvKB7SecLPZdOwxR7n4BK c9WInjcdc9ioJSukNhdcwqa1U0VInsfuTSWCfU+MfF tekJzQ0cq8ie1ZT1bzzjDX/qS4YHBhwMSla/pZ6rM/t/dVvfd2fA/jx9t2Pk+wfvdLl2gGids0I0KeAU rycjTlW+AMUyxPeBWCzRn8m7LGGkZ9z/VglvtsqRiKdP2t+kq05VtTn/z0v30bNRIz4TtTy0/DSW8kEq VFBJ4Lmgz5+0kcFrWdNfarI8o1l8o5+TBekM/sZscp etB1Gb38Ak/jD6aWSeNunjubB+/t2ACnyR8486NO7U0f8VYrn+aH4GFdMg7dI6IBzzJSXgOV46jnxMR3 Aubrey+yPq1TsJEHsu3JrhnfaJ/PD5wqUfhOzt/ukYTh2Gej1KZCW92PlKOf+hMvP34iOZBqHhR73gwe8 [file] lkD9vwImOXj8UmXiXO2ZDRATJ9RHXw== ID Date Data Source [id number] 10/06/2020 12:00:00 AM EST [facility] Name Value Range Interpretation Code Description Data Harriet rce(s) Supporting Document(s) SARS coronavirus 2 RNA [Presence] in Res piratory specimen by CROW with probe detection NEGATIVE [facility] This lab was ordered by Murray Bryant and reported by [facility]. ID Date Data Source [id number] 10/01/2020 06:26:05 PM [facility] XR FOOT 3 OR MORE VIEWS [id number] RESUL TInterpreted by:INNA Joyce FOOT AND ANKLECLINICAL [...] rce(s) Supporting Document(s) ID Date Data Source [id number] 10/01/2020 06:26:05 PM [facility] XR ANKLE 2 VIEWS [id number] RESULTInterp reted by:INNA Joyce FOOT AND ANKLECLINICAL [...] rce(s) Supporting Document(s) ID Date Data Source [id number] 10/01/2020 01:29:11 PM [facility] Name Value Range Interpretation Code Description Data Harriet rce(s) Supporting Document(s) Progress Note [facility] BACXAl1wSbEAOnUa33/JRLmtKMSer1UnVNhcIFj5YYjmLUNxF6XgKCO0aF4vNWE6JPlFOlYzRzAhZgM4 lbm RmGbeOFtUzUCIzIfzEBjHtDJarQllqqDRnCU6UyRX0VXGoZ29aMGZiCGEzI4RpTRX5KXA+Rw4MLVHvqU CnQD4UJbyA2T8yw3cGCK4z8X7lOWK0l4bn0LavJx7k9VCDItTx7GmQYfSUkcNaiBkNW7wWfj++Torres+J/ [file] VYbO3iGS8I0pnFWMLMBR2eRA1GtxEobhhOHFaQ+dMmzJPKn0VTeev5+AZQ/YOkbnpWu7JdPSRIdm++acuña [file] WRAPPER SIZER+Lu5VJPClAWb6R1R8CSWjKXk4Z7ETH1GBJNLjLTonAMtlUXKtDRp8P1D3KYDoW6YZM9Lpcyiusi1+ HX8CG20FPOXrALz4K4W2hTCwU0D3sLrRkUI6DY9FFA8OlNy8lHYeuQ8+VT1XP7IROyFnGEt2F9I5cISq T8M6dZjOjRC1UX1LJF8VyPLpSYGxllFoVw8tJ3MMCN rPYiGDBXP5YF3QxDPbEW9GbQJUQ5FvcAHiRr0bRRhdfNDocF9yQq0fXFfbKE8FNjWJKUhXKMC7MR8BlJ EyQS1YlIVFM4EbxXFuDv7cNZaqvZFemz8+UU7RAOGiHl5FYq4+UCvxhvXbPapPIaY7WNLpk5YpLKh2EU 0MOB1hsElvGNI9Xd5AyJX3dSHfO0mKYN7NsTCcG73i oCRiDJXsNs5XJuZ0ukNygQ2NTV99yAGot0T9XYOtP1xpTSghx21jFNrpEXyPSC8wNECWQHlxNAnbTXV2 CvBrbkbdJKFlUb3INdCdSHl9bZ2boXW3VXE6PqiqzZFpHMsdGvFbYqVtCyB0pIhcexa8GRkhRB1yEGzp czptZXRhLyc+TNpxARYuVJLfBkcZRDYsqP0ktpQ7ua TkYBzkfNMmEe4wz7v2JfchWp7cOh9pKRc6ReZqRxIzHMPbGt3ijH24VOzzsoTvFd3LNtUoNEN7T9EuRi pSREY+SVosGDsvjAj1sPYySRGzIf6OVDTlNZKfTKTaIBWeOYVjINAvBZCdPMVlWKBcDPWoVIOgHSNpJQ AgICAgICAgICAgICAgICAgICAgICAgICAgICAgICAg KUTrKYNfJZJeXVKnQBJvFMXmLYElHKRvKKKyTFRtNR8ZUSMnWXZwVMHcPZGsEFEjYOKzSZQyKAKwORDw ICAgICAgICAgICAgICAgICAgICAgICAgICAgICAgICAgICAgICAgICAgICAgICAgICAgICAgICAgICAg CISeBKJjWCBjOGEaWS7ZVUGzHIUiAKDdQOInSHOmNI AgICAgICAgICAgICAgICAgICAgICAgICAgICAgICAgICAgICAgICAgICAgICAgICAgICAgICAgICAgIC BoUTCkOWElKHZtWEBmKRVjOFJeZLFpRR6STJTtLABpPJHgFAByGFPuYOGiXTAfAXGsIQEuUZRkJFGeOB AgICAgICAgICAgICAgICAgICAgICAgICAgICAgICAg JQLbAYFkCPYkHQMaTMQaVXLyWJXuBNViUJCyJOQvEWOzFR1OFJHoWLEmSQPeNLTaFEVhKHMmILLaPWPv ICAgICAgICAgICAgICAgICAgICAgICAgICAgICAgICAgICAgICAgICAgICAgICAgICAgICAgICAgICAg EWJlFPXuQBEjKLHdEBBhKA4SBSGpPOJxAHVbBPRmDI AgICAgICAgICAgICAgICAgICAgICAgICAgICAgICAgICAgICAgICAgICAgICAgICAgICAgICAgICAgIC WiXARhCCEzXBPrEQMlXWRfSFSqQITuVSPzHQ4GMXUgTVXvKMOdSFQnSNWfGHClQJQsSSXyEAUrAVNcTG AgICAgICAgICAgICAgICAgICAgICAgICAgICAgICAg UCZgKQFlBTBnPOBcZSZfGQKnONRfPWJjEUOhLXUeMURwAJPnFM8JRRNiZUXrEQOvCUYrTVVbMAZfNTEi ICAgICAgICAgICAgICAgICAgICAgICAgICAgICAgICAgICAgICAgICAgICAgICAgICAgICAgICAgICAg HJQuOOXmQHSfGKHxYYRuIYYlJT5VZBUzLLGmTAJkHW AgICAgICAgICAgICAgICAgICAgICAgICAgICAgICAgICAgICAgICAgICAgICAgICAgICAgICAgICAgIC ZbXMEhCKQrJHGtVBXoRXYkSCDoTOBgQTDsACFdNR7NDCDwUFJeXVZaTVMlQDMdFMWsTVMrNNKtMTFpME AgICAgICAgICAgICAgICAgICAgICAgICAgICAgICAg GHKjDDJqOJOeRHWqNVEhGZVqQAQpCDSsZRKkIVDjLCWyTQOdUAKuQZ2YXU79wVQqs9F6IJBuUV8eaus/ Wv1CCFbbhyVqqXFbDA5XCbTuEG4ukv1SGgVsVT1dlh7XCBbEJnBiQ1G9hVTeRMYuZIJBClQhP31pLPgy Db10EOtdTYXvNxYmDNl4Lo8SNfOsA2gdTZLiYwS5FF DnZtI9VUUePnJ4XJJtMyHqYNNpMYUtTFRrSYYMPP2CQeKxZ1EkmT62JMVYBy0+DQplbmRvYmoNCjMwID Ppi3RwKAk8YK9XHMRfKhhjg3VsYrOjTJOHYUqxAW1JMLN7PJXlDROxJi8ETVBbQ296svOwXT1UDf0JHy HaET5cvr9MWaUpAOMtKfbAEfx3NNimBR6LgYZgHRbR fe9mtfCacdAMs1CujdAbrEIYDX4iRRmkSKSOXY8ymuPzazfrBHLCBZT5HVBrNmCtZlQxMWYcLOcfJFRG IXyRLoAhT0Kmg2CnChH3ADEkDqRiDVtjGLJjWnG7FR58sJocHM5EOVDeTXRkKS85ROQyPEIoKk3NTf2L UyGsZK9umd9ZMpFwQSFeKadHKzc9SPjdTO2EuGRmD2 WndAZxv2kYHtFoL8WFWZM0NNSdAs0DAUCeRsJxTALrJAizYQ9aCXPrISSTyBijcwN7SG9OVP0imrJzEN 4XGuJmVk4gAt1WVsTdE8YwX7QsILDdYGMKDDcbRF3SBEyuAG1cPY4Lf8TSlKQopO7uhm8JHSRbNHDjSt jcbk2ICxhaV4M5tIkcYSCfIfYmHCMWIBzqNX1HCSGt IMK6XFJuZTFwSLPTTaCaP38mMS9QN9Nqv59iWoO1BWHgUaLwOFdjWC67fApihaMtqSJplIowOT8GFc7+ INuijzKgEbxEHecoXVQLHfViOcBLZfFpGRJkDZTuKTSdKuI4BkQuJh3AEXMwNZBwQFCwArDaBEDhZDDw FAiyYWQaWBOqYjg7YUJgEAVvXT9LDbGjNHLbKeM2SL HvYKDtUCHstr8JGUMiYGZgYHR2LmPtIZJnJTOwEEsjJRIjSZPrJhvcIKAeQMFbIK9QUmLwBSVtYBK9JW flJUYwMNJatw4ABEGxZBCvRlH8TWKfHLXsVVWoHCzpNEDuPHP2DzX2LMQcFJOjYC8VQjFdJFBfMZs5Ra WgPGDhBSUapd8FMPOmBJLdBXKgRcCnKISeAUGzZYge PWYnJDEvMdE8AFTiJEBlAS2WOrWkXFKzUPQ7VzQeDPRdDEHqts4CIUHlCXUoDVT6BxIpFQQsIQTmGMgg ITDfIMN3Cks0NIQgVYDxTG4MYfIsLMZgREVqQUkkKEFsNPYhha2TMYQuPKJjOkD6BYEqLWWnNZSgJTco QETvOOQ4HxB0LXYoHZDaVT9KNjAwKYGwGJb7IBpaAS SoEELtgo7AHBRhAMTzOgv1QNUxYOMyVYVvJFzyBQVdLDL8CXh7UKBhTKYbKW6KIyCgRJKcYhk7CGjuRJ PdCCUpuo8YYHAqVCQrJZf8TdAiYIDsILHbGBxbOGFdAZZ5UCTaMYUlVXIpJE3CWkSvVXDeFjSnPKKuUW HtKSVttv7QZMZrEYCtHVN0ZnMzWUAoRCVfMDgwCDIw OMYnDfexYGCsNRBzNO9HYgMhTPArPbQ9LlnzSQLdRUSxvt7IQXKvTJEjTND2CtHlNPRmTDUsDBtcYFGx ZYElDYh1JEYiAPNxNY1GHoCeMIUvWgC8JtrfPRSjNGTqlh5HHCCdKHXvNgZcRGIoFDPsUARgYJqfXPMf FVLsBzQtZCCvRCCrFY2KWhScBJnnCGHWDmb7DDceP3 c9BAHfCa1EA0Nkw4BaSwSyIPIYOJogMT5vltSgHVZlZz0IZ2aYHnixSdRhHZH1AHJoMhVpUZJ5IpBuFb E8EeJcVdFpZ5HnRY3gVLBdOzD7FUs4CpKwO0SrXURhDSCnDXG5UFQ9KAAxKYK0ZmGqPD6TBq2BQhE6OB J1sZNyZd7FPbBcAWZBSaJwMM4OUAp= ID Date Data Source [id number] 09/16/2020 04:39:17 PM [facility] Hospital Name Value Range Interpretation Code Description Data Harriet rce(s) Supporting Document(s) Progress Note [facility] KCDSEv0iBgZGYeEt90/WEHtbFEKez7UkUYokDZo9SXmdXYDnM4OiJMN0rU0aIGD3MEmSBwFrJxZtVBXb lbm [file] GsShD0BWQ3QlGyRz3bTWYFDr5+HRsdnVIwvIitPYQXNfJ1KDlwOClkMCMVQk0Y ID Date Data Source [id number] 08/25/2020 01:30:00 PM EST [facility] Name Value Range Interpretation Code Description Data Harriet rce(s) Supporting Document(s) SARS coronavirus 2 RNA [facility] This lab was ordered by [facility] and reported by [facility]. ID Date Data Source [id number] 08/04/2020 12:00:00 AM EST [facility] Bekah Zamudio MD Patient Name: CONCEPCION MEZA [id number] [facility] Date of : 1990[place] [address] Date of Exam: 08/04/2020#: Fax: [phone] EXAM: [...] rce(s) Supporting Document(s) ID Date Data Source [id number] 07/25/2020 08:58:[address] [facility] Name Value Range Interpretation Code Description Data Harriet rce(s) Supporting Document(s) Progress Note [facility] MBYLWc8sMbJPLmUy82/NOAbqYOHyb6LqYYicQWg0YVocWNIlE4YoIGB0kD9dKCF7NHkORyLxCpChCXG7 lbm [file] y3fjCOB6PNRNDeowdoTzHSQYzxYalinQ++shop repairer+AGZqTMXYJemuks/yDvnuv2F86d5HTAf96/chHVot4y9 [file] YKKyOQtkPyRgHCU8NeOdBY8KNl1GFgC2UYC3gYTaRj0PFnk4CTDJDkYnGC0RMRu= ID Date Data Source [id number] 05/25/2020 10:40:00 AM EDT [facility] Name Value Range Interpretation Code Description Data Harriet rce(s) Supporting Document(s) SARS coronavirus 2 RNA [facility] This lab was ordered by [facility] and reported by [facility]. Procedure Social History Code Duration Value Status Description Data Source(s ) Alcohol intake 03/17/2021 12:00:00 AM EDT Current drinker of al cohol (finding) completed Current drinker of alcohol (finding) [facility] Tobacco use and exposure 03/17/2021 12:00:00 AM EDT Never used co mpleted Never used [facility] Smoking 03/17/2021 12:00:00 AM EDT Never smoker completed Never s moker [facility] Alcohol intake 02/16/2021 12:00:00 AM EDT Current drinker of al cohol (finding) completed Current drinker of alcohol (finding) [facility] Alcohol intake 02/11/2021 12:00:00 AM EDT Current drinker of al cohol (finding) completed Current drinker of alcohol (finding) [facility] Alcohol intake 11/16/2020 12:00:00 AM EDT Current drinker of al cohol (finding) completed Current drinker of alcohol (finding) [facility] Alcohol intake 11/10/2020 12:00:00 AM EDT Current drinker of al cohol (finding) completed Current drinker of alcohol (finding) [facility] Alcohol intake 10/27/2020 12:00:00 AM EST Current drinker of al cohol (finding) completed Current drinker of alcohol (finding) [facility] Alcohol intake 10/27/2020 12:00:00 AM EST Current drinker of al cohol (finding) completed Current drinker of alcohol (finding) [facility] Alcohol intake 10/01/2020 12:00:00 AM EST Current drinker of al cohol (finding) completed Current drinker of alcohol (finding) [facility] Alcohol intake 07/25/2020 12:00:00 AM EST Current drinker of al cohol (finding) completed Current drinker of alcohol (finding) [facility] Vital Signs ID Date Data Source UNK Name Value Range Interpretation Code Description Data Source(s) Heart rate 99 /min 99 /min eCW1 ([facility]) Body weight 280 [lb_av] 280 [lb_av] eCW1 ([facility]) Body height 67.5 [in_i] 67.5 [in_i] eCW1 ([facility]) Body mass index (BMI) [Ratio] 43.20 kg/m2 43.20 kg/m2 eCW1 ([facility]) Respiratory rate 18 /min 18 /min eCW1 ([facility]) Body temperature 98.0 [degF] 98.0 [degF] eCW1 ( [facility]) Systolic blood pressure 132 mm[Hg] 132 mm[Hg] e CW1 ([facility]) Diastolic blood pressure 80 mm[Hg] 80 mm[Hg] eCW1 ([facility]) Body weight 276 [lb_av] 276 [lb_av] eCW1 ([facility]) Body height 67.5 [in_i] 67.5 [in_i] eCW1 ([facility]) Body mass index (BMI) [Ratio] 42.59 kg/m2 42.59 kg/m2 eCW1 ([facility]) Heart rate 95 /min 95 /min eCW1 ([facility]) Respiratory rate 18 /min 18 /min eCW1 ([facility]) Body temperature 97.3 [degF] 97.3 [degF] eCW1 ( [facility]) Systolic blood pressure 120 mm[Hg] 120 mm[Hg] e CW1 ([facility]) Diastolic blood pressure 70 mm[Hg] 70 mm[Hg] eCW1 ([facility]) Body height 67 [in_i] 67 [in_i] MEDNEENA ([facility], ) 5'7" Body mass index (BMI) [Ratio] 39.2 kg/m2 39.2 k g/m2 MEDENT ([facility], ) [place] body weight 135 [lb_av] 135 [lb_av] MEDEN T ([facility], ) Body weight 250.00 [lb_av] 250.00 [lb_av] MEDEN T ([facility]) Respiratory rate 12 /min 12 /min MEDENT ( [facility]) Body temperature 97.8 [degF] 97.8 [degF] MEDENT ([facility]) ID Date Data Source [id number] 11/11/2020 06:26:03 PM [facility] Value Range Interpretation Code Description Data Source(s) WEIGHT RECORDED 279 lb 279 lb [facility] Body height Measured 67.01 in . in [facility] ID Date Data Source [id number] 10/27/2020 01:20:38 PM [facility] Value Range Interpretation Code Description Data Source(s) WEIGHT RECORDED 273 lb 273 lb [facility] Body height Measured 67 in in [facility] ID Date Data Source [id number] 10/01/2020 01:29:11 PM [facility] Value Range Interpretation Code Description Data Source(s) WEIGHT RECORDED 265 lb 265 lb [facility] Body height Measured 67 in in [facility] ID Date Data Source [id number] 09/20/2020 03:37:51 PM [facility] Value Range Interpretation Code Description Data Source(s) WEIGHT RECORDED 265 lb 265 lb [facility] Body height Measured 67 in in [facility] ID Date Data Source [id number] 07/25/2020 08:58:03 AM [facility] Value Range Interpretation Code Description Data Source(s) WEIGHT RECORDED 261 lb 261 lb [facility] Body height Measured 67.01 in . in [facility] ID Date Data Source [id number] 07/01/2020 10:57:13 AM [facility] Value Range Interpretation Code Description Data Source(s) WEIGHT RECORDED 261 lb 261 lb [facility] Body height Measured 67.01 in . in [facility] Patient Treatment Plan of Care Planned Activity Planned Date Details Description Data Source (s) Ergocalciferol 16037 UNT Oral Capsule 03/03/2021 12:00:00 AM [facility] mycophenolate mofetil 250 MG Oral Capsule 03/01/2021 12:00:00 AM [facility] methylPREDNISolone acetate (DEPO-MEDROL) injection 40 mg 02/16/2021 11:15:00 AM [facility] Benlysta 200 MG/ML Subcutaneous Solution Auto-injector (belimumab) 12/03/2020 12:00:00 AM [facility] Ergocalciferol 72477 UNT Oral Capsule 11/25/2020 12:00:00 AM [facility] Ergocalciferol 88228 UNT Oral Capsule 10/29/2020 12:00:00 AM [facility] Cephalexin 500 MG Oral Capsule 10/29/2020 12:00:00 AM [facility] lidocaine (XYLOCAINE) 1 % injection 4.5 mL 10/27/2020 10:15:00 AM [facility] methylPREDNISolone acetate (DEPO-MEDROL) injection 40 mg 10/27/2020 10:15:00 AM [facility] methylPREDNISolone acetate (DEPO-MEDROL) injection 80 mg 10/27/2020 10:15:00 AM [facility] methylPREDNISolone acetate (DEPO-MEDROL) injection 80 mg 10/27/2020 10:15:00 AM [facility] Acetaminophen 325 MG / Oxycodone Hydrochloride 5 MG Or al Tablet 10/27/2020 12:00:00 AM [facility] methylPREDNISolone 4 MG Oral Tablet Therapy Pack (MEDR OL (JAMES)) 10/27/2020 12:00:00 AM [facility] Acetaminophen 325 MG / Oxycodone Hydrochloride 5 MG Or al Tablet 10/18/2020 12:00:00 AM [facility] Clonazepam 0.5 MG Oral Tablet 10/11/2020 12:00:00 AM [facility] Ondansetron 4 MG Disintegrating Oral Tablet 10/11/2020 12:00:00 AM [facility] 24 HR quetiapine 50 MG Extended Release Oral Tablet 09/28/19 12:00:00 AM [facility] Hydroxyzine Hydrochloride 50 MG Oral Tablet 09/20/2020 12:00:00 AM [facility] Sertraline 50 MG Oral Tablet 09/20/2020 12:00:00 AM [facility] Trazodone Hydrochloride 50 MG Oral Tablet 09/09/2020 12:00:00 AM [facility] Aimovig 140 MG/ML Subcutaneous Solution Auto-injector 09/08/2020 12:00:00 AM [facility] Cyclobenzaprine hydrochloride 10 MG Oral Tablet 09/03/2020 12:00:00 AM [facility] celecoxib 100 MG Oral Capsule [Celebrex] 09/01/2020 12:00:00 AM EST eCW1 ([facility]) celecoxib 100 MG Oral Capsule [Celebrex] 09/01/2020 12:00:00 AM EST eCW1 ([facility]) tramadol hydrochloride 50 MG Oral Tablet 08/23/2020 12:00:00 AM [facility] Fluoxetine 20 MG Oral Capsule 08/18/2020 12:00:00 AM [facility] Trazodone Hydrochloride 50 MG Oral Tablet 08/16/2020 12:00:00 AM [facility] Benlysta 200 MG/ML Subcutaneous Solution Auto-injector (belimumab) 08/12/2020 12:00:00 AM [facility] Ondansetron 4 MG Disintegrating Oral Tablet 08/04/2020 12:00:00 AM [facility] Cyclobenzaprine hydrochloride 10 MG Oral Tablet 07/20/2020 12:00:00 AM EST eCW1 ([facility]) Cyclobenzaprine hydrochloride 10 MG Oral Tablet 07/20/2020 12:00:00 AM EST eCW1 ([facility]) meloxicam 7.5 MG Oral Tablet 07/20/2020 12:00:00 AM EST eCW1 ([facility]) Cyclobenzaprine hydrochloride 10 MG Oral Tablet 07/20/2020 12:00:00 AM EST eCW1 ([facility]) Prednisone 10 MG Oral Tablet 07/13/2020 12:00:00 AM [facility] Prednisone 10 MG Oral Tablet 06/19/2019 12:00:00 AM [facility] Phenazopyridine hydrochloride 200 MG Delayed Release O ral Tablet 06/09/2019 12:00:00 AM [facility] lamotrigine 25 MG Chewable Tablet [facility]
[2021-07-17 02:54] LABS: BASO # 0.1 10^3/uL (0.0-0.2); BASO % 0.7 % (0.0-1.0); EOS # 0.3 10^3/uL (0.0-0.5); EOS % 2.2 % (0.0-3.0); HEMATOCRIT 41.1 % (36.0-47.0); HEMOGLOBIN 13.1 g/dl (12.0-15.5); LYMPH # 3.5 10^3/uL (1.5-5.0); LYMPH % 29.6 % (24.0-44.0); MEAN CORPUSCULAR HEMOGLOBIN 29.1 pg (27.0-33.0); MEAN CORPUSCULAR HGB CONC 31.9 g/dl (32.0-36.5); MEAN CORPUSCULAR VOLUME 91.3 fl (80.0-96.0); MONO # 0.6 10^3/uL (0.0-0.8); MONO % 5.2 % (2.0-8.0); NEUTROPHILS # 7.4 10^3/uL (1.5-8.5); PLATELET COUNT, AUTOMATED 320 10^3/uL (150-450)
[2021-07-17 03:24] LABS: BLOOD UREA NITROGEN 13 MG/DL (7-18); CARBON DIOXIDE LEVEL 26 MEQ/L (21-32); CHLORIDE LEVEL 109 MEQ/L (98-107); GLOMERULAR FILTRATION RATE > 60.0 (>60); GLUCOSE, FASTING 91 MG/DL (70-100); MAGNESIUM LEVEL 2.1 MG/DL (1.8-2.4); POTASSIUM SERUM 3.9 MEQ/L (3.5-5.1); SODIUM LEVEL 140 MEQ/L (136-145)
[2021-07-17 03:28] LABS: CK-MB VALUE MASS < 1.0 NG/ML (<3.6); CPK CREATINE PHOSPHOKINASE 106 U/L (26-192); MB/CK RELATIVE INDEX 0.94 (< OR =4); TROPONIN I < 0.02 NG/ML (< 0.10)
[2021-07-17] MEDS ORDERED: RIZATRIPTAN BENZOATE 10 MG TAB PO PRN (05:20)
[2021-07-17] MEDS ORDERED: HALOPERIDOL 5MG/ML VIAL (J1630 PER 1) IV ONE (05:20)
[2021-07-17] MEDS ORDERED: MAXA10TA14 PO (06:40)
[2021-07-17 06:47] VITALS: BP 142/82
--- NOTE | 2021-07-17 08:16 | ECGEPIP ---
[facility] - ED Test Date: 2021-07-17 Pat Name: CONCEPCION MEZA Department: Room: - Gender: Female Cuff Slitter: : 1990 Requested By: MATILDE Lynn PA-C Order Number: [id number] Reading MD: Ml Oneal Measurements Intervals [place] Rate: 54 P: 22 [place]: 144 QRS: 6 QRSD: 98 T: 26 QT: 420 QTc: 398 Interpretive Statements Sinus bradycardia Minimal voltage criteria for LVH, may be normal variant ( R in aVL ) NSTTW abnormalities decreased rate 12/26/20 Electronically Signed on 07-17-2021 8:16:25 EST by Ml Oneal
== END 2021-07-17 06:56 | disposition home or self-care (01) ==
LOC: M ED 22:59
DX: M94.0 Chondrocostal junction syndrome [Tietze] (principal); G43.909 Migraine, unspecified, not intractable, without status migrainosus; I10 Essential (primary) hypertension; K21.9 Gastro-esophageal reflux disease without esophagitis; M06.9 Rheumatoid arthritis, unspecified; M32.9 Systemic lupus erythematosus, unspecified; M79.7 Fibromyalgia; Z79.899 Other long term (current) drug therapy; Z88.5 Allergy status to narcotic agent
CPT/HCPCS: 71045; 80048; 82550; 82553; 83735; 85025; 87631; 87880; 93005; 96361; 96374; 96375; 99284; J1200; J1630; J1885; J2405

== ENCOUNTER → 2021-08-01 | Outpatient (REF) ==
[~2021-08-01] MED LIST changes: +ADDE20CA3 PO; +MAXA10TA14 PO; +ZOLP5TAB
[2021-08-01 10:26] LABS: RSV AMPLIFICATION NEGATIVE (NEGATIVE)
== END ==
LOC: M EMP 09:24
PROVIDERS: ATTEND Family Medicine
DX: Z11.52 Encounter for screening for COVID-19 (principal)

== ENCOUNTER → 2021-09-03 | Outpatient (REF) ==
[~2021-09-03] MED LIST changes: -FLUO10CA16; +FLUO10CA18
== END ==
LOC: M LABSMTC 12:18
PROVIDERS: ATTEND Family Medicine
DX: Z11.52 Encounter for screening for COVID-19 (principal)

== ENCOUNTER → 2021-09-07 | Outpatient (REF) | payer OTHER | LOC: M LAB REF 16:29 | PROVIDERS: ATTEND Physician Assistant Medical | DX: R53.83 Other fatigue (principal); R50.9 Fever, unspecified ==

== ENCOUNTER → 2021-09-27 | Outpatient (REF) | payer OTHER, MEDICAID | LOC: M LAB REF 11:35 | PROVIDERS: ATTEND Physician Assistant Medical | DX: N39.0 Urinary tract infection, site not specified (principal) ==

== ENCOUNTER 2021-10-30 17:17 | Inpatient (IN) | payer OTHER, MEDICAID ==
[~2021-10-30] VITALS: Ht 170.2 cm; Wt 110.0 kg
[~2021-10-30 17:17] MED LIST changes: -CYMB60CA4; +CYMB60CA4 PO; -KLON0.5T; +KLON0.5T PO
[2021-10-30] MEDS ORDERED: NS 1,000 ML IV ONE (17:30)
[2021-10-30 17:49] LABS: BASO # 0.1 10^3/uL (0.0-0.2); BASO % 0.6 % (0.0-1.0); EOS # 0.1 10^3/uL (0.0-0.5); EOS % 0.6 % (0.0-3.0); HEMATOCRIT 40.4 % (36.0-47.0); HEMOGLOBIN 12.9 g/dl (12.0-15.5); LYMPH # 2.7 10^3/uL (1.5-5.0); LYMPH % 25.4 % (24.0-44.0); MEAN CORPUSCULAR HEMOGLOBIN 29.5 pg (27.0-33.0); MEAN CORPUSCULAR HGB CONC 31.9 g/dl (32.0-36.5); MEAN CORPUSCULAR VOLUME 92.2 fl (80.0-96.0); MONO # 0.7 10^3/uL (0.0-0.8); MONO % 6.5 % (2.0-8.0); NEUTROPHILS # 7.2 10^3/uL (1.5-8.5); NEUTROPHILS % 66.7 % (36.0-66.0); PLATELET COUNT, AUTOMATED 342 10^3/uL (150-450); RED BLOOD COUNT 4.38 10^6/uL (4.00-5.40); WHITE BLOOD COUNT 10.8 10^3/uL (4.0-10.0)
[2021-10-30 18:28] LABS: ACETAMINOPHEN LEVEL < 2.0 UG/ML (10.0-30.0); ALBUMIN 3.4 GM/DL (3.2-5.2); ALT/SGPT 26 U/L (12-78); BILIRUBIN,DIRECT 0.2 MG/DL (0.0-0.2); BILIRUBIN,TOTAL 0.8 MG/DL (0.2-1.0); BLOOD UREA NITROGEN 8 MG/DL (7-18); CARBON DIOXIDE LEVEL 29 MEQ/L (21-32); CHLORIDE LEVEL 108 MEQ/L (98-107); CREATININE FOR GFR 0.88 MG/DL (0.55-1.30); ETHYL ALCOHOL (ETHANOL) < 0.003 % (0.000-0.010); GLOMERULAR FILTRATION RATE > 60.0 (>60); GLUCOSE, FASTING 83 MG/DL (70-100); POTASSIUM SERUM 3.9 MEQ/L (3.5-5.1); SALICYLATE LEVEL < 1.7 MG/DL (5.0-30.0); SODIUM LEVEL 143 MEQ/L (136-145); TOTAL PROTEIN 6.4 GM/DL (6.4-8.2)
[2021-10-30] MEDS ORDERED: DULO1CAP5 PO (19:19)
[2021-10-30] MEDS ORDERED: AMPH1CAP5 PO (19:19)
[2021-10-30] MEDS ORDERED: DESV25TA PO (19:19)
[2021-10-30] MEDS ORDERED: HOME MED LIST COMPLETE! XX SCH (19:20)
[2021-10-30 19:42] LABS: AMPHETAMINES LEVEL URINE NEGATIVE (NEGATIVE); BARBITURATES URINE NEGATIVE (NEGATIVE); BENZODIAZEPINES URINE NEGATIVE (NEGATIVE); CANNABINOIDS URINE NEGATIVE (NEGATIVE); COCAINE METABOLITE URINE NEGATIVE (NEGATIVE); METHADONE URINE NEGATIVE (NEGATIVE); OPIATES URINE NEGATIVE (NEGATIVE); PHENCYCLIDINE URINE NEGATIVE (NEGATIVE)
[2021-10-31] MEDS ORDERED: flumazeniL 0.5 MG/5 ML VIAL IV STA (00:09)
[2021-10-31] MEDS: NS 1,000 ML IV SCH ×2 (00:36→08:57)
[2021-10-31 00:42] LABS: RSV AMPLIFICATION NEGATIVE (NEGATIVE)
[2021-10-31 02:45] VITALS: BP 110/58
[2021-10-31 04:00] VITALS: BP 111/66
[2021-10-31 06:56] LABS: BASO # 0.1 10^3/uL (0.0-0.2); BASO % 0.6 % (0.0-1.0); EOS # 0.1 10^3/uL (0.0-0.5); EOS % 1.1 % (0.0-3.0); HEMATOCRIT 40.8 % (36.0-47.0); HEMOGLOBIN 12.8 g/dl (12.0-15.5); LYMPH # 3.4 10^3/uL (1.5-5.0); LYMPH % 31.8 % (24.0-44.0); MEAN CORPUSCULAR HEMOGLOBIN 29.5 pg (27.0-33.0); MEAN CORPUSCULAR HGB CONC 31.4 g/dl (32.0-36.5); MONO # 0.7 10^3/uL (0.0-0.8); MONO % 6.8 % (2.0-8.0); NEUTROPHILS # 6.4 10^3/uL (1.5-8.5); NEUTROPHILS % 59.3 % (36.0-66.0); PLATELET COUNT, AUTOMATED 332 10^3/uL (150-450); RED BLOOD COUNT 4.34 10^6/uL (4.00-5.40); WHITE BLOOD COUNT 10.7 10^3/uL (4.0-10.0)
[2021-10-31 07:21] LABS: ALBUMIN 2.9 GM/DL (3.2-5.2); ALT/SGPT 21 U/L (12-78); BILIRUBIN,TOTAL 0.8 MG/DL (0.2-1.0); BLOOD UREA NITROGEN 7 MG/DL (7-18); CALCIUM LEVEL 8.5 MG/DL (8.5-10.1); CARBON DIOXIDE LEVEL 29 MEQ/L (21-32); CHLORIDE LEVEL 110 MEQ/L (98-107); CREATININE FOR GFR 0.83 MG/DL (0.55-1.30); GLOMERULAR FILTRATION RATE > 60.0 (>60); GLUCOSE, FASTING 72 MG/DL (70-100); MAGNESIUM LEVEL 2.1 MG/DL (1.8-2.4); PHOSPHORUS LEVEL 3.1 MG/DL (2.5-4.9); POTASSIUM SERUM 3.7 MEQ/L (3.5-5.1); SODIUM LEVEL 142 MEQ/L (136-145); TOTAL PROTEIN 5.8 GM/DL (6.4-8.2)
[2021-10-31 07:50] VITALS: BP 117/73
[2021-10-31] MEDS ORDERED: ENOXAPARIN 40MG/0.4ML SYRINGE (J1650 PER 10MG) SC SCH (09:00)
[2021-10-31 12:37] VITALS: BP 123/73
[2021-10-31 16:00] VITALS: BP 125/79
== END 2021-10-31 17:21 | DRG 812 ==
LOC: EDBD 17:17 → M ED 17:17 → M ED INP 10-31 00:09 → ENRESERV 10-31 01:44 → M PCU 10-31 02:35
PROVIDERS: ADMIT Family Medicine; ATTEND Internal Medicine Nephrology
DX: T42.4X2A Poisoning by benzodiazepines, intentional self-harm, initial encounter (principal); M32.9 Systemic lupus erythematosus, unspecified; M79.7 Fibromyalgia; G43.909 Migraine, unspecified, not intractable, without status migrainosus; F41.1 Generalized anxiety disorder; F32.A Depression, unspecified; F60.3 Borderline personality disorder; Z20.822 Contact with and (suspected) exposure to COVID-19; Z79.899 Other long term (current) drug therapy; Z88.5 Allergy status to narcotic agent; Z87.442 Personal history of urinary calculi; Z90.49 Acquired absence of other specified parts of digestive tract; Z81.1 Family history of alcohol abuse and dependence; Z62.811 Personal history of psychological abuse in childhood

== ENCOUNTER 2021-10-31 15:20 | Inpatient (IN) | payer MEDICAID, OTHER ==
[~2021-10-31] VITALS: Ht 170.2 cm; Wt 112.6 kg
[~2021-10-31 15:20] MED LIST changes: +AMPH1CAP5 PO; +DESV25TA PO; +DULO1CAP5 PO
[2021-10-31] MEDS ORDERED: IBUPROFEN 400MG TAB PO PRN (15:55)
[2021-10-31] MEDS ORDERED: MOM 30ML SUSPENSION UDC PO PRN (15:55)
[2021-10-31] MEDS ORDERED: MAALOX 30 ML SUSP *UDC PO PRN (15:55)
[2021-10-31] MEDS ORDERED: HOME MED LIST COMPLETE! XX SCH (19:00)
[2021-10-31 19:09] VITALS: BP 141/86
[2021-11-01] MEDS ORDERED: DESVENLAFAXINE ER 50 MG TABLET (PRISTIQ) PO SCH (09:00)
[2021-11-01] MEDS ORDERED: DULoxetine 30MG CAPSULE (CYMBALTA) PO SCH (09:00)
[2021-11-01] MEDS ORDERED: LORazepam 0.5 MG TAB PO ONE (09:35)
[2021-11-01 17:51] VITALS: BP 122/62
[2021-11-01] MEDS: ACETAMINOPHEN TAB 650MG DOSE (2X325MG) PO PRN (21:55)
[2021-11-01] MEDS: traZODone 50 MG TAB PO PRN (21:55)
[2021-11-01] MEDS: LORazepam 1 MG TAB PO PRN (21:56)
[2021-11-02 07:03] VITALS: BP 121/78
[2021-11-02] MEDS: DESVENLAFAXINE ER 50 MG TABLET (PRISTIQ) PO SCH (08:36)
[2021-11-02] MEDS: ACETAMINOPHEN TAB 650MG DOSE (2X325MG) PO PRN ×2 (08:36→18:19)
[2021-11-02] MEDS: busPIRone 5 MG TAB PO SCH ×2 (09:55→20:04)
[2021-11-02 18:48] VITALS: BP 125/84
[2021-11-02] MEDS: traZODone 50 MG TAB PO PRN (20:04)
[2021-11-02] MEDS: LORazepam 1 MG TAB PO PRN (20:05)
[2021-11-02] MEDS ORDERED: busPIRone 5 MG TAB PO SCH (21:00)
[2021-11-03] MEDS: ACETAMINOPHEN TAB 650MG DOSE (2X325MG) PO PRN (06:18)
[2021-11-03 06:20] VITALS: BP 121/70
[2021-11-03] MEDS: LORazepam 1 MG TAB PO PRN (08:55)
[2021-11-03] MEDS: DESVENLAFAXINE ER 50 MG TABLET (PRISTIQ) PO SCH (08:55)
[2021-11-03] MEDS: busPIRone 5 MG TAB PO SCH ×2 (08:56→21:17)
[2021-11-03] MEDS: hydrOXYzine 50 MG TAB PO PRN ×2 (16:35→22:02)
[2021-11-03 18:05] VITALS: BP 135/71
[2021-11-03] MEDS: traZODone 50 MG TAB PO PRN (21:17)
[2021-11-04] MEDS: ACETAMINOPHEN TAB 650MG DOSE (2X325MG) PO PRN ×2 (06:16→20:15)
[2021-11-04 06:26] VITALS: BP 116/64
[2021-11-04] MEDS: busPIRone 5 MG TAB PO SCH ×2 (08:21→20:15)
[2021-11-04] MEDS: DESVENLAFAXINE ER 50 MG TABLET (PRISTIQ) PO SCH (08:21)
[2021-11-04] MEDS: hydrOXYzine 50 MG TAB PO PRN (12:59)
[2021-11-04 19:23] VITALS: BP 140/68
[2021-11-04] MEDS: traZODone 50 MG TAB PO PRN (20:15)
[2021-11-05 07:09] VITALS: BP 148/79
[2021-11-05] MEDS: DESVENLAFAXINE ER 50 MG TABLET (PRISTIQ) PO SCH (08:50)
[2021-11-05] MEDS: busPIRone 5 MG TAB PO SCH ×2 (08:50→20:26)
[2021-11-05] MEDS: hydrOXYzine 50 MG TAB PO PRN ×2 (09:47→20:25)
[2021-11-05 18:49] VITALS: BP 130/74
[2021-11-05] MEDS: traZODone 50 MG TAB PO PRN (21:41)
[2021-11-06 06:38] VITALS: BP 120/60
[2021-11-06] MEDS: ACETAMINOPHEN TAB 650MG DOSE (2X325MG) PO PRN ×2 (08:07→19:55)
[2021-11-06] MEDS: busPIRone 5 MG TAB PO SCH ×2 (08:07→20:40)
[2021-11-06] MEDS: DESVENLAFAXINE ER 50 MG TABLET (PRISTIQ) PO SCH (08:07)
[2021-11-06 18:50] VITALS: BP 130/82
[2021-11-06] MEDS: traZODone 50 MG TAB PO PRN (20:40)
[2021-11-07] MEDS: ACETAMINOPHEN TAB 650MG DOSE (2X325MG) PO PRN (05:02)
[2021-11-07 06:37] VITALS: BP 108/58
[2021-11-07] MEDS: busPIRone 5 MG TAB PO SCH (08:20)
[2021-11-07] MEDS: DESVENLAFAXINE ER 50 MG TABLET (PRISTIQ) PO SCH (08:20)
[2021-11-07] MEDS ORDERED: TRAZ-252 PO (09:50)
[2021-11-07] MEDS ORDERED: DESV50TA3 PO (09:50)
[2021-11-07] MEDS ORDERED: BUSP5TA PO (09:50)
== END 2021-11-07 11:40 | disposition home or self-care (01) | DRG 751 ==
LOC: M PSY 17:26
PROVIDERS: ADMIT Student in an Organized Health Care Education/Training Program; ATTEND Psychiatry & Neurology Psychiatry
DX: F33.9 Major depressive disorder, recurrent, unspecified (principal); M32.9 Systemic lupus erythematosus, unspecified; F41.1 Generalized anxiety disorder; F60.3 Borderline personality disorder; F60.7 Dependent personality disorder; M79.7 Fibromyalgia; G43.709 Chronic migraine without aura, not intractable, without status migrainosus; Z91.51 Personal history of suicidal behavior; Z88.5 Allergy status to narcotic agent; Z79.899 Other long term (current) drug therapy

== ENCOUNTER 2021-12-11 13:46 | Emergency (ER) | payer MEDICAID, OTHER ==
[~2021-12-11] VITALS: Ht 170.2 cm; Wt 113.6 kg
[~2021-12-11 13:46] MED LIST changes: +BUSP5TA PO; +DESV50TA3 PO; +TRAZ-252 PO
[2021-12-11] MEDS ORDERED: PREG50CA2 (13:56)
[2021-12-11] MEDS ORDERED: GUAN1TAB16 (13:56)
[2021-12-11] MEDS ORDERED: REXU1TAB2 (13:57)
[2021-12-11] MEDS ORDERED: PRAZ2CAP (13:57)
[2021-12-11] MEDS ORDERED: DIAZ5TAB (13:57)
[2021-12-11] MEDS ORDERED: ONDANSETRON 4MG/2ML VIAL IV ONE (16:25)
[2021-12-11] MEDS ORDERED: NS 1,000 ML IV ONE (16:25)
[2021-12-11] MEDS ORDERED: KETOROLAC 30 MG/ML 1ML VIAL IV ONE (16:25)
[2021-12-11 17:00] LABS: BASO # 0.1 10^3/uL (0.0-0.2); BASO % 0.5 % (0.0-1.0); EOS # 0.4 10^3/uL (0.0-0.5); EOS % 3.1 % (0.0-3.0); HEMATOCRIT 40.6 % (36.0-47.0); HEMOGLOBIN 13.2 g/dl (12.0-15.5); LYMPH # 3.1 10^3/uL (1.5-5.0); LYMPH % 27.8 % (24.0-44.0); MEAN CORPUSCULAR HEMOGLOBIN 30.2 pg (27.0-33.0); MEAN CORPUSCULAR HGB CONC 32.5 g/dl (32.0-36.5); MEAN CORPUSCULAR VOLUME 92.9 fl (80.0-96.0); MONO # 0.7 10^3/uL (0.0-0.8); MONO % 6.4 % (2.0-8.0); NEUTROPHILS # 6.9 10^3/uL (1.5-8.5); NEUTROPHILS % 61.8 % (36.0-66.0); PLATELET COUNT, AUTOMATED 301 10^3/uL (150-450); RED BLOOD COUNT 4.37 10^6/uL (4.00-5.40); WHITE BLOOD COUNT 11.2 10^3/uL (4.0-10.0)
[2021-12-11 17:21] LABS: ERYTHROCYTE SEDIMENTATION RATE 7 mm/hr (0-20)
[2021-12-11 17:24] LABS: ALBUMIN 3.4 GM/DL (3.2-5.2); ALT/SGPT 25 U/L (12-78); BILIRUBIN,DIRECT 0.2 MG/DL (0.0-0.2); BILIRUBIN,TOTAL 0.5 MG/DL (0.2-1.0); BLOOD UREA NITROGEN 12 MG/DL (7-18); C REACTIVE PROTEIN QUANTITATIV 1.25 MG/DL (0.00-0.30); CALCIUM LEVEL 8.5 MG/DL (8.5-10.1); CARBON DIOXIDE LEVEL 26 MEQ/L (21-32); CHLORIDE LEVEL 111 MEQ/L (98-107); CREATININE FOR GFR 0.82 MG/DL (0.55-1.30); GLOMERULAR FILTRATION RATE > 60.0 (>60); GLUCOSE, FASTING 73 MG/DL (70-100); LIPASE 94 U/L (73-393); SODIUM LEVEL 141 MEQ/L (136-145); TOTAL PROTEIN 6.1 GM/DL (6.4-8.2)
[2021-12-11 18:27] LABS: GC DNA AMPLIFICATION NEGATIVE (NEGATIVE)
[2021-12-11] MEDS ORDERED: ISOVUE-370 76% 100ML VIAL As Ordered ONE (18:52)
[2021-12-11] MEDS ORDERED: MORPHINE 2 MG/ML 1ML VIAL IV ONE (18:55)
[2021-12-11] MEDS ORDERED: ONDA4TAB6 PO (20:05)
[2021-12-11] MEDS ORDERED: ONDANSETRON 4MG ORAL DISINTEGRATING TAB PO ONE (20:10)
[2021-12-11 20:24] VITALS: BP 115/60
== END 2021-12-11 20:28 | disposition home or self-care (01) ==
LOC: M ED 13:46
DX: R10.31 Right lower quadrant pain (principal); R11.0 Nausea; Z97.5 Presence of (intrauterine) contraceptive device; M32.9 Systemic lupus erythematosus, unspecified; F32.A Depression, unspecified; F41.9 Anxiety disorder, unspecified; M79.7 Fibromyalgia; Z79.899 Other long term (current) drug therapy
CPT/HCPCS: 74177; 76830; 76856; 76857; 80048; 80076; 81001; 83690; 84702; 85025; 85652; 86140; 87086; 87661; 87810; 87850; 93976; 96361; 96374; 96375; 99284; J1885; J2405; Q9967

== ENCOUNTER 2022-01-02 14:09 | Emergency (ER) | payer MEDICAID, OTHER ==
[~2022-01-02] VITALS: Ht 170.2 cm; Wt 110.5 kg
[~2022-01-02 14:09] MED LIST changes: +DIAZ5TAB; +GUAN1TAB16; +ONDA4TAB6 PO; +PRAZ2CAP; +PREG50CA2; +REXU1TAB2
[2022-01-02] MEDS ORDERED: KETOROLAC 30 MG/ML 1ML VIAL IM ONE (20:30)
[2022-01-02 21:02] VITALS: BP 138/91
[2022-01-03] MEDS ORDERED: METH-1164 PO (20:37)
== END 2022-01-02 21:21 | disposition home or self-care (01) ==
LOC: M ED 14:09
DX: S93.402A Sprain of unspecified ligament of left ankle, initial encounter (principal); S63.601A Unspecified sprain of right thumb, initial encounter; M94.0 Chondrocostal junction syndrome [Tietze]; S20.01XA Contusion of right breast, initial encounter; W06.XXXA Fall from bed, initial encounter; Y92.009 Unspecified place in unspecified non-institutional (private) residence as the place of occurrence of the external cause; Y93.9 Activity, unspecified; Y99.9 Unspecified external cause status; M77.32 Calcaneal spur, left foot; Z88.6 Allergy status to analgesic agent; Z79.899 Other long term (current) drug therapy
CPT/HCPCS: 71046; 73140; 73630; 93005; 96372; 99284; J1885

== ENCOUNTER 2022-01-03 16:24 | Emergency (ER) | payer OTHER ==
[~2022-01-03] VITALS: Ht 170.2 cm; Wt 110.5 kg
[2022-01-03] MEDS ORDERED: LIDOCAINE 5% (LIDODERM) PATCH TD ONE (17:50)
[2022-01-03] MEDS ORDERED: PERCOCET 5MG/325MG TAB PO ONE (17:50)
[2022-01-03] MEDS ORDERED: diazePAM 5MG TABLET PO ONE (18:55)
[2022-01-03] MEDS ORDERED: methocarbamoL 500 MG TAB PO ONE (20:35)
[2022-01-03] MEDS ORDERED: METH-1164 PO (20:37)
[2022-01-03 20:54] VITALS: BP 121/61
[2022-01-03] MEDS ORDERED: **NOTE PATIENT COMMENT** MISC XX SCH (21:00)
== END 2022-01-03 20:56 | disposition home or self-care (01) ==
LOC: M ED 16:24
DX: R07.89 Other chest pain (principal); W06.XXXD Fall from bed, subsequent encounter; Y92.009 Unspecified place in unspecified non-institutional (private) residence as the place of occurrence of the external cause; Y93.9 Activity, unspecified; Y99.9 Unspecified external cause status; E78.5 Hyperlipidemia, unspecified; I10 Essential (primary) hypertension; M79.7 Fibromyalgia; M32.9 Systemic lupus erythematosus, unspecified; K21.9 Gastro-esophageal reflux disease without esophagitis; F17.200 Nicotine dependence, unspecified, uncomplicated; Z88.8 Allergy status to other drugs, medicaments and biological substances; Z79.899 Other long term (current) drug therapy

== ENCOUNTER → 2022-03-13 | Outpatient (REF) ==
[~2022-03-13] MED LIST changes: +METH-1164 PO
== END ==
LOC: M LABSMTC 09:33
PROVIDERS: ATTEND Family Medicine
DX: Z11.52 Encounter for screening for COVID-19 (principal)

== ENCOUNTER → 2022-05-23 | Outpatient (REF) ==
[~2022-05-23] MED LIST changes: -MAXA10TA14 PO; +RIZA10TA64 PO
[2022-05-23 13:50] LABS: RSV AMPLIFICATION NEGATIVE (NEGATIVE)
== END ==
LOC: M EMP 12:19
PROVIDERS: ATTEND Family Medicine
DX: Z11.52 Encounter for screening for COVID-19 (principal)

== ENCOUNTER → 2022-07-10 | Outpatient (REF) | payer OTHER, MEDICAID | LOC: M LAB REF 11:19 | PROVIDERS: ATTEND Physician Assistant Medical | DX: R05.9 Cough, unspecified (principal) ==

== ENCOUNTER → 2022-07-13 | Outpatient (REF) | payer OTHER ==
[2022-07-13 12:30] LABS: APPEARANCE, URINE MANUAL HAZY (CLEAR); COLOR, URINE MANUAL YELLOW (YELLOW)
[2022-07-13 12:33] LABS: BILIRUBIN, URINE MANUAL NEGATIVE (NEGATIVE); BLOOD URINE MANUAL POSITIVE (NEGATIVE); GLUCOSE, URINE (UA) MANUAL NEGATIVE (NEGATIVE); LEUKOCYTE ESTERASE, URINE MAN POSITIVE (NEGATIVE); NITRITE, URINE MANUAL NEGATIVE (NEGATIVE); PROTEIN, URINE MANUAL 1+ mg/dL (NEGATIVE); UROBILINOGEN, URINE MANUAL NORMAL (NORMAL)
[2022-07-13 12:34] LABS: KETONE, URINE MANUAL 1+ mg/dL (NEGATIVE)
[2022-07-13 12:48] LABS: BACTERIA, URINE MOD AMOUNT; HYALINE CAST, URINE NONE SEEN /lpf (0-1); MUCUS, URINE LARGE AMOUNT (NEGATIVE); SQUAMOUS EPITHELIAL CELL URINE LARGE AMOUNT /hpf (SMALL AMT)
== END ==
LOC: M LAB REF 11:33
PROVIDERS: ATTEND Physician Assistant
DX: N39.0 Urinary tract infection, site not specified (principal)

== ENCOUNTER → 2022-07-30 | Outpatient (REF) | payer OTHER, MEDICAID ==
[2022-07-30 20:20] LABS: APPEARANCE, URINE MANUAL CLEAR (CLEAR); COLOR, URINE MANUAL AMBER (YELLOW); GLUCOSE, URINE (UA) MANUAL NEGATIVE (NEGATIVE); KETONE, URINE MANUAL NEGATIVE (NEGATIVE); PROTEIN, URINE MANUAL OBSCURED mg/dL (NEGATIVE)
[2022-07-30 20:21] LABS: BILIRUBIN, URINE MANUAL OBSCURED (NEGATIVE); BLOOD URINE MANUAL OBSCURED (NEGATIVE); LEUKOCYTE ESTERASE, URINE MAN OBSCURED (NEGATIVE); NITRITE, URINE MANUAL OBSCURED (NEGATIVE); UROBILINOGEN, URINE MANUAL OBSCURED mg/dl (NORMAL)
[2022-07-30 20:30] LABS: BACTERIA, URINE SMALL AMOUNT; HYALINE CAST, URINE NONE SEEN /lpf (0-1); MUCUS, URINE MOD AMOUNT (NEGATIVE); RBC, URINE NONE SEEN /hpf (0-3); SQUAMOUS EPITHELIAL CELL URINE MOD AMOUNT /hpf (SMALL AMT)
[2022-07-30 21:44] LABS: GC DNA AMPLIFICATION NEGATIVE (NEGATIVE)
== END ==
LOC: M LAB REF 19:22
PROVIDERS: ATTEND Physician Assistant
DX: N39.0 Urinary tract infection, site not specified (principal)

== ENCOUNTER 2022-09-02 18:51 | Emergency (ER) | payer OTHER, MEDICAID ==
[~2022-09-02] VITALS: Ht 170.2 cm; Wt 107.5 kg
[2022-09-02] MEDS ORDERED: NS 1,000 ML IV ONE (19:30)
[2022-09-02] MEDS ORDERED: PROMETHAZINE 25MG SUPP PR ONE (20:05)
[2022-09-02 20:15] LABS: BASO # 0.1 10^3/uL (0.0-0.2); BASO % 0.6 % (0.0-1.0); EOS # 0.1 10^3/uL (0.0-0.5); EOS % 0.8 % (0.0-3.0); HEMATOCRIT 43.6 % (36.0-47.0); HEMOGLOBIN 14.3 g/dl (12.0-15.5); LYMPH # 2.3 10^3/uL (1.5-5.0); LYMPH % 18.7 % (24.0-44.0); MEAN CORPUSCULAR HEMOGLOBIN 29.7 pg (27.0-33.0); MEAN CORPUSCULAR HGB CONC 32.8 g/dl (32.0-36.5); MEAN CORPUSCULAR VOLUME 90.5 fl (80.0-96.0); MONO # 0.6 10^3/uL (0.0-0.8); MONO % 5.1 % (2.0-8.0); NEUTROPHILS # 9.2 10^3/uL (1.5-8.5); NEUTROPHILS % 74.4 % (36.0-66.0); PLATELET COUNT, AUTOMATED 361 10^3/uL (150-450); RED BLOOD COUNT 4.82 10^6/uL (4.00-5.40); WHITE BLOOD COUNT 12.4 10^3/uL (4.0-10.0)
[2022-09-02 20:36] LABS: ALBUMIN 3.9 G/DL (3.2-5.2); BILIRUBIN,DIRECT 0.2 MG/DL (<0.4); BILIRUBIN,TOTAL 0.6 MG/DL (0.3-1.2); TOTAL PROTEIN 6.7 G/DL (5.7-8.2)
[2022-09-02] MEDS ORDERED: PRENTAB53 PO (20:48)
[2022-09-02] MEDS ORDERED: PROM25TA12 (20:48)
[2022-09-02] MEDS ORDERED: PYRI25TA2 PO (20:48)
[2022-09-02 21:03] LABS: HCG, SERUM QUANTITATIVE 79972.7 MIU/ML (<4.2)
[2022-09-02] MEDS ORDERED: REGL10TA6 PO (21:10)
[2022-09-02] MEDS ORDERED: PYRI1TAB5 PO (21:11)
[2022-09-02] MEDS ORDERED: NS 500 ML IV ONE (22:00)
[2022-09-02] MEDS ORDERED: PHENAZOPYRIDINE 100 MG TAB PO ONE (22:00)
[2022-09-02] MEDS ORDERED: NITROFURANTOIN (MACROBID) 100 MG CAP PO ONE (22:05)
[2022-09-02] MEDS ORDERED: ACETAMINOPHEN 325 MG TAB PO ONE (22:10)
[2022-09-02 23:41] VITALS: BP 112/61
== END 2022-09-02 23:43 | disposition home or self-care (01) ==
LOC: M ED 20:16
DX: O23.41 Unspecified infection of urinary tract in pregnancy, first trimester (principal); O21.9 Vomiting of pregnancy, unspecified; O99.341 Other mental disorders complicating pregnancy, first trimester; G43.909 Migraine, unspecified, not intractable, without status migrainosus; M79.7 Fibromyalgia; Z88.5 Allergy status to narcotic agent; Z3A.08 8 weeks gestation of pregnancy; O99.331 Smoking (tobacco) complicating pregnancy, first trimester; Z79.899 Other long term (current) drug therapy

== ENCOUNTER → 2022-09-14 | Outpatient (CLI) | payer OTHER ==
[~2022-09-14] MED LIST changes: +PRENTAB53 PO; +PROM25TA12; +PYRI1TAB5 PO; +PYRI25TA2 PO; +REGL10TA6 PO
[2022-09-14 17:12] LABS: URIC ACID 4.2 MG/DL (3.1-7.8)
[2022-09-14 17:14] LABS: LDH LACTATE DEHYDROGENASE 172 U/L (120-246)
[2022-09-14 17:15] LABS: ALT/SGPT 20 U/L (7.0-40); AST/SGOT 19 U/L (<34); BILIRUBIN,TOTAL 0.4 MG/DL (0.3-1.2); CREATININE FOR GFR 0.74 MG/DL (0.55-1.30); GLOMERULAR FILTRATION RATE > 60.0 (>60)
[2022-09-14 17:16] LABS: HEMATOCRIT 42.7 % (36.0-47.0); HEMOGLOBIN 13.7 g/dl (12.0-15.5); MEAN CORPUSCULAR HEMOGLOBIN 29.5 pg (27.0-33.0); MEAN CORPUSCULAR HGB CONC 32.1 g/dl (32.0-36.5); PLATELET COUNT, AUTOMATED 392 10^3/uL (150-450); RED BLOOD COUNT 4.64 10^6/uL (4.00-5.40); WHITE BLOOD COUNT 12.9 10^3/uL (4.0-10.0)
[2022-09-14 17:47] LABS: HIV 1&2 SCREEN CENTAUR NEGATIVE (NEGATIVE)
[2022-09-14 17:55] LABS: HEPATITIS C VIRUS ABY INDEX < 0.0 INDEX (<0.8)
== END ==
LOC: M PLALAB 15:18
PROVIDERS: ATTEND Advanced Practice Midwife
DX: O99.111 Other diseases of the blood and blood-forming organs and certain disorders involving the immune mechanism complicating pregnancy, first trimester (principal)

== ENCOUNTER → 2022-09-20 | Outpatient (CLI) | payer OTHER, MEDICAID | LOC: M PLALAB 12:09 | PROVIDERS: ATTEND Advanced Practice Midwife | DX: Z34.81 Encounter for supervision of other normal pregnancy, first trimester (principal) ==

== ENCOUNTER → 2022-10-09 | Outpatient (REF) | payer OTHER | LOC: M SFHCWAGY 17:17 | PROVIDERS: ATTEND Advanced Practice Midwife | DX: O99.111 Other diseases of the blood and blood-forming organs and certain disorders involving the immune mechanism complicating pregnancy, first trimester (principal) ==

== ENCOUNTER → 2022-10-11 | Outpatient (REF) | payer OTHER ==
[2022-10-11 17:19] LABS: APPEARANCE, URINE HAZY (CLEAR); BILIRUBIN, URINE AUTO NEGATIVE (NEGATIVE); BLOOD, URINE BLOOD 1+ (NEGATIVE); COLOR, URINE AMBER (YELLOW); GLUCOSE, URINE (UA) AUTO NEGATIVE (NEGATIVE); KETONE, URINE AUTO NEGATIVE (NEGATIVE); LEUKOCYTE ESTERASE, URINE AUTO 3+ (NEGATIVE); NITRITE, URINE AUTO NEGATIVE (NEGATIVE); PROTEIN, URINE AUTO 1+ mg/dL (NEGATIVE); SPECIFIC GRAVITY URINE AUTO 1.024 (1.002-1.035); UROBILINOGEN, URINE AUTO 0.2 mg/dL (0.0-2.0)
[2022-10-11 17:23] LABS: BACTERIA, URINE AUTO 1+ (NEGATIVE); CALCIUM OXALATE CRYSTALS SMALL; MUCUS, URINE SMALL (NEGATIVE); RBC, URINE AUTO 3 /HPF (0-3); SQUAMOUS EPITHELIAL CELL UR AU 4 /HPF (0-6); WBC, URINE AUTO 7 /HPF (0-3)
[2022-10-11 19:17] LABS: GC DNA AMPLIFICATION NEGATIVE (NEGATIVE)
== END ==
LOC: M LAB REF 16:33
PROVIDERS: ATTEND Physician Assistant
DX: Z11.3 Encounter for screening for infections with a predominantly sexual mode of transmission (principal)

== ENCOUNTER → 2022-12-15 | Outpatient (CLI) | payer OTHER | LOC: M WHC 11:27 | PROVIDERS: ATTEND Obstetrics & Gynecology | DX: Z36.3 Encounter for antenatal screening for malformations (principal) ==

== ENCOUNTER → 2023-01-05 | Outpatient (CLI) | payer OTHER ==
[2023-01-05 11:09] LABS: HEMATOCRIT 37.2 % (36.0-47.0); HEMOGLOBIN 12.3 g/dl (12.0-15.5); MEAN CORPUSCULAR HEMOGLOBIN 29.9 pg (27.0-33.0); MEAN CORPUSCULAR HGB CONC 33.1 g/dl (32.0-36.5); MEAN CORPUSCULAR VOLUME 90.5 fl (80.0-96.0); PLATELET COUNT, AUTOMATED 320 10^3/uL (150-450); RED BLOOD COUNT 4.11 10^6/uL (4.00-5.40); WHITE BLOOD COUNT 12.6 10^3/uL (4.0-10.0)
[2023-01-05 11:38] LABS: ALBUMIN 2.7 G/DL (3.2-5.2); ALKALINE PHOSPHATASE 78 U/L (46-116); ALT/SGPT 13 U/L (7.0-40); AST/SGOT 15 U/L (<34); BILIRUBIN,TOTAL 0.3 MG/DL (0.3-1.2); BLOOD UREA NITROGEN 7 MG/DL (9-23); CALCIUM LEVEL 8.7 MG/DL (8.5-10.1); CARBON DIOXIDE LEVEL 24 MMOL/L (20-31); CHLORIDE LEVEL 107 MMOL/L (98-107); CREATININE FOR GFR 0.72 MG/DL (0.55-1.30); GLOMERULAR FILTRATION RATE > 60.0 (>60); GLUCOSE CHALLENGE TEST 1 HOUR 96 MG/DL (LESS THAN 140); GLUCOSE, FASTING 96 MG/DL (60-100); POTASSIUM SERUM 3.7 MMOL/L (3.5-5.1); SODIUM LEVEL 140 MMOL/L (136-145); TOTAL PROTEIN 5.6 G/DL (5.7-8.2)
[2023-01-05 11:41] LABS: TOTAL PROTEIN,RANDOM URINE 59.6 MG/DL (0.0-14.0)
[2023-01-05 11:59] LABS: CREATININE,RANDOM URINE 367.7 MG/DL
[2023-01-05 13:03] LABS: GC DNA AMPLIFICATION NEGATIVE (NEGATIVE)
== END ==
LOC: M PLALAB 08:07
PROVIDERS: ATTEND Obstetrics & Gynecology
DX: Z34.92 Encounter for supervision of normal pregnancy, unspecified, second trimester (principal)

== ENCOUNTER → 2023-01-05 | Outpatient (CLI) | payer OTHER | LOC: M PLALAB 08:59 | PROVIDERS: ATTEND Obstetrics & Gynecology | DX: R30.0 Dysuria (principal) ==

== ENCOUNTER 2023-02-08 07:03 | Outpatient (CLI) | payer OTHER ==
[~2023-02-08] VITALS: Ht 170.2 cm; Wt 112.7 kg
[2023-02-08] MEDS ORDERED: ACET500P3 PO (07:26)
[2023-02-08] MEDS ORDERED: ZYPR5TAB2 PO (07:26)
[2023-02-08] MEDS ORDERED: BRIN1TAB3 PO (07:26)
[2023-02-08] MEDS ORDERED: PEPC1TAB5 PO (07:26)
[2023-02-08 07:31] VITALS: BP 102/61; O2SAT 97
== END 2023-02-08 09:02 | disposition home or self-care (01) ==
LOC: M LDO 07:03
PROVIDERS: ATTEND Obstetrics & Gynecology
DX: O47.03 False labor before 37 completed weeks of gestation, third trimester (principal); O26.893 Other specified pregnancy related conditions, third trimester; M32.9 Systemic lupus erythematosus, unspecified; Z3A.31 31 weeks gestation of pregnancy
CPT/HCPCS: 59025; 76815; G0463

== ENCOUNTER → 2023-03-14 | Outpatient (REF) | payer OTHER ==
[~2023-03-14] MED LIST changes: +ACET500P3 PO; +MIRT-84 PO; +PEPC1TAB5 PO; -REME15TA2 PO; +ZYPR5TAB2 PO
== END ==
LOC: M PLALAB 11:50
PROVIDERS: ATTEND Obstetrics & Gynecology
DX: Z34.93 Encounter for supervision of normal pregnancy, unspecified, third trimester (principal)

== ENCOUNTER 2023-03-25 17:42 | Outpatient (CLI) | payer OTHER ==
[~2023-03-25] VITALS: Ht 170.2 cm; Wt 114.6 kg
[~2023-03-25 17:42] MED LIST changes: +ASPI81CH33 PO; +CEPH500C; +RISP1SS PO
[2023-03-25 17:59] VITALS: BP 136/91
[2023-03-25 18:20] VITALS: BP 131/79
[2023-03-25 18:35] VITALS: BP 125/84
[2023-03-25] MEDS ORDERED: diphenhydrAMINE 50MG/ML VIAL IV ONE (18:45)
[2023-03-25] MEDS ORDERED: METOCLOPRAMIDE 10MG TAB PO ONE (18:45)
[2023-03-25 19:03] LABS: HEMATOCRIT 38.7 % (36.0-47.0); HEMOGLOBIN 13.2 g/dl (12.0-15.5); MEAN CORPUSCULAR HEMOGLOBIN 29.4 pg (27.0-33.0); MEAN CORPUSCULAR HGB CONC 34.1 g/dl (32.0-36.5); MEAN CORPUSCULAR VOLUME 86.2 fl (80.0-96.0); PLATELET COUNT, AUTOMATED 276 10^3/uL (150-450); RED BLOOD COUNT 4.49 10^6/uL (4.00-5.40); WHITE BLOOD COUNT 12.8 10^3/uL (4.0-10.0)
[2023-03-25 19:05] LABS: LIPASE 30 U/L (12-53); URIC ACID 6.5 MG/DL (3.1-7.8)
[2023-03-25 19:06] LABS: AMYLASE 62 U/L (30-118); LDH LACTATE DEHYDROGENASE 193 U/L (120-246)
[2023-03-25 19:07] LABS: ALBUMIN 2.4 G/DL (3.2-5.2); ALKALINE PHOSPHATASE 230 U/L (46-116); ALT/SGPT 18 U/L (7.0-40); AST/SGOT 17 U/L (<34); BILIRUBIN,TOTAL 0.3 MG/DL (0.3-1.2); BLOOD UREA NITROGEN 6 MG/DL (9-23); CALCIUM LEVEL 8.5 MG/DL (8.5-10.1); CARBON DIOXIDE LEVEL 19 MMOL/L (20-31); CHLORIDE LEVEL 108 MMOL/L (98-107); CREATININE FOR GFR 0.67 MG/DL (0.55-1.30); GLOMERULAR FILTRATION RATE > 60.0 (>60); GLUCOSE, FASTING 95 MG/DL (60-100); POTASSIUM SERUM 3.8 MMOL/L (3.5-5.1); SODIUM LEVEL 140 MMOL/L (136-145); TOTAL PROTEIN 5.4 G/DL (5.7-8.2)
[2023-03-25 19:22] LABS: TOTAL PROTEIN,RANDOM URINE 37.1 MG/DL (0.0-14.0)
[2023-03-25 19:23] LABS: AMPHETAMINES URINE REFLEX NEGATIVE (NEGATIVE); BARBITURATES URINE REFLEX NEGATIVE (NEGATIVE); BENZODIAZEPINES URINE REFLEX NEGATIVE (NEGATIVE); COCAINE METABOLITE URINE REFLE NEGATIVE (NEGATIVE)
[2023-03-25 19:24] LABS: CANNABINOIDS URINE REFLEX NEGATIVE (NEGATIVE); METHADONE URINE REFLEX NEGATIVE (NEGATIVE); OPIATES URINE REFLEX NEGATIVE (NEGATIVE); PHENCYCLIDINE URINE REFLEX NEGATIVE (NEGATIVE)
[2023-03-25 19:39] LABS: CREATININE,RANDOM URINE 301.7 MG/DL
[2023-03-25] MEDS ORDERED: PROMETHAZINE 25MG/ML 1ML VIAL IV ONE (20:25)
[2023-03-25] MEDS ORDERED: MORPHINE 10 MG/ML 1ML VIAL IV ONE (20:25)
[2023-03-25 20:47] VITALS: BP 106/56
[2023-03-25] MEDS ORDERED: FIORICET TAB PO ONE (23:00)
[2023-03-26 00:44] VITALS: BP 117/64
[2023-03-26] MEDS ORDERED: FIORICET TAB PO PRN (01:05)
[2023-03-26] MEDS ORDERED: diphenhydrAMINE 50MG/ML VIAL IV PRN (02:00)
[2023-03-26] MEDS ORDERED: MORPHINE 4 MG/ML 1ML VIAL IV ONE (02:00)
[2023-03-26] MEDS ORDERED: PROMETHAZINE 25MG/ML 1ML VIAL IV PRN (02:00)
[2023-03-26] MEDS ORDERED: METOCLOPRAMIDE 10MG TAB PO PRN (03:00)
[2023-03-26 03:35] VITALS: BP 134/80
== END 2023-03-26 03:44 | disposition home or self-care (01) ==
LOC: M LDO 17:42
PROVIDERS: ATTEND Obstetrics & Gynecology
DX: O99.353 Diseases of the nervous system complicating pregnancy, third trimester (principal); G43.919 Migraine, unspecified, intractable, without status migrainosus; O26.893 Other specified pregnancy related conditions, third trimester; M35.9 Systemic involvement of connective tissue, unspecified; Z3A.37 37 weeks gestation of pregnancy
CPT/HCPCS: 80053; 80307; 82150; 82570; 83615; 83690; 84156; 84550; 85027; 96374; 96375; 96376; J1200; J2550

== ENCOUNTER 2023-03-26 05:34 | Inpatient (IN) | payer OTHER ==
[~2023-03-26] VITALS: Ht 170.2 cm; Wt 114.6 kg
[2023-03-26] VITALS (21 sets, daily range): BP systolic 99–179; BP diastolic 56–90
[2023-03-26] MEDS ORDERED: HOME MED LIST COMPLETE! XX SCH (06:20)
[2023-03-26] MEDS ORDERED: ACETAMINOPHEN 500 MG TAB PO ONE (08:10)
[2023-03-26] MEDS ORDERED: OXYTOCIN DRIP 30 UNITS in IV 1 EA IV PRN (09:55)
[2023-03-26] MEDS ORDERED: LIDOCAINE 1% MDV 20ML VIAL INFIL PRN (09:55)
[2023-03-26] MEDS ORDERED: TRANEXAMIC ACID INJection 1,000 MG in NS 100 ML IV PRN (09:55)
[2023-03-26] MEDS ORDERED: OXYTOCIN INJ 10UNITS/ML 1ML VIAL IM PRN (09:55)
[2023-03-26] MEDS ORDERED: CARBOPROST TROMETHAMINE 250 MCG/ML AMP IM PRN (09:55)
[2023-03-26] MEDS: miSOPROStol 50MCG 1/2 TABLET PO SCH ×2 (11:01→15:21)
[2023-03-26 11:05] LABS: HEMATOCRIT 38.2 % (36.0-47.0); MEAN CORPUSCULAR HEMOGLOBIN 29.4 pg (27.0-33.0); MEAN CORPUSCULAR VOLUME 86.4 fl (80.0-96.0); PLATELET COUNT, AUTOMATED 280 10^3/uL (150-450); RED BLOOD COUNT 4.42 10^6/uL (4.00-5.40); WHITE BLOOD COUNT 15.1 10^3/uL (4.0-10.0)
[2023-03-26 11:24] LABS: URIC ACID 6.8 MG/DL (3.1-7.8)
[2023-03-26 11:26] LABS: LDH LACTATE DEHYDROGENASE 221 U/L (120-246)
[2023-03-26 11:49] LABS: ALT/SGPT 17 U/L (7.0-40); AST/SGOT 17 U/L (<34); BILIRUBIN,TOTAL 0.5 MG/DL (0.3-1.2); CREATININE FOR GFR 0.64 MG/DL (0.55-1.30); GLOMERULAR FILTRATION RATE > 60.0 (>60)
[2023-03-26] MEDS: TRINTELLIX 20 MG PO SCH (12:01)
[2023-03-26] MEDS ORDERED: LOPERAMIDE 2 MG CAPLET PO ONE (16:00)
[2023-03-26] MEDS: FIORICET TAB PO PRN (18:10)
[2023-03-26] MEDS ORDERED: diphenhydrAMINE 50MG/ML VIAL IV PRN (21:20)
[2023-03-26] MEDS ORDERED: ePHEDrine SULFATE 25 MG/5 ML(5MG/ML) SYRINGE IVP PRN (21:20)
[2023-03-26] MEDS ORDERED: NALOXONE INJ 0.4MG/1ML VIAL IV PRN (21:20)
[2023-03-26] MEDS ORDERED: LR 500 ML IV PRN (21:20)
[2023-03-26] MEDS ORDERED: EPIDURAL/PCA KEYS XX PRN (21:20)
[2023-03-26] MEDS ORDERED: ONDANSETRON 4MG 2ML VIAL IV PRN (21:20)
[2023-03-26] MEDS: FENTANYL/ROPIVACAINE/NACL BAG 100 ML EPIDURAL SCH (21:51)
[2023-03-26] MEDS ORDERED: METOCLOPRAMIDE 10MG TAB PO ONE (22:30)
[2023-03-26] MEDS ORDERED: OXYTOCIN DRIP 30 UNITS in IV 1 EA IV SCH (22:30)
[2023-03-26] MEDS: LR 1,000 ML IV SCH (22:42)
[2023-03-27] VITALS (31 sets, daily range): BP systolic 72–148; BP diastolic 36–87; O2SAT 96
[2023-03-27] MEDS: FIORICET TAB PO PRN (02:28)
[2023-03-27] MEDS: FENTANYL/ROPIVACAINE/NACL BAG 100 ML EPIDURAL SCH (05:02)
[2023-03-27] MEDS: LR 1,000 ML IV SCH (06:30)
[2023-03-27] MEDS ORDERED: ACETAMINOPHEN TAB 650MG DOSE (2X325MG) PO PRN (09:35)
[2023-03-27] MEDS ORDERED: RHOGAM 300MCG (1500IU) INJ IM SCH (09:35)
[2023-03-27] MEDS ORDERED: METHYLERGONOVINE MALEATE 0.2 MG TAB PO PRN (09:35)
[2023-03-27] MEDS ORDERED: DIBUCAINE 1% OINTMENT 30GM TOP PRN (09:35)
[2023-03-27] MEDS ORDERED: OXYTOCIN DRIP 30 UNITS in IV 1 EA IV SCH (09:35)
[2023-03-27] MEDS ORDERED: DOCUSATE SODIUM 100MG CAPSULE PO PRN (09:35)
[2023-03-27] MEDS ORDERED: ANUSOL HC CREAM 30GM TOP PRN (09:35)
[2023-03-27] MEDS ORDERED: MOM 30ML SUSPENSION UDC PO PRN (09:35)
[2023-03-27] MEDS ORDERED: IBUPROFEN 600MG TAB PO PRN (09:35)
[2023-03-27] MEDS: TRINTELLIX 20 MG PO SCH (09:53)
[2023-03-27] MEDS: IBUPROFEN 800 MG TAB PO PRN (10:48)
[2023-03-27] MEDS: ACETAMINOPHEN 500 MG TAB PO PRN (19:12)
[2023-03-28] MEDS: IBUPROFEN 800 MG TAB PO PRN (00:17)
[2023-03-28] MEDS: ACETAMINOPHEN 500 MG TAB PO PRN ×2 (05:25→12:33)
[2023-03-28 06:00] VITALS: BP 133/73; O2SAT 99
[2023-03-28] MEDS ORDERED: PRENATAL VITAMINS CHEWABLE TABLET PO SCH (09:00)
[2023-03-28] MEDS: TRINTELLIX 20 MG PO SCH (09:11)
[2023-03-29] MEDS ORDERED: MEASLES,MUMPS,RUBELLA VACCINE INJ (MMR-II) SC.IMMUN ONE (09:00)
== END 2023-03-28 17:47 | disposition home or self-care (01) | DRG 560 ==
LOC: EEVIPCON 05:34 → M LDO 05:34 → M LDI 09:56 → M OBS 03-27 10:26
PROVIDERS: ADMIT Advanced Practice Midwife; ATTEND Obstetrics & Gynecology
PROC: 3E0P7GC Introduction of Other Therapeutic Substance into Female Reproductive, Via Natural or Artificial Opening (ICD-10-PCS; 2023-03-26)
PROC: 10E0XZZ Delivery of Products of Conception, External Approach (ICD-10-PCS; principal; 2023-03-27)
PROC: 10907ZC Drainage of Amniotic Fluid, Therapeutic from Products of Conception, Via Natural or Artificial Opening (ICD-10-PCS; 2023-03-27)
DX: O13.4 Gestational [pregnancy-induced] hypertension without significant proteinuria, complicating childbirth (principal); E66.9 Obesity, unspecified; L93.0 Discoid lupus erythematosus; O99.344 Other mental disorders complicating childbirth; Z3A.37 37 weeks gestation of pregnancy; O99.214 Obesity complicating childbirth; F60.3 Borderline personality disorder; F41.1 Generalized anxiety disorder; M79.7 Fibromyalgia; O99.72 Diseases of the skin and subcutaneous tissue complicating childbirth; O26.893 Other specified pregnancy related conditions, third trimester; Z79.82 Long term (current) use of aspirin; Z79.899 Other long term (current) drug therapy; Z37.0 Single live birth

== ENCOUNTER 2023-04-04 22:46 | Observation (INO) | payer MEDICAID, OTHER ==
[~2023-04-04] VITALS: Ht 170.2 cm; Wt 113.2 kg
[2023-04-05] VITALS (19 sets, daily range): BP systolic 115–193; BP diastolic 66–92; TEMP 97.3–99.9; O2SAT 97–100
[2023-04-05 01:25] LABS: BASO # 0.1 10^3/uL (0.0-0.2); BASO % 0.9 % (0.0-1.0); EOS # 0.2 10^3/uL (0.0-0.5); EOS % 2.6 % (0.0-3.0); HEMATOCRIT 38.2 % (36.0-47.0); HEMOGLOBIN 12.5 g/dl (12.0-15.5); LYMPH # 2.8 10^3/uL (1.5-5.0); LYMPH % 31.9 % (24.0-44.0); MEAN CORPUSCULAR HEMOGLOBIN 29.1 pg (27.0-33.0); MEAN CORPUSCULAR HGB CONC 32.7 g/dl (32.0-36.5); MONO # 0.4 10^3/uL (0.0-0.8); NEUTROPHILS # 5.1 10^3/uL (1.5-8.5); NEUTROPHILS % 58.7 % (36.0-66.0); PLATELET COUNT, AUTOMATED 313 10^3/uL (150-450); RED BLOOD COUNT 4.29 10^6/uL (4.00-5.40); WHITE BLOOD COUNT 8.6 10^3/uL (4.0-10.0)
[2023-04-05 01:47] LABS: CK-MB VALUE MASS < 1.0 NG/ML (<3.6)
[2023-04-05 01:49] LABS: BLOOD UREA NITROGEN 8 MG/DL (9-23); CALCIUM LEVEL 8.2 MG/DL (8.5-10.1); CARBON DIOXIDE LEVEL 22 MMOL/L (20-31); CHLORIDE LEVEL 111 MMOL/L (98-107); CPK CREATINE PHOSPHOKINASE 95 U/L (34-145); GLOMERULAR FILTRATION RATE > 60.0 (>60); GLUCOSE, FASTING 78 MG/DL (60-100); MB/CK RELATIVE INDEX 1.05 (< OR =4); POTASSIUM SERUM 3.6 MMOL/L (3.5-5.1); SODIUM LEVEL 144 MMOL/L (136-145)
[2023-04-05 02:04] LABS: HCG, SERUM QUALITATIVE POSITIVE (NEGATIVE)
[2023-04-05] MEDS ORDERED: KETOROLAC 30 MG/ML 1ML VIAL IV ONE (03:55)
[2023-04-05] MEDS ORDERED: ISOVUE-370 76% 100ML VIAL As Ordered ONE (03:58)
[2023-04-05 04:52] LABS: CK-MB VALUE MASS < 1.0 NG/ML (<3.6)
[2023-04-05 04:53] LABS: CPK CREATINE PHOSPHOKINASE 87 U/L (34-145); MB/CK RELATIVE INDEX 1.14 (< OR =4)
[2023-04-05 04:54] LABS: ALBUMIN 2.8 G/DL (3.2-5.2); BILIRUBIN,DIRECT 0.1 MG/DL (<0.4); BILIRUBIN,TOTAL 0.4 MG/DL (0.3-1.2); TOTAL PROTEIN 5.8 G/DL (5.7-8.2)
[2023-04-05] MEDS ORDERED: NIFEdipine 10 MG CAP PO STA (05:49)
[2023-04-05 07:04] LABS: THYROID STIMULATING HORMONE 1.888 uIU/ML (0.55-4.78)
[2023-04-05] MEDS ORDERED: MED REC IN PROGRESS XX SCH (07:45)
[2023-04-05] MEDS ORDERED: CALCIUM GLUCONATE 1,000 MG in D5W MINI-BAG PLUS 100 ML IV PRN (07:55)
[2023-04-05] MEDS ORDERED: hydrALAZINE 20MG/ML 1ML VIAL IV ONE (07:55)
[2023-04-05] MEDS ORDERED: BRIN10TA4 PO (08:12)
[2023-04-05] MEDS ORDERED: CLON-442 PO (08:12)
[2023-04-05] MEDS ORDERED: HOME MED LIST COMPLETE! XX SCH (08:15)
[2023-04-05] MEDS: hydrALAZINE 20MG/ML 1ML VIAL IV SCH ×2 (08:15→08:35)
[2023-04-05] MEDS ORDERED: MAG Sulf (L&D) 4 GM/100 ML 4 GM in IV 1 EA IV ONE (09:00)
[2023-04-05 09:05] LABS: URIC ACID 8.2 MG/DL (3.1-7.8)
[2023-04-05 09:07] LABS: LDH LACTATE DEHYDROGENASE 281 U/L (120-246)
[2023-04-05 09:08] LABS: ALT/SGPT 23 U/L (7.0-40); AST/SGOT 14 U/L (<34); BILIRUBIN,TOTAL 0.5 MG/DL (0.3-1.2); CREATININE FOR GFR 0.84 MG/DL (0.55-1.30); GLOMERULAR FILTRATION RATE > 60.0 (>60)
[2023-04-05] MEDS: MAG Sulf (OBGYN) 20GM/500ML 20,000 MG in IV 1 EA IV SCH ×2 (09:55→18:02)
[2023-04-05 10:20] LABS: CREATININE,RANDOM URINE 64.3 MG/DL
[2023-04-05] MEDS: LR 1,000 ML IV SCH (12:35)
[2023-04-05] MEDS: FIORICET TAB PO PRN (13:20)
[2023-04-05] MEDS: PRENATAL VITAMINS CHEWABLE TABLET PO SCH (13:21)
[2023-04-05] MEDS ORDERED: METOCLOPRAMIDE INJ 10MG/2ML VIAL IV ONE (16:10)
[2023-04-05] MEDS ORDERED: PROMETHAZINE 25MG/ML 1ML VIAL IV ONE (22:55)
[2023-04-06] VITALS (19 sets, daily range): BP systolic 124–174; BP diastolic 62–95; TEMP 97–99.6; O2SAT 95–100
[2023-04-06] MEDS ORDERED: MORPHINE 4 MG/ML 1ML VIAL IV ONE (02:00)
[2023-04-06] MEDS: MAG Sulf (OBGYN) 20GM/500ML 20,000 MG in IV 1 EA IV SCH (04:30)
[2023-04-06] MEDS: LR 1,000 ML IV SCH (04:31)
[2023-04-06] MEDS: NIFEdipine 30MG XL TAB PO SCH (08:14)
[2023-04-06] MEDS: PRENATAL VITAMINS CHEWABLE TABLET PO SCH (08:14)
[2023-04-06] MEDS: TRINTELLIX 20 MG PO SCH (08:14)
[2023-04-06] MEDS: FIORICET TAB PO PRN (09:03)
[2023-04-06] MEDS ORDERED: LABETALOL 200 MG TAB PO ONE (13:55)
[2023-04-06] MEDS ORDERED: MORPHINE 10 MG/ML 1ML VIAL IV ONE (15:50)
[2023-04-06] MEDS ORDERED: PERCOCET 5MG/325MG TAB PO ONE (19:45)
[2023-04-06] MEDS ORDERED: diphenhydrAMINE 50MG CAP PO PRN (19:45)
[2023-04-06] MEDS: LABETALOL 200 MG TAB PO SCH (21:45)
[2023-04-07] VITALS (7 sets, daily range): BP systolic 143–153; BP diastolic 74–92; TEMP 97.3–99.3; O2SAT 96–98
[2023-04-07] MEDS: FIORICET TAB PO PRN (02:12)
[2023-04-07] MEDS: PRENATAL VITAMINS CHEWABLE TABLET PO SCH (09:32)
[2023-04-07] MEDS: LABETALOL 200 MG TAB PO SCH ×2 (09:32→21:20)
[2023-04-07] MEDS: TRINTELLIX 20 MG PO SCH (09:33)
[2023-04-07] MEDS: NIFEdipine 30MG XL TAB PO SCH (09:33)
[2023-04-07] MEDS: PERCOCET 5MG/325MG TAB PO PRN ×2 (14:43→21:20)
[2023-04-08 02:00] VITALS: BP 185/93; TEMP 97.5; O2SAT 98
[2023-04-08] MEDS: PERCOCET 5MG/325MG TAB PO PRN ×2 (02:19→06:21)
[2023-04-08 02:30] VITALS: BP 152/86
[2023-04-08 06:00] VITALS: BP 136/65; TEMP 98.8; O2SAT 98
[2023-04-08 06:21] VITALS: O2SAT 98
[2023-04-08] MEDS ORDERED: NIFE1TAB52 PO (08:07)
[2023-04-08] MEDS ORDERED: PERCOCET PO (08:07)
[2023-04-08] MEDS ORDERED: LABE20TAB PO (08:07)
[2023-04-08] MEDS: PRENATAL VITAMINS CHEWABLE TABLET PO SCH (08:56)
[2023-04-08 08:57] VITALS: BP 138/82
[2023-04-08] MEDS: LABETALOL 200 MG TAB PO SCH (08:57)
[2023-04-08] MEDS: TRINTELLIX 20 MG PO SCH (08:57)
[2023-04-08] MEDS: NIFEdipine 30MG XL TAB PO SCH (08:57)
== END 2023-04-08 09:35 | disposition home or self-care (01) ==
LOC: M ED 22:46 → M ED INP 22:47 → M LDI 04-05 08:31 → M ED 04-05 08:32 → M OBS 04-05 14:29
PROVIDERS: ADMIT Obstetrics & Gynecology; ATTEND Obstetrics & Gynecology
DX: O14.15 Severe pre-eclampsia, complicating the puerperium (principal); R51.9 Headache, unspecified; T47.4X5A Adverse effect of other laxatives, initial encounter; M32.9 Systemic lupus erythematosus, unspecified; F60.3 Borderline personality disorder; F41.1 Generalized anxiety disorder; M79.7 Fibromyalgia; E66.9 Obesity, unspecified; T76.11XA Adult physical abuse, suspected, initial encounter; Z88.5 Allergy status to narcotic agent; Z79.899 Other long term (current) drug therapy
CPT/HCPCS: 71045; 71275; 80048; 80076; 82247; 82550; 82553; 82565; 82570; 83615; 83735; 83880; 84156; 84443; 84450; 84460; 84550; 84703; 85025; 87486; 87581; 87633; 87798; 93005; 96365; 96366; 96375; 99285; J0360; J1885; J2550; J2765; J3475; Q9967

== ENCOUNTER → 2023-07-25 | Outpatient (REF) ==
[~2023-07-25] MED LIST changes: +BRIN10TA4 PO; +CLON-442 PO; +LABE20TAB PO; +NIFE1TAB52 PO; -OXYB5TAB10; +OXYB5TAB11; +PERCOCET PO; -PREG50CA2; +PREG50CA3
== END ==
LOC: M EMP 08:21
PROVIDERS: ATTEND Family Medicine
DX: Z11.52 Encounter for screening for COVID-19 (principal)

== ENCOUNTER 2023-11-01 20:01 | Emergency (ER) | payer MEDICAID, OTHER ==
[~2023-11-01] VITALS: Ht 170.2 cm; Wt 117.2 kg
[~2023-11-01 20:01] MED LIST changes: -HYDR-3910 PO; +HYDR25TA87 PO; -KLON0.5T PO; +KLON0.5T8 PO; -LEFL1TAB4 PO; +LEFL20TA15 PO; -OXYB5TAB11; +OXYB5TAB14
[2023-11-01 20:38] LABS: BASO # 0.1 10^3/uL (0.0-0.2); BASO % 0.6 % (0.0-1.0); EOS # 0.2 10^3/uL (0.0-0.5); EOS % 2.2 % (0.0-3.0); HEMATOCRIT 40.6 % (36.0-47.0); HEMOGLOBIN 13.6 g/dl (12.0-15.5); LYMPH # 3.8 10^3/uL (1.5-5.0); LYMPH % 35.7 % (24.0-44.0); MEAN CORPUSCULAR HEMOGLOBIN 29.3 pg (27.0-33.0); MEAN CORPUSCULAR HGB CONC 33.5 g/dl (32.0-36.5); MEAN CORPUSCULAR VOLUME 87.5 fl (80.0-96.0); MONO # 0.5 10^3/uL (0.0-0.8); MONO % 4.8 % (2.0-8.0); NEUTROPHILS % 56.5 % (36.0-66.0); PLATELET COUNT, AUTOMATED 314 10^3/uL (150-450); RED BLOOD COUNT 4.64 10^6/uL (4.00-5.40); WHITE BLOOD COUNT 10.6 10^3/uL (4.0-10.0)
[2023-11-01 20:56] LABS: ERYTHROCYTE SEDIMENTATION RATE 7 mm/hr (0-20)
[2023-11-01 21:07] LABS: BLOOD UREA NITROGEN 11 MG/DL (9-23); CALCIUM LEVEL 8.7 MG/DL (8.5-10.1); CARBON DIOXIDE LEVEL 27 MMOL/L (20-31); CHLORIDE LEVEL 107 MMOL/L (98-107); CREATININE FOR GFR 0.96 MG/DL (0.55-1.30); GLOMERULAR FILTRATION RATE > 60.0 (>60); GLUCOSE, FASTING 106 MG/DL (60-100); HCG, SERUM QUALITATIVE NEGATIVE (NEGATIVE); POTASSIUM SERUM 3.3 MMOL/L (3.5-5.1); SODIUM LEVEL 141 MMOL/L (136-145)
[2023-11-01] MEDS ORDERED: NAPR-837 PO (22:37)
[2023-11-01] MEDS: KETOROLAC 60MG 2ML VIAL IM ONE (22:43)
[2023-11-01 22:58] VITALS: BP 164/87; TEMP 98.3; O2SAT 98
[2023-11-05] MEDS ORDERED: KETOROLAC 60MG 2ML VIAL IM ONE (11:25)
== END 2023-11-01 22:59 | disposition home or self-care (01) ==
LOC: M ED 20:01
DX: I80.02 Phlebitis and thrombophlebitis of superficial vessels of left lower extremity (principal); M79.7 Fibromyalgia; M06.9 Rheumatoid arthritis, unspecified; Z88.5 Allergy status to narcotic agent; Z79.899 Other long term (current) drug therapy
CPT/HCPCS: 80048; 84703; 85025; 85652; 86140; 93971; 96372; 99283; J1885

== ENCOUNTER 2023-11-05 08:41 | Emergency (ER) | payer MEDICAID, OTHER ==
[~2023-11-05] VITALS: Ht 170.2 cm; Wt 113.5 kg
[~2023-11-05 08:41] MED LIST changes: +NAPR-837 PO
[2023-11-05] MEDS ORDERED: VYVA30CA4 (08:49)
[2023-11-05 11:18] LABS: BASO # 0.1 10^3/uL (0.0-0.2); BASO % 0.8 % (0.0-1.0); EOS # 0.2 10^3/uL (0.0-0.5); EOS % 2.3 % (0.0-3.0); HEMATOCRIT 42.4 % (36.0-47.0); HEMOGLOBIN 13.7 g/dl (12.0-15.5); LYMPH # 2.4 10^3/uL (1.5-5.0); LYMPH % 24.8 % (24.0-44.0); MEAN CORPUSCULAR HEMOGLOBIN 29.1 pg (27.0-33.0); MEAN CORPUSCULAR HGB CONC 32.3 g/dl (32.0-36.5); MONO # 0.6 10^3/uL (0.0-0.8); NEUTROPHILS # 6.3 10^3/uL (1.5-8.5); NEUTROPHILS % 65.9 % (36.0-66.0); PLATELET COUNT, AUTOMATED 318 10^3/uL (150-450); RED BLOOD COUNT 4.71 10^6/uL (4.00-5.40); WHITE BLOOD COUNT 9.6 10^3/uL (4.0-10.0)
[2023-11-05 11:24] LABS: ERYTHROCYTE SEDIMENTATION RATE 11 mm/hr (0-20)
[2023-11-05] MEDS ORDERED: KETOROLAC 60MG 2ML VIAL IM ONE ×2 (11:35→11:55)
[2023-11-05 11:39] LABS: ALBUMIN 3.4 G/DL (3.2-5.2); ALKALINE PHOSPHATASE 79 U/L (46-116); ALT/SGPT 15 U/L (7.0-40); AST/SGOT 11 U/L (<34); BILIRUBIN,DIRECT 0.2 MG/DL (<0.4); BILIRUBIN,TOTAL 0.5 MG/DL (0.3-1.2); BLOOD UREA NITROGEN 11 MG/DL (9-23); CALCIUM LEVEL 8.7 MG/DL (8.5-10.1); CARBON DIOXIDE LEVEL 28 MMOL/L (20-31); CHLORIDE LEVEL 108 MMOL/L (98-107); CREATININE FOR GFR 0.91 MG/DL (0.55-1.30); GLOMERULAR FILTRATION RATE > 60.0 (>60); GLUCOSE, FASTING 78 MG/DL (60-100); POTASSIUM SERUM 4.6 MMOL/L (3.5-5.1); SODIUM LEVEL 140 MMOL/L (136-145); TOTAL PROTEIN 6.3 G/DL (5.7-8.2)
[2023-11-05 11:51] LABS: PROCALCITONIN <0.04 ng/ml
[2023-11-05 11:58] LABS: HCG, SERUM QUALITATIVE NEGATIVE (NEGATIVE)
[2023-11-05] MEDS: KETOROLAC 60MG 2ML VIAL IM ONE (13:35)
[2023-11-05 13:59] VITALS: BP 143/83; TEMP 97.7; O2SAT 99
== END 2023-11-05 14:01 | disposition home or self-care (01) ==
LOC: M ED 08:41
DX: I80.8 Phlebitis and thrombophlebitis of other sites (principal); I10 Essential (primary) hypertension; M32.9 Systemic lupus erythematosus, unspecified; M79.7 Fibromyalgia; M06.9 Rheumatoid arthritis, unspecified; Z88.8 Allergy status to other drugs, medicaments and biological substances; Z79.899 Other long term (current) drug therapy
CPT/HCPCS: 80048; 80076; 83605; 84145; 84703; 85025; 85652; 86140; 93971; 96374; 99284; J1885

== ENCOUNTER → 2023-12-07 | Outpatient (REF) ==
[~2023-12-07] MED LIST changes: +IBUP-1022 PO; +VYVA30CA4
== END ==
LOC: M EMP 08:43
PROVIDERS: ATTEND Family Medicine
DX: Z11.52 Encounter for screening for COVID-19 (principal)

== ENCOUNTER 2023-12-08 19:59 | Emergency (ER) | payer OTHER ==
[~2023-12-08] VITALS: Ht 170.2 cm; Wt 113.6 kg
[~2023-12-08 19:59] MED LIST changes: -IBUP-1022 PO
[2023-12-08 20:00] VITALS: BP 136/99; TEMP 97.7; O2SAT 99
[2023-12-08] MEDS ORDERED: IBUP-1022 PO (21:51)
[2023-12-08] MEDS: IBUPROFEN 600MG TAB PO ONE (22:17)
== END 2023-12-08 22:29 | disposition home or self-care (01) ==
LOC: M ED 19:59
DX: S80.01XA Contusion of right knee, initial encounter (principal); S93.501A Unspecified sprain of right great toe, initial encounter; Y92.9 Unspecified place or not applicable; Y93.9 Activity, unspecified; Y99.0 Civilian activity done for income or pay; W19.XXXA Unspecified fall, initial encounter; F17.290 Nicotine dependence, other tobacco product, uncomplicated; Z88.8 Allergy status to other drugs, medicaments and biological substances; Z79.1 Long term (current) use of non-steroidal anti-inflammatories (NSAID); Z79.899 Other long term (current) drug therapy

== ENCOUNTER → 2024-05-19 | Outpatient (REF) ==
[~2024-05-19] MED LIST changes: +FLUO-290; -FLUO10CA18; +IBUP-1022 PO; +ONDA-282; +ONDA-282 PO; -ONDA4TAB6; -ONDA4TAB6 PO
== END ==
LOC: M EMP 09:03
PROVIDERS: ATTEND Family Medicine
DX: Z11.52 Encounter for screening for COVID-19 (principal)

== ENCOUNTER → 2024-05-19 | Outpatient (REF) | LOC: M EMP 09:01 | PROVIDERS: ATTEND Family Medicine | DX: Z11.52 Encounter for screening for COVID-19 (principal) ==

== ENCOUNTER → 2024-10-13 | Outpatient (CLI) | payer OTHER ==
[~2024-10-13] MED LIST changes: -CYCL5TAB PO; +CYCL5TAB4 PO
[2024-10-13 17:43] LABS: HEMATOCRIT 45.2 % (36.0-47.0); HEMOGLOBIN 14.7 g/dl (12.0-15.5); MEAN CORPUSCULAR HEMOGLOBIN 29.2 pg (27.0-33.0); MEAN CORPUSCULAR HGB CONC 32.5 g/dl (32.0-36.5); MEAN CORPUSCULAR VOLUME 89.9 fl (80.0-96.0); PLATELET COUNT, AUTOMATED 388 10^3/uL (150-450); RED BLOOD COUNT 5.03 10^6/uL (4.00-5.40); WHITE BLOOD COUNT 13.9 10^3/uL (4.0-10.0)
[2024-10-13 18:14] LABS: ALBUMIN 3.7 G/DL (3.2-5.2); ALKALINE PHOSPHATASE 79 U/L (35-104); ALT/SGPT 17 U/L (7.0-40); AST/SGOT 10 U/L (<34); BILIRUBIN,TOTAL 0.3 MG/DL (0.3-1.2); BLOOD UREA NITROGEN 7 MG/DL (9-23); CALCIUM LEVEL 8.9 MG/DL (8.5-10.1); CARBON DIOXIDE LEVEL 27 MMOL/L (20-31); CHLORIDE LEVEL 107 MMOL/L (98-107); CREATININE FOR GFR 0.86 MG/DL (0.55-1.30); GLOMERULAR FILTRATION RATE > 60.0 (>60); GLUCOSE, FASTING 71 MG/DL (60-100); POTASSIUM SERUM 3.9 MMOL/L (3.5-5.1); SODIUM LEVEL 144 MMOL/L (136-145)
[2024-10-13 18:16] LABS: FREE T4 1.23 NG/DL (0.89-1.76); THYROID STIMULATING HORMONE 2.066 uIU/ML (0.55-4.78)
== END ==
LOC: M PLALAB 16:23
PROVIDERS: ATTEND Nurse Practitioner Adult Health
DX: M32.9 Systemic lupus erythematosus, unspecified (principal); Z68.41 Body mass index [BMI] 40.0-44.9, adult

== ENCOUNTER 2024-11-28 18:11 | Emergency (ER) | payer MEDICAID, OTHER ==
[~2024-11-28] VITALS: Ht 170.2 cm; Wt 121.6 kg
[2024-11-28] MEDS ORDERED: LITH150C (18:18)
[2024-11-28] MEDS ORDERED: AMPH1CAP4 (18:18)
[2024-11-28] MEDS ORDERED: AMIT50TA (18:18)
[2024-11-28] MEDS ORDERED: ATIV1TAB10 (18:18)
[2024-11-28] MEDS: ACETAMINOPHEN 325 MG TAB PO ONE (20:29)
[2024-11-28 21:33] VITALS: BP 158/92; TEMP 97.8; O2SAT 100
== END 2024-11-28 23:19 | disposition home or self-care (01) ==
LOC: M ED 18:11
DX: S50.01XA Contusion of right elbow, initial encounter (principal); Y92.019 Unspecified place in single-family (private) house as the place of occurrence of the external cause; Y93.9 Activity, unspecified; Y99.9 Unspecified external cause status; W10.8XXA Fall (on) (from) other stairs and steps, initial encounter; Z88.5 Allergy status to narcotic agent; Z79.899 Other long term (current) drug therapy

== ENCOUNTER 2025-06-26 11:21 | Observation (INO) | payer MEDICAID, OTHER ==
[~2025-06-26] VITALS: Ht 170.2 cm; Wt 117.9 kg
[~2025-06-26 11:21] MED LIST changes: +AMIT50TA PO; +AMPH1CAP4 PO; +ATIV1TAB10; -IBUP-1022 PO; +IBUP600T42 PO; +LAMO-18; -LAMO25TA4; +LIDO1ADH93 TOP; -LIDO5DIS41 TOP; +LITH150C PO; -ZOLP5TAB; +ZOLP5TAB9
[2025-06-26] MEDS ORDERED: ADDE1TAB14 PO (11:28)
[2025-06-26] MEDS ORDERED: LORA2TAB14 PO ×2 (11:28→20:22)
[2025-06-26] MEDS ORDERED: ACET-683 PO (11:28)
[2025-06-26] MEDS ORDERED: REXU1TAB3 PO (11:28)
[2025-06-26 11:51] LABS: BASO # 0.1 10^3/uL (0.0-0.2); BASO % 0.3 % (0.0-1.0); EOS # 0.1 10^3/uL (0.0-0.5); EOS % 0.8 % (0.0-3.0); LYMPH # 3.9 10^3/uL (1.5-5.0); LYMPH % 25.7 % (24.0-44.0); MONO # 0.9 10^3/uL (0.0-0.8); MONO % 5.7 % (2.0-8.0); NEUTROPHILS # 10.1 10^3/uL (1.5-8.5); NEUTROPHILS % 67.3 % (36.0-66.0); PLATELET COUNT, AUTOMATED 342 10^3/uL (150-450)
[2025-06-26 12:25] LABS: ALT/SGPT 24 U/L (7.0-40); AST/SGOT 21 U/L (<34); CALCIUM LEVEL 9.2 MG/DL (8.5-10.1); CARBON DIOXIDE LEVEL 26 MMOL/L (20-31); CHLORIDE LEVEL 107 MMOL/L (98-107); CREATININE FOR GFR 0.95 MG/DL (0.55-1.30); GLOMERULAR FILTRATION RATE 81.6 (>60); POTASSIUM SERUM 4.0 MMOL/L (3.5-5.1); SODIUM LEVEL 143 MMOL/L (136-145)
[2025-06-26 12:32] LABS: HCG, SERUM QUALITATIVE NEGATIVE (NEGATIVE)
[2025-06-26] MEDS: PIPERACILLIN/TAZOBACTAM SOD 3.375 GM in DEXTROSE 5% (D5W) ADV/MINI-BAG 50 ML IV ONE (15:02)
[2025-06-26] MEDS: MORPHINE 4 MG/ML 1 ML VIAL IV ONE (15:02)
[2025-06-26] MEDS: NS (Normal Saline) 0.9% 1,000 ML IV ONE (15:02)
[2025-06-26] MEDS: ONDANSETRON 4MG/2ML VIAL IV ONE (15:03)
[2025-06-26] MEDS ORDERED: ISOVUE-370 76% 100 ML VIAL As Ordered ONE (15:24)
[2025-06-26 15:35] LABS: KETONE, URINE AUTO RFX NEGATIVE (NEGATIVE); LEUKOCYTE ESTERASE UR AUTO RFX NEGATIVE (NEGATIVE); MUCUS, URINE RFX SMALL (NEGATIVE); NITRITE, URINE AUTO RFX NEGATIVE (NEGATIVE); RBC, URINE AUTO RFX 4 /HPF (0-3); SQUAM EPITHELIAL CELL UR AURFX 1 /HPF (0-6); WBC, URINE AUTO RFX 1 /HPF (0-3)
[2025-06-26] MEDS: HYDROMORPHONE HCL 0.5 MG/0.5 ML SYRINGE IV PRN (16:23)
[2025-06-26] MEDS: MAGNESIUM CITRATE 300 ML BTL PO ONE (18:11)
[2025-06-26 18:37] LABS: HIV 1&2 SCREEN NEGATIVE (NEGATIVE)
[2025-06-26 19:13] LABS: Trichomonas vaginalis (AMP) NOT DETECTED (NEGATIVE)
[2025-06-26 19:37] LABS: GC DNA AMPLIFICATION NEGATIVE (NEGATIVE)
[2025-06-26] MEDS ORDERED: MED REC COMMENT (20:31)
[2025-06-26] MEDS ORDERED: HOME MED LIST COMPLETE! XX SCH (20:35)
[2025-06-26] MEDS: D5W/0.45% SODIUM CHLORIDE 1,000 ML IV SCH (20:41)
[2025-06-26] MEDS: BISACODYL 10 MG SUPP PR ONE (20:42)
[2025-06-26] MEDS: PANTOPRAZOLE 40MG VIAL IV SCH (20:43)
[2025-06-26] MEDS: PERCOCET 5MG/325MG TAB PO PRN (20:43)
[2025-06-26] MEDS: CYCLOBENZAPRINE 5 MG TABLET PO ONE (20:43)
[2025-06-26] MEDS: ONDANSETRON 4MG/2ML VIAL IV PRN (20:44)
[2025-06-26 20:54] LABS: C REACTIVE PROTEIN QUANTITATIV 0.61 MG/DL (<1.0)
[2025-06-26 21:30] VITALS: BP 133/64; TEMP 98; O2SAT 100
[2025-06-27 06:00] VITALS: BP 117/63; TEMP 97.6; O2SAT 100
[2025-06-27] MEDS: MORPHINE 4 MG/ML 1 ML VIAL IV PRN (06:33)
[2025-06-27 08:00] VITALS: BP 137/75; TEMP 98.7; O2SAT 100
[2025-06-27 08:21] LABS: PLATELET COUNT, AUTOMATED 289 10^3/uL (150-450)
[2025-06-27 08:56] LABS: CALCIUM LEVEL 8.2 MG/DL (8.5-10.1); CARBON DIOXIDE LEVEL 26 MMOL/L (20-31); CHLORIDE LEVEL 108 MMOL/L (98-107); CREATININE FOR GFR 0.83 MG/DL (0.55-1.30); GLOMERULAR FILTRATION RATE > 90.0 (>60); POTASSIUM SERUM 4.2 MMOL/L (3.5-5.1); SODIUM LEVEL 142 MMOL/L (136-145)
[2025-06-27] MEDS: MIRALAX *UNIT DOSE* 17 GM PACKET PO SCH (09:00)
[2025-06-27] MEDS: ACETAMINOPHEN 500 MG TAB PO PRN (10:50)
[2025-06-27] MEDS: ENOXAPARIN 40 MG/0.4 ML SYRINGE (J1650 PER 10MG) SC SCH (10:51)
[2025-06-27] MEDS ORDERED: SENN8.6T58 PO (13:37)
[2025-06-27] MEDS ORDERED: MIRA33506 PO (13:37)
[2025-06-27] MEDS ORDERED: ONDA-282 PO (13:37)
== END 2025-06-27 13:52 | disposition home or self-care (01) ==
LOC: M ED 11:21 → M ED INP 11:22 → M PED 21:26
PROVIDERS: ADMIT Internal Medicine; ATTEND Internal Medicine
DX: R10.31 Right lower quadrant pain (principal); K59.00 Constipation, unspecified; R11.0 Nausea; D72.828 Other elevated white blood cell count; F33.9 Major depressive disorder, recurrent, unspecified; F41.9 Anxiety disorder, unspecified; F60.3 Borderline personality disorder; M32.9 Systemic lupus erythematosus, unspecified; M79.7 Fibromyalgia; K21.9 Gastro-esophageal reflux disease without esophagitis; Z90.49 Acquired absence of other specified parts of digestive tract; Z88.5 Allergy status to narcotic agent
CPT/HCPCS: 36415; 74177; 80048; 80053; 81001; 83690; 84145; 84703; 85025; 85027; 86140; 86780; 87040; 87389; 87661; 87810; 87850; 96361; 96365; 96372; 96375; 96376; 99285; J1171; J1650; J2405; J2470; J2543; Q9967